=== PATIENT | female | born 1955 | race Caucasian/White ===

== ENCOUNTER → 2017-08-15 14:58 | Outpatient (CLI) | payer MEDICARE, MEDICAID ==
[~2017-08-15 14:58] MED LIST: CARAFATE1 G PO; CATAPRES0.1 MG PO; FLUTICASONE PRO16 GM NASAL; METOLAZONE2.5 MG PO; OXYCODONE HCL10 MG PO; PEPCID AC20 MG PO; ROCALTROL0.25 MCG PO; TENORMIN50 MG PO; ULTRAM50 MG PO
[2017-10-17 08:12] VITALS: BMI 27.2
== END | disposition home or self-care (01) ==
LOC: D.CT 07-30 14:30
DX: M51.26 Other intervertebral disc displacement, lumbar region (principal)

== ENCOUNTER 2017-10-17 06:42 | Day surgery (SDC) | payer MEDICARE, MEDICAID ==
[~2017-10-17] VITALS: Ht 154.9 cm; Wt 65.3 kg
[2017-10-17 07:23] LABS: BASOPHILS 0.6 % (0-2); EOSINOPHILS 1.9 % (0-7); HEMATOCRIT 32.7 % (36.0-48.0); HEMOGLOBIN 10.7 g/dL (12-16); IMMATURE GRANULOCYTES 0.2 % (0-5); LYMPHOCYTES 21.3 % (15-50); MCH 28.2 pg (26.0-34.0); MCHC 32.7 g/dL (31.0-37.0); MCV 86.1 fL (80.0-100.0); MEAN PLATELET VOLUME 9.1 fL (7.4-10.4); PLATELET COUNT 316 10x3/uL (130-400); RDW 16.3 % (11.5-14.5); WBC 10.2 10x3/uL (4.8-10.8)
[2017-10-17 07:27] LABS: ANION GAP 18.3 mmol/L (8-16); CALCIUM 7.2 mg/dL (8.5-10.1); CARBON DIOXIDE 21.5 mmol/L (21.0-32.0); CREATININE - SERUM 5.2 mg/dL (0.6-1.3); POTASSIUM - SERUM 3.8 mmol/L (3.5-5.1)
[2017-10-17 07:30] LABS: APTT 28.1 SECONDS (22.8-39.4); INR 1.03 (0.85-1.17); PROTIME 13.1 SECONDS (11.6-15.0)
[2017-10-17] MEDS ORDERED: OXYCODONE HCL10 MG PO (07:52)
[2017-10-17] MEDS ORDERED: ROCALTROL0.25 MCG PO (07:53)
[2017-10-17] MEDS ORDERED: CARAFATE1 G PO (07:53)
[2017-10-17] MEDS ORDERED: CATAPRES0.1 MG PO (07:54)
[2017-10-17] MEDS ORDERED: FLUTICASONE PRO16 GM NASAL (07:55)
[2017-10-17] MEDS ORDERED: TENORMIN50 MG PO (07:55)
[2017-10-17] MEDS ORDERED: METOLAZONE2.5 MG PO (07:56)
[2017-10-17] MEDS ORDERED: PEPCID AC20 MG PO (07:57)
[2017-10-17 08:12] VITALS: Ht 154.9 cm; Wt 65.3 kg
[2017-10-17] MEDS ORDERED: ULTRAM50 MG PO (12:41)
--- NOTE | 2017-10-17 14:22 | NUR ---
1400--IV DC'D, PT UP TO DRESS AT THIS TIME. DARIA KELLY 1415--DISCHARGE INSTRUCTIONS GIVEN, PT VERBALIZES UNDERSTANDING. PT OFF UNIT VIA WC. DARIA KELLY
--- NOTE | 2017-10-18 15:06 | OP ---
PATIENT NAME: STELLA HATHAWAY MEDICAL RECORD: [id number] :51 LOCATION:D.OPS ADMISSION DATE: SURGEON: KELIN SUN MD DATE OF OPERATION: 10/17/2017 REFERRING PHYSICIAN: Albaro Contreras MD PRIMARY CARE PHYSICIAN: Nirali Leonardo MD PREOPERATIVE DIAGNOSIS: Chronic kidney disease IV. POSTOPERATIVE DIAGNOSIS: Chronic kidney disease IV. OPERATION PERFORMED: Creation of a left wrist Reji-type radiocephalic AV fistula. SURGEON: Kelin Sun MD ANESTHESIA: Nerve block and MAC per Dr. Jones and PARTS ROOM ASSOCIATE. PREOPERATIVE NOTE: Ms. Hathaway is a very nice 61-year-old white female patient from [place]. She has chronic kidney disease. It is anticipated that she will require dialysis. She was referred to me for provision of dialysis access. I believe she has veins adequate for creation of a primary fistula in the left arm. Under nerve block anesthesia, which provided excellent vasodilatation and MAC per PARTS ROOM ASSOCIATE, the patient was placed in supine position on the operating table and the left arm prepped and draped in a sterile manner. The Sedan drain was used as a proximal venous tourniquet and nitroglycerin was applied topically to the arm and forearm. The patient's veins stood out nicely. I did examine her ultrasound and confirmed that the cephalic vein from the wrist to the deltopectoral groove was satisfactory. The radial artery of adequate diameter, 2.55 mm in diameter or more and I elected to go ahead with the radiocephalic fistula. A longitudinal incision was made in the cephalic vein, mobilized, treated with topical papaverine, it was quite redundant and her tissue turgor very lax and poor and rather friable, but I was able to mobilize what appeared to be a very adequate vein. The radial artery was then exposed and both vessels were controlled and occluded and approximated [id number] as needed with doubly looped Silastic tapes. I opened the vein for approximately 7 mm and flushed proximally and distally with heparinized saline and then I made a corresponding arteriotomy and flushed the radial artery with heparinized saline and performed a [id number] anastomosis with running 7-0 Prolene. When completed and the occluding loops and clamps were released, the suture line was hemostatic and I closed the cephalic vein distal to the anastomosis with 2 small Hemoclips to leave an effect in an end-to-side fistula. Hemostasis was obtained very carefully with electrocautery and I did also use some Fibrillar hemostatic material. The wound was closed with interrupted inverted 3-0 Vicryl and then running intracuticular 4-0 Monocryl and Dermabond glue. It was dressed with Maxorb Ag, Tegaderm and Cavilon skin prep and the patient awakened and taken to the recovery room in stable condition. Blood loss during the operation was trivial and unreplaced. All sponges, OPERATIVE REPORT [id number] STELLA HATHAWAY instruments and needles were accounted for. No drain was used and no surgical specimen was submitted for histopathology. I will plan for her to go home from the outpatient department today with a prescription for 50 mg tramadol tablet, she can take 1 every 4 hours p.r.n. for pain. She is given 20, no refills. I will be seeing her back in my office next week and I will plan to remove her dressing at that time. She is to continue her usual home diet and medications and resume activities as tolerated. TRANSINT:[id number] Voice Confirmation ID: [id number] DOCUMENT ID: [id number] KELIN SUN MD at 1506 CC: NIRALI LEONARDO MD and ALBARO CONTRERAS MD [id number] DICTATION DATE: 10/17/17 1248 LINING REPAIRER: 10/17/17 1417 [facility] 10/17/[id number] [place] [address]
== END 2017-10-17 14:15 | disposition home or self-care (01) ==
LOC: D.OPS 06:42
PROVIDERS: Surgery
DX: I12.9 Hypertensive chronic kidney disease with stage 1 through stage 4 chronic kidney disease, or unspecified chronic kidney disease (principal); N18.4 Chronic kidney disease, stage 4 (severe); E03.9 Hypothyroidism, unspecified; K21.9 Gastro-esophageal reflux disease without esophagitis; F17.200 Nicotine dependence, unspecified, uncomplicated; Z01.812 Encounter for preprocedural laboratory examination

== ENCOUNTER 2018-01-08 13:15 | Outpatient (CLI) | payer MEDICARE ==
[2018-01-08 14:34] VITALS: BMI 25.5
== END 2018-01-08 17:32 | disposition home or self-care (01) ==
LOC: D.OPS 13:15
DX: I65.29 Occlusion and stenosis of unspecified carotid artery (principal); R42 Dizziness and giddiness

== ENCOUNTER 2018-03-04 16:59 | Inpatient (IN) | payer MEDICARE ==
[~2018-03-04] VITALS: Ht 154.9 cm; Wt 61.0 kg
--- NOTE | ~2018-03-04 | OP ---
PATIENT NAME: STELLA TOPETE MEDICAL RECORD: [id number] :53 LOCATION:D.ICU D.2301 ADMISSION DATE:03/04/18 SURGEON: FRANKLYN COLIN MD DATE OF OPERATION: 04/06/2018 SURGEON: Franklyn Colin MD NUMERICAL CONTROL TOOL PROGRAMMER: TOMI Carmona PROCEDURE PERFORMED: Insertion of cuffed dialysis access catheter via left subclavian vein. PREOPERATIVE DIAGNOSIS: Chronic renal failure. ANESTHESIA: General endotracheal anesthesia. ESTIMATED BLOOD LOSS: Minimal. SPECIMENS: None. CONDITION: Stable. DISPOSITION: ICU. OPERATIVE FINDINGS: 1. Good catheter position and insertion by fluoroscopy with good blood return; 2 cc of 100 units per cc heparin solution were instilled into the catheter. 2. Right groin drain removed. 3. Chest tube was removed. 4. Left femoral access catheter removed, no apparent complications. PROCEDURE NOTE IN DETAIL: The patient was brought to the operating suite. General anesthesia was obtained and anesthesia placed a right subclavian double lumen catheter to the 15 cm maeve. Left chest was sterilely prepped and draped. Subclavian vein was cannulated with a single stick. Guidewire was placed. Skin incision was enlarged. Sequential dilators were placed. A split catheter was placed with the tip just at the atrium. Good blood return was noted. The catheter was sutured in place. The cuff was just below the skin level. There were no apparent complications. TRANSINT:[id number] Voice Confirmation ID: [id number] DOCUMENT ID: [id number] FRANKLYN COLIN MD at 1142 CC: [id number] DICTATION DATE: 04/06/18 1055 SALES COMMISSIONS ANALYST: 04/06/18 1303 ADM IN [facility] [address] [id number]
--- NOTE | ~2018-03-04 | TEE ---
PATIENT:STELLA TOPETE MEDICAL RECORD: [id number] LOCATION:[facility] D230 AGE OF PATIENT: 62 ADMISSION DATE: 03/04/18 SEX: F REFERRING PHYSICIAN: INTERPRETING PHYSICIAN: ELIANA BHAT MD TRANSESOPHAGEAL ECHOCARDIOGRAM Date: 04/03/18 DONAVAN CHARGE Y INDICATIONS: TRICUSPID VEG REMOVAL,AND VALVE REPAIR PREMEDICATIONS: PATIENT'S RESPONSE PROCEDURE DOPPLER MEASUREMENTS: LVIT 0 LA 0 PA 0 RA 0 LVOT 0 RVOT 0 Asc. 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 FINDINGS: 1. Left ventricular chamber size is within normal limits. Left ventricular systolic function is normal. Overall ejection fraction estimated at 60%. 2. Left atrium, right atrium, and right ventricle chamber size is within normal TRANSESOPHAGEAL ECHOCARDIOGRAM REPORT [id number] STELLA TOPETE. 3. Valvular structures: The tricuspid valve demonstrates endocarditis. The remaining valvular structures have normal structure and motion. 4. Doppler interrogation only reveals mild to moderate tricuspid regurgitation, no other valvular insufficiency or stenosis. 5. No evidence of pericardial effusion or left ventricular thrombus. TRANSINT:[id number] Voice Confirmation ID: [id number] DOCUMENT ID: [id number] at 1711 CC: [id number] DICTATION DATE: 04/07/18 1110 CLIENT TECHNICAL SUPPORT ASSOCIATE: 04/07/18 1413 ADM IN [facility] [address] [place] [address]
--- NOTE | ~2018-03-04 | HEMODYNAMI ---
PATIENT:STELLA TOPETE MEDICAL RECORD: [id number] : 51 LOCATION:D. D.2101 ADMISSION DATE: 03/04/18 Generatedon:04/02/20188:31 Patient name: STELLA TOPETE Patient #: [id number] SSN: : 1955 Date of study: 04/02/2018 Page: Of Hemodynamic Procedure Report Patient Data Patient Demographics Procedure consent was obtained First Name: STELLA Gender: Female Last Name: EFREM : 1955 [facility] Initial: NINO ESCOBEDO Age: 62 year(s) Patient #: [id number] Race: Unknown Additional ID: [id number] Contact details Address: [address] [address] State: [place] City: [place] Zip code: [address] Past Medical History Allergies Allergen Reaction Date Comments Reported Codeine 04/02/2018 Penicillins 04/02/2018 Other allergy 04/02/2018 oseltamivir, prochlor perazine Admission Admission Data Admission Date: 03/04/2018 Admission Time: 20:14 Room #: D.2101 Procedure Procedure Types Cath Procedure Diagnostic Procedure [facility] w/Coronaries Aortic Root Angiography Procedure Description Procedure Date Procedure Date: 04/02/2018 Procedure Start Time: 8:14 Procedure End Time: 8:31 Procedure Staff Name Function Cruz Zaman MD Performing Physician Kathryn Angel RT Monitor Favian Greene RN Nurse Jenny Hays RT Scrub Procedure Data Cath Procedure Fluoroscopy Diagnostic fluoroscopy Total fluoroscopy Time: 2.3 time: 2.3 min min Diagnostic fluoroscopy Total fluoroscopy dose: 201 dose: 201 mGy mGy Contrast Material Contrast Material Type Amount (ml) Isovue 370 86 Entry Location Entry Primary Successful Side Size Upsize Upsize Entry Closure Succes sful Closure Location (Fr) 1 (Fr) 2 (Fr) Remarks Device Remarks Femoral Right 5 Fr Exoseal artery Estimated blood loss: 5 ml Diagnostic catheters Device Type Used For End Catheter Placement MULTIPACK JL 4.0 5Fr Left Coronary catheter Angiography MULTIPACK 3DRC 5Fr Right Coronary catheter Angiography MULTIPACK Pigtail 5 Fr LV Angiography catheter MULTIPACK Pigtail 5 Fr Aortic Root catheter Angiography Procedure Complications No complications Procedure Medications Medication Administration Route Dosage 0.9% NaCl I.V. 30 ml/hr Oxygen NC 4 l/min Heparin Flush Bag added to field 2 bags (1000units/500ml NS) Lidocaine 2% added to field 20 Fentanyl I.V. 25 mcg Hemodynamics Rest Heart Rate: 83 (bpm) Pressure Samples Time Site Value (mmHg) Purpose Heart Use Rate(bpm) 8:23 LV 122/-2,9 EDP 83 8:23 AO 124/61(87) Pullback 82 8:23 LV 113/1,10 Pullback 82 Gradients Valve Time Site 1 Site 2 Mean SEP/DFP Peak To Heart Use (mmHg) (sec/min) Peak Rate (mmHg) (bpm) Aortic 8:23 LV AO 0 9 0 82 113/1,10 124/61(87) Calculations Valve P-P Mean Valve Index Valve Source Name Gradient Area Flow (cm2) Aortic 0 0 0 0 Snapshots Pre Cath Intra NCS Post Cath Vital Signs Time Heart Resp SPO2 etCO2 NIBP (mmHg) Rhythm Pain Sedation Rate (ipm) (%) (mmHg) Status Level (bpm) 8:05:14 86 17 88 0 154/95(126) NSR 0 (11) 10(A) , No pain 8:09:08 84 14 93 0 151/94(126) NSR 0 (11) 10(A) , No pain 8:13:01 84 15 92 0 158/92(130) NSR 0 (11) 10(A) , No pain 8:16:53 84 16 93 0 142/86(117) NSR 0 (11) 10(A) , No pain 8:20:44 85 25 90 0 143/90(118) NSR 0 (11) 10(A) , No pain 8:24:38 83 16 90 0 150/87(123) NSR 0 (11) 10(A) , No pain 8:28:34 84 23 91 0 140/82(118) NSR 0 (11) 10(A) , No pain Medications Time Medication Route Dose Verified Delivered Reason Notes Effec tiveness by by 8:07:54 0.9% NaCl I.V. 30 Favian Favian Per ml/hr Ramona Greene physician RN RN 8:08:08 Oxygen NC 4 Favian Favian Per l/min Ramona Greene physician RN RN 8:08:19 Heparin Flush added 2 Favian Favian used for Bag to bags Ramona Greene procedure (1000units/500ml field RN RN NS) 8:08:32 Lidocaine 2% added 20ml Favian Favian for local to vial Ramona Greene anesthetic field RN RN 8:13:11 Fentanyl I.V. 25 Favian Favian for mcg Ramona Greene sedation RN salesforce developer Log Time Note 6:56:57 Time tracking: Regular hours (M-F 7:00 - 5:00) 6:57:01 Plan of Care:Hemodynamics will remain stable., Cardiac rhythm will remain stable., Comfort level will be maintained., Respiratory function will remain adequate., Patient/ family verbilizes understanding of procedure., Procedure tolerated without complication., Recovers from procedure without complications.. 7:33:28 Favian Greene RN sent for patient. Start room use. 7:43:00 Patient received from PCU to CCL 3 Alert and oriented. Tansferred to table in Supine position. 7:43:01 Warm blankets applied, and musa hugger turned on for patient comfort. 7:43:01 Correct patient and procedure confirmed by team. 7:43:03 Signed procedure consent form obtained from patient. 7:43:05 ECG and BP/O2 sat monitors applied to patient. 7:43:06 Full Disclosure recording started 7:51:25 Rhythm: sinus rhythm 8:04:33 Vital chart was started 8:04:43 IV right antecubital D/C'd due to infiltration. 8:04:54 IV started by Favian Greene RN inright wrist with a 22 gauge IV catheter with 0.9% NaCl at KVO. 8:05:17 H&P Date Dictated: 03/24/2018 Within 30 days and on chart.. 8:05:18 Pre-procedure instructions explained to patient. 8:05:19 Pre-op teaching completed and patient verbalized understanding. 8:05:21 Family in patients room. 8:05:24 Patient NPO since Midnight. 8:05:36 Patient allergic to Codeine 8:05:43 Patient allergic to Penicillins 8:06:36 Patient allergic to Other allergyoseltamivir, prochlor perazine 8:06:40 Is the patient allergic to Iodine/contrast media? No. 8:06:42 Is patient on blood thinner?No 8:06:43 Patient diabetic? No. 8:07:21 Previous problem with sedation/anesthesia? No ? 8:07:22 Snore? Yes 8:07:23 Sleep apnea? No 8:07:23 Deviated septum? No 8:07:24 Opens mouth fully? Yes 8:07:25 Sticks out tongue? Yes 8:07:27 Airway obstruction? No ? 8:07:28 Dentures? No ? 8:07:31 Pre procedure: right dorsailis pedis pulse 1+ Palpable, but thready & weak; easily obliterated 8:07:33 Patient pain scale 0/10 ?. 8:07:38 Lab results completed and on chart. 8:07:40 Right groin area was prepped with chlora-prep and draped in sterile fashion 8:07:41 Alarms reviewed by R. N. 8:07:41 Sharps counted by scrub and verified by R.N. 8:07:44 Use device set Femoral Dx 8:07:44 ACIST Syringe (90205) opened to sterile field. 8:07:45 Bag Decanter (2002S) opened to sterile field. 8:07:45 Medline Cath Pack ([id number]) opened to sterile field. 8:07:46 DIAGNOSTIC WIRE .035 260cm J wire (175020) opened to sterile field. 8:07:47 ACIST Hand Control (92008) opened to sterile field. 8:07:47 ACIST Manifold (44718) opened to sterile field. 8:07:48 DIAGNOSTIC Multipack 5Fr catheter set ([id number]) opened to sterile field. 8:07:49 Tegaderm 4 x 4 (1626W) opened to sterile field. 8:07:49 PERCUTANEOUS ENTRY 19GA needle opened to sterile field. 8:07:50 SHEATH Prelude 5Fr 0.035 (BUP-9G-66-035) opened to sterile field. 8:07:54 0.9% NaCl 30 ml/hr I.V. was administered by Favian Greene RN; Per physician; 8:08:08 Oxygen 4 l/min NC was administered by Favian Greene RN; Per physician; 8:08:19 Heparin Flush Bag (1000units/500ml NS) 2 bags added to field was administered by Favian Greene RN; used for procedure; 8:08:32 Lidocaine 2% 20ml vial added to field was administered by Favian Greene RN; for local anesthetic; 8:12:18 Final Timeout: patient, procedure, and site verified with staff and physician. All members of the team are in agreement. 8:12:20 Right groin site verified by team. 8:12:23 Physical assessment completed. ASA score P 2 - A patient with mild systemic disease as per Cruz Zaman MD. 8:12:26 Sedation plan: IV Moderate Sedation Medication:Versed, Fentanyl 8:13:11 Fentanyl 25 mcg I.V. was administered by Favian Greene RN; for sedation; 8:14:44 Procedure started. 8:14:47 Local anesthetic to right femoral artery with Lidocaine 2% by Cruz Zaman MD.INITIAL ACCESS ONLY 8:15:28 A 5 Fr sheath was inserted into the Right Femoral artery 8:15:30 Baseline sample Acquired. 8:16:49 A MULTIPACK JL 4.0 5Fr catheter was advanced over the wire and used for Left Coronary Angiography. 8:19:58 Catheter removed. 8:20:06 A MULTIPACK 3DRC 5Fr catheter was advanced over the wire and used for Right Coronary Angiography. 8:21:09 Catheter removed. 8:22:14 A MULTIPACK Pigtail 5 Fr catheter was advanced over the wire and used for LV Angiography. 8:22:52 Zero performed for pressure channel P1 8:22:55 Zero performed for pressure channel P1 8:23:26 LV gram done using RAMÍREZ 8:23:30 EF : 60 % 8:23:46 Injector settings: Ml/sec: 10, Volume: 20, 8:23:47 LV hemodynamics recorded. 8:24:01 A MULTIPACK Pigtail 5 Fr catheter was advanced over the wire and used for Aortic Root Angiography. 8:24:31 Catheter removed. 8:24:44 Sheath removed intact; hemostasis achieved with Exoseal to the Right Femoral artery. 8:24:47 EXOSEAL 5Fr (EX500) opened to sterile field. 8:24:52 Procedure ended.(Physican Out) 8:25:10 Fluoroscopy time 02.30 minutes. 8:25:15 Fluoroscopy dose: 201 mGy 8:25:15 Flurop Dose total: 201 8:25:51 Contrast amount:Isovue 370 86ml. 8:25:52 Sharps counted by scrub and verified by R.N. 8:25:53 Insertion/operative site no bleeding no hematoma. 8:25:56 Post-op/insertion site Right Femoral artery dressed using a 4 x 4 and Tegaderm. 8:25:59 Post right femoral artery:stable, clean and dry 8:26:04 Post-procedure physical assessment completed. ASA score P 2 - A patient with mild systemic disease as per Cruz Zaman MD. 8:26:06 Post procedure rhythm: unchanged. 8:26:09 Estimated blood loss: 5 ml 8:26:10 Post procedure instruction explained to patient.Patient verbalizes understanding. 8:26:10 Patient needs reinforcement of post procedure teaching. 8:26:19 Procedure type changed to Cath procedure, Diagnostic procedure, LHC, LHC w/Coronaries, Aortic Root Angiography 8:26:31 Procedure Complication : No complications 8:26:33 See physician's report for complete and final results. 8:27:27 Procedure and supply charges have been captured, reviewed, submitted and are correct. 8:30:41 Vital chart was stopped 8:30:43 Report given to PCU. 8:30:47 Patient transfered to PCU with Bed. 8:31:00 Procedure ended. 8:31:00 Full Disclosure recording stopped 8:31:05 End room use (Document Last) Device Usage Item Name Manufacture Quantity Catalog Number Hospital Part Current M inimal Lot# / Charge Number Stock Stock Serial# Code ACIST Syringe Acist 1 75661 898704 869911 [id number] 2 0 (84525) [employer] Bag Decanter Microtek 1 746672 00837 861894 5 () Medical Inc. Medline Cath Cardinal 1 [id number] 525617 64201 614409 5 [facility] ([id number]) DIAGNOSTIC WIRE St Antione 1 174704 326646 235472 673467 3 0 .035 260cm J wire (312450) ACIST Hand Acist 1 33154 295518 014849 521480 5 Control (98521) [employer] Inc ACIST Manifold Acist 1 06626 847860 526382 236355 5 (56617) [employer] Inc DIAGNOSTIC Cardinal 1 [id number] 142355 24893 331556 3 0 Multipack 5Fr Health catheter set ([id number]) Tegaderm 4 x 4 3M 1 1626W 584975 788199 042172 5 (1626W) PERCUTANEOUS Cook Medical 1 S50704 584160 794603 5 ENTRY 19GA needle SHEATH Prelude Merit 1 WAA-5M-27-035 108613 778425 263778 5 5Fr 0.035 Medical ([id number]-[id number]) MULTIPACK JL Cardinal 1 954151 5 4.0 5Fr Health catheter MULTIPACK 3DRC Cardinal 1 576995 5 5Fr catheter Health MULTIPACK Cardinal 1 684221 5 Pigtail 5 Fr Health catheter EXOSEAL 5Fr Cardinal 1 EX500 541905 587696 244647 1 0 (EX500) Health Signature Audit [place] Stage Time Signature Unsigned Intra-Procedure 04/02/2018 Kathryn 8:31:19 AM Counts RT(R) Signatures Monitor : Kathryn Signature : Counts RT Date : Time : [address] [facility] [place] [address]
--- NOTE | ~2018-03-04 | OP ---
PATIENT NAME: STELLA TOPETE MEDICAL RECORD: [id number] :51 LOCATION:D.M2 D.2101 ADMISSION DATE:03/04/18 SURGEON: ALBARO DALLAS MD DATE OF OPERATION: 03/26/2018 PREOPERATIVE DIAGNOSIS: End-stage renal disease without chronic access for hemodialysis. POSTOPERATIVE DIAGNOSES: End-stage renal disease without chronic access for hemodialysis. PROCEDURES: 1. Placement of right internal jugular 19-cm HemoSplit catheter (tunneled cuffed dual-lumen hemodialysis catheter) under fluoroscopic guidance. 2. Immediate surgeon interpretation of fluoroscopic images. SURGEON: Albaro Dallas MD SHELL SIEVE OPERATOR: None. BLOOD LOSS: Minimal. ANESTHESIA: Local with IV sedation. COMPLICATIONS: None. The risks, possible complications and alternatives to procedure were explained to the patient. She elects to proceed. No family members were present after the procedure. No radiologist was present for the procedure. Static fluoroscopic images were obtained. These are interpreted by the surgeon. The surgeon interpretation is listed below. The images are kept in the PACS system. OPERATIVE COURSE: The patient was conveyed the operating room electively on 03/26/2018. IV sedation was induced by the anesthesia staff. The right neck and right upper chest were sterilely prepped and draped. A local anesthetic was used to infiltrate the skin and subcutaneous tissues inferior to the right clavicle as well as at the base of the right neck. A skin incision was accomplished around the indwelling Trialysis catheter at the right IJ site. Another skin incision was accomplished in the right superior anterior infraclavicular chest. I tunneled a 19-cm HemoSplit catheter from the chest incision to the neck incision. I then advanced a 0.035 Glidewire down through the longest lumen of the Trialysis catheter. The Trialysis catheter was removed over the wire. Vascular dilators were then advanced over the wire. I witnessed this under fluoroscopy. A dilator sheath was then advanced over the Glidewire. The wire and dilator were removed. Through the sheath, the tips of the HemoSplit catheter were advanced. The Peel-Away sheath was then removed. I then tugged on the hub of the HemoSplit catheter in order to seat the cuff in subcutaneous tissues. An image was obtained over the right chest and mediastinum and this revealed that the longest HemoSplit catheter tip appeared to be within the superior vena cava. There was no radiographic evidence of complication. No evidence of kinking or twisting of the HemoSplit catheter. OPERATIVE REPORT [id number] STELLA TOPETE Both lumens flushed easily and aspirated dark, nonpulsatile blood. The neck incision was closed with a single horizontal mattress 3-0 Vicryl suture. The hubs of HemoSplit catheter were sutured to the underlying skin with 2-0 nylons. Both lumens were flushed with heparinized saline and then concentrated heparin. Sterile dressings were applied. The patient was then conveyed to the recovery room. TRANSINT:[id number] Voice Confirmation ID: [id number] DOCUMENT ID: [id number] ALBARO DALLAS MD at 1507 CC: NIRALI LEONARDO MD and ROBERT HAND MD [id number] DICTATION DATE: 03/26/18 1004 INSPECTOR ALIGNING: 03/26/18 1431 ADM IN [facility] [address] [place] [address]
--- NOTE | ~2018-03-04 | OP ---
PATIENT NAME: STELLA TOPETE MEDICAL RECORD: [id number] :51 LOCATION:D.MS Aguilar2231 ADMISSION DATE:03/04/18 SURGEON: SINDHU AU MD DATE OF OPERATION: 03/12/2018 PREOPERATIVE DIAGNOSIS: End-stage renal disease. POSTOPERATIVE DIAGNOSIS: End-stage renal disease. PROCEDURE: Left IJ 12.5 cm Trialysis catheter placement. SURGEON: Sindhu Au MD REPORT OF PROCEDURE: The patient's left neck was prepped and draped in sterile fashion. A total of 5 cc of 1% lidocaine was infused into the subcutaneous tissues. Using ultrasound guidance, a needle was used to cannulate the left internal jugular vein and a guidewire was advanced with ease. Over this wire, a dilator was placed followed by the Trialysis catheter. The catheter aspirated nonpulsatile dark blood and flushed easily in all 3 ports. This was sutured into place with 3-0 silk ties and dressed appropriately. COMPLICATIONS: None. CONDITION: Stable. ANESTHESIA: Local. BLOOD LOSS: Minimal. Procedure done at the bedside. TRANSINT:[id number] Voice Confirmation ID: [id number] DOCUMENT ID: [id number] SINDHU AU MD at 1052 CC: [id number] DICTATION DATE: 03/12/18926 SHEET ROLLER OPERATOR: 03/12/18 1048 ADM IN [id number] [place] [address]
--- NOTE | ~2018-03-04 | EC ---
PATIENT:STELLA TOPETE DATE OF SERVICE: 03/04/18 SEX: F MEDICAL RECORD: [id number] DATE OF : 51 LOCATION:D.M2 D.210 AGE OF PATIENT: 62 ADMISSION DATE: 03/04/18 REFERRING PHYSICIAN: INTERPRETING PHYSICIAN: JESSICA GAMBLE MD ECHOCARDIOGRAM REPORT ECHO CHARGES 5 ECHO LIMITED Date: 03/27 CLINICAL DIAGNOSIS: MRSA ECHOCARDIOGRAPHIC MEASUREMENTS (adult normal given) AC root (d.<3.7cm) 0 cm LV Septum d (<1.2 cm> 0 cm Valve Excursion 0 cm LV Septum (systole) 0 cm Left Atria (s.<4.0cm> 0 cm LVPW d(<1.2cm) 0 cm RV (d.<2.3cm) 0 cm LVPW (sytole) 0 cm LV diastole(<5.6CM) 0 cm MV E-F(>70mm/sec) 0 cm LV systole 0 cm LVOT Diameter 0 cm MV exc.(>10mm) 0 cm Est.ejection fraction (50-75%) % DOPPLER: LVIT 0 cm/sec A 0 cm/sec E 0 cm/sec LA 0 cm/sec RVSP 0 mmHg LVOT 0 cm/sec AOP1/2T 0 m/s Asc. Ao 0 cm/sec RVOT 0 cm/sec RA 0 cm/sec PA 0 cm/sec AV Gradient Peak 0 mmHg AV Mean 0 mmHg AV Area 0 cm MV Gradient Peak 0 mmHg MV Mean 0 mmHg MV Area 0 cm COMMENTS: LIMITED STUDY (2-D ONLY) Steamer Blocker: Roscoe DE LA ROSA Lute Packer Or Applier: 3 Dr. Yanez TAPE# PACS Pericardial Effusion N DATE OF SERVICE: Limited study echo to assess vegetation, tricuspid valve vegetation is noted on tricuspid valve measuring approximately 0.7 cm by approximately 2 cm. TRANSINT:[id number] Voice Confirmation ID: [id number] DOCUMENT ID: [id number] ECHOCARDIOGRAM REPORT [id number] STELLA TOPETE GREGORY A MD at 0847 CC: [id number] DICTATION DATE: 03/28/18927 IT SUPPORT TECHNICIAN: 03/28/18 1419 ADM IN [place] [id number] [place] [address]
--- NOTE | ~2018-03-04 | CN ---
PATIENT NAME:STELLA HATHAWAY MEDICAL RECORD: [id number] : 51 LOCATION:D. D.2132 ADMIT DATE: 03/04/18 ACCOUNT: [id number] CONSULTING PHYSICIAN: MARIA C SOUTH MD REFERRING PHYSICIAN: NIRALI LEONARDO MD DATE OF CONSULTATION: 04/04/2018 CONSULT REQUESTING PHYSICIAN: Franklyn Villa MD REASON FOR CONSULTATION: Vent management, pneumonia. HISTORY OF PRESENT ILLNESS: Ms. Hathaway is a 62-year-old female, she underwent for tricuspid valve replacement after acute bacterial endocarditis. She was seen by Dr. Guzman and she was on antibiotic. Postprocedure, the patient did fairly and the patient was extubated last night. Now, she is on room air, awake and alert, not in acute distress. The patient is lethargic. The history is taken mainly by reviewing the patient's note as well as talking to the nursing staff. REVIEW OF SYSTEMS: Mainly in the history of present illness. PAST MEDICAL HISTORY: 1. History of pneumonia. 2. History of colorectal cancer. 3. Cataract surgery. 4. History of vertigo. 5. Gastroesophageal reflux disease. 6. Chronic kidney disease and end-stage renal disease. PAST SURGICAL HISTORY: 1. Hysterectomy. Now, she is status post tricuspid valve replacement. 2. Cholecystectomy. 3. . 4. Appendectomy. ALLERGIES: SHE IS ALLERGIC TO PENICILLIN, CODEINE, PROCHLORPERAZINE, AND NALOXONE. MEDICATIONS: MoboFreetech is reviewed. PERSONAL AND SOCIAL HISTORY: The patient is a nonsmoker, nondrinker. FAMILY HISTORY: Noncontributory. PHYSICAL EXAMINATION: GENERAL: Now, the patient is lying comfortably in bed. She is not in acute distress. VITAL SIGNS: The blood pressure is 105/49, pulse is 69, respiration 20, temperature 98.6, and SpO2 of 94% on 4.5 liters nasal cannula. HEENT: Conjunctivae are pale. Sclerae are not icteric. NECK: Supple, no JVD. CHEST: The chest excursion is minimal on both sides, they are bibasilar crackles. No wheezing. HEART: Rate and rhythm regular, grade 2/6 systolic murmur. ABDOMEN: Soft, bowel sounds present. No hepatosplenomegaly. CONSULT REPORT [id number] STELLA HATHAWAY RECTAL: Deferred. EXTREMITIES: No cyanosis, no clubbing, 1+ pedal edema. SKIN: Warm, normal turgor. CENTRAL NERVOUS SYSTEM: The patient is awake and alert. There are no obvious cranial nerve abnormality. The gait was not tested. LABORATORY DATA: CBC: The WBC is 24.1, hemoglobin 8.9, hematocrit 27.1, the platelet count is 155. Chemistry: Sodium 147, potassium 4.5, BUN is 28, creatinine 3.3, bicarbonate is 25. IMAGING: Chest radiograph: There is infiltrate in the left lower lobe with consolidation. There is small left pleural effusion. IMPRESSION: 1. Acute hypoxic respiratory failure post-procedure, improved. 2. Pulmonary edema. 3. Pneumonia, left lower lobe, most likely hospital-acquired pneumonia and acute bacterial endocarditis. 4. Status post tricuspid valve replacement by Dr. Villa. 5. Leukocytosis. 6. Bacteremia. 7. End-stage renal disease, on hemodialysis. 8. Pulmonary hypertension secondary to tricuspid regurgitation. RECOMMENDATION: 1. Continue vancomycin and Cubicin antibiotic per Dr. Guzman. 2. Supplemental oxygen. 3. Follow up labs and chest radiograph. 4. DVT prophylaxis. 5. Albuterol and ipratropium nebulizer as required. 6. Incentive spirometry and flutter valve q.2. hourly when awake. Dr. Villa, thank you for involving me in the care of Ms. Hathaway. The critical care time is 45 minutes. TRANSINT:[id number] Voice Confirmation ID: [id number] DOCUMENT ID: [id number] MARIA C SOUTH MD at 1806 CC: [id number] DICTATION DATE: 04/04/181709 RING CUTTER LATHE OPERATOR: 04/04/181941 ADM IN [facility] [address] [place] [address]
--- NOTE | ~2018-03-04 | OP ---
PATIENT NAME: STELLA TOPETE MEDICAL RECORD: [id number] :51 LOCATION:D.CVI D.CV01 ADMISSION DATE:03/04/18 SURGEON: FRANKLYN COLIN MD DATE OF OPERATION: 04/03/2018 SURGEON: Franklyn Colin MD LEAD SYSTEMS ARCHITECT: Chacho Kidd MD and TOIM Carmona OPERATION PERFORMED: 1. Excision of tricuspid valve endocarditis and infected atrial and ventricular pacemaker leads. 2. Removal of permanent pacemaker. 3. Tricuspid valve annuloplasty. 4. Drainage of right femoral hematoma. 5. Insertion of left femoral dialysis catheter. PREOPERATIVE DIAGNOSIS: Tricuspid valve endocarditis and femoral hematoma status post cardiac catheterization. POSTOPERATIVE DIAGNOSIS: Tricuspid valve endocarditis and femoral hematoma status post cardiac catheterization. ANESTHESIA: General endotracheal anesthesia. ESTIMATED BLOOD LOSS: Total cardiopulmonary bypass with Cell Saver retransfusion, 2 packed red blood cells, 2 FFP, 1 platelets. SPECIMENS: 1. Complex including amputated leads and endocarditis fused to part of the valve and separately part of the septal leaflet of the tricuspid valve with vegetation. 2. Culture of femoral hematoma. COMPLICATIONS: None. CONDITION: Critical. DISPOSITION: CV ICU. OPERATIVE FINDINGS: 1. Transesophageal echocardiography confirmed the preoperative findings of tricuspid valve vegetation, likely involving the leads. No mitral valve involvement. Aortic valve also clear, good contractility. 2. Pacemaker generator freed and removed from the leads. The leads were freed back above the suture sleeve and well below the clavicle almost down to the subclavian. 3. Using separate instruments, the chest was opened and after cannulation, cardiopulmonary bypass, cross clamp and total bypass with caval tapes, the atrium was opened revealing that the leads were involved in the vegetation. The leads were therefore were then amputated along with the vegetation, which was removed in 2 sections. 4. The anterior and part of the posterior leaflet of the tricuspid valve were preserved and free of vegetation and after a 26-mm annuloplasty ring, there was good coaptation. OPERATIVE REPORT [id number] STELLA TOPETE 5. Separation of cardiopulmonary bypass with transesophageal echocardiography revealing essentially no tricuspid regurgitation, but no evidence of stenosis. 6. Drainage of about 100 cc of clotted hematoma from below the right groin. INDICATION: Tricuspid valve endocarditis with MRSA. OPERATIVE PROCEDURE IN DETAIL: The patient was brought to the operative suite. General anesthesia was obtained. The patient was prepped and draped. The left groin was free of hematoma and a Trialysis catheter was placed, although the wire would not pass more than about 30 cm. The catheter had good blood return. It was sutured in place and used for access. The right groin had a hematoma and the right IJ split cath was removed as it would be in the way of the atrium. The pacemaker pocket was entered. The pacemaker generator was removed from the leads. The leads were uncoiled. Suture sleeves debrided back and this was taken to back about the level just above the subclavian vein. Using separate instruments in a separate field, the median sternotomy incision was made. Subcutaneous tissue was divided with electrocautery. The sternum was divided with a saw. The hemostasis was ensured. Pericardium was opened. Heparin was given. The aorta was cannulated. Bicaval cannulation was performed. The patient was placed on cardiopulmonary bypass. Caval tapes were placed. Crossclamp was placed and a 14-gauge angiocatheter was used for the antegrade cardioplegia, which was repeated at 15-minute intervals with a crossclamp time with good cardioplegic arrest. Caval tapes were used for total bypass and isolation of the right atrium oblique right atriotomy was performed. The leads were visualized and the atrial and ventricular wire leads were then cut from the trabeculae of the heart. The leads were amputated and the vegetation including the lead was removed as well as a separate portion of the leaflet that had vegetation. The remainder of the leads were then removed at the pacemaker pocket level with no apparent bleeding complication. Thorough irrigation was undertaken and all bits of vegetation were removed. The valve was sized and an annuloplasty ring was sutured along the tricuspid valve annulus. The patient was rewarmed. Atriotomy was closed. The crossclamp was removed. The patient resumed a spontaneous rhythm. Atrial and ventricular pacing wires were placed and the patient was paced. The patient fully rewarmed and weaned from cardiopulmonary bypass and was stable. The patient was decannulated. Protamine was given. All cannula sites were oversewn. Thorough irrigation was undertaken with vancomycin irrigation. Drains were placed in mediastinum and then one in the right pleural cavity. There was no blood or fluid in the right pleural cavity. With the patient stable, the sternal wires were placed and a Robicsek weave was used on either side. The patient was stable. The chest was closed. Fascia was closed. Subcutaneous tissue was closed. Grazyna were used. At the pacemaker site, thorough vancomycin irrigation was performed. The pectoral muscle was reapproximated subcutaneous and skin clips were placed. Then at the groin, a stab wound incision about 2 cm long was made entering the subcutaneous area until the hematoma which had been earlier located by ultrasound was entered and bluntly debrided and removed. Thorough vancomycin irrigation was performed. Cultures were taken. A drain was placed through a OPERATIVE REPORT [id number] STELLA TOPETE separate stab wound and the groin area was closed with subcutaneous and grazyna. The patient is stable to CV ICU. TRANSINT:[id number] Voice Confirmation ID: [id number] DOCUMENT ID: [id number] FRANKLYN COLIN MD at 0835 CC: NIRALI LEONARDO MD, Terra PEARSON and ELVIN [id number] DICTATION DATE: 04/03/18 184 CERAMIC RESEARCH ENGINEER: 04/03/18 2305 ADM IN [facility] [address] [place] [address]
--- NOTE | ~2018-03-04 | OP ---
PATIENT NAME: STELLA HATHAWAY MEDICAL RECORD: [id number] :51 LOCATION:D.M2 D.2101 ADMISSION DATE:03/04/18 SURGEON: KELIN SUN MD DATE OF OPERATION: 03/17/2018 PREOPERATIVE DIAGNOSES: 1. End-stage renal disease and dependence on hemodialysis. 2. Acute onset of sepsis and bacteremia associated with a dialysis catheter. PREOPERATIVE DIAGNOSES: 1. End-stage renal disease and dependence on hemodialysis. 2. Acute onset of sepsis and bacteremia associated with a dialysis catheter. OPERATION PERFORMED: Insertion of a new right internal jugular Trialysis catheter 19-cm long done under local with monitoring only per anesthesia and of course ultrasound guidance. SURGEON: Kelin Sun MD REFERRING PHYSICIAN: Albaro Contreras MD PREOPERATIVE NOTE: Ms. Hathaway is a 62-year-old white female with longstanding history of chronic kidney disease and some problems with noncompliance and generally with denial of seriousness of her illness. She presented this time with an episode of syncope, was found at home and brought to the hospital last week. She was found to be uremic and had to start dialysis last week. Dr. Leal placed a temporary left internal jugular Trialysis catheter at Dr. Contreras's request. Ms. Hathaway is an old patient of mine. I created a left radiocephalic AV fistula about 6 months ago, which has not matured satisfactorily and is not usable at this point and will need further evaluation, but the patient today having had blood cultures positive for negative organisms from the left internal jugular catheter is brought to the operating room with plans to remove that catheter and place a new one elsewhere. Under the watchful eye of MARINE WATER TENDER, the patient was brought to the operating room, placed on the table, prepped and draped in a sterile manner. She was kept in a slight reverse Trendelenburg position. I located the right internal jugular vein and noted it to be fairly plump, but otherwise was completely normal and there were no wires or pacemaker leads there. No evidence of thrombosis, etc. Local anesthesia was infiltrated into the skin and subcutaneous tissues. A small incision was made at the base of the neck there over the vein and with continuous ultrasound monitoring, a needle and guidewire were introduced and the guidewire advanced from the right internal jugular vein into the right atrium. Under fluoroscopy, dilators were passed over the wire and lastly a 19-cm Trialysis catheter was inserted. All 3 lumens were accessed and aspirated, free return of blood from each was confirmed. They were then flushed with saline and heparin locked, clamped and capped. A 2-0 Prolene suture was used to fix the catheter to the skin near the exit site and a sterile CVL dressing including a chlorhexidine patch was applied. I then removed the sutures and removed the left internal jugular Trialysis catheter and hemostasis was obtained there with a period of direct pressure and after that a sterile dry gauze dressing was applied. The old catheter was discarded. The patient was then returned to her bed in the ICU. OPERATIVE REPORT [id number] STELLA HATHAWAY Blood loss during the procedure was nil. All sponges, instruments, and needles were accounted for. No drain was used and no surgical specimen submitted. PLAN: The patient will need to have a tunneled dialysis catheter inserted once her sepsis and bacteremia have resolved. She will need to subsequently have a fistulogram done at [facility] and indicated procedures, possibly open surgical revision or creation of a new access. TRANSINT:[id number] Voice Confirmation ID: [id number] DOCUMENT ID: [id number] KELIN SUN MD at 1241 CC: ALBARO CONTRERAS MD [id number] DICTATION DATE: 03/17/18 1551 RAILROAD ACCOUNTANT: 03/17/18 1612 ADM IN [place] [id number] [place] [address]
[2018-03-04 17:50] LABS: BASOPHILS 0.1 % (0-2); EOSINOPHILS 0 % (0-7); HEMATOCRIT 27.5 % (36.0-48.0); HEMOGLOBIN 9.1 g/dL (12-16); IMMATURE GRANULOCYTES 0.6 % (0-5); MCH 27.7 pg (26.0-34.0); MCHC 33.1 g/dL (31.0-37.0); MCV 83.6 fL (80.0-100.0); MONOCYTES 9.2 % (2-11); NEUTROPHILS 83.1 % (40-80); PLATELET COUNT 263 10x3/uL (130-400); RBC 3.29 10x6/uL (4.00-5.40); RDW 16.2 % (11.5-14.5); WBC 12.7 10x3/uL (4.8-10.8)
[2018-03-04 18:02] LABS: INR 1.24 (0.85-1.17); PROTIME 15.1 SECONDS (11.6-15.0)
[2018-03-04 18:03] LABS: APTT 29.3 SECONDS (22.8-39.4)
[2018-03-04 18:20] LABS: ALKALINE PHOSPHATASE 67 U/L (46-116); ALT (SGPT) 16 U/L (10-68); CALC OSMOLALITY 306 mosm/kg (275-300); CHLORIDE - SERUM 99 mmol/L (98-107); CKMB 12.9 U/L (0.0-3.6); CREATINE KINASE 706 UL (21-215); CREATININE - SERUM 10.5 mg/dL (0.6-1.3); GLUCOSE 76 mg/dL (74-106); POTASSIUM - SERUM 4.9 mmol/L (3.5-5.1); PROTEIN - SERUM 7.2 g/dL (6.4-8.2); SODIUM 138 mmol/L (136-145); TROPONIN-I 0.026 ng/mL (0.000-0.060); UREA NITROGEN 101 mg/dL (7-18); eGFR NON AFRICAN AMERICAN 4 mL/min (90-120)
[2018-03-04 18:34] LABS: CALCIUM 5.6 mg/dL (8.5-10.1); CARBON DIOXIDE 9.4 mmol/L (21.0-32.0)
[2018-03-04 20:01] LABS: APPEARANCE CLEAR (CLEAR); BILIRUBIN NEGATIVE (NEGATIVE); COLOR YELLOW (YELLOW); GLUCOSE NEGATIVE (NEGATIVE); KETONE NEGATIVE (NEGATIVE); NITRITE NEGATIVE (NEGATIVE); PROTEIN 1+ mg/dL (NEGATIVE); SPECIFIC GRAVITY 1.015 (1.005-1.020); UROBILINOGEN NORMAL (NORMAL)
[2018-03-04 20:03] LABS: BACTERIA MODERATE /hpf (NONE SEEN); EPITHELIAL CELLS 0-5 /hpf (0-5); RED CELLS - URINE OCC /hpf (0-5); WHITE CELLS - URINE 25-50 /hpf (0-5)
[2018-03-04 21:37] VITALS: BP 129/80; BMI 25.5
[2018-03-05 04:00] VITALS: BP 140/90
[2018-03-05 08:55] VITALS: BP 148/63
[2018-03-05 10:22] LABS: ANION GAP 28.5 mmol/L (8-16); CARBON DIOXIDE 18.3 mmol/L (21.0-32.0); CREATININE - SERUM 10.3 mg/dL (0.6-1.3); POTASSIUM - SERUM 3.8 mmol/L (3.5-5.1)
[2018-03-05 10:23] LABS: CALCIUM 5.1 mg/dL (8.5-10.1)
[2018-03-05 11:09] VITALS: BMI 25.5
[2018-03-05 11:14] LABS: ERYTHROCYTE SEDIMENTATION RATE 50 mm/hr (0-30)
[2018-03-05 12:23] VITALS: BP 139/84
[2018-03-05 21:00] VITALS: BP 125/71
[2018-03-06 09:52] VITALS: BP 169/67
[2018-03-06 10:42] LABS: CREATININE - SERUM 9.6 mg/dL (0.6-1.3)
[2018-03-06 10:47] LABS: ANION GAP 18.4 mmol/L (8-16); CARBON DIOXIDE 28.8 mmol/L (21.0-32.0); POTASSIUM - SERUM 3.2 mmol/L (3.5-5.1)
[2018-03-06 10:48] LABS: CALCIUM 4.6 mg/dL (8.5-10.1)
[2018-03-06 11:27] LABS: PRO/CRE RATIO URINE 4.4 mg/g; PROTEIN - URINE 216.6 mg/dL (0.0-11.9)
[2018-03-06 13:10] VITALS: BP 152/84
[2018-03-06 14:21] LABS: SPE - ALBUMIN 2.8 g/dL (2.9-4.4); SPE - ALPHA-1 GLOBULIN 0.3 g/dL (0.0-0.4); SPE - ALPHA-2 GLOBULIN 0.9 g/dL (0.4-1.0); SPE - BETA GLOBULIN 0.7 g/dL (0.7-1.3); SPE - GAMMA GLOBULIN 0.9 g/dL (0.4-1.8); SPE - M-SPIKE Not Observed g/dL (Not Observed); SPE - TOTAL PROTEIN 5.6 g/dL (6.0-8.5)
[2018-03-06 17:11] VITALS: BP 138/78
[2018-03-06 22:50] VITALS: BP 136/76
[2018-03-06 23:00] LABS: APPEARANCE CLOUDY (CLEAR); BACTERIA FEW /hpf (NONE SEEN); BILIRUBIN NEGATIVE (NEGATIVE); COLOR YELLOW (YELLOW); EPITHELIAL CELLS 0-5 /hpf (0-5); GLUCOSE 50 mg/dL (NEGATIVE); KETONE NEGATIVE (NEGATIVE); NITRITE NEGATIVE (NEGATIVE); PROTEIN 1+ mg/dL (NEGATIVE); RED CELLS - URINE 0-5 /hpf (0-5); UROBILINOGEN NORMAL (NORMAL)
[2018-03-07 01:20] VITALS: BP 124/73
[2018-03-07 05:24] VITALS: BP 100/75
[2018-03-07 05:54] LABS: BASOPHILS 0.2 % (0-2); EOSINOPHILS 1.5 % (0-7); HEMATOCRIT 23.3 % (36.0-48.0); HEMOGLOBIN 7.7 g/dL (12-16); IMMATURE GRANULOCYTES 0.3 % (0-5); LYMPHOCYTES 19.1 % (15-50); MCH 27.4 pg (26.0-34.0); MCV 82.9 fL (80.0-100.0); MEAN PLATELET VOLUME 8.9 fL (7.4-10.4); MONOCYTES 12.1 % (2-11); NEUTROPHILS 66.8 % (40-80); RBC 2.81 10x6/uL (4.00-5.40); RDW 16.3 % (11.5-14.5); WBC 8.9 10x3/uL (4.8-10.8)
[2018-03-07 05:56] LABS: PLATELET COUNT 188 10x3/uL (130-400)
[2018-03-07 06:55] LABS: CARBON DIOXIDE 22.4 mmol/L (21.0-32.0); CREATININE - SERUM 9.3 mg/dL (0.6-1.3)
[2018-03-07 06:57] LABS: ANION GAP 24.4 mmol/L (8-16); POTASSIUM - SERUM 3.8 mmol/L (3.5-5.1)
[2018-03-07 07:05] LABS: CALCIUM 8.2 mg/dL (8.5-10.1)
[2018-03-07 08:23] VITALS: BP 138/79
[2018-03-07 12:33] VITALS: BP 126/69
[2018-03-07 22:58] VITALS: BP 157/90
[2018-03-08 05:32] VITALS: BP 153/81
[2018-03-08 06:43] LABS: BASOPHILS 0.3 % (0-2); EOSINOPHILS 1.2 % (0-7); HEMATOCRIT 27.6 % (36.0-48.0); HEMOGLOBIN 9.1 g/dL (12-16); IMMATURE GRANULOCYTES 0.7 % (0-5); LYMPHOCYTES 16.1 % (15-50); MCH 27.5 pg (26.0-34.0); MCV 83.4 fL (80.0-100.0); MEAN PLATELET VOLUME 9.6 fL (7.4-10.4); MONOCYTES 12.5 % (2-11); NEUTROPHILS 69.2 % (40-80); PLATELET COUNT 190 10x3/uL (130-400); RBC 3.31 10x6/uL (4.00-5.40); RDW 15.6 % (11.5-14.5); WBC 10.4 10x3/uL (4.8-10.8)
[2018-03-08 07:05] LABS: % SATURATION 23 % (15-55); IRON 35 ug/dl (35-150); TOTAL IRON BIND CAPACITY 150 ug/dl (260-445); UNSAT IRON BIND CAPACITY 115 ug/dl (150-375)
[2018-03-08 07:18] LABS: ANION GAP 23.2 mmol/L (8-16); CARBON DIOXIDE 21.8 mmol/L (21.0-32.0); CREATININE - SERUM 8.7 mg/dL (0.6-1.3)
[2018-03-08 07:54] LABS: ALBUMIN 2.3 g/dL (3.4-5.0); CALCIUM 5.3 mg/dL (8.5-10.1)
[2018-03-08 08:16] VITALS: BP 156/86
[2018-03-08 12:25] VITALS: BP 135/72
[2018-03-08 15:55] VITALS: BP 138/78
[2018-03-08 21:56] VITALS: BP 159/83
[2018-03-09 02:07] VITALS: BP 161/84
[2018-03-09 05:13] LABS: BASOPHILS 0.2 % (0-2); HEMATOCRIT 29.3 % (36.0-48.0); HEMOGLOBIN 9.9 g/dL (12-16); IMMATURE GRANULOCYTES 0.8 % (0-5); LYMPHOCYTES 13.2 % (15-50); MCH 28.2 pg (26.0-34.0); MCHC 33.8 g/dL (31.0-37.0); MCV 83.5 fL (80.0-100.0); MEAN PLATELET VOLUME 8.9 fL (7.4-10.4); MONOCYTES 11.7 % (2-11); NEUTROPHILS 73.1 % (40-80); PLATELET COUNT 180 10x3/uL (130-400); RBC 3.51 10x6/uL (4.00-5.40); RDW 15.8 % (11.5-14.5); WBC 10.3 10x3/uL (4.8-10.8)
[2018-03-09 05:31] LABS: ANION GAP 21.7 mmol/L (8-16); CARBON DIOXIDE 22.4 mmol/L (21.0-32.0); CREATININE - SERUM 8.8 mg/dL (0.6-1.3); POTASSIUM - SERUM 4.1 mmol/L (3.5-5.1)
[2018-03-09 05:33] LABS: CALCIUM 4.8 mg/dL (8.5-10.1)
[2018-03-09 08:25] LABS: URIC ACID 7.7 mg/dL (2.6-7.2)
[2018-03-09 08:27] LABS: CKMB 2.2 U/L (0.0-3.6); CREATINE KINASE 948 UL (21-215)
[2018-03-09 09:41] VITALS: BP 165/87
[2018-03-09 13:12] VITALS: BP 158/87
[2018-03-09 17:17] VITALS: BP 165/87
[2018-03-10 06:25] VITALS: BP 174/83
[2018-03-10 07:49] LABS: BASOPHILS 0.2 % (0-2); EOSINOPHILS 1.9 % (0-7); HEMATOCRIT 30.9 % (36.0-48.0); HEMOGLOBIN 10.3 g/dL (12-16); IMMATURE GRANULOCYTES 0.5 % (0-5); LYMPHOCYTES 17.3 % (15-50); MCHC 33.3 g/dL (31.0-37.0); MEAN PLATELET VOLUME 9.4 fL (7.4-10.4); MONOCYTES 11.5 % (2-11); NEUTROPHILS 68.6 % (40-80); PLATELET COUNT 205 10x3/uL (130-400); RBC 3.68 10x6/uL (4.00-5.40); RDW 15.2 % (11.5-14.5); WBC 9.5 10x3/uL (4.8-10.8)
[2018-03-10 08:10] VITALS: BP 182/87
[2018-03-10 08:11] LABS: ANION GAP 23.8 mmol/L (8-16); BILIRUBIN - TOTAL 0.41 mg/dL (0.2-1.3); CARBON DIOXIDE 21.2 mmol/L (21.0-32.0); CREATININE - SERUM 8.9 mg/dL (0.6-1.3); PROTEIN - SERUM 6.2 g/dL (6.4-8.2)
[2018-03-10 08:13] LABS: PHOSPHOROUS 9.3 mg/dL (2.5-4.9)
[2018-03-10 08:17] LABS: CALCIUM 5.9 mg/dL (8.5-10.1)
[2018-03-10 08:47] LABS: CREATININE - URINE 16.8 mg/dL (30-125)
[2018-03-10 09:09] LABS: CKMB 1.6 U/L (0.0-3.6); CREATINE KINASE 654 UL (21-215); URIC ACID 7.9 mg/dL (2.6-7.2)
[2018-03-10 11:20] LABS: HEPATITIS C ANTIBODY <0.1 (0.0-0.9)
[2018-03-10 11:41] VITALS: BP 160/85
[2018-03-10 16:08] VITALS: BP 131/77
[2018-03-10 20:00] VITALS: BP 127/64
[2018-03-11] VITALS: BP 111/63
[2018-03-11 01:32] LABS: PROTEIN - URINE 128.6 mg/dL (0.0-11.9)
[2018-03-11 04:00] VITALS: BP 120/68
[2018-03-11 06:50] LABS: BASOPHILS 0.2 % (0-2); EOSINOPHILS 2.2 % (0-7); HEMATOCRIT 28.2 % (36.0-48.0); HEMOGLOBIN 9.2 g/dL (12-16); IMMATURE GRANULOCYTES 0.5 % (0-5); LYMPHOCYTES 17.2 % (15-50); MCH 27.7 pg (26.0-34.0); MCHC 32.6 g/dL (31.0-37.0); MCV 84.9 fL (80.0-100.0); MEAN PLATELET VOLUME 9.4 fL (7.4-10.4); MONOCYTES 11.3 % (2-11); NEUTROPHILS 68.6 % (40-80); PLATELET COUNT 212 10x3/uL (130-400); RBC 3.32 10x6/uL (4.00-5.40); RDW 15.3 % (11.5-14.5); WBC 8.8 10x3/uL (4.8-10.8)
[2018-03-11 07:21] LABS: ANION GAP 19.3 mmol/L (8-16); CREATININE - SERUM 9.2 mg/dL (0.6-1.3); POTASSIUM - SERUM 4.3 mmol/L (3.5-5.1)
[2018-03-11 08:46] LABS: CALCIUM 6.1 mg/dL (8.5-10.1); PHOSPHOROUS 9.2 mg/dL (2.5-4.9)
[2018-03-11 09:21] VITALS: BP 138/78
[2018-03-11 12:31] VITALS: BP 101/54
[2018-03-11 16:53] VITALS: BP 104/52
[2018-03-11 20:00] VITALS: BP 129/67
[2018-03-12] VITALS: BP 103/50
[2018-03-12 04:00] VITALS: BP 119/67
[2018-03-12 05:08] LABS: BASOPHILS 0.2 % (0-2); EOSINOPHILS 3.3 % (0-7); HEMATOCRIT 28.4 % (36.0-48.0); HEMOGLOBIN 9.2 g/dL (12-16); IMMATURE GRANULOCYTES 0.5 % (0-5); MCH 27.8 pg (26.0-34.0); MCHC 32.4 g/dL (31.0-37.0); MCV 85.8 fL (80.0-100.0); MEAN PLATELET VOLUME 9.4 fL (7.4-10.4); MONOCYTES 12.9 % (2-11); NEUTROPHILS 70.1 % (40-80); PLATELET COUNT 218 10x3/uL (130-400); RBC 3.31 10x6/uL (4.00-5.40); RDW 15.6 % (11.5-14.5)
[2018-03-12 05:46] LABS: CALC OSMOLALITY 303 mosm/kg (275-300); CARBON DIOXIDE 24.7 mmol/L (21.0-32.0); CHLORIDE - SERUM 98 mmol/L (98-107); CREATININE - SERUM 9.1 mg/dL (0.6-1.3); GLUCOSE 99 mg/dL (74-106); POTASSIUM - SERUM 4.3 mmol/L (3.5-5.1); SODIUM 135 mmol/L (136-145); UREA NITROGEN 108 mg/dL (7-18); eGFR NON AFRICAN AMERICAN 5 mL/min (90-120)
[2018-03-12 05:48] LABS: PHOSPHOROUS 9.5 mg/dL (2.5-4.9)
[2018-03-12 05:49] LABS: CALCIUM 6.6 mg/dL (8.5-10.1); CKMB 1.5 U/L (0.0-3.6); CREATINE KINASE 248 UL (21-215)
[2018-03-12 09:19] VITALS: BP 124/69
[2018-03-12 13:03] VITALS: BP 118/66
[2018-03-12 17:18] VITALS: BP 123/68
[2018-03-12 20:02] VITALS: BP 126/66
[2018-03-13 00:17] VITALS: BP 138/79
[2018-03-13 04:59] VITALS: BP 133/81
[2018-03-13 06:37] LABS: BASOPHILS 0.2 % (0-2); EOSINOPHILS 1.8 % (0-7); HEMATOCRIT 30.4 % (36.0-48.0); HEMOGLOBIN 9.7 g/dL (12-16); IMMATURE GRANULOCYTES 0.3 % (0-5); LYMPHOCYTES 9.4 % (15-50); MCHC 31.9 g/dL (31.0-37.0); MCV 87.6 fL (80.0-100.0); MEAN PLATELET VOLUME 9.1 fL (7.4-10.4); MONOCYTES 13.8 % (2-11); NEUTROPHILS 74.5 % (40-80); PLATELET COUNT 221 10x3/uL (130-400); RBC 3.47 10x6/uL (4.00-5.40); RDW 16.1 % (11.5-14.5); WBC 11.2 10x3/uL (4.8-10.8)
[2018-03-13 06:51] LABS: ANION GAP 20.8 mmol/L (8-16); CARBON DIOXIDE 24.1 mmol/L (21.0-32.0); CREATININE - SERUM 9.2 mg/dL (0.6-1.3); POTASSIUM - SERUM 4.9 mmol/L (3.5-5.1)
[2018-03-13 07:15] LABS: CALCIUM 6.7 mg/dL (8.5-10.1); PHOSPHOROUS 9.7 mg/dL (2.5-4.9)
[2018-03-13 08:18] VITALS: BP 190/89
[2018-03-13 16:04] VITALS: BP 131/81
[2018-03-13 19:28] VITALS: BP 148/72
[2018-03-13 23:29] VITALS: BP 131/67
[2018-03-14 04:22] VITALS: BP 166/73
[2018-03-14 06:06] LABS: BASOPHILS 0.2 % (0-2); EOSINOPHILS 3.1 % (0-7); HEMATOCRIT 29.3 % (36.0-48.0); HEMOGLOBIN 9.2 g/dL (12-16); IMMATURE GRANULOCYTES 0.2 % (0-5); LYMPHOCYTES 17.7 % (15-50); MCH 27.5 pg (26.0-34.0); MCHC 31.4 g/dL (31.0-37.0); MCV 87.7 fL (80.0-100.0); MONOCYTES 18.3 % (2-11); NEUTROPHILS 60.5 % (40-80); PLATELET COUNT 193 10x3/uL (130-400); RBC 3.34 10x6/uL (4.00-5.40); RDW 16.2 % (11.5-14.5); WBC 8.4 10x3/uL (4.8-10.8)
[2018-03-14 06:34] LABS: ANION GAP 15.1 mmol/L (8-16); CALCIUM 7.5 mg/dL (8.5-10.1); CARBON DIOXIDE 27.8 mmol/L (21.0-32.0)
[2018-03-14 06:36] LABS: PHOSPHOROUS 5.7 mg/dL (2.5-4.9); POTASSIUM - SERUM 3.9 mmol/L (3.5-5.1)
[2018-03-14 09:30] VITALS: BP 133/85
[2018-03-14 13:05] LABS: APPEARANCE HAZY (CLEAR); BILIRUBIN NEGATIVE (NEGATIVE); COLOR YELLOW (YELLOW); GLUCOSE 100 mg/dL (NEGATIVE); KETONE NEGATIVE (NEGATIVE); NITRITE NEGATIVE (NEGATIVE); PROTEIN 3+ mg/dL (NEGATIVE); SPECIFIC GRAVITY 1.005 (1.005-1.020); UROBILINOGEN NORMAL (NORMAL)
[2018-03-14 13:06] LABS: BACTERIA FEW /hpf (NONE SEEN); EPITHELIAL CELLS 0-5 /hpf (0-5); RED CELLS - URINE 0-5 /hpf (0-5)
[2018-03-14 13:40] VITALS: BP 150/80
[2018-03-14 20:00] VITALS: BP 151/79
[2018-03-15 04:00] VITALS: BP 162/81
[2018-03-15 05:26] LABS: BASOPHILS 0.2 % (0-2); IMMATURE GRANULOCYTES 0.4 % (0-5); LYMPHOCYTES 18.5 % (15-50); MCHC 30.8 g/dL (31.0-37.0); MCV 87.7 fL (80.0-100.0); MEAN PLATELET VOLUME 9.6 fL (7.4-10.4); MONOCYTES 9.9 % (2-11); RBC 2.85 10x6/uL (4.00-5.40); RDW 16.3 % (11.5-14.5); WBC 8.3 10x3/uL (4.8-10.8)
[2018-03-15 05:27] LABS: HEMATOCRIT 28.6 % (36.0-48.0); HEMOGLOBIN 8.9 g/dL (12-16); PLATELET COUNT 182 10x3/uL (130-400)
[2018-03-15 05:37] LABS: ANION GAP 16.6 mmol/L (8-16); CALCIUM 8.1 mg/dL (8.5-10.1); CREATININE - SERUM 6.6 mg/dL (0.6-1.3); PHOSPHOROUS 5.4 mg/dL (2.5-4.9); POTASSIUM - SERUM 3.6 mmol/L (3.5-5.1)
[2018-03-15 09:27] VITALS: BP 161/91
[2018-03-15 09:58] LABS: BASOPHILS 0.3 % (0-2); EOSINOPHILS 3.6 % (0-7); HEMATOCRIT 31.1 % (36.0-48.0); HEMOGLOBIN 9.8 g/dL (12-16); IMMATURE GRANULOCYTES 0.4 % (0-5); LYMPHOCYTES 13.3 % (15-50); MCH 27.8 pg (26.0-34.0); MCHC 31.5 g/dL (31.0-37.0); MCV 88.4 fL (80.0-100.0); MONOCYTES 14.3 % (2-11); NEUTROPHILS 68.1 % (40-80); RDW 16.7 % (11.5-14.5); WBC 10.2 10x3/uL (4.8-10.8)
[2018-03-15 10:02] LABS: PLATELET COUNT 220 10x3/uL (130-400); RBC 3.52 10x6/uL (4.00-5.40)
[2018-03-15 10:05] LABS: ANION GAP 12.9 mmol/L (8-16); CALCIUM 8.9 mg/dL (8.5-10.1); CARBON DIOXIDE 26.8 mmol/L (21.0-32.0); CREATININE - SERUM 6.6 mg/dL (0.6-1.3); POTASSIUM - SERUM 3.7 mmol/L (3.5-5.1)
[2018-03-15 10:12] LABS: INR 0.99 (0.85-1.17); PROTIME 12.7 SECONDS (11.6-15.0)
[2018-03-15 13:40] VITALS: BP 154/87
[2018-03-15 20:00] VITALS: BP 204/107
[2018-03-16] VITALS (14 sets, daily range): BP systolic 127–155; BP diastolic 65–89
[2018-03-16 05:43] LABS: HEMATOCRIT 30.2 % (36.0-48.0); HEMOGLOBIN 9.6 g/dL (12-16); MCH 28.1 pg (26.0-34.0); MCHC 31.8 g/dL (31.0-37.0); MCV 88.3 fL (80.0-100.0); MEAN PLATELET VOLUME 9.3 fL (7.4-10.4); PLATELET COUNT 213 10x3/uL (130-400); RBC 3.42 10x6/uL (4.00-5.40); RDW 16.8 % (11.5-14.5); WBC 30.5 10x3/uL (4.8-10.8)
[2018-03-16 06:18] LABS: ANION GAP 20.1 mmol/L (8-16); CALCIUM 8.5 mg/dL (8.5-10.1); CARBON DIOXIDE 21.4 mmol/L (21.0-32.0); CREATININE - SERUM 6.8 mg/dL (0.6-1.3); PHOSPHOROUS 4.1 mg/dL (2.5-4.9); POTASSIUM - SERUM 3.5 mmol/L (3.5-5.1)
[2018-03-16 06:19] LABS: LYMPHOCYTES 3 % (15-50); MONOCYTES 5 % (2-11); NEUTROPHILS 79 % (40-80); PLATELET ESTIMATE NORMAL
[2018-03-16 12:28] LABS: HEMATOCRIT 33.7 % (36.0-48.0); HEMOGLOBIN 10.9 g/dL (12-16); MCH 28.8 pg (26.0-34.0); MCHC 32.3 g/dL (31.0-37.0); MCV 88.9 fL (80.0-100.0); MEAN PLATELET VOLUME 9.2 fL (7.4-10.4); PLATELET COUNT 188 10x3/uL (130-400); RBC 3.79 10x6/uL (4.00-5.40); WBC 43.2 10x3/uL (4.8-10.8)
[2018-03-16 12:53] LABS: BASOPHILS 1 % (0-2); EOSINOPHILS 1 % (0-7); LYMPHOCYTES 7 % (15-50); MONOCYTES 7 % (2-11); NEUTROPHILS 73 % (40-80); PLATELET ESTIMATE NORMAL
[2018-03-16 16:04] LABS: APPEARANCE CLEAR (CLEAR); COLOR YELLOW (YELLOW); GLUCOSE 50 mg/dL (NEGATIVE); NITRITE NEGATIVE (NEGATIVE); PROTEIN 2+ mg/dL (NEGATIVE); SPECIFIC GRAVITY 1.005 (1.005-1.020)
[2018-03-16 16:05] LABS: BILIRUBIN NEGATIVE (NEGATIVE); EPITHELIAL CELLS 0-5 /hpf (0-5); KETONE SMALL mg/dL (NEGATIVE); RED CELLS - URINE 0-5 /hpf (0-5); UROBILINOGEN NORMAL (NORMAL); WHITE CELLS - URINE 25-50 /hpf (0-5)
[2018-03-16 16:06] LABS: BACTERIA FEW /hpf (NONE SEEN)
[2018-03-17] VITALS (21 sets, daily range): BP systolic 103–147; BP diastolic 61–105
[2018-03-17 05:00] LABS: BASOPHILS 0.1 % (0-2); EOSINOPHILS 0 % (0-7); HEMATOCRIT 29.1 % (36.0-48.0); HEMOGLOBIN 9.3 g/dL (12-16); IMMATURE GRANULOCYTES 0.6 % (0-5); LYMPHOCYTES 2.2 % (15-50); MCH 28.4 pg (26.0-34.0); MCV 88.7 fL (80.0-100.0); MEAN PLATELET VOLUME 9.3 fL (7.4-10.4); MONOCYTES 3.2 % (2-11); NEUTROPHILS 93.9 % (40-80); PLATELET COUNT 164 10x3/uL (130-400); RBC 3.28 10x6/uL (4.00-5.40); RDW 16.9 % (11.5-14.5); WBC 31.9 10x3/uL (4.8-10.8)
[2018-03-17 05:57] LABS: ANION GAP 15.7 mmol/L (8-16); CALCIUM 7.7 mg/dL (8.5-10.1); CARBON DIOXIDE 25.9 mmol/L (21.0-32.0); CREATININE - SERUM 5.5 mg/dL (0.6-1.3); POTASSIUM - SERUM 3.6 mmol/L (3.5-5.1)
[2018-03-17 05:58] LABS: PHOSPHOROUS 5.7 mg/dL (2.5-4.9); TROPONIN-I 1.461 ng/mL (0.000-0.060)
[2018-03-18] VITALS (11 sets, daily range): BP systolic 90–127; BP diastolic 54–78
[2018-03-18 04:46] LABS: BASOPHILS 0 % (0-2); EOSINOPHILS 0.3 % (0-7); HEMOGLOBIN 8.6 g/dL (12-16); IMMATURE GRANULOCYTES 0.4 % (0-5); LYMPHOCYTES 4.7 % (15-50); MCH 27.8 pg (26.0-34.0); MCHC 31.9 g/dL (31.0-37.0); MCV 87.4 fL (80.0-100.0); MEAN PLATELET VOLUME 9.6 fL (7.4-10.4); MONOCYTES 4.7 % (2-11); NEUTROPHILS 89.9 % (40-80); PLATELET COUNT 159 10x3/uL (130-400); RBC 3.09 10x6/uL (4.00-5.40); WBC 24.8 10x3/uL (4.8-10.8)
[2018-03-18 04:55] LABS: ANION GAP 16.5 mmol/L (8-16); CALCIUM 7.3 mg/dL (8.5-10.1); CARBON DIOXIDE 25.1 mmol/L (21.0-32.0); CREATININE - SERUM 5.9 mg/dL (0.6-1.3); PHOSPHOROUS 5.9 mg/dL (2.5-4.9); POTASSIUM - SERUM 3.6 mmol/L (3.5-5.1); VANCOMYCIN - RANDOM 9.5 ug/mL (10.0-20.0)
[2018-03-19 01:03] VITALS: BP 118/73
[2018-03-19 05:39] LABS: BASOPHILS 0 % (0-2); EOSINOPHILS 0.9 % (0-7); HEMATOCRIT 26.3 % (36.0-48.0); HEMOGLOBIN 8.3 g/dL (12-16); IMMATURE GRANULOCYTES 0.3 % (0-5); LYMPHOCYTES 2.9 % (15-50); MCH 27.6 pg (26.0-34.0); MCHC 31.6 g/dL (31.0-37.0); MCV 87.4 fL (80.0-100.0); MEAN PLATELET VOLUME 10.7 fL (7.4-10.4); MONOCYTES 6.4 % (2-11); NEUTROPHILS 89.5 % (40-80); PLATELET COUNT 156 10x3/uL (130-400); RBC 3.01 10x6/uL (4.00-5.40); RDW 16.8 % (11.5-14.5); WBC 20.3 10x3/uL (4.8-10.8)
[2018-03-19 06:02] LABS: ANION GAP 13.2 mmol/L (8-16); CALCIUM 7.3 mg/dL (8.5-10.1); CARBON DIOXIDE 25.8 mmol/L (21.0-32.0); VANCOMYCIN - RANDOM 20.5 ug/mL (10.0-20.0)
[2018-03-19 06:07] LABS: PHOSPHOROUS 3.5 mg/dL (2.5-4.9)
[2018-03-19 08:13] VITALS: BP 140/75
[2018-03-19 12:51] VITALS: BP 139/82
[2018-03-19 17:07] VITALS: BP 133/70
[2018-03-19 21:23] VITALS: BP 156/86
[2018-03-20 01:38] VITALS: BP 145/69
[2018-03-20 04:53] VITALS: BP 150/87
[2018-03-20 05:42] LABS: BASOPHILS 0.2 % (0-2); EOSINOPHILS 1.7 % (0-7); HEMATOCRIT 28.5 % (36.0-48.0); IMMATURE GRANULOCYTES 0.4 % (0-5); LYMPHOCYTES 6.1 % (15-50); MCH 27.6 pg (26.0-34.0); MCHC 31.6 g/dL (31.0-37.0); MCV 87.4 fL (80.0-100.0); MEAN PLATELET VOLUME 10.2 fL (7.4-10.4); NEUTROPHILS 82.6 % (40-80); PLATELET COUNT 135 10x3/uL (130-400); RBC 3.26 10x6/uL (4.00-5.40); RDW 16.6 % (11.5-14.5); WBC 17.6 10x3/uL (4.8-10.8)
[2018-03-20 06:03] LABS: CALCIUM 7.7 mg/dL (8.5-10.1); CARBON DIOXIDE 25.2 mmol/L (21.0-32.0); CREATININE - SERUM 4.5 mg/dL (0.6-1.3); PHOSPHOROUS 2.8 mg/dL (2.5-4.9); POTASSIUM - SERUM 3.2 mmol/L (3.5-5.1); VANCOMYCIN - RANDOM 17.6 ug/mL (10.0-20.0)
[2018-03-20 09:09] VITALS: BP 138/78
[2018-03-20 11:53] VITALS: BP 125/76
[2018-03-20 16:50] VITALS: BP 164/84
[2018-03-20 22:57] VITALS: BP 150/82
[2018-03-21 05:58] VITALS: BP 153/89
[2018-03-21 06:42] LABS: BASOPHILS 0.2 % (0-2); EOSINOPHILS 1.2 % (0-7); HEMATOCRIT 25.5 % (36.0-48.0); HEMOGLOBIN 8.1 g/dL (12-16); IMMATURE GRANULOCYTES 0.6 % (0-5); LYMPHOCYTES 8.2 % (15-50); MCH 27.4 pg (26.0-34.0); MCHC 31.8 g/dL (31.0-37.0); MCV 86.1 fL (80.0-100.0); MEAN PLATELET VOLUME 11.3 fL (7.4-10.4); MONOCYTES 15.2 % (2-11); NEUTROPHILS 74.6 % (40-80); PLATELET COUNT 143 10x3/uL (130-400); RBC 2.96 10x6/uL (4.00-5.40); RDW 17.1 % (11.5-14.5); WBC 18.8 10x3/uL (4.8-10.8)
[2018-03-21 07:01] LABS: ANION GAP 11.6 mmol/L (8-16); CALCIUM 7.9 mg/dL (8.5-10.1); CARBON DIOXIDE 27.8 mmol/L (21.0-32.0); CREATININE - SERUM 3.5 mg/dL (0.6-1.3); POTASSIUM - SERUM 3.4 mmol/L (3.5-5.1); VANCOMYCIN - RANDOM 12.6 ug/mL (10.0-20.0)
[2018-03-21 07:03] LABS: PHOSPHOROUS 1.5 mg/dL (2.5-4.9)
[2018-03-21 08:33] VITALS: BP 134/77
[2018-03-21 11:58] VITALS: BP 160/85
[2018-03-21 16:44] VITALS: BP 143/84
[2018-03-21 21:57] VITALS: BP 143/79
[2018-03-22 01:43] VITALS: BP 137/71
[2018-03-22 06:17] VITALS: BP 139/82
[2018-03-22 08:18] VITALS: BP 136/73
[2018-03-22 12:28] VITALS: BP 167/97
[2018-03-22 16:30] VITALS: BP 128/79
[2018-03-22 21:01] VITALS: BP 125/74
[2018-03-23] VITALS (8 sets, daily range): BP systolic 105–152; BP diastolic 67–92
[2018-03-23 04:56] LABS: BASOPHILS 0.2 % (0-2); HEMATOCRIT 25.3 % (36.0-48.0); IMMATURE GRANULOCYTES 1.9 % (0-5); LYMPHOCYTES 8.5 % (15-50); MCH 27.3 pg (26.0-34.0); MCHC 31.6 g/dL (31.0-37.0); MCV 86.3 fL (80.0-100.0); MONOCYTES 8.8 % (2-11); NEUTROPHILS 78.6 % (40-80); PLATELET COUNT 167 10x3/uL (130-400); RBC 2.93 10x6/uL (4.00-5.40); RDW 17.3 % (11.5-14.5)
[2018-03-23 05:01] LABS: WBC 11.7 10x3/uL (4.8-10.8)
[2018-03-23 05:21] LABS: ANION GAP 14.8 mmol/L (8-16); CALCIUM 7.8 mg/dL (8.5-10.1); CARBON DIOXIDE 24.8 mmol/L (21.0-32.0); POTASSIUM - SERUM 3.6 mmol/L (3.5-5.1)
[2018-03-23 17:11] LABS: AEROBE ID Final report (())
[2018-03-24] VITALS: BP 104/57
[2018-03-24 04:00] VITALS: BP 96/55
[2018-03-24 06:21] LABS: BASOPHILS 0.4 % (0-2); EOSINOPHILS 1.1 % (0-7); HEMATOCRIT 26.8 % (36.0-48.0); HEMOGLOBIN 8.7 g/dL (12-16); IMMATURE GRANULOCYTES 1.7 % (0-5); LYMPHOCYTES 11.8 % (15-50); MCH 27.9 pg (26.0-34.0); MCHC 32.5 g/dL (31.0-37.0); MCV 85.9 fL (80.0-100.0); MEAN PLATELET VOLUME 11.4 fL (7.4-10.4); MONOCYTES 12.7 % (2-11); NEUTROPHILS 72.3 % (40-80); PLATELET COUNT 140 10x3/uL (130-400); RBC 3.12 10x6/uL (4.00-5.40); WBC 16.7 10x3/uL (4.8-10.8)
[2018-03-24 06:52] LABS: ANION GAP 13.1 mmol/L (8-16); CALCIUM 7.9 mg/dL (8.5-10.1); CARBON DIOXIDE 26.5 mmol/L (21.0-32.0); CREATININE - SERUM 4.5 mg/dL (0.6-1.3); PHOSPHOROUS 2.5 mg/dL (2.5-4.9); POTASSIUM - SERUM 3.6 mmol/L (3.5-5.1); VANCOMYCIN - RANDOM 19.3 ug/mL (10.0-20.0)
[2018-03-24 08:16] VITALS: Ht 154.9 cm; Wt 61.0 kg
[2018-03-24 08:33] VITALS: BP 103/61
[2018-03-24 11:35] VITALS: BP 103/64
[2018-03-24 15:38] VITALS: BP 96/50
[2018-03-24 20:00] VITALS: BP 100/57
[2018-03-25 01:00] VITALS: BP 98/59
[2018-03-25 04:00] VITALS: BP 120/68
[2018-03-25 07:31] LABS: ANION GAP 13.5 mmol/L (8-16); CALCIUM 7.7 mg/dL (8.5-10.1); CARBON DIOXIDE 28.7 mmol/L (21.0-32.0); POTASSIUM - SERUM 3.2 mmol/L (3.5-5.1); VANCOMYCIN - RANDOM 16.6 ug/mL (10.0-20.0)
[2018-03-25 08:05] LABS: BASOPHILS 0.2 % (0-2); EOSINOPHILS 1.1 % (0-7); HEMATOCRIT 26.9 % (36.0-48.0); HEMOGLOBIN 8.8 g/dL (12-16); IMMATURE GRANULOCYTES 1.5 % (0-5); LYMPHOCYTES 6.2 % (15-50); MCH 27.9 pg (26.0-34.0); MCHC 32.7 g/dL (31.0-37.0); MCV 85.4 fL (80.0-100.0); MEAN PLATELET VOLUME 11.3 fL (7.4-10.4); MONOCYTES 9.4 % (2-11); NEUTROPHILS 81.6 % (40-80); PLATELET COUNT 134 10x3/uL (130-400); RBC 3.15 10x6/uL (4.00-5.40); RDW 17.5 % (11.5-14.5)
[2018-03-25 10:03] VITALS: BP 117/67
[2018-03-25 18:11] VITALS: BP 114/61
[2018-03-25 20:41] VITALS: BP 151/85
[2018-03-26 01:00] VITALS: BP 99/57
[2018-03-26 04:00] VITALS: BP 138/76
[2018-03-26 06:20] LABS: BASOPHILS 0.4 % (0-2); EOSINOPHILS 1.1 % (0-7); HEMATOCRIT 27.4 % (36.0-48.0); HEMOGLOBIN 8.8 g/dL (12-16); IMMATURE GRANULOCYTES 2.2 % (0-5); LYMPHOCYTES 10.4 % (15-50); MCH 27.4 pg (26.0-34.0); MCHC 32.1 g/dL (31.0-37.0); MCV 85.4 fL (80.0-100.0); MEAN PLATELET VOLUME 11.4 fL (7.4-10.4); MONOCYTES 12.2 % (2-11); NEUTROPHILS 73.7 % (40-80); PLATELET COUNT 136 10x3/uL (130-400); RBC 3.21 10x6/uL (4.00-5.40); RDW 17.7 % (11.5-14.5); WBC 18.5 10x3/uL (4.8-10.8)
[2018-03-26 06:43] LABS: ANION GAP 11.5 mmol/L (8-16); CALCIUM 7.4 mg/dL (8.5-10.1); PHOSPHOROUS 2.4 mg/dL (2.5-4.9); POTASSIUM - SERUM 3.5 mmol/L (3.5-5.1); VANCOMYCIN - RANDOM 13.4 ug/mL (10.0-20.0)
[2018-03-26 06:45] LABS: CREATININE - SERUM 3.7 mg/dL (0.6-1.3)
[2018-03-26 06:55] LABS: APPEARANCE CLEAR (CLEAR); BILIRUBIN NEGATIVE (NEGATIVE); COLOR YELLOW (YELLOW); GLUCOSE 100 mg/dL (NEGATIVE); KETONE NEGATIVE (NEGATIVE); NITRITE NEGATIVE (NEGATIVE); PROTEIN 3+ mg/dL (NEGATIVE); SPECIFIC GRAVITY 1.005 (1.005-1.020); UROBILINOGEN NORMAL (NORMAL)
[2018-03-26 06:58] LABS: AMORPHOUS SEDIMENT <1+ /lpf (NONE SEEN); BACTERIA MODERATE /hpf (NONE SEEN); RED CELLS - URINE 0-5 /hpf (0-5)
[2018-03-26 07:24] VITALS: BP 133/71
[2018-03-26 10:28] VITALS: BP 109/68
[2018-03-26 16:39] VITALS: BP 166/70
[2018-03-26 21:48] VITALS: BP 116/79
[2018-03-27 01:00] VITALS: BP 133/83
[2018-03-27 04:00] VITALS: BP 105/64
[2018-03-27 04:55] LABS: BASOPHILS 0.3 % (0-2); EOSINOPHILS 0.9 % (0-7); HEMATOCRIT 28.9 % (36.0-48.0); IMMATURE GRANULOCYTES 2.4 % (0-5); LYMPHOCYTES 8.9 % (15-50); MCHC 31.1 g/dL (31.0-37.0); MCV 86.8 fL (80.0-100.0); MEAN PLATELET VOLUME 11.1 fL (7.4-10.4); MONOCYTES 8.4 % (2-11); NEUTROPHILS 79.1 % (40-80); PLATELET COUNT 155 10x3/uL (130-400); RBC 3.33 10x6/uL (4.00-5.40); RDW 17.7 % (11.5-14.5); WBC 20.2 10x3/uL (4.8-10.8)
[2018-03-27 04:59] LABS: ANION GAP 11.4 mmol/L (8-16); CALCIUM 7.5 mg/dL (8.5-10.1); CARBON DIOXIDE 26.3 mmol/L (21.0-32.0); CREATININE - SERUM 4.5 mg/dL (0.6-1.3); POTASSIUM - SERUM 3.7 mmol/L (3.5-5.1); VANCOMYCIN - RANDOM 22.8 ug/mL (10.0-20.0)
[2018-03-27 08:36] VITALS: BP 95/57
[2018-03-27 11:32] VITALS: BP 89/52
[2018-03-27 20:05] VITALS: BP 140/81
[2018-03-28 00:38] VITALS: BP 142/78
[2018-03-28 04:00] VITALS: BP 146/81
[2018-03-28 08:04] VITALS: BP 109/63
[2018-03-28 11:22] VITALS: BP 138/80
[2018-03-28 15:55] VITALS: BP 184/91
[2018-03-28 20:53] VITALS: BP 156/92
[2018-03-29 00:58] VITALS: BP 191/108
[2018-03-29 04:54] VITALS: BP 171/93
[2018-03-29 04:55] LABS: BASOPHILS 0.6 % (0-2); EOSINOPHILS 0.6 % (0-7); HEMATOCRIT 28.6 % (36.0-48.0); IMMATURE GRANULOCYTES 1.4 % (0-5); LYMPHOCYTES 8.4 % (15-50); MCH 27.7 pg (26.0-34.0); MCHC 31.5 g/dL (31.0-37.0); MEAN PLATELET VOLUME 12.2 fL (7.4-10.4); PLATELET COUNT 118 10x3/uL (130-400); RBC 3.25 10x6/uL (4.00-5.40); RDW 18.5 % (11.5-14.5); WBC 23.3 10x3/uL (4.8-10.8)
[2018-03-29 05:44] LABS: ALBUMIN 1.7 g/dL (3.4-5.0); ANION GAP 16.6 mmol/L (8-16); BILIRUBIN - TOTAL 0.49 mg/dL (0.2-1.3); CALCIUM 8.1 mg/dL (8.5-10.1); CARBON DIOXIDE 23.5 mmol/L (21.0-32.0); CREATININE - SERUM 4.2 mg/dL (0.6-1.3); PHOSPHOROUS 3.9 mg/dL (2.5-4.9); POTASSIUM - SERUM 4.1 mmol/L (3.5-5.1); PROTEIN - SERUM 6.5 g/dL (6.4-8.2)
[2018-03-29 08:03] VITALS: BP 133/79
[2018-03-29 12:21] VITALS: BP 130/82
[2018-03-29 15:29] VITALS: BP 130/73
[2018-03-29 21:34] VITALS: BP 153/82
[2018-03-30 01:32] VITALS: BP 145/81
[2018-03-30 05:24] LABS: BASOPHILS 0.3 % (0-2); EOSINOPHILS 0.7 % (0-7); HEMATOCRIT 27.7 % (36.0-48.0); HEMOGLOBIN 8.8 g/dL (12-16); IMMATURE GRANULOCYTES 1.5 % (0-5); LYMPHOCYTES 10.9 % (15-50); MCH 27.5 pg (26.0-34.0); MCHC 31.8 g/dL (31.0-37.0); MCV 86.6 fL (80.0-100.0); MEAN PLATELET VOLUME 10.3 fL (7.4-10.4); MONOCYTES 8.7 % (2-11); NEUTROPHILS 77.9 % (40-80); PLATELET COUNT 127 10x3/uL (130-400); RDW 18.5 % (11.5-14.5); WBC 21.6 10x3/uL (4.8-10.8)
[2018-03-30 05:32] LABS: ALBUMIN 1.7 g/dL (3.4-5.0); ANION GAP 16.8 mmol/L (8-16); BILIRUBIN - TOTAL 0.39 mg/dL (0.2-1.3); CALCIUM 7.9 mg/dL (8.5-10.1); CREATININE - SERUM 4.9 mg/dL (0.6-1.3); POTASSIUM - SERUM 3.8 mmol/L (3.5-5.1); PROTEIN - SERUM 6.4 g/dL (6.4-8.2)
[2018-03-30 07:09] VITALS: BP 143/89
[2018-03-30 08:26] VITALS: BP 125/78
[2018-03-30 12:34] VITALS: BP 136/60
[2018-03-30 21:09] VITALS: BP 122/57
[2018-03-31 00:49] VITALS: BP 129/74
[2018-03-31 05:12] VITALS: BP 119/71
[2018-03-31 06:36] LABS: BASOPHILS 0.5 % (0-2); EOSINOPHILS 0.6 % (0-7); HEMATOCRIT 27.4 % (36.0-48.0); HEMOGLOBIN 8.6 g/dL (12-16); IMMATURE GRANULOCYTES 1.4 % (0-5); LYMPHOCYTES 12.9 % (15-50); MCH 27.5 pg (26.0-34.0); MCHC 31.4 g/dL (31.0-37.0); MCV 87.5 fL (80.0-100.0); MEAN PLATELET VOLUME 10.7 fL (7.4-10.4); NEUTROPHILS 72.6 % (40-80); PLATELET COUNT 134 10x3/uL (130-400); RBC 3.13 10x6/uL (4.00-5.40); RDW 18.9 % (11.5-14.5); WBC 18.5 10x3/uL (4.8-10.8)
[2018-03-31 07:02] LABS: ALBUMIN 1.7 g/dL (3.4-5.0); ANION GAP 12.3 mmol/L (8-16); BILIRUBIN - TOTAL 0.4 mg/dL (0.2-1.3); CALCIUM 7.9 mg/dL (8.5-10.1); CARBON DIOXIDE 28.2 mmol/L (21.0-32.0); CREATININE - SERUM 4.2 mg/dL (0.6-1.3); PHOSPHOROUS 4.3 mg/dL (2.5-4.9); POTASSIUM - SERUM 3.5 mmol/L (3.5-5.1); PROTEIN - SERUM 6.5 g/dL (6.4-8.2)
[2018-03-31 08:14] VITALS: BP 124/64
[2018-03-31 11:53] VITALS: BP 134/72
[2018-03-31 17:06] VITALS: BP 126/66
[2018-03-31 21:09] VITALS: BP 128/80
[2018-04-01 05:46] LABS: BASOPHILS 0.4 % (0-2); EOSINOPHILS 0.7 % (0-7); HEMATOCRIT 26.2 % (36.0-48.0); HEMOGLOBIN 8.4 g/dL (12-16); IMMATURE GRANULOCYTES 1.2 % (0-5); LYMPHOCYTES 14.7 % (15-50); MCH 28.3 pg (26.0-34.0); MCHC 32.1 g/dL (31.0-37.0); MCV 88.2 fL (80.0-100.0); MEAN PLATELET VOLUME 10.4 fL (7.4-10.4); MONOCYTES 11.5 % (2-11); NEUTROPHILS 71.5 % (40-80); PLATELET COUNT 133 10x3/uL (130-400); RBC 2.97 10x6/uL (4.00-5.40); RDW 19.3 % (11.5-14.5); WBC 17.8 10x3/uL (4.8-10.8)
[2018-04-01 05:54] VITALS: BP 104/63
[2018-04-01 06:10] LABS: ALBUMIN 1.6 g/dL (3.4-5.0); ANION GAP 15.4 mmol/L (8-16); BILIRUBIN - TOTAL 0.4 mg/dL (0.2-1.3); CALCIUM 7.5 mg/dL (8.5-10.1); CREATININE - SERUM 4.2 mg/dL (0.6-1.3); PHOSPHOROUS 5.3 mg/dL (2.5-4.9); POTASSIUM - SERUM 3.4 mmol/L (3.5-5.1); PROTEIN - SERUM 6.4 g/dL (6.4-8.2)
[2018-04-01 12:47] VITALS: BP 155/83
[2018-04-01 20:00] VITALS: BP 107/72
[2018-04-02] VITALS: BP 110/74
[2018-04-02 04:00] VITALS: BP 146/80
[2018-04-02 04:30] LABS: BASOPHILS 0.5 % (0-2); EOSINOPHILS 0.6 % (0-7); HEMATOCRIT 27.3 % (36.0-48.0); HEMOGLOBIN 8.5 g/dL (12-16); IMMATURE GRANULOCYTES 1.2 % (0-5); LYMPHOCYTES 15.1 % (15-50); MCH 27.4 pg (26.0-34.0); MCHC 31.1 g/dL (31.0-37.0); MCV 88.1 fL (80.0-100.0); MEAN PLATELET VOLUME 9.9 fL (7.4-10.4); NEUTROPHILS 72.6 % (40-80); PLATELET COUNT 149 10x3/uL (130-400); RDW 19.3 % (11.5-14.5); WBC 17.2 10x3/uL (4.8-10.8)
[2018-04-02 04:53] LABS: ALBUMIN 1.6 g/dL (3.4-5.0); ANION GAP 13.1 mmol/L (8-16); BILIRUBIN - TOTAL 0.35 mg/dL (0.2-1.3); CALCIUM 7.8 mg/dL (8.5-10.1); CARBON DIOXIDE 27.9 mmol/L (21.0-32.0); CREATININE - SERUM 3.6 mg/dL (0.6-1.3); PROTEIN - SERUM 6.5 g/dL (6.4-8.2)
[2018-04-02 12:17] LABS: BASOPHILS 0.6 % (0-2); EOSINOPHILS 0.5 % (0-7); HEMATOCRIT 24.7 % (36.0-48.0); HEMOGLOBIN 7.7 g/dL (12-16); IMMATURE GRANULOCYTES 0.9 % (0-5); LYMPHOCYTES 16.3 % (15-50); MCH 27.5 pg (26.0-34.0); MCHC 31.2 g/dL (31.0-37.0); MCV 88.2 fL (80.0-100.0); MEAN PLATELET VOLUME 9.3 fL (7.4-10.4); MONOCYTES 8.7 % (2-11); PLATELET COUNT 143 10x3/uL (130-400); RDW 19.1 % (11.5-14.5)
[2018-04-02 12:20] LABS: INR 1.24 (0.85-1.17); PROTIME 15.1 SECONDS (11.6-15.0)
[2018-04-02 12:21] LABS: APTT 60.5 SECONDS (22.8-39.4)
[2018-04-02 12:33] LABS: ALBUMIN 1.6 g/dL (3.4-5.0); ANION GAP 12.4 mmol/L (8-16); BILIRUBIN - TOTAL 0.37 mg/dL (0.2-1.3); CALCIUM 7.4 mg/dL (8.5-10.1); CARBON DIOXIDE 27.9 mmol/L (21.0-32.0); CREATININE - SERUM 3.8 mg/dL (0.6-1.3); PHOSPHOROUS 4.7 mg/dL (2.5-4.9); POTASSIUM - SERUM 3.3 mmol/L (3.5-5.1); PROTEIN - SERUM 5.8 g/dL (6.4-8.2); T4 THYROXIN - FREE 0.63 ng/dL (0.76-1.46); THYROID STIMULATING HORMONE 1.76 uIU/mL (0.36-3.74); URIC ACID 5.5 mg/dL (2.6-7.2)
[2018-04-02 15:38] LABS: ANION GAP 13.6 mmol/L (8-16); CALCIUM 8.2 mg/dL (8.5-10.1); POTASSIUM - SERUM 3.6 mmol/L (3.5-5.1)
[2018-04-02 15:54] VITALS: BP 139/89
[2018-04-02 20:00] VITALS: BP 156/82
[2018-04-02 23:42] LABS: APPEARANCE TURBID (CLEAR); BACTERIA MODERATE /hpf (NONE SEEN); BILIRUBIN NEGATIVE (NEGATIVE); COLOR YELLOW (YELLOW); EPITHELIAL CELLS RARE /hpf (0-5); GLUCOSE 250 mg/dL (NEGATIVE); KETONE MODERATE mg/dL (NEGATIVE); NITRITE NEGATIVE (NEGATIVE); PROTEIN 2+ mg/dL (NEGATIVE); UROBILINOGEN NORMAL (NORMAL); WHITE CELLS - URINE >50 /hpf (0-5); YEAST >1+ WITH HYPHAE /hpf (NONE SEEN)
[2018-04-03] VITALS (25 sets, daily range): BP systolic 91–138; BP diastolic 37–86
[2018-04-03 05:11] LABS: BASOPHILS 0.6 % (0-2); EOSINOPHILS 0.4 % (0-7); HEMATOCRIT 31.2 % (36.0-48.0); IMMATURE GRANULOCYTES 1.4 % (0-5); LYMPHOCYTES 12.9 % (15-50); MCH 28.1 pg (26.0-34.0); MCHC 32.1 g/dL (31.0-37.0); MCV 87.6 fL (80.0-100.0); MEAN PLATELET VOLUME 9.8 fL (7.4-10.4); MONOCYTES 8.3 % (2-11); NEUTROPHILS 76.4 % (40-80); PLATELET COUNT 162 10x3/uL (130-400); RBC 3.56 10x6/uL (4.00-5.40); RDW 18.5 % (11.5-14.5); WBC 19.7 10x3/uL (4.8-10.8)
[2018-04-03 05:22] LABS: ALBUMIN 1.9 g/dL (3.4-5.0); ANION GAP 15.8 mmol/L (8-16); BILIRUBIN - TOTAL 0.37 mg/dL (0.2-1.3); CALCIUM 7.9 mg/dL (8.5-10.1); PHOSPHOROUS 4.9 mg/dL (2.5-4.9); POTASSIUM - SERUM 3.8 mmol/L (3.5-5.1); PROTEIN - SERUM 6.6 g/dL (6.4-8.2); VANCOMYCIN - RANDOM 22.8 ug/mL (10.0-20.0)
[2018-04-03 05:23] LABS: CREATININE - SERUM 3.2 mg/dL (0.6-1.3)
[2018-04-03 17:46] LABS: WBC 23.1 10x3/uL (4.8-10.8)
[2018-04-03 17:47] LABS: HEMATOCRIT 24.4 % (36.0-48.0); HEMOGLOBIN 7.9 g/dL (12-16); MCH 28.7 pg (26.0-34.0); MCHC 32.4 g/dL (31.0-37.0); MCV 88.7 fL (80.0-100.0); MEAN PLATELET VOLUME 9.9 fL (7.4-10.4); RBC 2.75 10x6/uL (4.00-5.40); RDW 16.7 % (11.5-14.5)
[2018-04-03 17:57] LABS: CALCIUM 9.5 mg/dL (8.5-10.1); CARBON DIOXIDE 23.3 mmol/L (21.0-32.0); CREATININE - SERUM 2.7 mg/dL (0.6-1.3); POTASSIUM - SERUM 4.3 mmol/L (3.5-5.1)
[2018-04-03 22:14] LABS: INR 1.32 (0.85-1.17); PROTIME 15.9 SECONDS (11.6-15.0)
[2018-04-03 22:19] LABS: HEMATOCRIT 29.3 % (36.0-48.0)
[2018-04-04] VITALS (91 sets, daily range): BP systolic 93–119; BP diastolic 36–63
[2018-04-04 06:53] LABS: ANION GAP 19.5 mmol/L (8-16); BILIRUBIN - TOTAL 0.4 mg/dL (0.2-1.3); CREATININE - SERUM 3.3 mg/dL (0.6-1.3); HEMATOCRIT 27.1 % (36.0-48.0); HEMOGLOBIN 8.9 g/dL (12-16); MCH 29.1 pg (26.0-34.0); MCHC 32.8 g/dL (31.0-37.0); MCV 88.6 fL (80.0-100.0); MEAN PLATELET VOLUME 10.4 fL (7.4-10.4); PLATELET COUNT 155 10x3/uL (130-400); POTASSIUM - SERUM 4.5 mmol/L (3.5-5.1); PROTEIN - SERUM 5.2 g/dL (6.4-8.2); RBC 3.06 10x6/uL (4.00-5.40); RDW 16.8 % (11.5-14.5); WBC 24.1 10x3/uL (4.8-10.8)
[2018-04-04 06:56] LABS: PHOSPHOROUS 6.6 mg/dL (2.5-4.9)
[2018-04-04 08:23] LABS: LYMPHOCYTES 18 % (15-50); NEUTROPHILS 82 % (40-80); PLATELET ESTIMATE NORMAL
[2018-04-05] VITALS (93 sets, daily range): BP systolic 88–120; BP diastolic 36–56
[2018-04-05 04:46] LABS: BASOPHILS 0.2 % (0-2); EOSINOPHILS 0.1 % (0-7); HEMATOCRIT 27.5 % (36.0-48.0); IMMATURE GRANULOCYTES 1.2 % (0-5); LYMPHOCYTES 9.6 % (15-50); MCH 29.9 pg (26.0-34.0); MCHC 32.7 g/dL (31.0-37.0); MCV 91.4 fL (80.0-100.0); MEAN PLATELET VOLUME 10.2 fL (7.4-10.4); NEUTROPHILS 77.9 % (40-80); PLATELET COUNT 246 10x3/uL (130-400); RBC 3.01 10x6/uL (4.00-5.40); WBC 28.3 10x3/uL (4.8-10.8)
[2018-04-05 04:57] LABS: ALBUMIN 2.1 g/dL (3.4-5.0); ANION GAP 18.2 mmol/L (8-16); BILIRUBIN - TOTAL 0.32 mg/dL (0.2-1.3); CALCIUM 7.8 mg/dL (8.5-10.1); CARBON DIOXIDE 24.9 mmol/L (21.0-32.0); POTASSIUM - SERUM 5.1 mmol/L (3.5-5.1); PROTEIN - SERUM 5.9 g/dL (6.4-8.2); VANCOMYCIN - RANDOM 17.5 ug/mL (10.0-20.0)
[2018-04-05 05:33] LABS: CREATININE - SERUM 4.4 mg/dL (0.6-1.3)
[2018-04-06] VITALS (85 sets, daily range): BP systolic 86–145; BP diastolic 38–63
[2018-04-06 06:11] LABS: BASOPHILS 0.2 % (0-2); EOSINOPHILS 0 % (0-7); HEMATOCRIT 29.7 % (36.0-48.0); HEMOGLOBIN 9.2 g/dL (12-16); IMMATURE GRANULOCYTES 1.7 % (0-5); LYMPHOCYTES 8.7 % (15-50); MCH 29.1 pg (26.0-34.0); MEAN PLATELET VOLUME 10.3 fL (7.4-10.4); MONOCYTES 10.5 % (2-11); NEUTROPHILS 78.9 % (40-80); PLATELET COUNT 362 10x3/uL (130-400); RBC 3.16 10x6/uL (4.00-5.40); RDW 18.6 % (11.5-14.5); WBC 30.2 10x3/uL (4.8-10.8)
[2018-04-06 06:29] LABS: BILIRUBIN - TOTAL 0.4 mg/dL (0.2-1.3); CALCIUM 7.6 mg/dL (8.5-10.1); CARBON DIOXIDE 21.7 mmol/L (21.0-32.0); CREATININE - SERUM 5.2 mg/dL (0.6-1.3); PROTEIN - SERUM 6.4 g/dL (6.4-8.2); VANCOMYCIN - RANDOM 22.9 ug/mL (10.0-20.0)
[2018-04-06 06:37] LABS: ANION GAP 22.4 mmol/L (8-16)
[2018-04-06 06:38] LABS: PHOSPHOROUS 10.8 mg/dL (2.5-4.9); POTASSIUM - SERUM 6.1 mmol/L (3.5-5.1)
[2018-04-07] VITALS (42 sets, daily range): BP systolic 96–142; BP diastolic 47–80
[2018-04-07 05:03] LABS: BASOPHILS 0.1 % (0-2); EOSINOPHILS 0.1 % (0-7); HEMATOCRIT 27.1 % (36.0-48.0); HEMOGLOBIN 8.4 g/dL (12-16); IMMATURE GRANULOCYTES 1.8 % (0-5); LYMPHOCYTES 10.5 % (15-50); MCH 29.3 pg (26.0-34.0); MCV 94.4 fL (80.0-100.0); MEAN PLATELET VOLUME 10.4 fL (7.4-10.4); MONOCYTES 8.8 % (2-11); NEUTROPHILS 78.7 % (40-80); PLATELET COUNT 370 10x3/uL (130-400); RBC 2.87 10x6/uL (4.00-5.40); RDW 19.1 % (11.5-14.5); WBC 26.7 10x3/uL (4.8-10.8)
[2018-04-07 05:19] LABS: BILIRUBIN - TOTAL 0.5 mg/dL (0.2-1.3); CALCIUM 7.6 mg/dL (8.5-10.1); CARBON DIOXIDE 20.9 mmol/L (21.0-32.0); PROTEIN - SERUM 5.6 g/dL (6.4-8.2); VANCOMYCIN - RANDOM 17.1 ug/mL (10.0-20.0)
[2018-04-07 05:23] LABS: ANION GAP 22.5 mmol/L (8-16); CREATININE - SERUM 3.5 mg/dL (0.6-1.3); POTASSIUM - SERUM 4.4 mmol/L (3.5-5.1)
[2018-04-08] VITALS (24 sets, daily range): BP systolic 92–120; BP diastolic 55–87
[2018-04-08 04:53] LABS: BASOPHILS 0.1 % (0-2); EOSINOPHILS 0.6 % (0-7); HEMATOCRIT 25.1 % (36.0-48.0); HEMOGLOBIN 8.1 g/dL (12-16); IMMATURE GRANULOCYTES 1.2 % (0-5); LYMPHOCYTES 11.9 % (15-50); MCHC 32.3 g/dL (31.0-37.0); MEAN PLATELET VOLUME 10.3 fL (7.4-10.4); MONOCYTES 8.9 % (2-11); NEUTROPHILS 77.3 % (40-80); PLATELET COUNT 346 10x3/uL (130-400); RDW 19.2 % (11.5-14.5)
[2018-04-08 04:59] LABS: ANION GAP 9.6 mmol/L (8-16); CALCIUM 7.7 mg/dL (8.5-10.1); POTASSIUM - SERUM 3.9 mmol/L (3.5-5.1)
[2018-04-08 05:00] LABS: CARBON DIOXIDE 26.3 mmol/L (21.0-32.0); CREATININE - SERUM 4.5 mg/dL (0.6-1.3)
[2018-04-09] VITALS (24 sets, daily range): BP systolic 81–118; BP diastolic 48–80
[2018-04-09 04:02] LABS: BASOPHILS 0.1 % (0-2); HEMATOCRIT 25.2 % (36.0-48.0); HEMOGLOBIN 7.8 g/dL (12-16); LYMPHOCYTES 11.7 % (15-50); MCH 28.8 pg (26.0-34.0); NEUTROPHILS 76.2 % (40-80); PLATELET COUNT 341 10x3/uL (130-400); RBC 2.71 10x6/uL (4.00-5.40); RDW 19.4 % (11.5-14.5); WBC 17.6 10x3/uL (4.8-10.8)
[2018-04-09 04:19] LABS: ANION GAP 13.2 mmol/L (8-16); CALCIUM 7.4 mg/dL (8.5-10.1); CARBON DIOXIDE 27.4 mmol/L (21.0-32.0); POTASSIUM - SERUM 3.6 mmol/L (3.5-5.1)
[2018-04-09 04:20] LABS: CREATININE - SERUM 3.1 mg/dL (0.6-1.3)
[2018-04-10] VITALS (27 sets, daily range): BP systolic 77–130; BP diastolic 50–98
[2018-04-10 06:01] LABS: BASOPHILS 0.1 % (0-2); EOSINOPHILS 1.2 % (0-7); HEMATOCRIT 28.9 % (36.0-48.0); HEMOGLOBIN 9.2 g/dL (12-16); IMMATURE GRANULOCYTES 0.8 % (0-5); LYMPHOCYTES 9.6 % (15-50); MCHC 31.8 g/dL (31.0-37.0); MCV 94.1 fL (80.0-100.0); MEAN PLATELET VOLUME 9.6 fL (7.4-10.4); MONOCYTES 11.3 % (2-11); PLATELET COUNT 314 10x3/uL (130-400); RBC 3.07 10x6/uL (4.00-5.40); RDW 19.8 % (11.5-14.5); WBC 16.7 10x3/uL (4.8-10.8)
[2018-04-10 06:32] LABS: ANION GAP 14.1 mmol/L (8-16); CALCIUM 7.1 mg/dL (8.5-10.1); CARBON DIOXIDE 24.7 mmol/L (21.0-32.0); POTASSIUM - SERUM 3.8 mmol/L (3.5-5.1)
[2018-04-10 06:33] LABS: CREATININE - SERUM 4.2 mg/dL (0.6-1.3)
[2018-04-11] VITALS (23 sets, daily range): BP systolic 92–118; BP diastolic 58–74
[2018-04-11 04:56] LABS: BASOPHILS 0.2 % (0-2); EOSINOPHILS 1.6 % (0-7); HEMATOCRIT 25.7 % (36.0-48.0); HEMOGLOBIN 8.1 g/dL (12-16); IMMATURE GRANULOCYTES 1.4 % (0-5); LYMPHOCYTES 10.6 % (15-50); MCH 29.3 pg (26.0-34.0); MCHC 31.5 g/dL (31.0-37.0); MCV 93.1 fL (80.0-100.0); MEAN PLATELET VOLUME 9.6 fL (7.4-10.4); MONOCYTES 12.4 % (2-11); NEUTROPHILS 73.8 % (40-80); PLATELET COUNT 349 10x3/uL (130-400); RBC 2.76 10x6/uL (4.00-5.40); RDW 19.5 % (11.5-14.5); WBC 17.7 10x3/uL (4.8-10.8)
[2018-04-11 06:20] LABS: ALBUMIN 1.5 g/dL (3.4-5.0); BILIRUBIN - TOTAL 0.31 mg/dL (0.2-1.3); CARBON DIOXIDE 20.2 mmol/L (21.0-32.0); CREATININE - SERUM 4.9 mg/dL (0.6-1.3); PHOSPHOROUS 5.4 mg/dL (2.5-4.9); PROTEIN - SERUM 5.8 g/dL (6.4-8.2); VANCOMYCIN - RANDOM 27.8 ug/mL (10.0-20.0)
[2018-04-11 06:21] LABS: ANION GAP 19.4 mmol/L (8-16); POTASSIUM - SERUM 4.6 mmol/L (3.5-5.1)
[2018-04-11 06:22] LABS: CALCIUM 6.6 mg/dL (8.5-10.1)
[2018-04-12 04:56] LABS: BASOPHILS 0.2 % (0-2); EOSINOPHILS 1.4 % (0-7); HEMATOCRIT 24.8 % (36.0-48.0); HEMOGLOBIN 7.8 g/dL (12-16); IMMATURE GRANULOCYTES 0.8 % (0-5); MCH 29.8 pg (26.0-34.0); MCHC 31.5 g/dL (31.0-37.0); MCV 94.7 fL (80.0-100.0); MEAN PLATELET VOLUME 9.7 fL (7.4-10.4); MONOCYTES 12.3 % (2-11); NEUTROPHILS 73.3 % (40-80); PLATELET COUNT 392 10x3/uL (130-400); RBC 2.62 10x6/uL (4.00-5.40); RDW 19.6 % (11.5-14.5)
[2018-04-12 05:19] LABS: ALBUMIN 1.5 g/dL (3.4-5.0); BILIRUBIN - TOTAL 0.35 mg/dL (0.2-1.3); CALCIUM 7.2 mg/dL (8.5-10.1); POTASSIUM - SERUM 4.2 mmol/L (3.5-5.1); PROTEIN - SERUM 5.8 g/dL (6.4-8.2); VANCOMYCIN - RANDOM 22.6 ug/mL (10.0-20.0)
[2018-04-12 05:20] LABS: ANION GAP 13.8 mmol/L (8-16); CARBON DIOXIDE 27.4 mmol/L (21.0-32.0); CREATININE - SERUM 3.6 mg/dL (0.6-1.3)
[2018-04-12 08:13] VITALS: BP 94/60
[2018-04-12 12:04] VITALS: BP 97/55
[2018-04-12 15:46] VITALS: BP 108/60
[2018-04-12 22:00] VITALS: BP 108/86
[2018-04-13] VITALS (7 sets, daily range): BP systolic 99–114; BP diastolic 59–71
[2018-04-13 05:33] LABS: ALBUMIN 1.6 g/dL (3.4-5.0); ANION GAP 15.9 mmol/L (8-16); BILIRUBIN - TOTAL 0.4 mg/dL (0.2-1.3); CALCIUM 7.5 mg/dL (8.5-10.1); CARBON DIOXIDE 24.8 mmol/L (21.0-32.0); CREATININE - SERUM 4.3 mg/dL (0.6-1.3); POTASSIUM - SERUM 4.7 mmol/L (3.5-5.1); VANCOMYCIN - RANDOM 20.9 ug/mL (10.0-20.0)
[2018-04-14] VITALS: BP 113/59
[2018-04-14 04:00] VITALS: BP 113/63
[2018-04-14 06:30] LABS: ALBUMIN 1.7 g/dL (3.4-5.0); BILIRUBIN - TOTAL 0.4 mg/dL (0.2-1.3); CALCIUM 7.5 mg/dL (8.5-10.1); CREATININE - SERUM 4.6 mg/dL (0.6-1.3); PROTEIN - SERUM 5.5 g/dL (6.4-8.2)
[2018-04-14 09:15] VITALS: BP 120/70
[2018-04-14 16:14] VITALS: BP 122/60
[2018-04-14 20:20] VITALS: BP 131/66
[2018-04-14 23:48] VITALS: BP 112/69
[2018-04-15 04:19] VITALS: BP 130/80
[2018-04-15 04:52] LABS: BASOPHILS 0.3 % (0-2); HEMATOCRIT 26.7 % (36.0-48.0); HEMOGLOBIN 8.3 g/dL (12-16); IMMATURE GRANULOCYTES 0.8 % (0-5); LYMPHOCYTES 11.3 % (15-50); MCH 29.4 pg (26.0-34.0); MCHC 31.1 g/dL (31.0-37.0); MCV 94.7 fL (80.0-100.0); MEAN PLATELET VOLUME 9.4 fL (7.4-10.4); MONOCYTES 10.5 % (2-11); NEUTROPHILS 75.1 % (40-80); PLATELET COUNT 334 10x3/uL (130-400); RBC 2.82 10x6/uL (4.00-5.40); RDW 20.3 % (11.5-14.5); WBC 17.3 10x3/uL (4.8-10.8)
[2018-04-15 05:22] LABS: ALBUMIN 1.6 g/dL (3.4-5.0); ANION GAP 16.6 mmol/L (8-16); BILIRUBIN - TOTAL 0.4 mg/dL (0.2-1.3); CARBON DIOXIDE 24.1 mmol/L (21.0-32.0); CREATININE - SERUM 5.1 mg/dL (0.6-1.3); POTASSIUM - SERUM 4.7 mmol/L (3.5-5.1); VANCOMYCIN - RANDOM 22.9 ug/mL (10.0-20.0)
[2018-04-15 08:04] VITALS: BP 148/87
[2018-04-15 16:32] VITALS: BP 114/65
[2018-04-15 20:00] VITALS: BP 132/74
[2018-04-16] VITALS: BP 127/74
[2018-04-16 03:59] LABS: BASOPHILS 0.4 % (0-2); EOSINOPHILS 2.3 % (0-7); HEMOGLOBIN 8.3 g/dL (12-16); IMMATURE GRANULOCYTES 0.6 % (0-5); LYMPHOCYTES 14.3 % (15-50); MCH 29.6 pg (26.0-34.0); MCHC 30.7 g/dL (31.0-37.0); MCV 96.4 fL (80.0-100.0); MEAN PLATELET VOLUME 9.7 fL (7.4-10.4); MONOCYTES 10.3 % (2-11); NEUTROPHILS 72.1 % (40-80); PLATELET COUNT 366 10x3/uL (130-400); RDW 20.6 % (11.5-14.5); WBC 13.5 10x3/uL (4.8-10.8)
[2018-04-16 04:00] VITALS: BP 136/73
[2018-04-16 04:13] LABS: ALBUMIN 1.6 g/dL (3.4-5.0); ANION GAP 10.6 mmol/L (8-16); BILIRUBIN - TOTAL 0.3 mg/dL (0.2-1.3); CARBON DIOXIDE 29.3 mmol/L (21.0-32.0); PHOSPHOROUS 3.8 mg/dL (2.5-4.9); POTASSIUM - SERUM 4.9 mmol/L (3.5-5.1); PROTEIN - SERUM 6.1 g/dL (6.4-8.2)
[2018-04-16 04:19] LABS: CREATININE - SERUM 3.6 mg/dL (0.6-1.3)
[2018-04-16 08:25] VITALS: BP 136/75
[2018-04-16 11:26] VITALS: BP 146/88
[2018-04-16 16:00] VITALS: BP 146/88
[2018-04-16 20:00] VITALS: BP 168/81
[2018-04-17] VITALS: BP 137/77
[2018-04-17 04:00] VITALS: BP 140/84
[2018-04-17 06:32] LABS: BASOPHILS 0.2 % (0-2); EOSINOPHILS 1.9 % (0-7); HEMATOCRIT 27.9 % (36.0-48.0); HEMOGLOBIN 8.5 g/dL (12-16); IMMATURE GRANULOCYTES 0.4 % (0-5); LYMPHOCYTES 13.1 % (15-50); MCH 29.5 pg (26.0-34.0); MCHC 30.5 g/dL (31.0-37.0); MCV 96.9 fL (80.0-100.0); MEAN PLATELET VOLUME 9.3 fL (7.4-10.4); MONOCYTES 9.3 % (2-11); NEUTROPHILS 75.1 % (40-80); PLATELET COUNT 381 10x3/uL (130-400); RBC 2.88 10x6/uL (4.00-5.40); RDW 20.7 % (11.5-14.5); WBC 13.9 10x3/uL (4.8-10.8)
[2018-04-17 06:55] LABS: ALBUMIN 1.7 g/dL (3.4-5.0); ANION GAP 13.6 mmol/L (8-16); BILIRUBIN - TOTAL 0.34 mg/dL (0.2-1.3); CALCIUM 8.5 mg/dL (8.5-10.1); CARBON DIOXIDE 26.1 mmol/L (21.0-32.0); PHOSPHOROUS 4.7 mg/dL (2.5-4.9); POTASSIUM - SERUM 4.7 mmol/L (3.5-5.1); PROTEIN - SERUM 6.3 g/dL (6.4-8.2)
[2018-04-17 07:04] LABS: CREATININE - SERUM 4.7 mg/dL (0.6-1.3)
[2018-04-17 08:38] VITALS: BP 130/78; BP 133/64
[2018-04-17 12:30] VITALS: BP 117/68
[2018-04-17 16:43] VITALS: BP 137/72
[2018-04-17 20:00] VITALS: BP 146/74
[2018-04-18] VITALS: BP 141/77
[2018-04-18 04:00] VITALS: BP 140/75
[2018-04-18 07:30] LABS: BASOPHILS 0.2 % (0-2); EOSINOPHILS 1.9 % (0-7); HEMATOCRIT 28.1 % (36.0-48.0); HEMOGLOBIN 8.5 g/dL (12-16); IMMATURE GRANULOCYTES 0.4 % (0-5); LYMPHOCYTES 11.9 % (15-50); MCH 29.4 pg (26.0-34.0); MCHC 30.2 g/dL (31.0-37.0); MCV 97.2 fL (80.0-100.0); MEAN PLATELET VOLUME 9.5 fL (7.4-10.4); MONOCYTES 9.3 % (2-11); NEUTROPHILS 76.3 % (40-80); PLATELET COUNT 346 10x3/uL (130-400); RBC 2.89 10x6/uL (4.00-5.40); RDW 21.1 % (11.5-14.5); WBC 12.7 10x3/uL (4.8-10.8)
[2018-04-18 07:51] LABS: ANION GAP 12.2 mmol/L (8-16); CALCIUM 8.4 mg/dL (8.5-10.1); CARBON DIOXIDE 27.5 mmol/L (21.0-32.0); CREATININE - SERUM 3.7 mg/dL (0.6-1.3); MAGNESIUM - SERUM 1.9 mg/dL (1.8-2.4); PHOSPHOROUS 3.9 mg/dL (2.5-4.9); POTASSIUM - SERUM 4.7 mmol/L (3.5-5.1)
[2018-04-18 08:04] VITALS: BP 125/62
[2018-04-18 11:38] VITALS: BP 128/77
[2018-04-18 15:58] VITALS: BP 141/783
[2018-04-18 20:00] VITALS: BP 168/90
[2018-04-19] VITALS: BP 138/74
[2018-04-19 04:00] VITALS: BP 135/78
[2018-04-19 08:42] VITALS: BP 146/93
[2018-04-19 12:15] VITALS: BP 130/80
[2018-04-19 15:41] VITALS: BP 146/86
[2018-04-19 21:40] VITALS: BP 128/74
[2018-04-20 04:00] VITALS: BP 117/76
[2018-04-20 06:49] LABS: BASOPHILS 0.4 % (0-2); EOSINOPHILS 2.3 % (0-7); HEMATOCRIT 27.8 % (36.0-48.0); HEMOGLOBIN 8.5 g/dL (12-16); IMMATURE GRANULOCYTES 0.2 % (0-5); LYMPHOCYTES 11.4 % (15-50); MCH 29.5 pg (26.0-34.0); MCHC 30.6 g/dL (31.0-37.0); MCV 96.5 fL (80.0-100.0); MEAN PLATELET VOLUME 8.8 fL (7.4-10.4); MONOCYTES 5.5 % (2-11); NEUTROPHILS 80.2 % (40-80); PLATELET COUNT 323 10x3/uL (130-400); RBC 2.88 10x6/uL (4.00-5.40); RDW 20.5 % (11.5-14.5); WBC 11.4 10x3/uL (4.8-10.8)
[2018-04-20 07:23] LABS: ANION GAP 16.5 mmol/L (8-16); CALCIUM 8.4 mg/dL (8.5-10.1); CARBON DIOXIDE 26.2 mmol/L (21.0-32.0); POTASSIUM - SERUM 4.7 mmol/L (3.5-5.1)
[2018-04-20 07:27] LABS: CREATININE - SERUM 5.3 mg/dL (0.6-1.3)
[2018-04-20 08:31] VITALS: BP 125/69
[2018-04-20 16:17] VITALS: BP 127/68
[2018-04-20 20:32] VITALS: BP 121/69
[2018-04-21 01:16] VITALS: BP 137/76
[2018-04-21 04:00] VITALS: BP 134/74
[2018-04-21 06:21] LABS: BASOPHILS 0.3 % (0-2); EOSINOPHILS 2.1 % (0-7); HEMATOCRIT 26.5 % (36.0-48.0); HEMOGLOBIN 8.2 g/dL (12-16); IMMATURE GRANULOCYTES 0.1 % (0-5); MCHC 30.9 g/dL (31.0-37.0); MCV 97.1 fL (80.0-100.0); MEAN PLATELET VOLUME 9.2 fL (7.4-10.4); MONOCYTES 6.8 % (2-11); NEUTROPHILS 77.7 % (40-80); PLATELET COUNT 324 10x3/uL (130-400); RBC 2.73 10x6/uL (4.00-5.40); RDW 20.4 % (11.5-14.5); WBC 11.1 10x3/uL (4.8-10.8)
[2018-04-21 06:47] LABS: ANION GAP 14.8 mmol/L (8-16); CALCIUM 8.1 mg/dL (8.5-10.1); CARBON DIOXIDE 27.7 mmol/L (21.0-32.0); CREATININE - SERUM 4.5 mg/dL (0.6-1.3); PHOSPHOROUS 4.2 mg/dL (2.5-4.9); POTASSIUM - SERUM 4.5 mmol/L (3.5-5.1)
[2018-04-21 08:18] VITALS: BP 144/82
[2018-04-21 11:17] VITALS: BP 136/78
[2018-04-21 15:32] VITALS: BP 142/77
[2018-04-21 21:25] VITALS: BP 138/57
[2018-04-22 01:28] VITALS: BP 118/67
[2018-04-22 04:00] VITALS: BP 120/68
[2018-04-22 09:05] VITALS: BP 152/84
[2018-04-22 11:14] VITALS: BP 151/93
[2018-04-22 15:40] VITALS: BP 138/79
[2018-04-22 21:55] VITALS: BP 100/53
[2018-04-23 00:58] VITALS: BP 111/69
[2018-04-23 04:00] VITALS: BP 122/74
[2018-04-23 05:51] LABS: BASOPHILS 0.5 % (0-2); EOSINOPHILS 2.8 % (0-7); HEMATOCRIT 28.3 % (36.0-48.0); HEMOGLOBIN 8.6 g/dL (12-16); IMMATURE GRANULOCYTES 0.2 % (0-5); LYMPHOCYTES 11.9 % (15-50); MCH 29.3 pg (26.0-34.0); MCHC 30.4 g/dL (31.0-37.0); MCV 96.3 fL (80.0-100.0); MEAN PLATELET VOLUME 8.7 fL (7.4-10.4); MONOCYTES 6.9 % (2-11); NEUTROPHILS 77.7 % (40-80); PLATELET COUNT 298 10x3/uL (130-400); RBC 2.94 10x6/uL (4.00-5.40); RDW 19.2 % (11.5-14.5); WBC 9.7 10x3/uL (4.8-10.8)
[2018-04-23 06:23] LABS: ANION GAP 13.3 mmol/L (8-16); CALCIUM 8.2 mg/dL (8.5-10.1); CARBON DIOXIDE 26.8 mmol/L (21.0-32.0); CREATININE - SERUM 3.8 mg/dL (0.6-1.3); PHOSPHOROUS 4.3 mg/dL (2.5-4.9); POTASSIUM - SERUM 4.1 mmol/L (3.5-5.1)
[2018-04-23 08:15] VITALS: BP 141/58
[2018-04-23 12:34] VITALS: BP 130/60
[2018-04-23 17:23] VITALS: BP 138/70
[2018-04-23 20:00] VITALS: BP 151/85
[2018-04-24] VITALS: BP 143/87
[2018-04-24 04:00] VITALS: BP 128/81
[2018-04-24 05:00] LABS: BASOPHILS 0.6 % (0-2); EOSINOPHILS 3.7 % (0-7); HEMATOCRIT 28.8 % (36.0-48.0); HEMOGLOBIN 8.8 g/dL (12-16); IMMATURE GRANULOCYTES 0.1 % (0-5); MCH 29.2 pg (26.0-34.0); MCHC 30.6 g/dL (31.0-37.0); MCV 95.7 fL (80.0-100.0); MEAN PLATELET VOLUME 8.9 fL (7.4-10.4); MONOCYTES 6.8 % (2-11); NEUTROPHILS 72.8 % (40-80); PLATELET COUNT 284 10x3/uL (130-400); RBC 3.01 10x6/uL (4.00-5.40); RDW 18.8 % (11.5-14.5); WBC 9.6 10x3/uL (4.8-10.8)
[2018-04-24 05:29] LABS: CALCIUM 8.5 mg/dL (8.5-10.1); CARBON DIOXIDE 24.8 mmol/L (21.0-32.0); CREATININE - SERUM 4.4 mg/dL (0.6-1.3); VANCOMYCIN - RANDOM 24.1 ug/mL (10.0-20.0)
[2018-04-24 05:30] LABS: POTASSIUM - SERUM 4.8 mmol/L (3.5-5.1)
[2018-04-24 08:02] VITALS: BP 123/77
[2018-04-24 10:58] VITALS: BP 119/64
[2018-04-24 16:51] VITALS: BP 117/68
[2018-04-24 21:04] VITALS: BP 125/73
[2018-04-25 00:34] VITALS: BP 150/85
[2018-04-25 05:37] VITALS: BP 151/68
[2018-04-25 08:06] VITALS: BP 128/62
[2018-04-25 16:45] VITALS: BP 121/64
[2018-04-25 20:00] VITALS: BP 159/90
[2018-04-26] VITALS: BP 168/89
[2018-04-26 08:43] VITALS: BP 157/89
[2018-04-26 11:59] VITALS: BP 157/83
[2018-04-26 16:07] VITALS: BP 162/87
[2018-04-26 20:00] VITALS: BP 186/97
[2018-04-27] VITALS: BP 169/96
[2018-04-27 04:00] VITALS: BP 168/88
[2018-04-27 05:21] LABS: BASOPHILS 0.5 % (0-2); EOSINOPHILS 4.5 % (0-7); HEMATOCRIT 28.1 % (36.0-48.0); HEMOGLOBIN 8.7 g/dL (12-16); IMMATURE GRANULOCYTES 0.1 % (0-5); LYMPHOCYTES 11.2 % (15-50); MCH 29.6 pg (26.0-34.0); MCV 95.6 fL (80.0-100.0); MEAN PLATELET VOLUME 8.9 fL (7.4-10.4); NEUTROPHILS 76.7 % (40-80); PLATELET COUNT 314 10x3/uL (130-400); RBC 2.94 10x6/uL (4.00-5.40); RDW 18.1 % (11.5-14.5); WBC 10.1 10x3/uL (4.8-10.8)
[2018-04-27 05:46] LABS: ALBUMIN 2.2 g/dL (3.4-5.0); ANION GAP 15.4 mmol/L (8-16); BILIRUBIN - TOTAL 0.4 mg/dL (0.2-1.3); CALCIUM 8.6 mg/dL (8.5-10.1); CARBON DIOXIDE 23.8 mmol/L (21.0-32.0); CREATININE - SERUM 4.9 mg/dL (0.6-1.3); POTASSIUM - SERUM 4.2 mmol/L (3.5-5.1); PROTEIN - SERUM 6.9 g/dL (6.4-8.2); VANCOMYCIN - RANDOM 27.5 ug/mL (10.0-20.0)
[2018-04-27 08:32] VITALS: BP 158/60
[2018-04-27 12:03] VITALS: BP 154/88
[2018-04-27 15:40] VITALS: BP 149/76
[2018-04-27 20:00] VITALS: BP 155/92
[2018-04-28 01:43] VITALS: BP 132/77
[2018-04-28 04:49] VITALS: BP 130/78
[2018-04-28 06:00] LABS: BASOPHILS 0.5 % (0-2); EOSINOPHILS 3.2 % (0-7); HEMATOCRIT 29.3 % (36.0-48.0); HEMOGLOBIN 8.9 g/dL (12-16); IMMATURE GRANULOCYTES 0.1 % (0-5); LYMPHOCYTES 13.1 % (15-50); MCH 29.1 pg (26.0-34.0); MCHC 30.4 g/dL (31.0-37.0); MCV 95.8 fL (80.0-100.0); MEAN PLATELET VOLUME 8.8 fL (7.4-10.4); MONOCYTES 9.7 % (2-11); NEUTROPHILS 73.4 % (40-80); PLATELET COUNT 302 10x3/uL (130-400); RBC 3.06 10x6/uL (4.00-5.40); RDW 18.1 % (11.5-14.5); WBC 8.2 10x3/uL (4.8-10.8)
[2018-04-28 06:49] LABS: ALBUMIN 2.2 g/dL (3.4-5.0); ANION GAP 8.7 mmol/L (8-16); BILIRUBIN - TOTAL 0.3 mg/dL (0.2-1.3); CALCIUM 8.5 mg/dL (8.5-10.1); CARBON DIOXIDE 28.4 mmol/L (21.0-32.0); POTASSIUM - SERUM 4.1 mmol/L (3.5-5.1); PROTEIN - SERUM 6.9 g/dL (6.4-8.2); VANCOMYCIN - RANDOM 21.2 ug/mL (10.0-20.0)
[2018-04-28] MEDS ORDERED: IPRAT-ALBUT 0.5-3 ML UPD (07:59)
[2018-04-28] MEDS ORDERED: MIDODRINE HCL2.5 MG PO (07:59)
[2018-04-28] MEDS ORDERED: PROCRIT/EP4000 UNITS SC (08:00)
[2018-04-28] MEDS ORDERED: CORDARONE200 MG PO (08:00)
[2018-04-28] MEDS ORDERED: CHRONULAC30 ML PO (08:01)
[2018-04-28] MEDS ORDERED: PHOSLO667 MG PO (08:01)
[2018-04-28] MEDS ORDERED: IODOSORB40 GM TOPICAL (08:02)
[2018-04-28] MEDS ORDERED: COLACE100 MG PO (08:02)
[2018-04-28] MEDS ORDERED: ANTIVERT12.5 MG PO (08:02)
[2018-04-28] MEDS ORDERED: PROTONIX40 MG PO (08:02)
[2018-04-28] MEDS ORDERED: NEPHRO-VITE RX1 TAB PO (08:03)
[2018-04-28] MEDS ORDERED: ANUSOL-HC 2.5%30 GM TOPICAL (08:03)
[2018-04-28] MEDS ORDERED: CALMOSEPTINE OI71 GM TOPICAL (08:03)
[2018-04-28 08:33] VITALS: BP 147/90
[2018-04-28 11:40] VITALS: BP 158/72
[2018-04-28 16:02] VITALS: BP 139/74
[2018-04-28 20:00] VITALS: BP 162/98
[2018-04-29 04:00] VITALS: BP 138/78
[2018-04-29 06:23] LABS: BASOPHILS 0.6 % (0-2); EOSINOPHILS 6.2 % (0-7); HEMATOCRIT 28.3 % (36.0-48.0); HEMOGLOBIN 8.8 g/dL (12-16); IMMATURE GRANULOCYTES 0.1 % (0-5); LYMPHOCYTES 18.8 % (15-50); MCH 29.5 pg (26.0-34.0); MCHC 31.1 g/dL (31.0-37.0); MONOCYTES 10.4 % (2-11); NEUTROPHILS 63.9 % (40-80); PLATELET COUNT 313 10x3/uL (130-400); RBC 2.98 10x6/uL (4.00-5.40); WBC 6.8 10x3/uL (4.8-10.8)
[2018-04-29 07:00] LABS: ALBUMIN 2.2 g/dL (3.4-5.0); ANION GAP 16.1 mmol/L (8-16); BILIRUBIN - TOTAL 0.3 mg/dL (0.2-1.3); CALCIUM 8.8 mg/dL (8.5-10.1); CARBON DIOXIDE 24.8 mmol/L (21.0-32.0); CREATININE - SERUM 4.5 mg/dL (0.6-1.3); PHOSPHOROUS 4.1 mg/dL (2.5-4.9); PROTEIN - SERUM 6.9 g/dL (6.4-8.2); VANCOMYCIN - RANDOM 19.7 ug/mL (10.0-20.0)
[2018-04-29 07:08] LABS: POTASSIUM - SERUM 4.9 mmol/L (3.5-5.1)
[2018-04-29 08:29] VITALS: BP 162/98
[2018-04-29 11:37] VITALS: BP 150/80
[2018-04-29 20:53] VITALS: BP 145/81
[2018-04-30 01:31] VITALS: BP 115/67
[2018-04-30 04:59] LABS: BASOPHILS 1.2 % (0-2); EOSINOPHILS 5.9 % (0-7); HEMATOCRIT 29.9 % (36.0-48.0); HEMOGLOBIN 9.1 g/dL (12-16); IMMATURE GRANULOCYTES 0.2 % (0-5); LYMPHOCYTES 15.4 % (15-50); MCH 29.2 pg (26.0-34.0); MCHC 30.4 g/dL (31.0-37.0); MCV 95.8 fL (80.0-100.0); MONOCYTES 11.4 % (2-11); NEUTROPHILS 65.9 % (40-80); PLATELET COUNT 309 10x3/uL (130-400); RBC 3.12 10x6/uL (4.00-5.40); RDW 18.1 % (11.5-14.5)
[2018-04-30 05:25] LABS: ALBUMIN 2.3 g/dL (3.4-5.0); ANION GAP 9.6 mmol/L (8-16); BILIRUBIN - TOTAL 0.3 mg/dL (0.2-1.3); CALCIUM 8.8 mg/dL (8.5-10.1); PHOSPHOROUS 3.6 mg/dL (2.5-4.9); POTASSIUM - SERUM 4.2 mmol/L (3.5-5.1); VANCOMYCIN - RANDOM 16.3 ug/mL (10.0-20.0)
[2018-04-30 05:26] LABS: CARBON DIOXIDE 31.6 mmol/L (21.0-32.0); CREATININE - SERUM 3.2 mg/dL (0.6-1.3)
[2018-04-30 05:49] LABS: PROTEIN - SERUM 7.1 g/dL (6.4-8.2)
[2018-04-30 06:06] VITALS: BP 130/82
[2018-04-30 07:54] VITALS: BP 121/68
[2018-04-30 10:57] VITALS: BP 119/74
[2018-04-30 16:38] VITALS: BP 123/62
[2018-04-30 19:00] VITALS: BP 148/92
[2018-05-01 01:39] VITALS: BP 141/87
[2018-05-01 04:00] VITALS: BP 131/74
[2018-05-01 05:24] LABS: BASOPHILS 0.6 % (0-2); EOSINOPHILS 5.3 % (0-7); HEMOGLOBIN 9.1 g/dL (12-16); IMMATURE GRANULOCYTES 0.2 % (0-5); LYMPHOCYTES 22.1 % (15-50); MCH 29.2 pg (26.0-34.0); MCHC 30.3 g/dL (31.0-37.0); MCV 96.2 fL (80.0-100.0); MEAN PLATELET VOLUME 9.1 fL (7.4-10.4); MONOCYTES 11.8 % (2-11); PLATELET COUNT 326 10x3/uL (130-400); RBC 3.12 10x6/uL (4.00-5.40); RDW 17.8 % (11.5-14.5); WBC 6.4 10x3/uL (4.8-10.8)
[2018-05-01 05:40] LABS: ALBUMIN 2.3 g/dL (3.4-5.0); ANION GAP 14.9 mmol/L (8-16); BILIRUBIN - TOTAL 0.25 mg/dL (0.2-1.3); CALCIUM 9.1 mg/dL (8.5-10.1); CARBON DIOXIDE 28.7 mmol/L (21.0-32.0); POTASSIUM - SERUM 4.6 mmol/L (3.5-5.1); PROTEIN - SERUM 7.1 g/dL (6.4-8.2)
[2018-05-01 05:42] LABS: CREATININE - SERUM 4.3 mg/dL (0.6-1.3)
[2018-05-01 07:40] VITALS: BP 131/68
== END 2018-05-01 10:35 | DRG 981 ==
LOC: D.ER 16:59 → D.ICU 20:14 → D.MS 20:14 → D.M2 20:14 → D.CVICU 20:14 → D.ICU 03-16 12:01 → D.M2 03-18 17:32 → D.CVICU 04-03 16:34 → D.ICU 04-06 10:41 → D.M2 04-12 03:20 → D.SDCHOLD 04-14 16:12 → D.M2 05-01 10:35
PROVIDERS: Emergency Medicine; Family Medicine; Internal Medicine; Internal Medicine Cardiovascular Disease; Internal Medicine Nephrology; Internal Medicine Pulmonary Disease; Nurse Practitioner Family; Radiology Diagnostic Radiology; Surgery; Thoracic Surgery (Cardiothoracic Vascular Surgery)
PROC: 5A1D70Z Performance of Urinary Filtration, Intermittent, Less than 6 Hours Per Day (ICD-10-PCS; 2018-03-13)
PROC: 02H633Z Insertion of Infusion Device into Right Atrium, Percutaneous Approach (ICD-10-PCS; 2018-03-17)
PROC: 05PYX3Z Removal of Infusion Device from Upper Vein, External Approach (ICD-10-PCS; 2018-03-17)
PROC: B2111ZZ Fluoroscopy of Multiple Coronary Arteries using Low Osmolar Contrast (ICD-10-PCS; 2018-04-02)
PROC: B2151ZZ Fluoroscopy of Left Heart using Low Osmolar Contrast (ICD-10-PCS; 2018-04-02)
PROC: 4A023N7 Measurement of Cardiac Sampling and Pressure, Left Heart, Percutaneous Approach (ICD-10-PCS; 2018-04-02)
PROC: 02R Heart and Great Vessels, Replacement (ICD-10-PCS; 2018-04-03)
PROC: 5A1221Z Performance of Cardiac Output, Continuous (ICD-10-PCS; 2018-04-03)
PROC: 02PA0MZ Removal of Cardiac Lead from Heart, Open Approach (ICD-10-PCS; principal; 2018-04-03 12:25)
DX: I12.0 Hypertensive chronic kidney disease with stage 5 chronic kidney disease or end stage renal disease (principal); A41.9 Sepsis, unspecified organism; I33.0 Acute and subacute infective endocarditis; N18.6 End stage renal disease; G92 Toxic encephalopathy; J96.01 Acute respiratory failure with hypoxia; J15.212 Pneumonia due to Methicillin resistant Staphylococcus aureus; T82.7XXA Infection and inflammatory reaction due to other cardiac and vascular devices, implants and grafts, initial encounter; T83.511A Infection and inflammatory reaction due to indwelling urethral catheter, initial encounter; T80.211A Bloodstream infection due to central venous catheter, initial encounter; N17.9 Acute kidney failure, unspecified; E87.2 Acidosis; N39.0 Urinary tract infection, site not specified; L03.116 Cellulitis of left lower limb; J98.11 Atelectasis; J90 Pleural effusion, not elsewhere classified; L76.32 Postprocedural hematoma of skin and subcutaneous tissue following other procedure; E11.22 Type 2 diabetes mellitus with diabetic chronic kidney disease; E11.21 Type 2 diabetes mellitus with diabetic nephropathy; R60.9 Edema, unspecified; D63.1 Anemia in chronic kidney disease; K21.9 Gastro-esophageal reflux disease without esophagitis; R55 Syncope and collapse; Z91.19 Patient's noncompliance with other medical treatment and regimen; F41.9 Anxiety disorder, unspecified; R79.89 Other specified abnormal findings of blood chemistry; B95.62 Methicillin resistant Staphylococcus aureus infection as the cause of diseases classified elsewhere; B96.5 Pseudomonas (aeruginosa) (mallei) (pseudomallei) as the cause of diseases classified elsewhere; I07.1 Rheumatic tricuspid insufficiency; I27.20 Pulmonary hypertension, unspecified; I48.91 Unspecified atrial fibrillation; Y84.0 Cardiac catheterization as the cause of abnormal reaction of the patient, or of later complication, without mention of misadventure at the time of the procedure; E83.51 Hypocalcemia

== ENCOUNTER 2018-05-01 05:23 | Inpatient (IN) | payer MEDICARE ==
[~2018-05-01] VITALS: Ht 154.9 cm; Wt 79.7 kg
--- NOTE | ~2018-05-01 | RHP ---
PATIENT: STELLA TOPETE MEDICAL RECORD: [id number] ACCOUNT: [id number] LOCATION:[facility] DRena1111 : [birth year] ADMISSION DATE: 05/01/18 REHABILITATION HISTORY AND PHYSICAL EXAMINATION POST ADMISSION PHYSICIAN EXAMINATION POST-ADMISSION PHYSICAL EXAMINATION AND HISTORY AND PHYSICAL DATE OF ADMISSION: 05/01/2018 ADMITTING DIAGNOSIS: Uremic myopathy. HISTORY OF PRESENT ILLNESS: The patient is a 62-year-old female patient admitted to inpatient rehab with uremic myopathy. She has got a protracted hospital stay. She was admitted on 03/04 with weakness and syncope with known chronic kidney disease. She was found to have MRSA endocarditis, which appeared to be the cause of her symptoms at admission. Consults included nephrology, infectious disease, cardiology, cardiothoracic surgery, case management, physical therapy, wound care. She had pacemaker placement, central lines, HemoSplit fistula dialysis. Her hospital course: She was admitted with weakness and syncope and end-stage renal disease. She was found to have intermittent sepsis, MRSA endocarditis was discovered as the cause. She has been on long-term IV antibiotics. She had her pacemaker placed due to concern that the leads might have been seeding the infection. She has been improving since her procedure. She is slow to increase her physical therapy. She was now ambulating with physical therapy, will discharge to a rehab facility when she is accepted both by the facility and her insurance has performed the reevaluation. The insurance denied her first evaluation for rehab because she was not physically active enough to justify transfer to rehab. She has improved since that time. She completes her IV vancomycin on 05/14. Based on the current recommendations, that may change with subsequent evaluation by infectious disease. Previously she lived alone, was independent with ADLs and mobility. Currently, she has got a prolonged immobility, progressive generalized weakness especially in her lower extremities affecting her exercise tolerance. She is very fatigued with limited flexion and extension of lower extremities. Proximal muscle strength is decreased. She is nsmlsqsk-eo-xha assist for ADLs and pcoswhtc-sq-upt assist for sjd-qj-wsruw and jkr-mr-nxvse. Due to continued medical complications, she is extremely weak and debilitated and will definitely require more rehab at some point. Comorbidities in this patient include chronic kidney disease, syncope and collapse, metabolic acidosis, UTI, anxiety, acute onset sepsis, end-stage renal disease on dialysis, bacteremia, hemodialysis, pulmonary hypertension, atrial fib, pseudomonas, cellulitis of her thigh, acute bacterial endocarditis of her tricuspid valve, and MRSA. PAST MEDICAL HISTORY: Significant for vertigo, cataracts, sick sinus syndrome, pneumonia, rectal cancer, acid reflux, constipation, depression. PAST SURGICAL HISTORY: Includes gallbladder surgery, colon surgery, , appendectomy, bilateral wrist surgery, pacemaker placement. ALLERGIES: PENICILLIN, COMPAZINE, CODEINE. CURRENT MEDICATIONS: Include Protonix 40 mg daily, folic acid daily, Procrit 4000 units subcutaneous daily, cadexomer iodine gel to apply daily, tramadol 50 mg every 6 hours p.r.n. She is on heparin per dialysis protocol. She is on HISTORY AND PHYSICAL [id number] STELLA TOPETE ProAmatine 2.5 mg t.i.d., Calmoseptine as needed, Antivert 12.5 mg b.i.d. p.r.n., lactulose 30 cc b.i.d., DuoNeb updrafts as needed, hydrocortisone cream to apply topically as needed, Colace 100 mg b.i.d., PhosLo 1300 mg t.i.d. with meals, amiodarone 200 mg b.i.d., and polyethylene glycol 17 g in 8 ounces of water daily. HABITS: No current alcohol or tobacco use. FAMILY HISTORY: Noncontributory. SOCIAL HISTORY: The patient hopes to be able to return back home at the end of this stay and get back to her prior level of functioning. REVIEW OF SYSTEMS: GENERAL: Does complain of weakness and fatigue. HEENT: Denies cold, cough, or congestion. CARDIOVASCULAR: Denies chest pain. PHYSICAL EXAMINATION: VITAL SIGNS: Stable, afebrile. GENERAL: A thin female, in no acute distress upon exam. HEENT: Normocephalic and atraumatic. Mucosa moist. NECK: Supple. No lymphadenopathy. LUNGS: Clear at this time. HEART: Regular rhythm. ABDOMEN: Soft. EXTREMITIES: No clubbing, cyanosis or edema. NEUROLOGIC: She is intact mentally. She does have noted proximal muscle weakness. LABORATORY DATA: White count is 6.4, H&H of 9.1 and 30, and platelet count is noted to be 326. Her sodium is 133, potassium 4.6, BUN and creatinine of 34 and 4.3, and blood sugar was 94. Her random vancomycin is 16. Her UA does show moderate ketones. She has got 2+ leukocyte esterase, greater than 50 white blood cells, moderate bacteria, and yeast. ASSESSMENT: This 62-year-old female patient admitted to rehab with a working diagnosis of uremic myopathy. The patient has potential to make improvement. We will institute the following multidisciplinary therapies including, but not limited to physical, occupational, respiratory, speech, nutritional services, prosthetics, and orthotics. Given her complex medical condition and risks for more complications, rehabilitation services cannot be provided at a low level of care such as a shelter facility. PLAN: 1. Admit to [facility] for intensive inpatient therapy to include the following disciplines: A. Physical therapy to improve gait, all transfer skills and bed mobility to a modified independent level. B. Occupational therapy to improve activities of daily living to a modified independent level. C. Case management to assist with discharge planning and placement options. D. Nutrition to assist with nutritional needs. E. Rehabilitation nursing to assist in monitoring the patient's underlying medical conditions and to assist with any type of bowel or bladder management. HISTORY AND PHYSICAL [id number] STELLA TOPETE 2. The patient's current medications and medical care will be continued. 3. The patient will be placed on standard fall precautions. 4. The patient's estimated length of stay is approximately 7-10 days. 5. We will discuss this patient during care team staff meeting this week. TRANSINT:[id number] Voice Confirmation ID: [id number] DOCUMENT ID: [id number] PURA notes whether there has been none or any medical/functional change since admission: - No change since the PAS PURA attests patient continues to be appropriate for IRF: - Remains appropriate for the IRF KRISTY TAO MD at 1710 CC: [id number] DICTATION DATE: 05/01/18 1452 HOME APPLIANCE INSTALLER: 05/01/18 1526 ADM IN [facility] [address] [place] [address]
[~2018-05-01 05:23] MED LIST changes: +ANTIVERT12.5 MG PO; +ANUSOL-HC 2.5%30 GM TOPICAL; +CALMOSEPTINE OI71 GM TOPICAL; +CHRONULAC30 ML PO; +COLACE100 MG PO; +CORDARONE200 MG PO; +IODOSORB40 GM TOPICAL; +IPRAT-ALBUT 0.5-3 ML UPD; +MIDODRINE HCL2.5 MG PO; +NEPHRO-VITE RX1 TAB PO; +PHOSLO667 MG PO; +PROCRIT/EP4000 UNITS SC; +PROTONIX40 MG PO
[2018-05-01 16:35] VITALS: BP 157/89; BMI 31.2
[2018-05-01 18:00] VITALS: BP 138/82
[2018-05-02 00:26] VITALS: BP 140/60
[2018-05-02 05:17] LABS: BASOPHILS 0.5 % (0-2); EOSINOPHILS 5.5 % (0-7); HEMATOCRIT 30.1 % (36.0-48.0); HEMOGLOBIN 9.1 g/dL (12-16); IMMATURE GRANULOCYTES 0.2 % (0-5); LYMPHOCYTES 21.5 % (15-50); MCH 29.4 pg (26.0-34.0); MCHC 30.2 g/dL (31.0-37.0); MCV 97.1 fL (80.0-100.0); MEAN PLATELET VOLUME 9.1 fL (7.4-10.4); MONOCYTES 9.4 % (2-11); NEUTROPHILS 62.9 % (40-80); PLATELET COUNT 309 10x3/uL (130-400); RDW 18.3 % (11.5-14.5); WBC 5.9 10x3/uL (4.8-10.8)
[2018-05-02 05:31] LABS: CALCIUM 8.8 mg/dL (8.5-10.1); CARBON DIOXIDE 28.2 mmol/L (21.0-32.0); CREATININE - SERUM 3.1 mg/dL (0.6-1.3); POTASSIUM - SERUM 4.2 mmol/L (3.5-5.1)
[2018-05-02 06:15] VITALS: BP 110/72
[2018-05-02 11:11] VITALS: Ht 154.9 cm; Wt 79.7 kg
[2018-05-02 12:28] VITALS: BP 140/88
[2018-05-02 18:40] VITALS: BP 149/88
[2018-05-02 23:19] VITALS: BP 149/88
[2018-05-03 01:21] VITALS: BP 129/79
[2018-05-03 06:37] VITALS: BP 134/78
[2018-05-03 07:19] LABS: BASOPHILS 0.6 % (0-2); HEMATOCRIT 29.4 % (36.0-48.0); HEMOGLOBIN 8.9 g/dL (12-16); IMMATURE GRANULOCYTES 0.1 % (0-5); LYMPHOCYTES 17.6 % (15-50); MCH 29.4 pg (26.0-34.0); MCHC 30.3 g/dL (31.0-37.0); MEAN PLATELET VOLUME 9.2 fL (7.4-10.4); MONOCYTES 8.6 % (2-11); NEUTROPHILS 67.1 % (40-80); PLATELET COUNT 319 10x3/uL (130-400); RBC 3.03 10x6/uL (4.00-5.40); RDW 17.8 % (11.5-14.5); WBC 6.9 10x3/uL (4.8-10.8)
[2018-05-03 07:29] LABS: ALBUMIN 2.3 g/dL (3.4-5.0); ANION GAP 13.5 mmol/L (8-16); BILIRUBIN - TOTAL 0.31 mg/dL (0.2-1.3); CALCIUM 8.6 mg/dL (8.5-10.1); CARBON DIOXIDE 26.6 mmol/L (21.0-32.0); POTASSIUM - SERUM 4.1 mmol/L (3.5-5.1)
[2018-05-03 07:41] LABS: CREATININE - SERUM 3.9 mg/dL (0.6-1.3)
[2018-05-03 12:01] VITALS: BP 142/91
[2018-05-03 18:32] VITALS: BP 133/76
[2018-05-04 00:35] VITALS: BP 127/76
[2018-05-04 06:23] VITALS: BP 138/78
[2018-05-04 12:00] VITALS: BP 159/96
[2018-05-04 18:00] VITALS: BP 132/83
[2018-05-05 00:41] VITALS: BP 135/85
[2018-05-05 06:39] VITALS: BP 130/80
[2018-05-05 07:02] LABS: BASOPHILS 0.6 % (0-2); EOSINOPHILS 5.7 % (0-7); HEMOGLOBIN 8.6 g/dL (12-16); IMMATURE GRANULOCYTES 0.3 % (0-5); LYMPHOCYTES 18.8 % (15-50); MCH 28.8 pg (26.0-34.0); MCHC 29.7 g/dL (31.0-37.0); MEAN PLATELET VOLUME 9.3 fL (7.4-10.4); MONOCYTES 8.4 % (2-11); NEUTROPHILS 66.2 % (40-80); PLATELET COUNT 303 10x3/uL (130-400); RBC 2.99 10x6/uL (4.00-5.40); RDW 17.8 % (11.5-14.5); WBC 6.5 10x3/uL (4.8-10.8)
[2018-05-05 07:23] LABS: ALBUMIN 2.3 g/dL (3.4-5.0); ANION GAP 14.3 mmol/L (8-16); BILIRUBIN - TOTAL 0.3 mg/dL (0.2-1.3); CALCIUM 8.5 mg/dL (8.5-10.1); CARBON DIOXIDE 26.8 mmol/L (21.0-32.0); CREATININE - SERUM 4.2 mg/dL (0.6-1.3); PHOSPHOROUS 3.3 mg/dL (2.5-4.9); POTASSIUM - SERUM 4.1 mmol/L (3.5-5.1); PROTEIN - SERUM 6.7 g/dL (6.4-8.2); VANCOMYCIN - RANDOM 25.6 ug/mL (10.0-20.0)
[2018-05-05 11:45] VITALS: BP 165/99
[2018-05-05 18:00] VITALS: BP 137/77
[2018-05-06 07:27] LABS: BASOPHILS 1.2 % (0-2); EOSINOPHILS 4.1 % (0-7); HEMATOCRIT 29.7 % (36.0-48.0); HEMOGLOBIN 8.9 g/dL (12-16); LYMPHOCYTES 20.7 % (15-50); MCH 29.2 pg (26.0-34.0); MCV 97.4 fL (80.0-100.0); MEAN PLATELET VOLUME 9.4 fL (7.4-10.4); MONOCYTES 8.5 % (2-11); NEUTROPHILS 65.5 % (40-80); PLATELET COUNT 308 10x3/uL (130-400); RBC 3.05 10x6/uL (4.00-5.40); WBC 5.9 10x3/uL (4.8-10.8)
[2018-05-06 07:39] LABS: ANION GAP 12.2 mmol/L (8-16); CALCIUM 8.5 mg/dL (8.5-10.1); CARBON DIOXIDE 27.7 mmol/L (21.0-32.0); CREATININE - SERUM 3.3 mg/dL (0.6-1.3); POTASSIUM - SERUM 3.9 mmol/L (3.5-5.1); VANCOMYCIN - RANDOM 20.2 ug/mL (10.0-20.0)
[2018-05-06 12:00] VITALS: BP 148/88
[2018-05-06 21:00] VITALS: BP 172/97
[2018-05-07 06:44] LABS: EOSINOPHILS 2.8 % (0-7); HEMATOCRIT 29.5 % (36.0-48.0); HEMOGLOBIN 8.8 g/dL (12-16); IMMATURE GRANULOCYTES 0.1 % (0-5); LYMPHOCYTES 21.3 % (15-50); MCH 28.7 pg (26.0-34.0); MCHC 29.8 g/dL (31.0-37.0); MCV 96.1 fL (80.0-100.0); MEAN PLATELET VOLUME 9.1 fL (7.4-10.4); MONOCYTES 9.7 % (2-11); NEUTROPHILS 65.1 % (40-80); PLATELET COUNT 309 10x3/uL (130-400); RBC 3.07 10x6/uL (4.00-5.40); RDW 17.7 % (11.5-14.5); WBC 6.7 10x3/uL (4.8-10.8)
[2018-05-07 07:27] LABS: ALBUMIN 2.4 g/dL (3.4-5.0); ANION GAP 16.7 mmol/L (8-16); BILIRUBIN - TOTAL 0.22 mg/dL (0.2-1.3); CALCIUM 8.5 mg/dL (8.5-10.1); CARBON DIOXIDE 25.1 mmol/L (21.0-32.0); PHOSPHOROUS 3.2 mg/dL (2.5-4.9); PROTEIN - SERUM 6.8 g/dL (6.4-8.2); VANCOMYCIN - RANDOM 19.1 ug/mL (10.0-20.0)
[2018-05-07 07:29] LABS: POTASSIUM - SERUM 4.8 mmol/L (3.5-5.1)
[2018-05-07 12:00] VITALS: BP 162/98
[2018-05-07 18:00] VITALS: BP 113/71
[2018-05-08 06:36] VITALS: BP 119/71
[2018-05-08 08:38] LABS: BASOPHILS 0.8 % (0-2); EOSINOPHILS 2.7 % (0-7); HEMATOCRIT 29.4 % (36.0-48.0); HEMOGLOBIN 8.9 g/dL (12-16); LYMPHOCYTES 19.3 % (15-50); MCH 29.2 pg (26.0-34.0); MCHC 30.3 g/dL (31.0-37.0); MCV 96.4 fL (80.0-100.0); MEAN PLATELET VOLUME 9.3 fL (7.4-10.4); MONOCYTES 8.4 % (2-11); NEUTROPHILS 68.8 % (40-80); PLATELET COUNT 298 10x3/uL (130-400); RBC 3.05 10x6/uL (4.00-5.40); RDW 17.7 % (11.5-14.5); WBC 7.7 10x3/uL (4.8-10.8)
[2018-05-08 08:58] LABS: ANION GAP 11.1 mmol/L (8-16); CALCIUM 8.5 mg/dL (8.5-10.1); CARBON DIOXIDE 29.7 mmol/L (21.0-32.0)
[2018-05-08 08:59] LABS: CREATININE - SERUM 2.9 mg/dL (0.6-1.3); POTASSIUM - SERUM 3.8 mmol/L (3.5-5.1)
[2018-05-08 11:57] VITALS: BP 123/82
[2018-05-08 13:16] LABS: HEP B CORE AB TOTAL Negative (Negative); HEPATITIS C ANTIBODY <0.1 (0.0-0.9)
[2018-05-08 18:00] VITALS: BP 141/85
[2018-05-09 05:13] VITALS: BP 121/72
[2018-05-09 06:15] LABS: HEPATITIS BE ANTIGEN Negative (Negative)
[2018-05-09 06:32] LABS: BASOPHILS 0.6 % (0-2); EOSINOPHILS 3.2 % (0-7); HEMATOCRIT 26.9 % (36.0-48.0); HEMOGLOBIN 8.1 g/dL (12-16); IMMATURE GRANULOCYTES 0.1 % (0-5); LYMPHOCYTES 17.6 % (15-50); MCHC 30.1 g/dL (31.0-37.0); MCV 96.4 fL (80.0-100.0); MEAN PLATELET VOLUME 8.9 fL (7.4-10.4); MONOCYTES 12.4 % (2-11); NEUTROPHILS 66.1 % (40-80); PLATELET COUNT 254 10x3/uL (130-400); RBC 2.79 10x6/uL (4.00-5.40); RDW 17.5 % (11.5-14.5); WBC 6.9 10x3/uL (4.8-10.8)
[2018-05-09 06:46] LABS: ALBUMIN 2.3 g/dL (3.4-5.0); ANION GAP 12.6 mmol/L (8-16); BILIRUBIN - TOTAL 0.24 mg/dL (0.2-1.3); CALCIUM 8.3 mg/dL (8.5-10.1); CARBON DIOXIDE 29.6 mmol/L (21.0-32.0); PHOSPHOROUS 3.7 mg/dL (2.5-4.9); POTASSIUM - SERUM 4.2 mmol/L (3.5-5.1); PROTEIN - SERUM 6.4 g/dL (6.4-8.2); VANCOMYCIN - RANDOM 14.7 ug/mL (10.0-20.0)
[2018-05-09 06:53] LABS: CREATININE - SERUM 3.7 mg/dL (0.6-1.3)
[2018-05-09 08:34] VITALS: BP 117/67
[2018-05-09 16:10] VITALS: BP 130/67
[2018-05-09 16:30] VITALS: BP 126/71
[2018-05-09 20:30] VITALS: BP 123/83
[2018-05-10 00:59] VITALS: BP 123/83
[2018-05-10 06:55] VITALS: BP 128/82
[2018-05-10 09:09] VITALS: BP 133/73
[2018-05-10 18:00] VITALS: BP 137/73
[2018-05-10 20:30] VITALS: BP 149/87
[2018-05-11 06:28] LABS: BASOPHILS 1.1 % (0-2); EOSINOPHILS 3.5 % (0-7); HEMATOCRIT 27.9 % (36.0-48.0); HEMOGLOBIN 8.3 g/dL (12-16); IMMATURE GRANULOCYTES 0.2 % (0-5); LYMPHOCYTES 17.6 % (15-50); MCH 28.8 pg (26.0-34.0); MCHC 29.7 g/dL (31.0-37.0); MCV 96.9 fL (80.0-100.0); MEAN PLATELET VOLUME 8.7 fL (7.4-10.4); MONOCYTES 11.3 % (2-11); NEUTROPHILS 66.3 % (40-80); PLATELET COUNT 250 10x3/uL (130-400); RBC 2.88 10x6/uL (4.00-5.40); RDW 17.7 % (11.5-14.5); WBC 6.5 10x3/uL (4.8-10.8)
[2018-05-11 06:34] VITALS: BP 142/81
[2018-05-11 07:05] LABS: ALBUMIN 2.2 g/dL (3.4-5.0); ANION GAP 13.1 mmol/L (8-16); BILIRUBIN - TOTAL 0.24 mg/dL (0.2-1.3); CALCIUM 8.1 mg/dL (8.5-10.1); CREATININE - SERUM 3.7 mg/dL (0.6-1.3); PHOSPHOROUS 3.5 mg/dL (2.5-4.9); POTASSIUM - SERUM 4.1 mmol/L (3.5-5.1); PROTEIN - SERUM 6.3 g/dL (6.4-8.2)
[2018-05-11 13:12] LABS: HEPATITIS BE ANTIBODY Negative (Negative)
[2018-05-11 18:00] VITALS: BP 169/95
[2018-05-12 00:26] VITALS: BP 151/85
[2018-05-12 06:00] VITALS: BP 153/86
[2018-05-12 11:45] VITALS: BP 144/88
[2018-05-12 18:00] VITALS: BP 133/87
[2018-05-13 06:15] VITALS: BP 136/77
[2018-05-13 07:44] LABS: BASOPHILS 0.8 % (0-2); EOSINOPHILS 2.3 % (0-7); HEMATOCRIT 28.9 % (36.0-48.0); HEMOGLOBIN 8.9 g/dL (12-16); IMMATURE GRANULOCYTES 0.1 % (0-5); LYMPHOCYTES 8.9 % (15-50); MCH 29.1 pg (26.0-34.0); MCHC 30.8 g/dL (31.0-37.0); MCV 94.4 fL (80.0-100.0); MEAN PLATELET VOLUME 8.4 fL (7.4-10.4); MONOCYTES 12.3 % (2-11); NEUTROPHILS 75.6 % (40-80); PLATELET COUNT 234 10x3/uL (130-400); RBC 3.06 10x6/uL (4.00-5.40); RDW 17.3 % (11.5-14.5); WBC 7.7 10x3/uL (4.8-10.8)
[2018-05-13 08:05] LABS: ANION GAP 11.9 mmol/L (8-16); CALCIUM 8.4 mg/dL (8.5-10.1); CARBON DIOXIDE 28.7 mmol/L (21.0-32.0); CREATININE - SERUM 3.4 mg/dL (0.6-1.3); POTASSIUM - SERUM 4.6 mmol/L (3.5-5.1)
[2018-05-13 12:28] VITALS: BP 146/88
[2018-05-13 18:13] VITALS: BP 142/86
[2018-05-14 06:00] VITALS: BP 121/75
[2018-05-14] MEDS ORDERED: SYNTHROID50 MCG PO (08:22)
[2018-05-14 12:08] VITALS: BP 133/86
[2018-05-14 18:00] VITALS: BP 147/80
[2018-05-15 00:12] VITALS: BP 123/75
[2018-05-15 06:29] VITALS: BP 104/64
[2018-05-15 07:19] LABS: EOSINOPHILS 4.6 % (0-7); HEMATOCRIT 27.7 % (36.0-48.0); HEMOGLOBIN 8.4 g/dL (12-16); IMMATURE GRANULOCYTES 0.3 % (0-5); LYMPHOCYTES 16.3 % (15-50); MCH 28.5 pg (26.0-34.0); MCHC 30.3 g/dL (31.0-37.0); MCV 93.9 fL (80.0-100.0); MEAN PLATELET VOLUME 8.3 fL (7.4-10.4); MONOCYTES 12.8 % (2-11); PLATELET COUNT 225 10x3/uL (130-400); RBC 2.95 10x6/uL (4.00-5.40); RDW 17.1 % (11.5-14.5); WBC 6.8 10x3/uL (4.8-10.8)
[2018-05-15 07:48] LABS: ANION GAP 12.3 mmol/L (8-16); CALCIUM 8.3 mg/dL (8.5-10.1); CARBON DIOXIDE 27.7 mmol/L (21.0-32.0); CREATININE - SERUM 3.8 mg/dL (0.6-1.3); PHOSPHOROUS 3.2 mg/dL (2.5-4.9)
[2018-05-15 11:46] VITALS: BP 106/66
[2018-05-15 19:54] VITALS: BP 118/75
[2018-05-16 06:09] VITALS: BP 128/68
[2018-05-16 12:13] VITALS: BP 161/88
[2018-05-16 14:10] VITALS: BP 161/88
[2018-05-16 18:10] VITALS: BP 145/87
[2018-05-17 00:14] VITALS: BP 122/87
[2018-05-17 12:28] VITALS: BP 148/68
[2018-05-17 18:37] VITALS: BP 149/81
[2018-05-18 06:00] VITALS: BP 138/81
[2018-05-18 12:24] VITALS: BP 125/71
[2018-05-18 18:00] VITALS: BP 121/71
[2018-05-18 19:50] VITALS: BP 121/71
[2018-05-19 06:00] LABS: BASOPHILS 0.8 % (0-2); EOSINOPHILS 5.1 % (0-7); HEMATOCRIT 28.1 % (36.0-48.0); HEMOGLOBIN 8.4 g/dL (12-16); IMMATURE GRANULOCYTES 0.4 % (0-5); LYMPHOCYTES 17.9 % (15-50); MCH 27.5 pg (26.0-34.0); MCHC 29.9 g/dL (31.0-37.0); MCV 92.1 fL (80.0-100.0); MEAN PLATELET VOLUME 9.3 fL (7.4-10.4); MONOCYTES 11.6 % (2-11); NEUTROPHILS 64.2 % (40-80); PLATELET COUNT 320 10x3/uL (130-400); RBC 3.05 10x6/uL (4.00-5.40); RDW 17.1 % (11.5-14.5); WBC 7.4 10x3/uL (4.8-10.8)
[2018-05-19 06:21] VITALS: BP 102/66
[2018-05-19 06:32] LABS: ANION GAP 14.1 mmol/L (8-16); CALCIUM 8.8 mg/dL (8.5-10.1); CARBON DIOXIDE 25.6 mmol/L (21.0-32.0); CREATININE - SERUM 4.7 mg/dL (0.6-1.3); PHOSPHOROUS 4.6 mg/dL (2.5-4.9); POTASSIUM - SERUM 4.7 mmol/L (3.5-5.1)
[2018-05-19 12:03] VITALS: BP 131/82
[2018-05-19 19:00] VITALS: BP 101/62
[2018-05-20 06:09] VITALS: BP 88/47
[2018-05-20 12:14] VITALS: BP 111/71
[2018-05-20 18:00] VITALS: BP 96/53
[2018-05-21 06:44] VITALS: BP 103/60
[2018-05-21 13:16] VITALS: BP 139/82
[2018-05-21 16:00] VITALS: BP 110/63
[2018-05-22 05:58] VITALS: BP 102/60
[2018-05-22 06:19] LABS: BASOPHILS 0.9 % (0-2); EOSINOPHILS 4.4 % (0-7); HEMATOCRIT 27.2 % (36.0-48.0); HEMOGLOBIN 8.4 g/dL (12-16); IMMATURE GRANULOCYTES 0.1 % (0-5); LYMPHOCYTES 12.3 % (15-50); MCH 28.4 pg (26.0-34.0); MCHC 30.9 g/dL (31.0-37.0); MCV 91.9 fL (80.0-100.0); MEAN PLATELET VOLUME 8.8 fL (7.4-10.4); MONOCYTES 10.3 % (2-11); PLATELET COUNT 333 10x3/uL (130-400); RBC 2.96 10x6/uL (4.00-5.40); WBC 9.1 10x3/uL (4.8-10.8)
[2018-05-22 06:46] LABS: ANION GAP 10.4 mmol/L (8-16); CALCIUM 8.1 mg/dL (8.5-10.1); CARBON DIOXIDE 27.3 mmol/L (21.0-32.0); CREATININE - SERUM 3.8 mg/dL (0.6-1.3); POTASSIUM - SERUM 3.7 mmol/L (3.5-5.1)
[2018-05-22 12:45] VITALS: BP 102/60
[2018-05-22 18:00] VITALS: BP 124/68
[2018-05-22 18:11] VITALS: BP 117/59
[2018-05-23 07:24] VITALS: BP 149/79
[2018-05-23 12:00] VITALS: BP 159/66
[2018-05-23 20:30] VITALS: BP 139/87
[2018-05-24 06:02] VITALS: BP 125/80
[2018-05-24 12:05] VITALS: BP 123/60
[2018-05-24 17:31] VITALS: BP 130/80
[2018-05-24 19:30] VITALS: BP 140/79
[2018-05-25 06:29] VITALS: BP 137/77
[2018-05-25 12:01] VITALS: BP 165/96
[2018-05-25 18:00] VITALS: BP 131/72
[2018-05-26 05:40] VITALS: BP 128/72
[2018-05-26 06:26] LABS: BASOPHILS 0.6 % (0-2); EOSINOPHILS 3.3 % (0-7); HEMATOCRIT 27.5 % (36.0-48.0); HEMOGLOBIN 8.2 g/dL (12-16); IMMATURE GRANULOCYTES 0.4 % (0-5); LYMPHOCYTES 12.8 % (15-50); MCH 26.9 pg (26.0-34.0); MCHC 29.8 g/dL (31.0-37.0); MCV 90.2 fL (80.0-100.0); MEAN PLATELET VOLUME 8.3 fL (7.4-10.4); NEUTROPHILS 72.9 % (40-80); PLATELET COUNT 335 10x3/uL (130-400); RBC 3.05 10x6/uL (4.00-5.40); RDW 17.1 % (11.5-14.5); WBC 10.1 10x3/uL (4.8-10.8)
[2018-05-26 06:29] LABS: ANION GAP 16.7 mmol/L (8-16); CALCIUM 8.6 mg/dL (8.5-10.1); CARBON DIOXIDE 24.4 mmol/L (21.0-32.0); CREATININE - SERUM 4.9 mg/dL (0.6-1.3); PHOSPHOROUS 4.8 mg/dL (2.5-4.9); POTASSIUM - SERUM 5.1 mmol/L (3.5-5.1)
[2018-05-26 06:51] LABS: THYROID STIMULATING HORMONE 2.97 uIU/mL (0.36-3.74)
[2018-05-26 11:56] VITALS: BP 146/91
[2018-05-26 18:32] VITALS: BP 130/81
[2018-05-26 20:00] VITALS: BP 140/84
[2018-05-27 06:33] VITALS: BP 128/82
[2018-05-27 12:06] VITALS: BP 149/87
[2018-05-27 14:21] LABS: BASOPHILS 0.6 % (0-2); EOSINOPHILS 1.8 % (0-7); HEMATOCRIT 27.7 % (36.0-48.0); HEMOGLOBIN 8.6 g/dL (12-16); IMMATURE GRANULOCYTES 0.4 % (0-5); LYMPHOCYTES 7.3 % (15-50); MCH 27.7 pg (26.0-34.0); MCV 89.1 fL (80.0-100.0); MEAN PLATELET VOLUME 8.9 fL (7.4-10.4); MONOCYTES 11.2 % (2-11); NEUTROPHILS 78.7 % (40-80); PLATELET COUNT 349 10x3/uL (130-400); RBC 3.11 10x6/uL (4.00-5.40); RDW 17.1 % (11.5-14.5); WBC 11.3 10x3/uL (4.8-10.8)
[2018-05-27 14:40] LABS: ANION GAP 19.2 mmol/L (8-16); CALCIUM 8.3 mg/dL (8.5-10.1); CARBON DIOXIDE 22.9 mmol/L (21.0-32.0); CREATININE - SERUM 5.3 mg/dL (0.6-1.3); POTASSIUM - SERUM 5.1 mmol/L (3.5-5.1)
[2018-05-27 18:00] VITALS: BP 91/55
[2018-05-28 06:00] VITALS: BP 99/56
[2018-05-28 11:42] VITALS: BP 98/58
[2018-05-28 18:00] VITALS: BP 114/67
[2018-05-29 06:08] VITALS: BP 107/65
[2018-05-29 11:49] VITALS: BP 140/81
[2018-05-29 20:16] VITALS: BP 136/78
[2018-05-29 20:48] VITALS: BP 136/78
[2018-05-30 06:04] LABS: BASOPHILS 0.6 % (0-2); EOSINOPHILS 2.1 % (0-7); HEMATOCRIT 26.9 % (36.0-48.0); HEMOGLOBIN 8.2 g/dL (12-16); IMMATURE GRANULOCYTES 0.3 % (0-5); MCH 27.2 pg (26.0-34.0); MCHC 30.5 g/dL (31.0-37.0); MCV 89.4 fL (80.0-100.0); MEAN PLATELET VOLUME 8.8 fL (7.4-10.4); MONOCYTES 8.5 % (2-11); NEUTROPHILS 77.5 % (40-80); PLATELET COUNT 272 10x3/uL (130-400); RBC 3.01 10x6/uL (4.00-5.40); RDW 17.3 % (11.5-14.5); WBC 12.7 10x3/uL (4.8-10.8)
[2018-05-30 06:25] VITALS: BP 93/56
[2018-05-30 06:31] LABS: ANION GAP 12.4 mmol/L (8-16); CALCIUM 8.1 mg/dL (8.5-10.1); CARBON DIOXIDE 26.4 mmol/L (21.0-32.0); CREATININE - SERUM 3.4 mg/dL (0.6-1.3); POTASSIUM - SERUM 3.8 mmol/L (3.5-5.1)
[2018-05-30 08:02] VITALS: BP 100/60
[2018-05-30 11:52] VITALS: BP 82/49
[2018-05-30 15:57] LABS: APPEARANCE TURBID (CLEAR); BILIRUBIN NEGATIVE (NEGATIVE); COLOR YELLOW (YELLOW); GLUCOSE 50 mg/dL (NEGATIVE); KETONE NEGATIVE (NEGATIVE); NITRITE NEGATIVE (NEGATIVE); PROTEIN 3+ mg/dL (NEGATIVE); SPECIFIC GRAVITY 1.015 (1.005-1.020); UROBILINOGEN NORMAL (NORMAL)
[2018-05-30 16:08] LABS: AMORPHOUS SEDIMENT >1+ /lpf (NONE SEEN); BACTERIA MANY /hpf (NONE SEEN); HYALINE CAST OCC /lpf (NONE SEEN); RED CELLS - URINE 0-5 /hpf (0-5); WHITE CELLS - URINE 25-50 /hpf (0-5); YEAST >1+ /hpf (NONE SEEN)
[2018-05-30 16:56] VITALS: BP 117/60
[2018-05-31 04:50] VITALS: BP 131/66
[2018-05-31 12:01] VITALS: BP 120/71
[2018-05-31 18:16] VITALS: BP 124/74
[2018-06-01 06:00] VITALS: BP 111/64
[2018-06-01 06:05] VITALS: BP 139/72
[2018-06-01 12:39] VITALS: BP 133/78
[2018-06-01 18:07] VITALS: BP 131/72
[2018-06-02 05:46] VITALS: BP 95/59
[2018-06-02 14:30] VITALS: BP 138/77
== END 2018-06-02 16:48 | disposition short-term general hospital (02) | DRG 91 ==
LOC: D.REHAB 05:23
PROVIDERS: Emergency Medicine; Internal Medicine; Internal Medicine Nephrology
PROC: 5A1D70Z Performance of Urinary Filtration, Intermittent, Less than 6 Hours Per Day (ICD-10-PCS; principal; 2018-05-02)
DX: G72.89 Other specified myopathies (principal); N18.6 End stage renal disease; A41.9 Sepsis, unspecified organism; I33.0 Acute and subacute infective endocarditis; E87.2 Acidosis; N39.0 Urinary tract infection, site not specified; L03.119 Cellulitis of unspecified part of limb; Z99.2 Dependence on renal dialysis; R55 Syncope and collapse; F41.9 Anxiety disorder, unspecified; I27.20 Pulmonary hypertension, unspecified; I48.91 Unspecified atrial fibrillation; I95.9 Hypotension, unspecified; D63.1 Anemia in chronic kidney disease; K59.00 Constipation, unspecified; B96.5 Pseudomonas (aeruginosa) (mallei) (pseudomallei) as the cause of diseases classified elsewhere

== ENCOUNTER 2018-06-02 16:45 | Observation (INO) | payer MEDICARE ==
[~2018-06-02] VITALS: Ht 154.9 cm; Wt 77.1 kg
[~2018-06-02 16:45] MED LIST changes: +SYNTHROID50 MCG PO
[2018-06-02 18:49] VITALS: BP 150/84; BMI 32.2
[2018-06-02 20:00] VITALS: BP 146/79
[2018-06-03 04:00] VITALS: BP 133/80
[2018-06-03 08:11] LABS: BASOPHILS 0.4 % (0-2); EOSINOPHILS 2.5 % (0-7); HEMATOCRIT 27.7 % (36.0-48.0); HEMOGLOBIN 8.4 g/dL (12-16); IMMATURE GRANULOCYTES 0.6 % (0-5); LYMPHOCYTES 7.8 % (15-50); MCH 27.2 pg (26.0-34.0); MCHC 30.3 g/dL (31.0-37.0); MCV 89.6 fL (80.0-100.0); MEAN PLATELET VOLUME 8.6 fL (7.4-10.4); MONOCYTES 10.1 % (2-11); NEUTROPHILS 78.6 % (40-80); PLATELET COUNT 222 10x3/uL (130-400); RBC 3.09 10x6/uL (4.00-5.40); RDW 18.3 % (11.5-14.5)
[2018-06-03 08:36] VITALS: BP 132/72
[2018-06-03 08:39] LABS: ANION GAP 12.2 mmol/L (8-16); CALCIUM 8.1 mg/dL (8.5-10.1); CREATININE - SERUM 4.1 mg/dL (0.6-1.3); POTASSIUM - SERUM 4.2 mmol/L (3.5-5.1)
[2018-06-03 12:21] LABS: APPEARANCE SLT CLOUDY (CLEAR); COLOR YELLOW (YELLOW)
[2018-06-03 12:22] LABS: BILIRUBIN NEGATIVE (NEGATIVE); GLUCOSE 50 mg/dL (NEGATIVE); KETONE NEGATIVE (NEGATIVE); NITRITE NEGATIVE (NEGATIVE); PROTEIN 3+ mg/dL (NEGATIVE); UROBILINOGEN NORMAL (NORMAL)
[2018-06-03 12:23] LABS: BACTERIA FEW /hpf (NONE SEEN); EPITHELIAL CELLS 0-5 /hpf (0-5); MUCUS <1+ /lpf (NONE SEEN); RED CELLS - URINE 0-5 /hpf (0-5)
[2018-06-03 12:43] VITALS: BMI 32.1
[2018-06-03 16:39] VITALS: BP 148/78
[2018-06-03 20:00] VITALS: BP 107/61
[2018-06-04 04:00] VITALS: BP 121/67
[2018-06-04 06:07] LABS: BASOPHILS 0.6 % (0-2); EOSINOPHILS 3.4 % (0-7); HEMATOCRIT 27.3 % (36.0-48.0); HEMOGLOBIN 8.3 g/dL (12-16); IMMATURE GRANULOCYTES 0.5 % (0-5); LYMPHOCYTES 12.1 % (15-50); MCH 27.6 pg (26.0-34.0); MCHC 30.4 g/dL (31.0-37.0); MCV 90.7 fL (80.0-100.0); MEAN PLATELET VOLUME 8.8 fL (7.4-10.4); MONOCYTES 12.3 % (2-11); NEUTROPHILS 71.1 % (40-80); PLATELET COUNT 225 10x3/uL (130-400); RBC 3.01 10x6/uL (4.00-5.40); RDW 18.4 % (11.5-14.5)
[2018-06-04 06:14] LABS: WBC 8.8 10x3/uL (4.8-10.8)
[2018-06-04 06:32] LABS: ALBUMIN 2.1 g/dL (3.4-5.0); BILIRUBIN - TOTAL 0.21 mg/dL (0.2-1.3); CALCIUM 7.8 mg/dL (8.5-10.1); CARBON DIOXIDE 30.8 mmol/L (21.0-32.0); PHOSPHOROUS 4.1 mg/dL (2.5-4.9); POTASSIUM - SERUM 3.8 mmol/L (3.5-5.1); PROTEIN - SERUM 6.6 g/dL (6.4-8.2)
[2018-06-04 06:39] LABS: CREATININE - SERUM 2.7 mg/dL (0.6-1.3)
[2018-06-04 08:17] VITALS: BP 119/70
[2018-06-04 11:56] VITALS: BP 129/77
[2018-06-04 15:33] VITALS: BP 138/77
[2018-06-09 12:15] VITALS: Ht 154.9 cm; Wt 77.1 kg
[2018-06-18 19:13] LABS: AEROBE ID Final report (())
== END 2018-06-04 16:55 | disposition home or self-care (01) ==
LOC: OBSVTIME → D.M2 16:45 → UNDOADMIN 17:35 → OBSVTIME 06-04 10:18 → D.M2 06-04 10:18 → UNDOADMOB 06-04 10:18 → D.M2 06-04 16:55
PROVIDERS: Family Medicine; Internal Medicine Nephrology
DX: J81.0 Acute pulmonary edema (principal); N18.6 End stage renal disease; I12.0 Hypertensive chronic kidney disease with stage 5 chronic kidney disease or end stage renal disease; Z99.2 Dependence on renal dialysis; F41.9 Anxiety disorder, unspecified; L98.491 Non-pressure chronic ulcer of skin of other sites limited to breakdown of skin; T81.30XD Disruption of wound, unspecified, subsequent encounter; I48.91 Unspecified atrial fibrillation

== ENCOUNTER 2018-06-09 09:36 | Inpatient (IN) | payer MEDICARE ==
[~2018-06-09] VITALS: Ht 154.9 cm; Wt 90.6 kg
--- NOTE | ~2018-06-09 | EC ---
PATIENT:STELLA TOPETE DATE OF SERVICE: 06/10/18 SEX: F MEDICAL RECORD: [id number] DATE OF : 51 LOCATION:D.M2 D.214 AGE OF PATIENT: 62 ADMISSION DATE: 06/10/18 REFERRING PHYSICIAN: INTERPRETING PHYSICIAN: ELIANA DICKSON MD ECHOCARDIOGRAM REPORT ECHO CHARGES 4 ECHO COMPLETE Date: 06/11 CLINICAL DIAGNOSIS: POST OP AVR ECHOCARDIOGRAPHIC MEASUREMENTS (adult normal given) AC root (d.<3.7cm) 3.4 cm LV Septum d (<1.2 cm> 1.6 cm Valve Excursion 1.9 cm LV Septum (systole) 1.9 cm Left Atria (s.<4.0cm> 3.6 cm LVPW d(<1.2cm) 1.6 cm RV (d.<2.3cm) cm LVPW (sytole) 1.9 cm LV diastole(<5.6CM) 4.2 cm MV E-F(>70mm/sec) cm LV systole 1.7 cm LVOT Diameter 1.4 cm MV exc.(>10mm) 1.5 cm Est.ejection fraction (50-75%) % DOPPLER: LVIT cm/sec A cm/sec E cm/sec LA cm/sec RVSP 42 mmHg LVOT 93 cm/sec AOP1/2T m/s Asc. Ao 241 cm/sec RVOT 143 cm/sec RA cm/sec PA 182 cm/sec AV Gradient Peak 23.31mmHg AV Mean 15.95mmHg AV Area 2.0 cm MV Gradient Peak mmHg MV Mean mmHg MV Area cm COMMENTS: ARMAAN TRACED Foam Charger: Adriane COOK Retail Sales Advisor: Roscoe Dickson TAPE# PACS Pericardial Effusion N DATE OF SERVICE: 06/11/2018 FINDINGS: 1. Left ventricular chamber size is within normal limits. Left ventricular systolic function is normal. Overall ejection fraction estimated at 55%. 2. Left atrium is within normal limits. Right atrium and right ventricular chamber sizes are mildly dilated. 3. Valvular structures: Aortic valve is replaced with tissue prosthesis that has normal structure and function in this position. The remaining valvular structures have normal structure and motion. ECHOCARDIOGRAM REPORT [id number] STELLA TOPETE 4. Doppler interrogation only reveals bilh-hr-nhymaaps tricuspid regurgitation. No other valvular insufficiency or stenosis. Pulmonary systolic pressure is estimated at 42 mmHg. 5. No evidence of pericardial effusion or left ventricular thrombus. TRANSINT:[id number] Voice Confirmation ID: [id number] DOCUMENT ID: [id number] ELIANA DICKSON MD at 1713 CC: [id number] DICTATION DATE: 06/11/18 1231 ASSISTANT SPA MANAGER: 06/11/18 1240 ADM IN [place] [id number] [place] [address]
--- NOTE | ~2018-06-09 | DS ---
PATIENT:STELLA HATHAWAY :51 MEDICAL RECORD: [id number] DISCHARGE SUMMARY ADMISSION DATE: 06/10/18 DISCHARGE DATE: 07/03/18 HISTORY OF PRESENT ILLNESS: Ms. Hathaway is a 62-year-old white female with status post valvular replacement approximately 3 months ago. Since that time, she has had a wound dehiscence as well as progressive edema and dyspnea on exertion, was brought to the Emergency Room from the [facility] with hypotension and cramping. Her dialysis fistula has not been able to be used. She has had dialysis catheters supporting her during this time. She is admitted with her hypotension. HOSPITAL COURSE: The patient was begun on broad-spectrum antibiotics on an empiric basis. Her initial blood cultures were positive for Enterococcus. Her blood cultures were positive for Enterococcus from her dialysis catheter. Her urine culture was positive for Enterococcus. Subsequently, was seen by Dr. Guzman and with sensitivities and resistant to vancomycin, and with her recent course of daptomycin she was started on Zyvox and received a course of Zyvox, but due to thrombocytopenia this was discontinued and she was put back on daptomycin with the recommendation being 4-6 weeks of therapy. During this time, she developed edema of her fistula arm, was taken to surgery by Dr. Sloan where she had a revision of the fistula without evidence of vena caval syndrome and her fistula was healing nicely. At the time of discharge, we had still not been able to use that. Consequently, she had with positive blood cultures, removal of her tunneled catheter and had a Trialysis catheter in her right IJ for dialysis access at the time of discharge and we will attempt to use the fistula as an outpatient and will remove the Trialysis catheter as an outpatient. During this time, she underwent acute dialysis with intensive UF and it however was still edematous at the time of discharge and we will continue to work on her dry weight. She was out of bed. She was eating a regular renal diet at the time of discharge. Ambulation was her main physical therapy issue and we will continue that at the [facility]. She was discharged on day 7 of her daptomycin and her 1 month date will be 07/24/2018. DISCHARGE DIAGNOSES: 1. Septicemia with urinary tract as a source with positive blood cultures. 2. Hypotension secondary to the above. 3. Urinary tract infection. 4. Catheter related infection. 5. Poor function of dialysis access requiring surgical revision. 6. End-stage renal disease. 7. Chronic edema. 8. End-stage renal disease. 9. Recent valvular replacement. PLAN: The patient will be discharged to [facility]. We will continue her daptomycin t.i.w. after dialysis until 07/24/2018. She will have physical therapy. We will do aggressive ultrafiltration as an outpatient and eventual plan is to use her fistula and get her Trialysis catheter out of her right IJ. She will continue her ambulation is attempted. She will continue out of bed and I will see on rounds in dialysis. DISCHARGE MEDICATIONS: Nephro-Melanie 1 daily, Cubicin 600 IV t.i.w. through July 24, Synthroid 88 mcg daily, tramadol p.r.n., erythropoietin, we will continue as an outpatient in dialysis. She will continue to have p.r.n. DISCHARGE SUMMARY REPORT [id number] STELLA HATHAWAY [facility]. She will continue on her lactobacillus p.o., EMLA cream to her fistula p.r.n., PhosLo 2 t.i.d., Cordarone 200 b.i.d., Reglan 10 before meals and at bedtime, melatonin 6 mg at bedtime. I have reviewed this recently with her son. TRANSINT:[id number] Voice Confirmation ID: [id number] DOCUMENT ID: [id number] ALBARO HENSON MD at 0730 CC: [id number] DICTATION DATE: 07/03/18 0653 SEWER CONNECTOR: 07/03/18 1216 DIS IN 07/03/18 [id number] [place] [address]
--- NOTE | ~2018-06-09 | OP ---
PATIENT NAME: STELLA HATHAWAY MEDICAL RECORD: [id number] :51 LOCATION:D.M2 D.2140 ADMISSION DATE:06/10/18 SURGEON: KELIN SUN MD DATE OF OPERATION: 06/25/2018 REFERRING PHYSICIAN: Albaro Contreras MD PREOPERATIVE DIAGNOSES: End-stage renal disease and nonmaturing left radiocephalic arteriovenous fistula POSTOPERATIVE DIAGNOSES: End-stage renal disease and nonmaturing left radiocephalic arteriovenous fistula. OPERATION PERFORMED: Left arm fistulogram including selective left radial artery arteriogram and balloon angioplasty of arterial anastomosis and juxta-anastomotic segment of cephalic vein. PREOPERATIVE NOTE: Ms. Hathaway is a critically ill, obese patient, who along with having renal insufficiency, has suffered complications associated with cardiac surgery and has had to begin dialysis with a catheter. She has a left wrist radiocephalic Reji fistula, which was created some time ago, but it has failed to mature. She is brought to the operating room now for fistulogram and intervention. In supine position, the was prepped and draped in a sterile manner and local anesthetic was infiltrated into the skin and subcutaneous tissues as needed and the patient was monitored and sedated by SAFETY PROFESSIONAL. The fistula was accessed with ultrasound guidance in a retrograde direction and contrast injection demonstrated good runoff without obstruction, but when a retrograde injection was done, there was severe stenosis of the arterial anastomosis and JA segment. I was unable to cross the areas of stenosis with a guidewire from that vena puncture. I then was able to insert a needle and guidewire under ultrasound directly into the distal radio artery and inserted a 6-Tajik introducer. I passed a Glidewire then proximally in the radial artery and performed a selective radial arteriogram to rule out stenosis or other lesions inhibiting maturation of the fistula and found that there were none. Attention was redirected to the anastomotic stenosis. I was able to pass a Glidewire from the artery into the vein and then over that I passed a 6-mm angioplasty balloon and dilated the JA and AA stenosis. Completion angiography demonstrated no complications or extravasation and a very nice result with increased luminal diameter in these areas. At this time, I would be very hopeful that this patient's fistula can mature. Her big problem at this moment is extremely fragile edematous tissue and I certainly would wait until her edema resolves somewhat before attempting to use her fistula for dialysis access. Blood loss during the operation was estimated at 5 cc. No surgical specimen was submitted. A sterile dressing was applied to the patient's puncture site and hemostasis obtained with direct pressure and [id number]-[id number] sutures of Prolene. The patient was then taken to the recovery room in stable condition. PLAN: When the patient's edema has diminished significantly, we may try a single small needle access of the fistula. TRANSINT:[id number] Voice Confirmation ID: [id number] DOCUMENT ID: [id number] OPERATIVE REPORT [id number] STELLA HATHAWAY JAMES MD at 1054 CC: ALBARO CONTRERAS MD [id number] DICTATION DATE: 07/09/18 1035 BUSINESS OFFICE ASSISTANT: 07/09/18 1048 DIS IN 07/03/[address] [address]
--- NOTE | ~2018-06-09 | OP ---
PATIENT NAME: STELLA TOPETE MEDICAL RECORD: [id number] :51 LOCATION:D.M2 D.2140 ADMISSION DATE:06/10/18 SURGEON: KELIN SUN MD DATE OF OPERATION: 06/19/2018 PREOPERATIVE DIAGNOSIS: Urinary tract infection with vancomycin-resistant enterococcus; end-stage renal disease, on dialysis; bacteremia with gram-positive bacteria and hemodialysis catheter infection; also Pseudomonas urinary tract infection; endocarditis of tricuspid valve; methicillin-resistant Staphylococcus aureus infection of the wound; congestive heart failure; mechanical complication of surgically created arteriovenous fistula; general noncompliance with dialysis; displacement of vascular dialysis catheter, initial encounter. POSTOPERATIVE DIAGNOSES: Urinary tract infection with vancomycin-resistant enterococcus; end-stage renal disease, on dialysis; bacteremia with gram-positive bacteria and hemodialysis catheter infection; also Pseudomonas urinary tract infection; endocarditis of tricuspid valve; methicillin-resistant Staphylococcus aureus infection of the wound; congestive heart failure; mechanical complication of surgically created arteriovenous fistula; general noncompliance with dialysis; displacement of vascular dialysis catheter, initial encounter. OPERATION PERFORMED: 1. Ultrasound and fluoroscopic-guided insertion of a right internal jugular 12 cm Trialysis acute hemodialysis catheter under local anesthesia with MAC per VINYL CUTTER. 2. Removal of a displaced infected left subclavian HemoSplit dialysis catheter, believed to be infected. SURGEON: Kelin Sun MD ANESTHESIA: Local with MAC per VINYL CUTTER. REFERRING PHYSICIAN: Albaro Contreras MD PREOPERATIVE NOTE: This unfortunate and desperately-ill 62-year-old white female patient has apparently sepsis with VRE, MRSA and pseudomonas with urinary tract and wound infections. She has anasarca. She has end-stage renal disease, although her creatinine has improved somewhat. She has been on dialysis apparently for a few months and her creatinine has dropped a bit, which Dr. Contreras found hopeful. She apparently has not been compliant with her dialysis schedule and she presented to the hospital with gross fluid overload and even anasarca. She has had a fistula in the left arm, which has not functioned properly and investigation of that needs yet to be done. She has a left-sided dialysis catheter, a HemoSplit catheter, which was definitely placed of the subclavian approach, which is unusual these days in my experience, and it is only a 19-cm long catheter, and it is protruding about 5 to 6 cm with the cuff above the skin and likely is infected. She is brought to the operating room to remove that catheter and to insert a Trialysis acute dialysis catheter. 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 There is a scar at the base of the neck on the right, which would indicate to me probably she has had a prior catheter for OPERATIVE REPORT [id number] STELLA TOPETE [facility] dialysis there, and she has especially large collateral veins on the left side of her neck, though I cannot tell that she has had a regular dialysis catheter in the left internal jugular or not. Preoperative ultrasound demonstrated a large patent right internal jugular vein at the level of the clavicular head and I am going to see if we can insert her dialysis catheter using that vessel. DESCRIPTION OF PROCEDURE: The patient was prepped and draped in sterile manner, sedated and monitored by VINYL CUTTER. As needed, local anesthetic 1% lidocaine without epinephrine was injected into the skin and subcutaneous tissues. I used ultrasound guidance and micropuncture technique to place a needle and the guidewire into the right internal jugular vein, and under fluoroscopy the wire was advanced into the superior vena cava. I then advanced a micro-sheath and then a larger guidewire and then serial dilators. I made a small stab incision and then inserted the 12 cm long triple lumen acute dialysis catheter, its tip reaching about the cavoatrial junction. This was done under fluoroscopy without difficulty and there were no apparent complications. All 3 lumens were flushed with saline and heparin-locked. A PRN cap was applied to the central lumen for nursing use. The catheter was sutured to the skin at the entrance site with 2-0 Prolene and a standard CVL dressing applied. The protruding tunneled catheter was removed by traction and hemostasis obtained by direct pressure over the very short subcutaneous tract. The operating room bed was not functioning properly and it proved impossible to place her in significant reverse Trendelenburg position, but bleeding from this site was quite brisk and so I placed two sutures en-mass to close the tract, the first of these was a 3-0 Vicryl on a SH needle and the last and most effective was a 2-0 Prolene on a Vivek needle. Sterile dressings were applied and the patient was then taken to the recovery room. It is very important that the en-mass sutures on the right chest be removed tomorrow before they cause any significant tissue necrosis. As I said, we will plan possibly next week to return to the operating room for fistulogram if Dr. Contreras thinks that is still necessary, or possibly convert her from a Trialysis catheter to a right internal jugular HemoSplit. Of course, that could be done at [facility]. Blood loss during the operation was difficult to quantitate, probably 100 cc. None was replaced. All sponges, instruments and needles were accounted for. No drain was used and no surgical specimen was submitted for histopathology, although the catheter tip was sent for culture. TRANSINT:[id number] Voice Confirmation ID: [id number] DOCUMENT ID: [id number] KELIN SUN MD at 1244 CC: ALBARO CONTRERAS MD [id number] DICTATION DATE: 06/19/18 1619 CEREAL CHEMIST: 06/19/18 1654 ADM IN [facility] [address] [place] [address]
[2018-06-09 10:12] LABS: BASOPHILS 0.4 % (0-2); EOSINOPHILS 2.2 % (0-7); HEMATOCRIT 28.8 % (36.0-48.0); HEMOGLOBIN 8.8 g/dL (12-16); IMMATURE GRANULOCYTES 0.5 % (0-5); LYMPHOCYTES 10.9 % (15-50); MCH 27.5 pg (26.0-34.0); MCHC 30.6 g/dL (31.0-37.0); MEAN PLATELET VOLUME 7.7 fL (7.4-10.4); MONOCYTES 12.1 % (2-11); NEUTROPHILS 73.9 % (40-80); PLATELET COUNT 203 10x3/uL (130-400); RDW 18.1 % (11.5-14.5); WBC 9.3 10x3/uL (4.8-10.8)
[2018-06-09 10:40] LABS: APTT 34.4 SECONDS (22.8-39.4); INR 1.1 (0.85-1.17); PROTIME 13.8 SECONDS (11.6-15.0)
[2018-06-09 10:48] LABS: D-DIMER-QUANTITATIVE 4.84 ug/mLFEU (0.20-0.54)
[2018-06-09 10:52] LABS: ALBUMIN 2.4 g/dL (3.4-5.0); ALKALINE PHOSPHATASE 208 U/L (46-116); ALT (SGPT) 45 U/L (10-68); BILIRUBIN - TOTAL 0.24 mg/dL (0.2-1.3); CALC OSMOLALITY 262 mosm/kg (275-300); CALCIUM 7.7 mg/dL (8.5-10.1); CARBON DIOXIDE 29.3 mmol/L (21.0-32.0); CHLORIDE - SERUM 93 mmol/L (98-107); GLUCOSE 112 mg/dL (74-106); POTASSIUM - SERUM 3.6 mmol/L (3.5-5.1); PROTEIN - SERUM 6.7 g/dL (6.4-8.2); SODIUM 128 mmol/L (136-145); UREA NITROGEN 26 mg/dL (7-18); eGFR NON AFRICAN AMERICAN 17 mL/min (90-120)
[2018-06-09 11:03] LABS: CKMB 2.1 U/L (0.0-3.6); CREATINE KINASE 24 UL (21-215); PRO BNP 12893 pg/mL (0-125)
[2018-06-09 11:04] LABS: TROPONIN-I < 0.017 ng/mL (0.000-0.060)
[2018-06-09] MEDS ORDERED: HYDROCODON-ACE1 EAC7 PO (15:35)
[2018-06-09 16:00] VITALS: BP 129/85; BMI 37.5
[2018-06-09 20:00] VITALS: BP 124/73
[2018-06-10] VITALS: BP 147/94
[2018-06-10 04:00] VITALS: BP 118/64
[2018-06-10 06:03] LABS: BASOPHILS 0.4 % (0-2); HEMATOCRIT 27.7 % (36.0-48.0); HEMOGLOBIN 8.3 g/dL (12-16); IMMATURE GRANULOCYTES 0.6 % (0-5); LYMPHOCYTES 10.5 % (15-50); MCH 26.9 pg (26.0-34.0); MCV 89.6 fL (80.0-100.0); MEAN PLATELET VOLUME 8.2 fL (7.4-10.4); MONOCYTES 12.1 % (2-11); NEUTROPHILS 73.4 % (40-80); PLATELET COUNT 231 10x3/uL (130-400); RBC 3.09 10x6/uL (4.00-5.40); RDW 18.3 % (11.5-14.5); WBC 8.9 10x3/uL (4.8-10.8)
[2018-06-10 06:25] LABS: ALBUMIN 2.3 g/dL (3.4-5.0); ANION GAP 8.7 mmol/L (8-16); BILIRUBIN - TOTAL 0.26 mg/dL (0.2-1.3); CALCIUM 7.3 mg/dL (8.5-10.1); CARBON DIOXIDE 30.2 mmol/L (21.0-32.0); CREATININE - SERUM 2.5 mg/dL (0.6-1.3); POTASSIUM - SERUM 3.9 mmol/L (3.5-5.1); PROTEIN - SERUM 6.6 g/dL (6.4-8.2)
[2018-06-10 08:20] VITALS: BP 116/72
[2018-06-10 10:57] LABS: APPEARANCE SL CLDY (CLEAR); COLOR YELLOW (YELLOW); GLUCOSE 50 mg/dL (NEGATIVE); NITRITE NEGATIVE (NEGATIVE); PROTEIN 3+ mg/dL (NEGATIVE); SPECIFIC GRAVITY 1.015 (1.005-1.020)
[2018-06-10 10:58] LABS: BACTERIA MANY /hpf (NONE SEEN); BILIRUBIN NEGATIVE (NEGATIVE); EPITHELIAL CELLS 25-50 /hpf (0-5); KETONE NEGATIVE (NEGATIVE); MUCUS <1+ /lpf (NONE SEEN); RED CELLS - URINE 0-5 /hpf (0-5); UROBILINOGEN NORMAL (NORMAL)
[2018-06-10 14:09] VITALS: BMI 37.4
[2018-06-10 14:50] VITALS: BP 125/83
[2018-06-10 19:54] VITALS: BP 128/75
[2018-06-10 23:22] VITALS: BP 128/70
[2018-06-11 05:49] VITALS: BP 141/77
[2018-06-11 06:18] LABS: BASOPHILS 0.3 % (0-2); EOSINOPHILS 1.3 % (0-7); HEMATOCRIT 28.2 % (36.0-48.0); HEMOGLOBIN 8.4 g/dL (12-16); IMMATURE GRANULOCYTES 0.4 % (0-5); LYMPHOCYTES 8.3 % (15-50); MCH 26.8 pg (26.0-34.0); MCHC 29.8 g/dL (31.0-37.0); MCV 89.8 fL (80.0-100.0); MEAN PLATELET VOLUME 8.7 fL (7.4-10.4); MONOCYTES 14.9 % (2-11); NEUTROPHILS 74.8 % (40-80); PLATELET COUNT 268 10x3/uL (130-400); RBC 3.14 10x6/uL (4.00-5.40)
[2018-06-11 07:04] LABS: CALCIUM 7.6 mg/dL (8.5-10.1); CARBON DIOXIDE 27.5 mmol/L (21.0-32.0); CREATININE - SERUM 3.1 mg/dL (0.6-1.3); VANCOMYCIN - RANDOM 0.4 ug/mL (10.0-20.0)
[2018-06-11 07:13] LABS: POTASSIUM - SERUM 4.5 mmol/L (3.5-5.1)
[2018-06-11 09:51] VITALS: BP 127/71
[2018-06-11 15:47] LABS: CREATININE - URINE 33.8 mg/dL (30-125)
[2018-06-11 20:33] VITALS: BP 132/68
[2018-06-12] VITALS: BP 121/68
[2018-06-12 05:36] VITALS: BP 123/64
[2018-06-12 05:57] LABS: BASOPHILS 0.7 % (0-2); HEMATOCRIT 28.1 % (36.0-48.0); HEMOGLOBIN 8.5 g/dL (12-16); IMMATURE GRANULOCYTES 0.4 % (0-5); LYMPHOCYTES 8.6 % (15-50); MCH 26.9 pg (26.0-34.0); MCHC 30.2 g/dL (31.0-37.0); MCV 88.9 fL (80.0-100.0); MEAN PLATELET VOLUME 8.1 fL (7.4-10.4); MONOCYTES 12.5 % (2-11); NEUTROPHILS 75.8 % (40-80); PLATELET COUNT 264 10x3/uL (130-400); RBC 3.16 10x6/uL (4.00-5.40); RDW 17.9 % (11.5-14.5); WBC 9.1 10x3/uL (4.8-10.8)
[2018-06-12 06:26] LABS: ALBUMIN 2.5 g/dL (3.4-5.0); BILIRUBIN - TOTAL 0.19 mg/dL (0.2-1.3); CALCIUM 7.8 mg/dL (8.5-10.1); CARBON DIOXIDE 27.4 mmol/L (21.0-32.0); PHOSPHOROUS 5.1 mg/dL (2.5-4.9); POTASSIUM - SERUM 4.4 mmol/L (3.5-5.1); PROTEIN - SERUM 6.8 g/dL (6.4-8.2)
[2018-06-12 08:19] VITALS: BP 141/71
[2018-06-12 11:23] VITALS: BP 177/88
[2018-06-12 12:19] LABS: HEPATITIS C ANTIBODY 0.2 (0.0-0.9)
[2018-06-12 16:16] VITALS: BP 149/73
[2018-06-12 20:02] VITALS: BP 135/77
[2018-06-13 06:13] VITALS: BP 111/72
[2018-06-13 06:25] LABS: BASOPHILS 0.6 % (0-2); EOSINOPHILS 1.4 % (0-7); HEMATOCRIT 27.9 % (36.0-48.0); HEMOGLOBIN 8.4 g/dL (12-16); IMMATURE GRANULOCYTES 0.3 % (0-5); LYMPHOCYTES 7.9 % (15-50); MCH 26.6 pg (26.0-34.0); MCHC 30.1 g/dL (31.0-37.0); MCV 88.3 fL (80.0-100.0); MEAN PLATELET VOLUME 8.3 fL (7.4-10.4); MONOCYTES 9.5 % (2-11); NEUTROPHILS 80.3 % (40-80); RBC 3.16 10x6/uL (4.00-5.40); RDW 17.6 % (11.5-14.5); WBC 8.6 10x3/uL (4.8-10.8)
[2018-06-13 06:32] LABS: PLATELET COUNT 192 10x3/uL (130-400)
[2018-06-13 06:38] LABS: ANION GAP 10.1 mmol/L (8-16); CALCIUM 7.9 mg/dL (8.5-10.1); CARBON DIOXIDE 29.7 mmol/L (21.0-32.0); CREATININE - SERUM 2.6 mg/dL (0.6-1.3); PHOSPHOROUS 4.7 mg/dL (2.5-4.9); POTASSIUM - SERUM 3.8 mmol/L (3.5-5.1)
[2018-06-13 08:09] VITALS: BP 157/80
[2018-06-13 12:05] VITALS: BP 181/94
[2018-06-13 15:01] VITALS: BP 160/80
[2018-06-13 20:30] VITALS: BP 151/79
[2018-06-14 04:30] VITALS: BP 151/79
[2018-06-14 08:55] VITALS: BP 139/81
[2018-06-14 13:25] VITALS: BP 126/75
[2018-06-14 16:11] VITALS: BP 132/71
[2018-06-14 21:54] VITALS: BP 147/76
[2018-06-15 02:13] VITALS: BP 125/82
[2018-06-15 05:26] VITALS: BP 137/80
[2018-06-15 06:21] LABS: BASOPHILS 0.8 % (0-2); EOSINOPHILS 1.2 % (0-7); HEMATOCRIT 26.9 % (36.0-48.0); HEMOGLOBIN 8.2 g/dL (12-16); IMMATURE GRANULOCYTES 0.3 % (0-5); LYMPHOCYTES 8.1 % (15-50); MCH 26.5 pg (26.0-34.0); MCHC 30.5 g/dL (31.0-37.0); MCV 86.8 fL (80.0-100.0); MEAN PLATELET VOLUME 8.6 fL (7.4-10.4); MONOCYTES 12.3 % (2-11); NEUTROPHILS 77.3 % (40-80); RDW 17.5 % (11.5-14.5)
[2018-06-15 06:32] LABS: PLATELET COUNT 284 10x3/uL (130-400)
[2018-06-15 06:44] LABS: CALCIUM 8.1 mg/dL (8.5-10.1); CARBON DIOXIDE 27.7 mmol/L (21.0-32.0); CREATININE - SERUM 2.4 mg/dL (0.6-1.3); POTASSIUM - SERUM 3.7 mmol/L (3.5-5.1)
[2018-06-15 10:10] VITALS: BP 145/71
[2018-06-15 20:05] VITALS: BP 131/83
[2018-06-16 05:17] VITALS: BP 166/87
[2018-06-16 06:06] LABS: BASOPHILS 0.4 % (0-2); HEMATOCRIT 27.4 % (36.0-48.0); HEMOGLOBIN 8.4 g/dL (12-16); IMMATURE GRANULOCYTES 0.3 % (0-5); LYMPHOCYTES 11.2 % (15-50); MCH 26.4 pg (26.0-34.0); MCHC 30.7 g/dL (31.0-37.0); MCV 86.2 fL (80.0-100.0); MEAN PLATELET VOLUME 8.5 fL (7.4-10.4); MONOCYTES 4.4 % (2-11); NEUTROPHILS 81.7 % (40-80); PLATELET COUNT 252 10x3/uL (130-400); RBC 3.18 10x6/uL (4.00-5.40); RDW 17.4 % (11.5-14.5); WBC 10.4 10x3/uL (4.8-10.8)
[2018-06-16 06:19] LABS: ALBUMIN 2.6 g/dL (3.4-5.0); ANION GAP 9.4 mmol/L (8-16); BILIRUBIN - TOTAL 0.29 mg/dL (0.2-1.3); CALCIUM 8.2 mg/dL (8.5-10.1); CARBON DIOXIDE 28.5 mmol/L (21.0-32.0); PHOSPHOROUS 4.6 mg/dL (2.5-4.9); POTASSIUM - SERUM 3.9 mmol/L (3.5-5.1); PROTEIN - SERUM 6.8 g/dL (6.4-8.2)
[2018-06-16 06:20] LABS: CREATININE - SERUM 3.1 mg/dL (0.6-1.3)
[2018-06-16 08:17] VITALS: BP 181/86
[2018-06-16 12:05] VITALS: BP 147/77
[2018-06-16 16:45] VITALS: BP 150/80
[2018-06-16 20:00] VITALS: BP 148/80
[2018-06-16 22:00] VITALS: BP 118/64
[2018-06-16 23:08] LABS: HEMATOCRIT 27.8 % (36.0-48.0); HEMOGLOBIN 8.7 g/dL (12-16); MCH 26.9 pg (26.0-34.0); MCHC 31.3 g/dL (31.0-37.0); MCV 86.1 fL (80.0-100.0); PLATELET COUNT 215 10x3/uL (130-400); RBC 3.23 10x6/uL (4.00-5.40); RDW 17.3 % (11.5-14.5); WBC 27.4 10x3/uL (4.8-10.8)
[2018-06-16 23:24] LABS: ALBUMIN 2.6 g/dL (3.4-5.0); BILIRUBIN - TOTAL 0.32 mg/dL (0.2-1.3); CALCIUM 8.3 mg/dL (8.5-10.1); CARBON DIOXIDE 29.3 mmol/L (21.0-32.0); CREATININE - SERUM 2.6 mg/dL (0.6-1.3); PROTEIN - SERUM 6.8 g/dL (6.4-8.2)
[2018-06-16 23:33] LABS: POTASSIUM - SERUM 3.3 mmol/L (3.5-5.1)
[2018-06-16 23:57] LABS: MONOCYTES 2 % (2-11); NEUTROPHILS 92 % (40-80); PLATELET ESTIMATE DECREASED
[2018-06-17] VITALS: BP 139/97
[2018-06-17 04:00] VITALS: BP 165/80
[2018-06-17 05:57] LABS: BASOPHILS 0 % (0-2); EOSINOPHILS 0 % (0-7); HEMATOCRIT 26.9 % (36.0-48.0); HEMOGLOBIN 8.3 g/dL (12-16); IMMATURE GRANULOCYTES 0.6 % (0-5); LYMPHOCYTES 2.2 % (15-50); MCH 26.7 pg (26.0-34.0); MCHC 30.9 g/dL (31.0-37.0); MCV 86.5 fL (80.0-100.0); MEAN PLATELET VOLUME 8.3 fL (7.4-10.4); MONOCYTES 3.2 % (2-11); PLATELET COUNT 226 10x3/uL (130-400); RBC 3.11 10x6/uL (4.00-5.40); RDW 17.5 % (11.5-14.5); WBC 42.6 10x3/uL (4.8-10.8)
[2018-06-17 06:35] LABS: ANION GAP 13.9 mmol/L (8-16); CALCIUM 8.3 mg/dL (8.5-10.1); CARBON DIOXIDE 25.7 mmol/L (21.0-32.0); CREATININE - SERUM 2.8 mg/dL (0.6-1.3); PHOSPHOROUS 3.8 mg/dL (2.5-4.9); POTASSIUM - SERUM 3.6 mmol/L (3.5-5.1)
[2018-06-17 09:16] VITALS: BP 136/84
[2018-06-17 12:22] VITALS: BP 130/83
[2018-06-17 16:30] VITALS: BP 133/77
[2018-06-17 20:00] VITALS: BP 117/64
[2018-06-18 06:11] VITALS: BP 134/70
[2018-06-18 06:19] LABS: BASOPHILS 0.1 % (0-2); EOSINOPHILS 0.9 % (0-7); HEMATOCRIT 27.5 % (36.0-48.0); HEMOGLOBIN 8.4 g/dL (12-16); IMMATURE GRANULOCYTES 0.3 % (0-5); LYMPHOCYTES 4.4 % (15-50); MCH 26.5 pg (26.0-34.0); MCHC 30.5 g/dL (31.0-37.0); MCV 86.8 fL (80.0-100.0); MEAN PLATELET VOLUME 8.5 fL (7.4-10.4); MONOCYTES 7.4 % (2-11); NEUTROPHILS 86.9 % (40-80); PLATELET COUNT 249 10x3/uL (130-400); RBC 3.17 10x6/uL (4.00-5.40); RDW 17.7 % (11.5-14.5); WBC 21.4 10x3/uL (4.8-10.8)
[2018-06-18 06:47] LABS: ALBUMIN 2.7 g/dL (3.4-5.0); ANION GAP 11.2 mmol/L (8-16); BILIRUBIN - TOTAL 0.3 mg/dL (0.2-1.3); CALCIUM 8.2 mg/dL (8.5-10.1); CARBON DIOXIDE 27.4 mmol/L (21.0-32.0); CREATININE - SERUM 3.3 mg/dL (0.6-1.3); PHOSPHOROUS 4.5 mg/dL (2.5-4.9); POTASSIUM - SERUM 3.6 mmol/L (3.5-5.1); PROTEIN - SERUM 6.9 g/dL (6.4-8.2)
[2018-06-18 08:52] VITALS: BP 136/78
[2018-06-18 21:27] VITALS: BP 122/56
[2018-06-19 02:11] VITALS: BP 134/79
[2018-06-19 04:00] VITALS: BP 119/71
[2018-06-19 06:19] LABS: BASOPHILS 0.2 % (0-2); EOSINOPHILS 1.7 % (0-7); HEMATOCRIT 27.5 % (36.0-48.0); HEMOGLOBIN 8.2 g/dL (12-16); IMMATURE GRANULOCYTES 0.3 % (0-5); LYMPHOCYTES 4.9 % (15-50); MCHC 29.8 g/dL (31.0-37.0); MCV 87.3 fL (80.0-100.0); MEAN PLATELET VOLUME 9.2 fL (7.4-10.4); MONOCYTES 11.4 % (2-11); NEUTROPHILS 81.5 % (40-80); PLATELET COUNT 233 10x3/uL (130-400); RBC 3.15 10x6/uL (4.00-5.40); RDW 17.9 % (11.5-14.5)
[2018-06-19 06:27] LABS: ANION GAP 10.1 mmol/L (8-16); CALCIUM 8.1 mg/dL (8.5-10.1); CARBON DIOXIDE 28.3 mmol/L (21.0-32.0); CREATININE - SERUM 2.8 mg/dL (0.6-1.3); PHOSPHOROUS 3.7 mg/dL (2.5-4.9); POTASSIUM - SERUM 3.4 mmol/L (3.5-5.1)
[2018-06-19 08:39] VITALS: BP 141/78
[2018-06-19 11:45] VITALS: BP 143/88
[2018-06-19 21:20] VITALS: BP 157/90
[2018-06-20 02:35] VITALS: BP 164/86
[2018-06-20 06:03] LABS: BASOPHILS 0.3 % (0-2); EOSINOPHILS 1.5 % (0-7); HEMATOCRIT 27.8 % (36.0-48.0); HEMOGLOBIN 8.3 g/dL (12-16); IMMATURE GRANULOCYTES 0.3 % (0-5); LYMPHOCYTES 9.3 % (15-50); MCH 25.8 pg (26.0-34.0); MCHC 29.9 g/dL (31.0-37.0); MCV 86.3 fL (80.0-100.0); MEAN PLATELET VOLUME 8.6 fL (7.4-10.4); MONOCYTES 9.8 % (2-11); NEUTROPHILS 78.8 % (40-80); PLATELET COUNT 229 10x3/uL (130-400); RBC 3.22 10x6/uL (4.00-5.40); RDW 17.8 % (11.5-14.5); WBC 10.6 10x3/uL (4.8-10.8)
[2018-06-20 06:37] VITALS: BP 140/53
[2018-06-20 06:57] LABS: ALBUMIN 2.7 g/dL (3.4-5.0); ANION GAP 12.1 mmol/L (8-16); BILIRUBIN - TOTAL 0.36 mg/dL (0.2-1.3); CARBON DIOXIDE 26.4 mmol/L (21.0-32.0); CREATININE - SERUM 3.1 mg/dL (0.6-1.3); PHOSPHOROUS 4.5 mg/dL (2.5-4.9); POTASSIUM - SERUM 3.5 mmol/L (3.5-5.1); PROTEIN - SERUM 6.6 g/dL (6.4-8.2)
[2018-06-20 08:14] VITALS: BP 152/81
[2018-06-20 12:24] VITALS: BP 167/92
[2018-06-20 16:04] VITALS: BP 156/85
[2018-06-20 20:07] LABS: AEROBE ID Final report (())
[2018-06-20 22:50] VITALS: BP 155/74
[2018-06-21 05:36] LABS: BASOPHILS 0.3 % (0-2); EOSINOPHILS 1.4 % (0-7); HEMATOCRIT 27.8 % (36.0-48.0); HEMOGLOBIN 8.4 g/dL (12-16); IMMATURE GRANULOCYTES 0.3 % (0-5); LYMPHOCYTES 9.8 % (15-50); MCH 26.3 pg (26.0-34.0); MCHC 30.2 g/dL (31.0-37.0); MCV 86.9 fL (80.0-100.0); MONOCYTES 13.8 % (2-11); NEUTROPHILS 74.4 % (40-80); PLATELET COUNT 195 10x3/uL (130-400); RDW 17.5 % (11.5-14.5); WBC 10.5 10x3/uL (4.8-10.8)
[2018-06-21 06:23] LABS: CALCIUM 7.9 mg/dL (8.5-10.1); CARBON DIOXIDE 29.5 mmol/L (21.0-32.0); CREATININE - SERUM 2.4 mg/dL (0.6-1.3); POTASSIUM - SERUM 3.5 mmol/L (3.5-5.1)
[2018-06-21 08:00] VITALS: BP 143/75
[2018-06-21 08:06] VITALS: BP 158/80
[2018-06-21 11:58] VITALS: BP 160/80
[2018-06-21 17:03] VITALS: BP 150/70
[2018-06-22 00:11] VITALS: BP 162/82
[2018-06-22 04:00] VITALS: BP 174/88
[2018-06-22 05:04] LABS: BASOPHILS 0.3 % (0-2); EOSINOPHILS 2.7 % (0-7); HEMATOCRIT 28.3 % (36.0-48.0); HEMOGLOBIN 8.5 g/dL (12-16); IMMATURE GRANULOCYTES 0.3 % (0-5); LYMPHOCYTES 10.8 % (15-50); MCV 86.5 fL (80.0-100.0); MEAN PLATELET VOLUME 8.5 fL (7.4-10.4); MONOCYTES 13.2 % (2-11); NEUTROPHILS 72.7 % (40-80); PLATELET COUNT 194 10x3/uL (130-400); RBC 3.27 10x6/uL (4.00-5.40); RDW 17.8 % (11.5-14.5); WBC 10.5 10x3/uL (4.8-10.8)
[2018-06-22 05:38] LABS: ANION GAP 9.6 mmol/L (8-16); CARBON DIOXIDE 27.2 mmol/L (21.0-32.0); CREATININE - SERUM 2.7 mg/dL (0.6-1.3); POTASSIUM - SERUM 3.8 mmol/L (3.5-5.1)
[2018-06-22 17:00] VITALS: BP 118/74
[2018-06-22 22:33] VITALS: Ht 154.9 cm; Wt 90.6 kg
[2018-06-22 23:37] VITALS: BP 135/74
[2018-06-23 05:00] VITALS: BP 145/74
[2018-06-23 06:28] LABS: ALBUMIN 2.6 g/dL (3.4-5.0); ANION GAP 10.4 mmol/L (8-16); BILIRUBIN - TOTAL 0.35 mg/dL (0.2-1.3); CALCIUM 7.7 mg/dL (8.5-10.1); CHOL - HDL RATIO 2.1 ratio (2.3-4.1); CREATININE - SERUM 2.6 mg/dL (0.6-1.3); PHOSPHOROUS 3.3 mg/dL (2.5-4.9); POTASSIUM - SERUM 3.4 mmol/L (3.5-5.1); PROTEIN - SERUM 6.2 g/dL (6.4-8.2)
[2018-06-23 06:51] LABS: BASOPHILS 0.2 % (0-2); EOSINOPHILS 2.6 % (0-7); HEMATOCRIT 27.8 % (36.0-48.0); HEMOGLOBIN 8.4 g/dL (12-16); IMMATURE GRANULOCYTES 0.3 % (0-5); LYMPHOCYTES 6.4 % (15-50); MCH 26.3 pg (26.0-34.0); MCHC 30.2 g/dL (31.0-37.0); MCV 86.9 fL (80.0-100.0); MEAN PLATELET VOLUME 8.4 fL (7.4-10.4); MONOCYTES 12.9 % (2-11); NEUTROPHILS 77.6 % (40-80); PLATELET COUNT 167 10x3/uL (130-400); RDW 18.1 % (11.5-14.5); WBC 9.6 10x3/uL (4.8-10.8)
[2018-06-23 08:02] VITALS: BP 142/73
[2018-06-23 11:38] VITALS: BP 148/83
[2018-06-23 15:40] VITALS: BP 150/74
[2018-06-23 22:16] VITALS: BP 129/70
[2018-06-24 06:11] LABS: ANION GAP 9.6 mmol/L (8-16); CALCIUM 7.4 mg/dL (8.5-10.1); CARBON DIOXIDE 29.2 mmol/L (21.0-32.0); CREATININE - SERUM 2.4 mg/dL (0.6-1.3); POTASSIUM - SERUM 3.8 mmol/L (3.5-5.1)
[2018-06-24 06:50] VITALS: BP 151/80
[2018-06-24 07:04] LABS: BASOPHILS 0.1 % (0-2); EOSINOPHILS 2.8 % (0-7); HEMATOCRIT 30.6 % (36.0-48.0); HEMOGLOBIN 9.5 g/dL (12-16); IMMATURE GRANULOCYTES 0.3 % (0-5); LYMPHOCYTES 8.2 % (15-50); MCH 26.9 pg (26.0-34.0); MCV 86.7 fL (80.0-100.0); MEAN PLATELET VOLUME 8.7 fL (7.4-10.4); MONOCYTES 13.2 % (2-11); NEUTROPHILS 75.4 % (40-80); PLATELET COUNT 142 10x3/uL (130-400); RBC 3.53 10x6/uL (4.00-5.40); RDW 18.5 % (11.5-14.5)
[2018-06-24 13:57] VITALS: BP 140/75
[2018-06-24 20:51] VITALS: BP 132/63
[2018-06-25 01:24] VITALS: BP 114/46
[2018-06-25 05:34] LABS: BASOPHILS 0.2 % (0-2); EOSINOPHILS 2.4 % (0-7); HEMATOCRIT 31.3 % (36.0-48.0); HEMOGLOBIN 9.5 g/dL (12-16); IMMATURE GRANULOCYTES 0.2 % (0-5); LYMPHOCYTES 8.9 % (15-50); MCH 26.8 pg (26.0-34.0); MCHC 30.4 g/dL (31.0-37.0); MCV 88.2 fL (80.0-100.0); MEAN PLATELET VOLUME 8.9 fL (7.4-10.4); MONOCYTES 12.5 % (2-11); NEUTROPHILS 75.8 % (40-80); PLATELET COUNT 121 10x3/uL (130-400); RBC 3.55 10x6/uL (4.00-5.40); RDW 18.7 % (11.5-14.5); WBC 8.3 10x3/uL (4.8-10.8)
[2018-06-25 05:55] VITALS: BP 111/69
[2018-06-25 06:12] LABS: ANION GAP 11.8 mmol/L (8-16); CALCIUM 7.6 mg/dL (8.5-10.1); CREATININE - SERUM 2.4 mg/dL (0.6-1.3); PHOSPHOROUS 3.5 mg/dL (2.5-4.9); POTASSIUM - SERUM 3.8 mmol/L (3.5-5.1)
[2018-06-25 14:24] VITALS: BP 143/76
[2018-06-25 17:21] VITALS: BP 129/73
[2018-06-25 20:35] VITALS: BP 157/81
[2018-06-26 05:34] VITALS: BP 142/78
[2018-06-26 05:45] LABS: BASOPHILS 0.5 % (0-2); EOSINOPHILS 2.1 % (0-7); HEMATOCRIT 30.8 % (36.0-48.0); HEMOGLOBIN 9.4 g/dL (12-16); IMMATURE GRANULOCYTES 0.2 % (0-5); MCH 26.4 pg (26.0-34.0); MCHC 30.5 g/dL (31.0-37.0); MCV 86.5 fL (80.0-100.0); MEAN PLATELET VOLUME 8.6 fL (7.4-10.4); NEUTROPHILS 78.2 % (40-80); PLATELET COUNT 106 10x3/uL (130-400); RBC 3.56 10x6/uL (4.00-5.40); RDW 18.3 % (11.5-14.5); WBC 8.5 10x3/uL (4.8-10.8)
[2018-06-26 05:49] LABS: ANION GAP 5.3 mmol/L (8-16); CALCIUM 7.7 mg/dL (8.5-10.1); POTASSIUM - SERUM 4.3 mmol/L (3.5-5.1)
[2018-06-26 05:51] LABS: CREATININE - SERUM 3.1 mg/dL (0.6-1.3)
[2018-06-26 08:26] VITALS: BP 148/79
[2018-06-26 11:35] VITALS: BP 149/77
[2018-06-26 16:00] VITALS: BP 152/65
[2018-06-26 20:00] VITALS: BP 130/76
[2018-06-27] VITALS: BP 136/47
[2018-06-27 04:00] VITALS: BP 140/70
[2018-06-27 05:21] LABS: BASOPHILS 0.5 % (0-2); EOSINOPHILS 2.3 % (0-7); HEMATOCRIT 31.6 % (36.0-48.0); HEMOGLOBIN 9.7 g/dL (12-16); IMMATURE GRANULOCYTES 0.1 % (0-5); LYMPHOCYTES 6.5 % (15-50); MCH 26.7 pg (26.0-34.0); MCHC 30.7 g/dL (31.0-37.0); MCV 87.1 fL (80.0-100.0); MONOCYTES 9.4 % (2-11); NEUTROPHILS 81.2 % (40-80); PLATELET COUNT 99 10x3/uL (130-400); RBC 3.63 10x6/uL (4.00-5.40); RDW 18.9 % (11.5-14.5); WBC 8.7 10x3/uL (4.8-10.8)
[2018-06-27 05:40] LABS: ALBUMIN 2.5 g/dL (3.4-5.0); ANION GAP 6.7 mmol/L (8-16); BILIRUBIN - TOTAL 0.41 mg/dL (0.2-1.3); CARBON DIOXIDE 30.8 mmol/L (21.0-32.0); CREATININE - SERUM 2.9 mg/dL (0.6-1.3); PHOSPHOROUS 3.8 mg/dL (2.5-4.9); POTASSIUM - SERUM 4.5 mmol/L (3.5-5.1); PROTEIN - SERUM 6.3 g/dL (6.4-8.2)
[2018-06-27 08:40] VITALS: BP 153/78
[2018-06-27 11:52] VITALS: BP 138/78
[2018-06-27 20:00] VITALS: BP 134/51
[2018-06-28] VITALS: BP 139/73
[2018-06-28 04:00] VITALS: BP 136/68
[2018-06-28 06:40] LABS: BASOPHILS 0.5 % (0-2); EOSINOPHILS 2.3 % (0-7); HEMATOCRIT 31.2 % (36.0-48.0); HEMOGLOBIN 9.7 g/dL (12-16); IMMATURE GRANULOCYTES 0.2 % (0-5); LYMPHOCYTES 7.8 % (15-50); MCH 27.4 pg (26.0-34.0); MCHC 31.1 g/dL (31.0-37.0); MCV 88.1 fL (80.0-100.0); MEAN PLATELET VOLUME 8.7 fL (7.4-10.4); MONOCYTES 7.9 % (2-11); NEUTROPHILS 81.3 % (40-80); PLATELET COUNT 88 10x3/uL (130-400); RBC 3.54 10x6/uL (4.00-5.40); RDW 19.2 % (11.5-14.5); WBC 8.9 10x3/uL (4.8-10.8)
[2018-06-28 08:55] VITALS: BP 136/68
[2018-06-28 13:20] VITALS: BP 142/75
[2018-06-28 16:50] VITALS: BP 131/65
[2018-06-28 21:17] VITALS: BP 141/75
[2018-06-29 00:28] VITALS: BP 160/81
[2018-06-29 04:07] VITALS: BP 146/63
[2018-06-29 05:22] LABS: BASOPHILS 0.4 % (0-2); EOSINOPHILS 2.1 % (0-7); HEMATOCRIT 30.5 % (36.0-48.0); HEMOGLOBIN 9.3 g/dL (12-16); IMMATURE GRANULOCYTES 0.1 % (0-5); LYMPHOCYTES 8.8 % (15-50); MCH 26.7 pg (26.0-34.0); MCHC 30.5 g/dL (31.0-37.0); MCV 87.6 fL (80.0-100.0); MEAN PLATELET VOLUME 9.2 fL (7.4-10.4); MONOCYTES 8.5 % (2-11); NEUTROPHILS 80.1 % (40-80); PLATELET COUNT 83 10x3/uL (130-400); RBC 3.48 10x6/uL (4.00-5.40); RDW 19.1 % (11.5-14.5); WBC 9.7 10x3/uL (4.8-10.8)
[2018-06-29 06:01] LABS: ALBUMIN 2.3 g/dL (3.4-5.0); ANION GAP 13.1 mmol/L (8-16); BILIRUBIN - TOTAL 0.33 mg/dL (0.2-1.3); CALCIUM 7.9 mg/dL (8.5-10.1); CARBON DIOXIDE 26.7 mmol/L (21.0-32.0); CREATININE - SERUM 3.4 mg/dL (0.6-1.3); MAGNESIUM - SERUM 1.7 mg/dL (1.8-2.4); PHOSPHOROUS 3.6 mg/dL (2.5-4.9); POTASSIUM - SERUM 4.8 mmol/L (3.5-5.1); PROTEIN - SERUM 6.2 g/dL (6.4-8.2)
[2018-06-29 07:00] VITALS: BP 145/88
[2018-06-29 21:56] VITALS: BP 125/61
[2018-06-30 05:42] VITALS: BP 141/74
[2018-06-30 05:44] LABS: BASOPHILS 0.3 % (0-2); EOSINOPHILS 2.3 % (0-7); HEMATOCRIT 30.7 % (36.0-48.0); HEMOGLOBIN 9.4 g/dL (12-16); IMMATURE GRANULOCYTES 0.2 % (0-5); LYMPHOCYTES 6.6 % (15-50); MCH 27.5 pg (26.0-34.0); MCHC 30.6 g/dL (31.0-37.0); MEAN PLATELET VOLUME 9.5 fL (7.4-10.4); MONOCYTES 7.3 % (2-11); NEUTROPHILS 83.3 % (40-80); PLATELET COUNT 78 10x3/uL (130-400); RBC 3.42 10x6/uL (4.00-5.40); RDW 19.2 % (11.5-14.5); WBC 10.6 10x3/uL (4.8-10.8)
[2018-06-30 06:12] LABS: ALBUMIN 2.3 g/dL (3.4-5.0); BILIRUBIN - TOTAL 0.31 mg/dL (0.2-1.3); CALCIUM 7.8 mg/dL (8.5-10.1); CARBON DIOXIDE 27.3 mmol/L (21.0-32.0); CREATININE - SERUM 3.1 mg/dL (0.6-1.3); PHOSPHOROUS 3.3 mg/dL (2.5-4.9); POTASSIUM - SERUM 4.3 mmol/L (3.5-5.1); PROTEIN - SERUM 6.2 g/dL (6.4-8.2)
[2018-06-30 06:19] LABS: MCV 89.8 fL (80.0-100.0)
[2018-06-30 08:47] VITALS: BP 134/75
[2018-06-30 11:26] VITALS: BP 134/76
[2018-06-30 15:10] VITALS: BP 150/82
[2018-06-30 20:00] VITALS: BP 124/68
[2018-07-01] VITALS: BP 147/81
[2018-07-01 04:00] VITALS: BP 156/81
[2018-07-01 04:20] LABS: BASOPHILS 0.3 % (0-2); EOSINOPHILS 1.8 % (0-7); HEMATOCRIT 31.5 % (36.0-48.0); HEMOGLOBIN 9.5 g/dL (12-16); IMMATURE GRANULOCYTES 0.3 % (0-5); MCHC 30.2 g/dL (31.0-37.0); MCV 89.5 fL (80.0-100.0); MEAN PLATELET VOLUME 9.5 fL (7.4-10.4); MONOCYTES 8.5 % (2-11); NEUTROPHILS 82.1 % (40-80); PLATELET COUNT 86 10x3/uL (130-400); RBC 3.52 10x6/uL (4.00-5.40); RDW 19.2 % (11.5-14.5); WBC 12.5 10x3/uL (4.8-10.8)
[2018-07-01 04:52] LABS: ALBUMIN 2.4 g/dL (3.4-5.0); ANION GAP 9.5 mmol/L (8-16); BILIRUBIN - TOTAL 0.36 mg/dL (0.2-1.3); CALCIUM 7.9 mg/dL (8.5-10.1); CARBON DIOXIDE 29.7 mmol/L (21.0-32.0); CREATININE - SERUM 3.8 mg/dL (0.6-1.3); PHOSPHOROUS 3.3 mg/dL (2.5-4.9); POTASSIUM - SERUM 4.2 mmol/L (3.5-5.1); PROTEIN - SERUM 6.4 g/dL (6.4-8.2)
[2018-07-01 09:34] VITALS: BP 148/70
[2018-07-01 12:55] VITALS: BP 152/87
[2018-07-01 17:51] VITALS: BP 134/74
[2018-07-01 20:37] VITALS: BP 121/69
[2018-07-02 00:16] VITALS: BP 104/71
[2018-07-02 05:37] VITALS: BP 100/62
[2018-07-02 06:22] LABS: BASOPHILS 0.5 % (0-2); EOSINOPHILS 2.2 % (0-7); HEMATOCRIT 28.9 % (36.0-48.0); HEMOGLOBIN 8.6 g/dL (12-16); IMMATURE GRANULOCYTES 0.3 % (0-5); LYMPHOCYTES 7.7 % (15-50); MCH 26.6 pg (26.0-34.0); MCHC 29.8 g/dL (31.0-37.0); MCV 89.5 fL (80.0-100.0); MEAN PLATELET VOLUME 9.1 fL (7.4-10.4); MONOCYTES 14.9 % (2-11); NEUTROPHILS 74.4 % (40-80); PLATELET COUNT 83 10x3/uL (130-400); RBC 3.23 10x6/uL (4.00-5.40); RDW 19.5 % (11.5-14.5); WBC 10.3 10x3/uL (4.8-10.8)
[2018-07-02 06:47] LABS: ALBUMIN 2.3 g/dL (3.4-5.0); ANION GAP 9.4 mmol/L (8-16); BILIRUBIN - TOTAL 0.3 mg/dL (0.2-1.3); CALCIUM 7.8 mg/dL (8.5-10.1); CARBON DIOXIDE 28.7 mmol/L (21.0-32.0); CREATININE - SERUM 3.5 mg/dL (0.6-1.3); PHOSPHOROUS 2.5 mg/dL (2.5-4.9); POTASSIUM - SERUM 4.1 mmol/L (3.5-5.1)
[2018-07-02 16:48] VITALS: BP 136/63
[2018-07-02 20:42] VITALS: BP 133/72
[2018-07-03 00:02] VITALS: BP 129/73
[2018-07-03 05:37] VITALS: BP 139/65
[2018-07-03 06:14] LABS: ALBUMIN 2.3 g/dL (3.4-5.0); ANION GAP 7.3 mmol/L (8-16); BILIRUBIN - TOTAL 0.34 mg/dL (0.2-1.3); CALCIUM 7.7 mg/dL (8.5-10.1); CARBON DIOXIDE 28.8 mmol/L (21.0-32.0); PHOSPHOROUS 2.5 mg/dL (2.5-4.9); POTASSIUM - SERUM 4.1 mmol/L (3.5-5.1); PROTEIN - SERUM 6.2 g/dL (6.4-8.2)
[2018-07-03 06:15] LABS: CREATININE - SERUM 4.4 mg/dL (0.6-1.3)
[2018-07-03 07:22] LABS: BASOPHILS 0.5 % (0-2); EOSINOPHILS 2.6 % (0-7); HEMATOCRIT 28.7 % (36.0-48.0); HEMOGLOBIN 8.5 g/dL (12-16); IMMATURE GRANULOCYTES 0.2 % (0-5); LYMPHOCYTES 9.3 % (15-50); MCH 26.3 pg (26.0-34.0); MCHC 29.6 g/dL (31.0-37.0); MCV 88.9 fL (80.0-100.0); MONOCYTES 17.6 % (2-11); NEUTROPHILS 69.8 % (40-80); RBC 3.23 10x6/uL (4.00-5.40); RDW 19.6 % (11.5-14.5); WBC 10.1 10x3/uL (4.8-10.8)
[2018-07-03 07:28] LABS: PLATELET COUNT 110 10x3/uL (130-400)
[2018-07-03 08:29] VITALS: BP 127/68
[2018-07-03] MEDS ORDERED: CUBICIN500 MG IV (08:38)
[2018-07-03 12:24] VITALS: BP 150/82
== END 2018-07-03 14:05 | DRG 189 ==
LOC: D.ER 09:36 → OBSVTIME 12:35 → D.M2 12:35 → D.EDHOLD 12:35 → D.M2 15:03
PROVIDERS: Family Medicine; Internal Medicine Nephrology; Student in an Organized Health Care Education/Training Program; Surgery
PROC: 0JPTXXZ Removal of Tunneled Vascular Access Device from Trunk Subcutaneous Tissue and Fascia, External Approach (ICD-10-PCS; 2018-06-19)
PROC: 0JPT0XZ Removal of Tunneled Vascular Access Device from Trunk Subcutaneous Tissue and Fascia, Open Approach (ICD-10-PCS; principal; 2018-06-19 14:00)
PROC: 05HM33Z Insertion of Infusion Device into Right Internal Jugular Vein, Percutaneous Approach (ICD-10-PCS; 2018-06-19 14:00)
DX: J81.0 Acute pulmonary edema (principal); N18.6 End stage renal disease; A41.9 Sepsis, unspecified organism; R78.81 Bacteremia; I12.0 Hypertensive chronic kidney disease with stage 5 chronic kidney disease or end stage renal disease; N39.0 Urinary tract infection, site not specified; T82.7XXA Infection and inflammatory reaction due to other cardiac and vascular devices, implants and grafts, initial encounter; I27.20 Pulmonary hypertension, unspecified; B96.5 Pseudomonas (aeruginosa) (mallei) (pseudomallei) as the cause of diseases classified elsewhere; K21.9 Gastro-esophageal reflux disease without esophagitis; R62.7 Adult failure to thrive; Z16.21 Resistance to vancomycin

== ENCOUNTER → 2018-07-09 10:22 | Outpatient (CLI) | payer MEDICARE ==
[2018-06-22 22:33] VITALS: BMI 37.4
[~2018-07-09 10:22] MED LIST changes: +CUBICIN500 MG IV; +FLORAJEN3 CAPS460 MG PO; +HYDROCODON-ACE1 EAC7 PO; +RENAGEL800 MG PO
== END | disposition home or self-care (01) ==
LOC: D.US 10:22 → EDSTATUS 11:00 → D.US 11:00 → D.OPS 15:00
DX: R60.0 Localized edema (principal)

== ENCOUNTER 2018-07-12 04:50 | Inpatient (IN) | payer MEDICARE ==
[~2018-07-12] VITALS: Ht 154.9 cm; Wt 77.5 kg
[2018-07-12] VITALS (20 sets, daily range): BP systolic 107–153; BP diastolic 61–90; BMI 43.5
--- NOTE | ~2018-07-12 | DS ---
PATIENT:STELLA HATHAWAY :51 MEDICAL RECORD: [id number] DISCHARGE SUMMARY ADMISSION DATE: 07/12/18 DISCHARGE DATE: 07/22/18 HISTORY OF PRESENT ILLNESS: Ms. Hathaway is a 62-year-old white female with multiple chronic issues including renal failure, on chronic dialysis; recent tricuspid valvular replacement due to endocarditis along with severe debilitation and history of opioid use. [facility] from her multiple recent episodes of septicemia and was found to be lethargic and brought to the Emergency Room and was admitted for the above. HOSPITAL COURSE: The etiology of her lethargy included a possible urosepsis as well as possible pneumonia and possible reaction to hydrocodone. With institution of antibiotic therapy and Narcan, she recovered mentally and was stable throughout the remainder of her hospitalization. She has been on daptomycin for bacteremia by MRSA and her last daptomycin will be this Friday on 07/24/2018, which will be 30 days of therapy for that. She did have a urinary tract infection with Klebsiella and her sternal wound did have some pus emanating from it. After evaluation with Dr. Kidd, she was placed on Fortaz for that, and at the time of discharge her last urine culture was negative. Her UA had no yeast and her wounds were healing. She did have continued hyponatremia, placed on fluid restriction, but she continued to have hyponatremia probably on the basis of her ice ingestion despite numerous discussions with that. We were intermittently able to use her dialysis fistula and we will continue to use this as an outpatient. She was intermittently out of bed, but most of the time declined to get out of bed. At the time of discharge, she was basically back to baseline. We will continue to use her AV fistula and leave her right IJ dialysis catheter in place for the time being. DISCHARGE DIAGNOSES: 1. Possible urosepsis, status post treatment, last urine culture now negative. 2. Drug reaction to hydrocodone and this will be listed as a drug allergy on her chart. 3. History of Staphylococcus bacteremia, finishing daptomycin course. 4. Renal failure, chronic dialysis. 5. Erythropoietin-dependent anemia. 6. Chronic hyponatremia with fluid restriction. 7. Erythropoietin-dependent anemia. 8. Hypothyroidism, on replacement therapy. PLAN: The patient will undergo intermittent Nolasco catheterization today due to her intermittent urinary retention. Following that, she will have dialysis and then will be [facility]. I will see her next week in dialysis. She will resume her thrice weekly dialysis in [facility]. She will continue her fluid restriction, ice included. She will continue to attempt to get out of bed. Her renal diet will continue. Her Cubicin last dosing is this Friday the . Her discharge meds will be Renagel 800 t.i.d., Colace 1 b.i.d., Emla cream to fistula, Ultram 50 every 6 hours p.r.n., Soma 350 at bedtime along with melatonin 6 mg at bedtime. She will have PhosLo 1 t.i.d., Nephro-Melanie 1 daily, Epogen in dialysis, Protonix 40 mg daily. TRANSINT:[id number] Voice Confirmation ID: [id number] DOCUMENT ID: [id number] CC: [facility] DISCHARGE SUMMARY REPORT [id number] STELLA HATHAWAY, ALBARO SMITH at 0652 CC: [id number] DICTATION DATE: 07/22/18 0733 MANAGER EMS: 07/22/18 1054 DIS IN 07/22/18 [facility] [address] [place] [address]
[~2018-07-12 04:50] MED LIST changes: -FLORAJEN3 CAPS460 MG PO; -RENAGEL800 MG PO
[2018-07-12 05:14] LABS: BASOPHILS 0.8 % (0-2); EOSINOPHILS 1.9 % (0-7); HEMATOCRIT 27.9 % (36.0-48.0); HEMOGLOBIN 8.3 g/dL (12-16); IMMATURE GRANULOCYTES 0.3 % (0-5); LYMPHOCYTES 12.8 % (15-50); MCHC 29.7 g/dL (31.0-37.0); MCV 87.5 fL (80.0-100.0); MEAN PLATELET VOLUME 8.9 fL (7.4-10.4); MONOCYTES 14.6 % (2-11); NEUTROPHILS 69.6 % (40-80); PLATELET COUNT 360 10x3/uL (130-400); RBC 3.19 10x6/uL (4.00-5.40); RDW 20.6 % (11.5-14.5); WBC 9.2 10x3/uL (4.8-10.8)
[2018-07-12 05:30] LABS: ALBUMIN 2.4 g/dL (3.4-5.0); ANION GAP 9.4 mmol/L (8-16); BILIRUBIN - TOTAL 0.3 mg/dL (0.2-1.3); CALCIUM 7.9 mg/dL (8.5-10.1); CARBON DIOXIDE 28.2 mmol/L (21.0-32.0); CREATININE - SERUM 4.6 mg/dL (0.6-1.3); POTASSIUM - SERUM 4.6 mmol/L (3.5-5.1); PROTEIN - SERUM 6.7 g/dL (6.4-8.2)
[2018-07-12 05:39] LABS: TROPONIN-I 0.023 ng/mL (0.000-0.060)
[2018-07-12 08:34] LABS: APPEARANCE HAZY (CLEAR); BILIRUBIN NEGATIVE (NEGATIVE); COLOR YELLOW (YELLOW); GLUCOSE NEGATIVE (NEGATIVE); KETONE NEGATIVE (NEGATIVE); NITRITE NEGATIVE (NEGATIVE); PROTEIN 3+ mg/dL (NEGATIVE); SPECIFIC GRAVITY 1.005 (1.005-1.020); UROBILINOGEN NORMAL (NORMAL)
[2018-07-12 08:35] LABS: BACTERIA MODERATE /hpf (NONE SEEN); EPITHELIAL CELLS 0-5 /hpf (0-5); RED CELLS - URINE 0-5 /hpf (0-5)
[2018-07-13] VITALS (25 sets, daily range): BP systolic 109–172; BP diastolic 65–98; Ht 154.9 cm; Wt 77.5 kg
[2018-07-13 04:43] LABS: BASOPHILS 1.1 % (0-2); HEMATOCRIT 27.1 % (36.0-48.0); HEMOGLOBIN 8.3 g/dL (12-16); IMMATURE GRANULOCYTES 0.2 % (0-5); LYMPHOCYTES 12.1 % (15-50); MCH 26.4 pg (26.0-34.0); MCHC 30.6 g/dL (31.0-37.0); MCV 86.3 fL (80.0-100.0); MEAN PLATELET VOLUME 8.4 fL (7.4-10.4); MONOCYTES 12.3 % (2-11); NEUTROPHILS 72.3 % (40-80); PLATELET COUNT 303 10x3/uL (130-400); RBC 3.14 10x6/uL (4.00-5.40); RDW 20.6 % (11.5-14.5); WBC 6.1 10x3/uL (4.8-10.8)
[2018-07-13 05:02] LABS: ALBUMIN 2.7 g/dL (3.4-5.0); ANION GAP 11.8 mmol/L (8-16); BILIRUBIN - TOTAL 0.37 mg/dL (0.2-1.3); CALCIUM 8.2 mg/dL (8.5-10.1); CARBON DIOXIDE 29.3 mmol/L (21.0-32.0); CREATININE - SERUM 3.3 mg/dL (0.6-1.3); MAGNESIUM - SERUM 1.9 mg/dL (1.8-2.4); PHOSPHOROUS 3.3 mg/dL (2.5-4.9); POTASSIUM - SERUM 4.1 mmol/L (3.5-5.1); PROTEIN - SERUM 6.6 g/dL (6.4-8.2)
[2018-07-14] VITALS (24 sets, daily range): BP systolic 113–172; BP diastolic 8–98
[2018-07-14 05:39] LABS: BASOPHILS 0.6 % (0-2); HEMATOCRIT 26.2 % (36.0-48.0); HEMOGLOBIN 8.1 g/dL (12-16); IMMATURE GRANULOCYTES 0.1 % (0-5); LYMPHOCYTES 14.1 % (15-50); MCH 26.4 pg (26.0-34.0); MCHC 30.9 g/dL (31.0-37.0); MCV 85.3 fL (80.0-100.0); MEAN PLATELET VOLUME 8.6 fL (7.4-10.4); MONOCYTES 12.9 % (2-11); NEUTROPHILS 70.3 % (40-80); PLATELET COUNT 354 10x3/uL (130-400); RBC 3.07 10x6/uL (4.00-5.40); RDW 20.6 % (11.5-14.5); WBC 8.3 10x3/uL (4.8-10.8)
[2018-07-14 05:48] LABS: ALBUMIN 2.7 g/dL (3.4-5.0); ANION GAP 10.2 mmol/L (8-16); BILIRUBIN - TOTAL 0.43 mg/dL (0.2-1.3); CALCIUM 7.9 mg/dL (8.5-10.1); CARBON DIOXIDE 29.4 mmol/L (21.0-32.0); CREATININE - SERUM 2.8 mg/dL (0.6-1.3); POTASSIUM - SERUM 3.6 mmol/L (3.5-5.1); PROTEIN - SERUM 6.7 g/dL (6.4-8.2)
[2018-07-15] VITALS (17 sets, daily range): BP systolic 105–180; BP diastolic 71–95
[2018-07-15 05:51] LABS: BASOPHILS 0.5 % (0-2); EOSINOPHILS 3.9 % (0-7); HEMATOCRIT 25.7 % (36.0-48.0); IMMATURE GRANULOCYTES 0.2 % (0-5); MCH 26.1 pg (26.0-34.0); MCHC 31.1 g/dL (31.0-37.0); MCV 83.7 fL (80.0-100.0); MEAN PLATELET VOLUME 8.3 fL (7.4-10.4); MONOCYTES 14.6 % (2-11); NEUTROPHILS 64.8 % (40-80); PLATELET COUNT 327 10x3/uL (130-400); RBC 3.07 10x6/uL (4.00-5.40); RDW 19.9 % (11.5-14.5); WBC 6.4 10x3/uL (4.8-10.8)
[2018-07-15 06:10] LABS: ALBUMIN 2.5 g/dL (3.4-5.0); ANION GAP 9.6 mmol/L (8-16); BILIRUBIN - TOTAL 0.35 mg/dL (0.2-1.3); CALCIUM 7.5 mg/dL (8.5-10.1); CARBON DIOXIDE 28.9 mmol/L (21.0-32.0); CREATININE - SERUM 3.4 mg/dL (0.6-1.3); PHOSPHOROUS 3.7 mg/dL (2.5-4.9); POTASSIUM - SERUM 3.5 mmol/L (3.5-5.1); PROTEIN - SERUM 6.2 g/dL (6.4-8.2)
[2018-07-15 07:37] LABS: HEPATITIS C ANTIBODY 0.1 (0.0-0.9)
[2018-07-16 03:00] VITALS: BP 90/58
[2018-07-16 03:57] LABS: BASOPHILS 0.9 % (0-2); EOSINOPHILS 4.5 % (0-7); HEMATOCRIT 25.8 % (36.0-48.0); HEMOGLOBIN 7.9 g/dL (12-16); MCHC 30.6 g/dL (31.0-37.0); MCV 84.9 fL (80.0-100.0); MEAN PLATELET VOLUME 8.5 fL (7.4-10.4); MONOCYTES 12.2 % (2-11); NEUTROPHILS 61.4 % (40-80); PLATELET COUNT 272 10x3/uL (130-400); RBC 3.04 10x6/uL (4.00-5.40); WBC 5.6 10x3/uL (4.8-10.8)
[2018-07-16 04:18] LABS: ALBUMIN 2.4 g/dL (3.4-5.0); ANION GAP 12.2 mmol/L (8-16); BILIRUBIN - TOTAL 0.3 mg/dL (0.2-1.3); CALCIUM 7.5 mg/dL (8.5-10.1); CARBON DIOXIDE 29.4 mmol/L (21.0-32.0); POTASSIUM - SERUM 3.6 mmol/L (3.5-5.1); PROTEIN - SERUM 6.3 g/dL (6.4-8.2)
[2018-07-16 08:00] VITALS: BP 110/63
[2018-07-16 12:00] VITALS: BP 118/60
[2018-07-16 14:00] VITALS: BP 118/75
[2018-07-16 18:00] VITALS: BP 129/79
[2018-07-16 20:00] VITALS: BP 122/72
[2018-07-17] VITALS: BP 120/71
[2018-07-17 04:00] VITALS: BP 134/85
[2018-07-17 04:47] LABS: HEMATOCRIT 24.9 % (36.0-48.0); LYMPHOCYTES 20.3 % (15-50); MCHC 32.1 g/dL (31.0-37.0); MCV 84.1 fL (80.0-100.0); MEAN PLATELET VOLUME 8.3 fL (7.4-10.4); RBC 2.96 10x6/uL (4.00-5.40); RDW 21.1 % (11.5-14.5); WBC 5.8 10x3/uL (4.8-10.8)
[2018-07-17 04:48] LABS: PLATELET COUNT 333 10x3/uL (130-400)
[2018-07-17 05:03] LABS: ALBUMIN 2.4 g/dL (3.4-5.0); ANION GAP 11.7 mmol/L (8-16); BILIRUBIN - TOTAL 0.29 mg/dL (0.2-1.3); CALCIUM 7.6 mg/dL (8.5-10.1); CARBON DIOXIDE 28.4 mmol/L (21.0-32.0); CREATININE - SERUM 3.7 mg/dL (0.6-1.3); PHOSPHOROUS 4.7 mg/dL (2.5-4.9); POTASSIUM - SERUM 4.1 mmol/L (3.5-5.1); PROTEIN - SERUM 6.2 g/dL (6.4-8.2)
[2018-07-17 13:19] LABS: FUNGUS STAIN Final report (())
[2018-07-17 13:26] VITALS: BP 132/83
[2018-07-17 18:00] VITALS: BP 135/78
[2018-07-17 20:00] VITALS: BP 114/72
[2018-07-18 04:00] VITALS: BP 134/77
[2018-07-18 05:18] LABS: BASOPHILS 0.5 % (0-2); EOSINOPHILS 3.3 % (0-7); HEMATOCRIT 25.9 % (36.0-48.0); HEMOGLOBIN 8.1 g/dL (12-16); IMMATURE GRANULOCYTES 0.2 % (0-5); LYMPHOCYTES 14.6 % (15-50); MCH 25.9 pg (26.0-34.0); MCHC 31.3 g/dL (31.0-37.0); MCV 82.7 fL (80.0-100.0); MEAN PLATELET VOLUME 8.5 fL (7.4-10.4); MONOCYTES 15.3 % (2-11); NEUTROPHILS 66.1 % (40-80); PLATELET COUNT 292 10x3/uL (130-400); RBC 3.13 10x6/uL (4.00-5.40); RDW 19.6 % (11.5-14.5); WBC 6.1 10x3/uL (4.8-10.8)
[2018-07-18 05:41] LABS: ALBUMIN 2.4 g/dL (3.4-5.0); ANION GAP 12.1 mmol/L (8-16); BILIRUBIN - TOTAL 0.29 mg/dL (0.2-1.3); CALCIUM 7.5 mg/dL (8.5-10.1); CARBON DIOXIDE 26.8 mmol/L (21.0-32.0); CREATININE - SERUM 3.4 mg/dL (0.6-1.3); PHOSPHOROUS 4.4 mg/dL (2.5-4.9); POTASSIUM - SERUM 3.9 mmol/L (3.5-5.1); PROTEIN - SERUM 6.3 g/dL (6.4-8.2)
[2018-07-18 08:20] VITALS: BP 143/84
[2018-07-18 15:56] VITALS: BP 103/64
[2018-07-18 20:26] VITALS: BP 110/63
[2018-07-19 00:58] VITALS: BP 107/62
[2018-07-19 05:15] LABS: BASOPHILS 0.6 % (0-2); EOSINOPHILS 2.9 % (0-7); HEMATOCRIT 27.8 % (36.0-48.0); HEMOGLOBIN 8.9 g/dL (12-16); IMMATURE GRANULOCYTES 0.2 % (0-5); LYMPHOCYTES 17.3 % (15-50); MCH 26.5 pg (26.0-34.0); MCV 82.7 fL (80.0-100.0); MEAN PLATELET VOLUME 8.7 fL (7.4-10.4); MONOCYTES 14.9 % (2-11); NEUTROPHILS 64.1 % (40-80); PLATELET COUNT 262 10x3/uL (130-400); RBC 3.36 10x6/uL (4.00-5.40); RDW 18.8 % (11.5-14.5); WBC 6.3 10x3/uL (4.8-10.8)
[2018-07-19 05:35] LABS: ALBUMIN 2.3 g/dL (3.4-5.0); ANION GAP 11.1 mmol/L (8-16); BILIRUBIN - TOTAL 0.31 mg/dL (0.2-1.3); CALCIUM 7.5 mg/dL (8.5-10.1); CARBON DIOXIDE 27.6 mmol/L (21.0-32.0); POTASSIUM - SERUM 3.7 mmol/L (3.5-5.1); PROTEIN - SERUM 6.2 g/dL (6.4-8.2)
[2018-07-19 06:00] VITALS: BP 137/698
[2018-07-19 06:51] VITALS: BP 105/53
[2018-07-19 21:59] VITALS: BP 145/83
[2018-07-20 05:57] LABS: BASOPHILS 0.5 % (0-2); EOSINOPHILS 3.3 % (0-7); HEMATOCRIT 28.4 % (36.0-48.0); IMMATURE GRANULOCYTES 0.3 % (0-5); LYMPHOCYTES 13.4 % (15-50); MCH 26.2 pg (26.0-34.0); MCHC 31.7 g/dL (31.0-37.0); MCV 82.8 fL (80.0-100.0); MEAN PLATELET VOLUME 8.7 fL (7.4-10.4); MONOCYTES 12.9 % (2-11); NEUTROPHILS 69.6 % (40-80); PLATELET COUNT 301 10x3/uL (130-400); RBC 3.43 10x6/uL (4.00-5.40); RDW 18.7 % (11.5-14.5); WBC 6.6 10x3/uL (4.8-10.8)
[2018-07-20 06:35] LABS: ALBUMIN 2.3 g/dL (3.4-5.0); ANION GAP 12.9 mmol/L (8-16); BILIRUBIN - TOTAL 0.36 mg/dL (0.2-1.3); CALCIUM 7.8 mg/dL (8.5-10.1); CARBON DIOXIDE 27.3 mmol/L (21.0-32.0); CREATININE - SERUM 3.5 mg/dL (0.6-1.3); POTASSIUM - SERUM 4.2 mmol/L (3.5-5.1); PROTEIN - SERUM 6.4 g/dL (6.4-8.2)
[2018-07-20 07:16] VITALS: BP 125/75
[2018-07-20 08:37] VITALS: BP 149/81
[2018-07-20 11:41] VITALS: BP 153/86
[2018-07-20 16:10] VITALS: BP 98/66
[2018-07-20 20:00] VITALS: BP 90/59
[2018-07-21 04:00] VITALS: BP 107/55
[2018-07-21 06:23] LABS: BASOPHILS 0.6 % (0-2); EOSINOPHILS 2.8 % (0-7); HEMATOCRIT 27.6 % (36.0-48.0); HEMOGLOBIN 8.7 g/dL (12-16); IMMATURE GRANULOCYTES 0.2 % (0-5); LYMPHOCYTES 13.5 % (15-50); MCH 26.2 pg (26.0-34.0); MCHC 31.5 g/dL (31.0-37.0); MCV 83.1 fL (80.0-100.0); MEAN PLATELET VOLUME 8.8 fL (7.4-10.4); MONOCYTES 15.6 % (2-11); NEUTROPHILS 67.3 % (40-80); PLATELET COUNT 293 10x3/uL (130-400); RBC 3.32 10x6/uL (4.00-5.40); RDW 18.9 % (11.5-14.5); WBC 6.5 10x3/uL (4.8-10.8)
[2018-07-21 06:53] LABS: ALBUMIN 2.3 g/dL (3.4-5.0); ANION GAP 10.5 mmol/L (8-16); BILIRUBIN - TOTAL 0.28 mg/dL (0.2-1.3); CALCIUM 7.7 mg/dL (8.5-10.1); CARBON DIOXIDE 27.3 mmol/L (21.0-32.0); CREATININE - SERUM 3.4 mg/dL (0.6-1.3); PHOSPHOROUS 4.8 mg/dL (2.5-4.9); POTASSIUM - SERUM 3.8 mmol/L (3.5-5.1); PROTEIN - SERUM 6.3 g/dL (6.4-8.2)
[2018-07-21 07:41] VITALS: BP 125/68
[2018-07-21 15:52] VITALS: BP 158/65
[2018-07-21 20:00] VITALS: BP 98/58
[2018-07-22 04:00] VITALS: BP 113/66
[2018-07-22 06:41] LABS: BASOPHILS 0.7 % (0-2); EOSINOPHILS 3.9 % (0-7); HEMATOCRIT 28.1 % (36.0-48.0); HEMOGLOBIN 8.8 g/dL (12-16); IMMATURE GRANULOCYTES 0.2 % (0-5); LYMPHOCYTES 16.1 % (15-50); MCH 26.2 pg (26.0-34.0); MCHC 31.3 g/dL (31.0-37.0); MCV 83.6 fL (80.0-100.0); MEAN PLATELET VOLUME 8.4 fL (7.4-10.4); MONOCYTES 17.8 % (2-11); NEUTROPHILS 61.3 % (40-80); PLATELET COUNT 294 10x3/uL (130-400); RBC 3.36 10x6/uL (4.00-5.40); RDW 18.8 % (11.5-14.5); WBC 5.7 10x3/uL (4.8-10.8)
[2018-07-22 06:44] LABS: ALBUMIN 2.3 g/dL (3.4-5.0); ANION GAP 8.8 mmol/L (8-16); BILIRUBIN - TOTAL 0.27 mg/dL (0.2-1.3); CALCIUM 7.6 mg/dL (8.5-10.1); CARBON DIOXIDE 28.7 mmol/L (21.0-32.0); CREATININE - SERUM 2.9 mg/dL (0.6-1.3); PHOSPHOROUS 4.3 mg/dL (2.5-4.9); POTASSIUM - SERUM 3.5 mmol/L (3.5-5.1); PROTEIN - SERUM 6.4 g/dL (6.4-8.2)
[2018-07-22 07:55] VITALS: BP 124/75
[2018-07-22 09:37] LABS: APPEARANCE SL CLDY (CLEAR); BACTERIA MODERATE /hpf (NONE SEEN); BILIRUBIN NEGATIVE (NEGATIVE); COLOR YELLOW (YELLOW); EPITHELIAL CELLS 0-5 /hpf (0-5); GLUCOSE NEGATIVE (NEGATIVE); KETONE NEGATIVE (NEGATIVE); MUCUS <1+ /lpf (NONE SEEN); NITRITE NEGATIVE (NEGATIVE); PROTEIN 2+ mg/dL (NEGATIVE); SPECIFIC GRAVITY 1.015 (1.005-1.020); UROBILINOGEN NORMAL (NORMAL); WHITE CELLS - URINE 25-50 /hpf (0-5)
[2018-07-22 11:28] VITALS: BP 135/70
[2018-07-22] MEDS ORDERED: PHOSLO667 MG PO (14:11)
[2018-07-22] MEDS ORDERED: FLORAJEN3 CAPS460 MG PO (14:12)
[2018-07-22] MEDS ORDERED: RENAGEL800 MG PO (14:12)
[2018-07-22 14:24] LABS: FUNGUS CULTURE RESULT 1 Candida glabrata (()); FUNGUS MYCOLOGY CULTURE Preliminary report (())
== END 2018-07-22 18:29 | DRG 291 ==
LOC: D.ER 04:50 → D.M2 08:25 → D.ICU 08:25 → D.EDHOLD 08:25 → D.ICU 08:28 → D.M2 07-17 11:16 → D.SDCHOLD 07-20 16:10 → D.M2 07-22 18:29
PROVIDERS: Emergency Medicine; Family Medicine; Internal Medicine Nephrology
PROC: 5A09357 Assistance with Respiratory Ventilation, Less than 24 Consecutive Hours, Continuous Positive Airway Pressure (ICD-10-PCS; principal; 2018-07-12)
DX: I50.33 Acute on chronic diastolic (congestive) heart failure (principal); N18.6 End stage renal disease; J18.9 Pneumonia, unspecified organism; J96.21 Acute and chronic respiratory failure with hypoxia; J96.22 Acute and chronic respiratory failure with hypercapnia; J81.1 Chronic pulmonary edema; I13.2 Hypertensive heart and chronic kidney disease with heart failure and with stage 5 chronic kidney disease, or end stage renal disease; J90 Pleural effusion, not elsewhere classified; J44.1 Chronic obstructive pulmonary disease with (acute) exacerbation; J98.11 Atelectasis; N39.0 Urinary tract infection, site not specified; E87.1 Hypo-osmolality and hyponatremia; R78.81 Bacteremia; Z99.2 Dependence on renal dialysis; Y95 Nosocomial condition; I27.20 Pulmonary hypertension, unspecified; E03.9 Hypothyroidism, unspecified; K21.9 Gastro-esophageal reflux disease without esophagitis; I95.9 Hypotension, unspecified; D63.1 Anemia in chronic kidney disease; R41.82 Altered mental status, unspecified; Z85.038 Personal history of other malignant neoplasm of large intestine; B96.1 Klebsiella pneumoniae [K. pneumoniae] as the cause of diseases classified elsewhere; G47.33 Obstructive sleep apnea (adult) (pediatric); Z91.19 Patient's noncompliance with other medical treatment and regimen; I51.7 Cardiomegaly; I07.1 Rheumatic tricuspid insufficiency; R55 Syncope and collapse

== ENCOUNTER 2018-07-29 03:48 | Inpatient (IN) | payer MEDICARE ==
[~2018-07-29] VITALS: Ht 154.9 cm; Wt 95.2 kg
[2018-07-29] VITALS (7 sets, daily range): BP systolic 83–148; BP diastolic 50–88; Ht 154.9 cm; Wt 95.2 kg
--- NOTE | ~2018-07-29 | CN ---
PATIENT NAME:STELLA HATHAWAY MEDICAL RECORD: [id number] : 51 LOCATION:D.M2 D.2130 ADMIT DATE: 07/29/18 ACCOUNT: [id number] CONSULTING PHYSICIAN: MARIA C SOUTH MD REFERRING PHYSICIAN: ALBARO HENSON MD DATE OF CONSULTATION: 07/29/2018 CONSULT REQUESTING PHYSICIAN: Jarad Duran MD REASON FOR CONSULTATION: Shortness of breath, pneumonia. HISTORY OF PRESENT ILLNESS: Ms. Hathaway is a 62-year-old female, who has a history of COPD, infective endocarditis, status post valve replacement, CHF, end-stage renal disease. She was recently hospitalized with acute hypoxic hypercapnic respiratory failure. After stabilization, the [facility] was [facility]. This a.m., the patient was brought back to the hospital with shortness of breath. Her pulse ox was on 2 liters 90% to 91%. She was coughing. She has orthopnea. She has a PND. She has CTA of the chest, which shows bilateral pleural effusions. There is no fever and chill, no night sweats. She has a cough without much sputum production. There is no chest pain. REVIEW OF SYSTEMS: Mainly in the history of present illness. PAST MEDICAL HISTORY: 1. History of MRSA bacterial endocarditis. 2. History of urinary tract infection. 3. Chronic obstructive pulmonary disease. 4. Congestive heart failure with chronic diastolic dysfunction. There is mild to moderate pulmonary hypertension. PAST SURGICAL HISTORY: 1. Cholecystectomy. 2. . 3. Appendectomy. 4. Bilateral wrist surgery. ALLERGIES: SHE IS ALLERGIC TO PENICILLIN, CODEINE, TAMIFLU, COMPAZINE, NARCAN. MEDICATIONS: On TASS is reviewed. PERSONAL AND SOCIAL HISTORY: The patient is an ex-smoker. She is a nondrinker. FAMILY HISTORY: Noncontributory. PHYSICAL EXAMINATION: GENERAL: The patient is now lying comfortably in bed. She is not in acute distress. VITAL SIGNS: The blood pressure is 133/84, pulse is 90, respiration 21, temperature 97.3, SpO2 is 93% on 3 liters nasal cannula. HEENT: Conjunctivae are pink. Sclerae are not icteric. NECK: The neck is supple, no JVD. CHEST: The chest excursion is minimal on both sides. There is dullness on percussion at the bases. There are crackles. No wheezing. HEART: Rhythm regular, normal sound, no murmur. CONSULT REPORT [id number] EFREMSTELLA NINO ESCOBEDO ABDOMEN: The abdomen is soft, bowel sounds present. No hepatosplenomegaly. RECTAL: Deferred. EXTREMITIES: No cyanosis, no clubbing. There is 1+ pedal edema. LABORATORY DATA: CBC: The WBC is 7.1, hemoglobin 9.5, hematocrit 30.2, and the platelet count 265. Chemistry: Sodium 130, potassium 4.1, BUN is 40, creatinine 4.2. ABG: The pH was 7.36, pCO2 of 45.6, the pO2 was 67. This was done on 4 liters nasal cannula, CTA of the chest: There is no pulmonary embolism. There is a loculated pleural effusion almost 3.2 cm on the left side. There was no PE. There is dependent airspace disease. Possible pneumonia, possible atelectasis. Stable pericardial effusion. IMPRESSION: 1. Aetxl-hl-vzkjtqn hypoxic respiratory failure, pneumonia, bilateral, possible hospital-acquired pneumonia. 2. Acute exacerbation of chronic obstructive pulmonary disease. 3. Pleural effusion, most likely parapneumonic, which is loculated. 4. End-stage renal disease. 5. Mild to moderate pulmonary hypertension, PA pressure of 42. 6. Congestive heart failure, most likely secondary to chronic diastolic dysfunction. RECOMMENDATION: 1. Albuterol, ipratropium nebulizer. 2. Brovana, budesonide nebulizer. 3. Start vancomycin. Continue cefepime and Levaquin. 4. Thoracentesis. 5. Supplemental oxygen. 6. Hemodialysis per nephrology. Follow up labs and chest radiograph. Dr. Duran, thank you for involving me in the care of Ms. Hathaway. TRANSINT:[id number] Voice Confirmation ID: [id number] DOCUMENT ID: [id number] MARIA C SOUTH MD at 1301 CC: [id number] DICTATION DATE: 07/29/181725 MACHINE TRIMMER: 07/29/18 181 DIS IN 08/12/18 [address] [place] [address]
--- NOTE | ~2018-07-29 | OP ---
PATIENT NAME: CAROL HATHAWAY MEDICAL RECORD: [id number] :51 LOCATION:D.M2 D.2130 ADMISSION DATE:07/29/18 SURGEON: KELIN SUN MD DATE OF OPERATION: 08/04/2018 REFERRING PHYSICIAN: Dr. Contreras PREOPERATIVE DIAGNOSES: End-stage renal disease with dependence on renal dialysis. Mechanical complication of left radiocephalic AV fistula and sepsis and endocarditis. POSTOPERATIVE DIAGNOSES: End-stage renal disease with dependence on renal dialysis. Mechanical complication of left radiocephalic AV fistula and sepsis and endocarditis. OPERATION PERFORMED: Exchange of central venous Trialysis dialysis catheter in the right internal jugular vein position done under fluoroscopy and local anesthesia and fistulogram with balloon dilatation and placement of stent, and open ligation of collateral vein at the left wrist. PREOPERATIVE NOTE: Carol Hathaway is a desperately ill patient with end-stage renal disease and morbid obesity and the accompanying comorbidities. She is status post valve replacement for acute endocarditis, which I believe was a result of an infected hemodialysis catheter. At any rate, she is being managed now with non-tunneled dialysis catheters and the one in the right internal jugular vein we think should be changed. Her left radiocephalic fistula is not maturing and she has not been able to be dialyzed with it, which has led to her catheter dependence. We will do a fistulogram today and hopefully improve that. SURGEON: Kelin Sun MD ANESTHESIA: Local MAC per MEDICAL RECORDS ASSISTANT. DESCRIPTION OF PROCEDURE: With the patient under sedation in supine position, she was prepped and draped in a sterile manner. The Trialysis catheter in the right internal jugular vein position was exchanged over a guidewire under fluoroscopy. Lumens were aspirated and then flushed with saline and heparin locked. The catheter was sutured in place with 2-0 Prolene and a sterile dressing applied. The arm was then approached. The arm was examined first with ultrasound and I identified several collateral draining veins, which appeared to divert a significant amount of flow and also there was I thought a stenosis in the JA segment. The vein was accessed with ultrasound guidance and micropuncture technique in a retrograde direction from the mid forearm. Contrast injections confirmed the significant flow diversion. I did make an incision and exposed and ligated a large diverting collateral vein. Subsequently, there was dramatic fall off and flow in the fistula and repeat contrast injection demonstrated a worsened stenosis. At the origin of that vein, it was ligated. I subsequently dilated that stenosis without good result and then ended up inserting an 8 mm x 40 mm Fluency PTFE covered endovascular stent. The fistula was dramatically improved after that. The incision was closed with interrupted subcuticular sutures and glue. The introducer site in the mid forearm was closed with a jnvtro-cy-tltva 4-0 Prolene suture and hemostasis obtained with a period of direct pressure. Sterile dressings were applied. The patient then in stable OPERATIVE REPORT [id number] CAROL HATHAWAY condition was awakened and taken back to the recovery room. Blood loss I estimated at 25 cc and was unreplaced. No drain was used. All sponges, instruments, and needles were accounted for. TRANSINT:[id number] Voice Confirmation ID: [id number] DOCUMENT ID: [id number] KELIN SUN MD at 1606 CC: ALBARO CONTRERAS MD [id number] DICTATION DATE: 08/07/18905 BLENDER LABORER: 08/07/18 0931 ADM IN [facility] [address] [place] [address]
--- NOTE | ~2018-07-29 | CN ---
PATIENT NAME:STELLA TOPETE MEDICAL RECORD: [id number] : 51 LOCATION:D.M2 D.2130 ADMIT DATE: 07/29/18 ACCOUNT: [id number] CONSULTING PHYSICIAN: MO WANG MD REFERRING PHYSICIAN: ALBARO HENSON MD DATE OF CONSULTATION: 07/30/2018 IDENTIFYING DATA: The patient is 62 years old and she is admitted to the hospital on a voluntary basis. CHIEF COMPLAINT: Shortness of breath. HISTORY OF PRESENT ILLNESS: The patient has a very complicated and long medical history. She has hypertension; coronary artery disease; sick sinus syndrome; vertigo; cataracts; acid reflux; and history of multiple surgeries including her gallbladder, colon, appendectomy, and . She also has hypothyroidism. She has a history of infective endocarditis and has had tricuspid valve replacement. She has end-stage renal disease and is chronically hypoxic. She currently is acutely medically ill. I have reviewed the patient's medical record. There is a mention of a history of depression, but there is no mention of any acute psychiatric needs. There is no mention or thoughts of suicide, homicide, psychotic symptoms, or disruptive or aggressive behavior in either the physician or nursing notes. Consultation is at the request of her son, who wants to be present and he wants her evaluated for competency. There is no acute psychiatric need regarding safety or a concern associated with this acute hospitalization. It is not possible to have her evaluated for competency when she is acutely medically ill. I would refer the patient and her son for an outpatient appointment once she is medically stabilized. If her condition changes and there are behavioral symptoms that require my attention, I would be happy to see her, but I cannot make a determination about general competency at the request of the son when the patient is acutely ill. The findings would not be accurate. TRANSINT:[id number] Voice Confirmation ID: [id number] DOCUMENT ID: [id number] MO WANG MD at 1324 CC: [id number] DICTATION DATE: 07/30/18 1351 COLLECTION AGENT: 07/30/18 1403 ADM IN [place] [id number] [place] [address]
[~2018-07-29 03:48] MED LIST changes: +FLORAJEN3 CAPS460 MG PO; +RENAGEL800 MG PO
[2018-07-29 04:42] LABS: BASOPHILS 0.6 % (0-2); EOSINOPHILS 3.2 % (0-7); HEMATOCRIT 30.2 % (36.0-48.0); HEMOGLOBIN 9.5 g/dL (12-16); LYMPHOCYTES 14.2 % (15-50); MCH 26.3 pg (26.0-34.0); MCHC 31.5 g/dL (31.0-37.0); MCV 83.7 fL (80.0-100.0); MEAN PLATELET VOLUME 8.4 fL (7.4-10.4); MONOCYTES 9.2 % (2-11); NEUTROPHILS 72.8 % (40-80); PLATELET COUNT 265 10x3/uL (130-400); RBC 3.61 10x6/uL (4.00-5.40); RDW 18.8 % (11.5-14.5); WBC 7.1 10x3/uL (4.8-10.8)
[2018-07-29 04:52] LABS: APTT 28.4 SECONDS (22.8-39.4); INR 1.06 (0.85-1.17); PROTIME 13.4 SECONDS (11.6-15.0)
[2018-07-29 04:53] LABS: D-DIMER-QUANTITATIVE 2.91 ug/mLFEU (0.20-0.54)
[2018-07-29 04:56] LABS: ALBUMIN 2.4 g/dL (3.4-5.0); ALKALINE PHOSPHATASE 120 U/L (46-116); ALT (SGPT) 41 U/L (10-68); BILIRUBIN - TOTAL 0.27 mg/dL (0.2-1.3); CALC OSMOLALITY 272 mosm/kg (275-300); CALCIUM 8.5 mg/dL (8.5-10.1); CARBON DIOXIDE 26.8 mmol/L (21.0-32.0); CHLORIDE - SERUM 95 mmol/L (98-107); CREATININE - SERUM 4.2 mg/dL (0.6-1.3); POTASSIUM - SERUM 4.1 mmol/L (3.5-5.1); PROTEIN - SERUM 6.9 g/dL (6.4-8.2); SODIUM 130 mmol/L (136-145); UREA NITROGEN 40 mg/dL (7-18); eGFR NON AFRICAN AMERICAN 11 mL/min (90-120)
[2018-07-29 05:04] LABS: GLUCOSE 129 mg/dL (74-106)
[2018-07-29 05:09] LABS: CREATINE KINASE 27 UL (21-215); PRO BNP 7309 pg/mL (0-125)
[2018-07-29 05:12] LABS: TROPONIN-I < 0.017 ng/mL (0.000-0.060)
[2018-07-29 10:47] LABS: APPEARANCE CLOUDY (CLEAR); BILIRUBIN NEGATIVE (NEGATIVE); COLOR YELLOW (YELLOW); GLUCOSE 100 mg/dL (NEGATIVE); KETONE NEGATIVE (NEGATIVE); NITRITE NEGATIVE (NEGATIVE); PH 6.5 (5.0-6.0); PROTEIN 3+ mg/dL (NEGATIVE); UROBILINOGEN NORMAL (NORMAL); WHITE CELLS - URINE >50 /hpf (0-5)
[2018-07-29 10:48] LABS: BACTERIA MANY /hpf (NONE SEEN); EPITHELIAL CELLS 25-50 /hpf (0-5); MUCUS >1+ /lpf (NONE SEEN); YEAST NONE SEEN /hpf (NONE SEEN)
[2018-07-30] VITALS (7 sets, daily range): BP systolic 74–134; BP diastolic 43–73
[2018-07-30 05:00] LABS: BASOPHILS 0.4 % (0-2); EOSINOPHILS 4.7 % (0-7); HEMOGLOBIN 8.7 g/dL (12-16); LYMPHOCYTES 20.3 % (15-50); MCH 26.6 pg (26.0-34.0); MCHC 31.1 g/dL (31.0-37.0); MCV 85.6 fL (80.0-100.0); MEAN PLATELET VOLUME 8.2 fL (7.4-10.4); MONOCYTES 12.6 % (2-11); PLATELET COUNT 243 10x3/uL (130-400); RBC 3.27 10x6/uL (4.00-5.40); RDW 19.2 % (11.5-14.5)
[2018-07-30 05:05] LABS: WBC 4.9 10x3/uL (4.8-10.8)
[2018-07-30 05:31] LABS: ANION GAP 10.9 mmol/L (8-16); CALCIUM 8.1 mg/dL (8.5-10.1); CARBON DIOXIDE 28.1 mmol/L (21.0-32.0); VANCOMYCIN - RANDOM 13.7 ug/mL (10.0-20.0)
[2018-07-30 07:54] LABS: % SATURATION 10 % (15-55); IRON 22 ug/dl (35-150); TOTAL IRON BIND CAPACITY 218 ug/dl (260-445); UNSAT IRON BIND CAPACITY 196 ug/dl (150-375)
[2018-07-31] VITALS: BP 87/45
[2018-07-31 04:00] VITALS: BP 87/48
[2018-07-31 05:40] LABS: BASOPHILS 0.8 % (0-2); EOSINOPHILS 3.1 % (0-7); HEMOGLOBIN 8.4 g/dL (12-16); IMMATURE GRANULOCYTES 0.2 % (0-5); MCH 25.8 pg (26.0-34.0); MCV 86.2 fL (80.0-100.0); MEAN PLATELET VOLUME 8.3 fL (7.4-10.4); MONOCYTES 13.2 % (2-11); NEUTROPHILS 70.7 % (40-80); PLATELET COUNT 241 10x3/uL (130-400); RBC 3.25 10x6/uL (4.00-5.40); RDW 19.4 % (11.5-14.5); WBC 6.5 10x3/uL (4.8-10.8)
[2018-07-31 06:24] LABS: ALBUMIN 2.3 g/dL (3.4-5.0); ANION GAP 13.8 mmol/L (8-16); BILIRUBIN - TOTAL 0.28 mg/dL (0.2-1.3); CALCIUM 8.3 mg/dL (8.5-10.1); CARBON DIOXIDE 27.6 mmol/L (21.0-32.0); POTASSIUM - SERUM 4.4 mmol/L (3.5-5.1); PROTEIN - SERUM 6.6 g/dL (6.4-8.2); VANCOMYCIN - RANDOM 11.4 ug/mL (10.0-20.0)
[2018-07-31 07:59] VITALS: BP 100/58
[2018-07-31 11:25] VITALS: BP 99/55
[2018-07-31 21:01] VITALS: BP 101/60
[2018-08-01 01:32] VITALS: BP 105/65
[2018-08-01 04:48] LABS: BASOPHILS 0.5 % (0-2); HEMATOCRIT 27.5 % (36.0-48.0); HEMOGLOBIN 8.3 g/dL (12-16); LYMPHOCYTES 11.8 % (15-50); MCH 25.9 pg (26.0-34.0); MCHC 30.2 g/dL (31.0-37.0); MCV 85.7 fL (80.0-100.0); MEAN PLATELET VOLUME 8.3 fL (7.4-10.4); MONOCYTES 14.2 % (2-11); NEUTROPHILS 70.5 % (40-80); PLATELET COUNT 208 10x3/uL (130-400); RBC 3.21 10x6/uL (4.00-5.40); WBC 5.9 10x3/uL (4.8-10.8)
[2018-08-01 05:37] LABS: ALBUMIN 2.6 g/dL (3.4-5.0); ANION GAP 13.5 mmol/L (8-16); BILIRUBIN - TOTAL 0.33 mg/dL (0.2-1.3); CALCIUM 8.3 mg/dL (8.5-10.1); CARBON DIOXIDE 28.4 mmol/L (21.0-32.0); CREATININE - SERUM 3.1 mg/dL (0.6-1.3); PHOSPHOROUS 4.8 mg/dL (2.5-4.9); POTASSIUM - SERUM 3.9 mmol/L (3.5-5.1); PROTEIN - SERUM 6.8 g/dL (6.4-8.2)
[2018-08-01 05:48] VITALS: BP 104/64
[2018-08-01 21:20] VITALS: BP 152/80
[2018-08-02 04:26] LABS: BASOPHILS 0.6 % (0-2); HEMATOCRIT 29.6 % (36.0-48.0); HEMOGLOBIN 9.1 g/dL (12-16); IMMATURE GRANULOCYTES 0.2 % (0-5); LYMPHOCYTES 12.8 % (15-50); MCHC 30.7 g/dL (31.0-37.0); MCV 84.6 fL (80.0-100.0); MEAN PLATELET VOLUME 8.2 fL (7.4-10.4); MONOCYTES 13.6 % (2-11); NEUTROPHILS 70.8 % (40-80); PLATELET COUNT 228 10x3/uL (130-400); RDW 19.1 % (11.5-14.5); WBC 6.4 10x3/uL (4.8-10.8)
[2018-08-02 04:35] LABS: INR 1.09 (0.85-1.17); PROTIME 13.7 SECONDS (11.6-15.0)
[2018-08-02 04:42] LABS: ANION GAP 12.4 mmol/L (8-16); CALCIUM 8.7 mg/dL (8.5-10.1); CARBON DIOXIDE 27.6 mmol/L (21.0-32.0); CREATININE - SERUM 3.7 mg/dL (0.6-1.3); VANCOMYCIN - RANDOM 16.7 ug/mL (10.0-20.0)
[2018-08-02 05:59] VITALS: BP 145/79
[2018-08-02 21:04] VITALS: BP 161/83
[2018-08-03 05:08] LABS: BASOPHILS 0.4 % (0-2); EOSINOPHILS 1.1 % (0-7); HEMATOCRIT 30.6 % (36.0-48.0); HEMOGLOBIN 9.6 g/dL (12-16); IMMATURE GRANULOCYTES 0.3 % (0-5); LYMPHOCYTES 9.6 % (15-50); MCH 26.5 pg (26.0-34.0); MCHC 31.4 g/dL (31.0-37.0); MCV 84.5 fL (80.0-100.0); MEAN PLATELET VOLUME 8.6 fL (7.4-10.4); MONOCYTES 14.8 % (2-11); NEUTROPHILS 73.8 % (40-80); PLATELET COUNT 244 10x3/uL (130-400); RBC 3.62 10x6/uL (4.00-5.40); RDW 19.2 % (11.5-14.5); WBC 7.3 10x3/uL (4.8-10.8)
[2018-08-03 05:24] LABS: ANION GAP 14.3 mmol/L (8-16); CREATININE - SERUM 4.1 mg/dL (0.6-1.3); POTASSIUM - SERUM 4.3 mmol/L (3.5-5.1); VANCOMYCIN - RANDOM 20.9 ug/mL (10.0-20.0)
[2018-08-03 06:12] VITALS: BP 141/84
[2018-08-03 07:55] VITALS: BP 132/66
[2018-08-03 11:55] VITALS: BP 168/90
[2018-08-03 16:29] VITALS: BP 138/78
[2018-08-03 20:00] VITALS: BP 111/78
[2018-08-04 04:00] VITALS: BP 133/81
[2018-08-04 04:20] LABS: BASOPHILS 0.5 % (0-2); EOSINOPHILS 2.4 % (0-7); HEMATOCRIT 28.9 % (36.0-48.0); HEMOGLOBIN 8.9 g/dL (12-16); IMMATURE GRANULOCYTES 0.3 % (0-5); LYMPHOCYTES 10.1 % (15-50); MCHC 30.8 g/dL (31.0-37.0); MCV 84.5 fL (80.0-100.0); MEAN PLATELET VOLUME 8.4 fL (7.4-10.4); MONOCYTES 16.7 % (2-11); PLATELET COUNT 217 10x3/uL (130-400); RBC 3.42 10x6/uL (4.00-5.40); RDW 19.5 % (11.5-14.5); WBC 7.8 10x3/uL (4.8-10.8)
[2018-08-04 04:42] LABS: ANION GAP 15.1 mmol/L (8-16); CALCIUM 8.6 mg/dL (8.5-10.1); CARBON DIOXIDE 27.5 mmol/L (21.0-32.0); CREATININE - SERUM 3.1 mg/dL (0.6-1.3); VANCOMYCIN - RANDOM 16.9 ug/mL (10.0-20.0)
[2018-08-04 04:49] LABS: POTASSIUM - SERUM 3.6 mmol/L (3.5-5.1)
[2018-08-04 08:03] VITALS: BP 145/76
[2018-08-04 23:42] VITALS: BP 133/75
[2018-08-05 05:17] LABS: BASOPHILS 0.4 % (0-2); EOSINOPHILS 2.3 % (0-7); HEMATOCRIT 29.4 % (36.0-48.0); HEMOGLOBIN 8.9 g/dL (12-16); IMMATURE GRANULOCYTES 0.7 % (0-5); LYMPHOCYTES 14.5 % (15-50); MCHC 30.3 g/dL (31.0-37.0); MONOCYTES 13.3 % (2-11); NEUTROPHILS 68.8 % (40-80); PLATELET COUNT 232 10x3/uL (130-400); RBC 3.42 10x6/uL (4.00-5.40); RDW 20.1 % (11.5-14.5); WBC 7.4 10x3/uL (4.8-10.8)
[2018-08-05 05:26] LABS: ANION GAP 15.9 mmol/L (8-16); CALCIUM 8.8 mg/dL (8.5-10.1); CARBON DIOXIDE 26.2 mmol/L (21.0-32.0); CREATININE - SERUM 3.7 mg/dL (0.6-1.3); POTASSIUM - SERUM 4.1 mmol/L (3.5-5.1)
[2018-08-05 06:34] VITALS: BP 126/70
[2018-08-05 07:48] VITALS: BP 141/67
[2018-08-05 11:39] VITALS: BP 125/75
[2018-08-05 15:51] VITALS: BP 136/76
[2018-08-05 21:13] VITALS: BP 125/62
[2018-08-06 01:25] VITALS: BP 118/70
[2018-08-06 04:29] LABS: BASOPHILS 0.4 % (0-2); HEMATOCRIT 29.3 % (36.0-48.0); HEMOGLOBIN 8.9 g/dL (12-16); IMMATURE GRANULOCYTES 0.3 % (0-5); LYMPHOCYTES 18.2 % (15-50); MCH 26.5 pg (26.0-34.0); MCHC 30.4 g/dL (31.0-37.0); MCV 87.2 fL (80.0-100.0); MEAN PLATELET VOLUME 8.3 fL (7.4-10.4); MONOCYTES 14.9 % (2-11); NEUTROPHILS 64.2 % (40-80); PLATELET COUNT 191 10x3/uL (130-400); RBC 3.36 10x6/uL (4.00-5.40); RDW 20.3 % (11.5-14.5); WBC 7.5 10x3/uL (4.8-10.8)
[2018-08-06 04:42] LABS: ANION GAP 8.6 mmol/L (8-16); CALCIUM 8.6 mg/dL (8.5-10.1); CARBON DIOXIDE 30.2 mmol/L (21.0-32.0); CREATININE - SERUM 3.1 mg/dL (0.6-1.3); POTASSIUM - SERUM 3.8 mmol/L (3.5-5.1)
[2018-08-06 06:07] VITALS: BP 137/723
[2018-08-06 17:05] VITALS: BP 128/76
[2018-08-06 20:58] VITALS: BP 147/78
[2018-08-07] VITALS: BP 135/77
[2018-08-07 04:12] LABS: BASOPHILS 0.4 % (0-2); EOSINOPHILS 2.8 % (0-7); HEMATOCRIT 30.6 % (36.0-48.0); HEMOGLOBIN 9.3 g/dL (12-16); IMMATURE GRANULOCYTES 0.5 % (0-5); LYMPHOCYTES 16.4 % (15-50); MCH 26.6 pg (26.0-34.0); MCHC 30.4 g/dL (31.0-37.0); MCV 87.7 fL (80.0-100.0); MEAN PLATELET VOLUME 8.9 fL (7.4-10.4); MONOCYTES 14.1 % (2-11); NEUTROPHILS 65.8 % (40-80); PLATELET COUNT 203 10x3/uL (130-400); RBC 3.49 10x6/uL (4.00-5.40); RDW 21.3 % (11.5-14.5); WBC 7.8 10x3/uL (4.8-10.8)
[2018-08-07 04:48] LABS: ANION GAP 12.2 mmol/L (8-16); CALCIUM 8.9 mg/dL (8.5-10.1); CARBON DIOXIDE 28.1 mmol/L (21.0-32.0); POTASSIUM - SERUM 4.3 mmol/L (3.5-5.1)
[2018-08-07 05:22] VITALS: BP 139/75
[2018-08-07 08:30] VITALS: BP 117/84
[2018-08-07 16:06] VITALS: BP 122/80
[2018-08-07 20:00] VITALS: BP 158/78
[2018-08-08 04:59] VITALS: BP 119/67
[2018-08-08 07:07] LABS: BASOPHILS 0.3 % (0-2); EOSINOPHILS 3.2 % (0-7); HEMATOCRIT 30.4 % (36.0-48.0); HEMOGLOBIN 9.3 g/dL (12-16); IMMATURE GRANULOCYTES 0.3 % (0-5); LYMPHOCYTES 14.9 % (15-50); MCH 26.9 pg (26.0-34.0); MCHC 30.6 g/dL (31.0-37.0); MCV 87.9 fL (80.0-100.0); MEAN PLATELET VOLUME 8.8 fL (7.4-10.4); MONOCYTES 16.1 % (2-11); NEUTROPHILS 65.2 % (40-80); PLATELET COUNT 199 10x3/uL (130-400); RBC 3.46 10x6/uL (4.00-5.40); RDW 22.2 % (11.5-14.5); WBC 7.2 10x3/uL (4.8-10.8)
[2018-08-08 07:18] LABS: ANION GAP 9.7 mmol/L (8-16); CALCIUM 8.7 mg/dL (8.5-10.1); CARBON DIOXIDE 29.9 mmol/L (21.0-32.0); CREATININE - SERUM 3.4 mg/dL (0.6-1.3)
[2018-08-08 07:28] LABS: POTASSIUM - SERUM 3.6 mmol/L (3.5-5.1)
[2018-08-08 10:01] VITALS: BP 144/72
[2018-08-08 11:36] VITALS: BP 146/77
[2018-08-08 16:00] VITALS: BP 167/92
[2018-08-08 21:10] VITALS: BP 144/78
[2018-08-09 05:13] VITALS: BP 120/71
[2018-08-09 07:38] LABS: BASOPHILS 0.1 % (0-2); EOSINOPHILS 3.6 % (0-7); HEMATOCRIT 29.8 % (36.0-48.0); HEMOGLOBIN 9.1 g/dL (12-16); IMMATURE GRANULOCYTES 0.1 % (0-5); LYMPHOCYTES 12.3 % (15-50); MCH 26.7 pg (26.0-34.0); MCHC 30.5 g/dL (31.0-37.0); MCV 87.4 fL (80.0-100.0); MEAN PLATELET VOLUME 8.9 fL (7.4-10.4); MONOCYTES 16.1 % (2-11); NEUTROPHILS 67.8 % (40-80); PLATELET COUNT 188 10x3/uL (130-400); RBC 3.41 10x6/uL (4.00-5.40); RDW 22.2 % (11.5-14.5)
[2018-08-09 07:57] LABS: ALBUMIN 2.7 g/dL (3.4-5.0); ANION GAP 10.8 mmol/L (8-16); BILIRUBIN - TOTAL 0.5 mg/dL (0.2-1.3); CALCIUM 8.9 mg/dL (8.5-10.1); CARBON DIOXIDE 29.9 mmol/L (21.0-32.0); CREATININE - SERUM 4.1 mg/dL (0.6-1.3); PHOSPHOROUS 3.5 mg/dL (2.5-4.9); POTASSIUM - SERUM 3.7 mmol/L (3.5-5.1); PROTEIN - SERUM 6.7 g/dL (6.4-8.2)
[2018-08-09 20:00] VITALS: BP 144/79
[2018-08-10] VITALS: BP 151/64
[2018-08-10 04:00] VITALS: BP 119/72
[2018-08-10 08:38] VITALS: BP 142/76
[2018-08-10 10:53] LABS: % SATURATION 30 % (15-55); IRON 60 ug/dl (35-150); TOTAL IRON BIND CAPACITY 194 ug/dl (260-445); UNSAT IRON BIND CAPACITY 134 ug/dl (150-375)
[2018-08-10 15:59] VITALS: BP 138/74
[2018-08-10 21:24] VITALS: BP 171/83
[2018-08-11] VITALS: BP 128/75
[2018-08-11 04:44] VITALS: BP 127/69
[2018-08-11 05:54] LABS: BASOPHILS 0.3 % (0-2); HEMOGLOBIN 8.8 g/dL (12-16); IMMATURE GRANULOCYTES 0.2 % (0-5); LYMPHOCYTES 13.7 % (15-50); MCH 26.3 pg (26.0-34.0); MCHC 30.3 g/dL (31.0-37.0); MCV 86.8 fL (80.0-100.0); MEAN PLATELET VOLUME 9.1 fL (7.4-10.4); MONOCYTES 18.9 % (2-11); NEUTROPHILS 63.9 % (40-80); PLATELET COUNT 191 10x3/uL (130-400); RBC 3.34 10x6/uL (4.00-5.40); RDW 22.1 % (11.5-14.5)
[2018-08-11 06:20] LABS: ALBUMIN 2.6 g/dL (3.4-5.0); ANION GAP 10.9 mmol/L (8-16); BILIRUBIN - TOTAL 0.59 mg/dL (0.2-1.3); CALCIUM 8.4 mg/dL (8.5-10.1); CREATININE - SERUM 3.5 mg/dL (0.6-1.3); POTASSIUM - SERUM 3.9 mmol/L (3.5-5.1); PROTEIN - SERUM 6.5 g/dL (6.4-8.2)
[2018-08-11 06:21] LABS: PHOSPHOROUS 2.2 mg/dL (2.5-4.9)
[2018-08-11 07:30] VITALS: BP 145/79
[2018-08-11 08:18] LABS: FOLATE (FOLIC ACID) - SERUM 19.5 ng/mL (>3.0)
[2018-08-11 10:17] LABS: APPEARANCE CLEAR (CLEAR); BILIRUBIN NEGATIVE (NEGATIVE); COLOR YELLOW (YELLOW); GLUCOSE NEGATIVE (NEGATIVE); KETONE NEGATIVE (NEGATIVE); NITRITE NEGATIVE (NEGATIVE); PROTEIN NEGATIVE (NEGATIVE); UROBILINOGEN NORMAL (NORMAL)
[2018-08-11 11:00] VITALS: BP 140/75
[2018-08-11 15:00] VITALS: BP 145/78
[2018-08-11 20:00] VITALS: BP 133/79
[2018-08-12] VITALS: BP 134/76
[2018-08-12 05:32] LABS: ANION GAP 10.4 mmol/L (8-16); CALCIUM 8.3 mg/dL (8.5-10.1); CARBON DIOXIDE 29.4 mmol/L (21.0-32.0); CREATININE - SERUM 3.8 mg/dL (0.6-1.3); PHOSPHOROUS 2.6 mg/dL (2.5-4.9); POTASSIUM - SERUM 3.8 mmol/L (3.5-5.1)
[2018-08-12 06:37] VITALS: BP 138/78
[2018-08-12 09:00] VITALS: BP 139/78
[2018-08-12 11:02] VITALS: BP 144/80
[2018-08-12 12:21] LABS: HEPATITIS C ANTIBODY <0.1 (0.0-0.9)
[2018-08-12] MEDS ORDERED: IPRAT-ALBUT 0.5-3 ML UPD (13:20)
[2018-08-12] MEDS ORDERED: SOMA350 MG PO (13:21)
[2018-08-12] MEDS ORDERED: MIDODRINE HCL10 MG PO (13:22)
[2018-08-12] MEDS ORDERED: APAP325 MG PO (13:23)
[2018-08-12] MEDS ORDERED: ULTRAM50 MG PO (13:24)
[2018-08-12] MEDS ORDERED: LASIX80 MG PO (13:25)
[2018-08-12] MEDS ORDERED: MIRALAX17 GM PO (13:27)
[2018-08-12] MEDS ORDERED: DULCOLAX5 MG PO (13:28)
[2018-08-12] MEDS ORDERED: SYNTHROID75 MCG PO (13:29)
[2018-08-12] MEDS ORDERED: MELATONIN 3 MG1 TAB PO (13:30)
[2018-08-12 15:39] VITALS: BP 135/77
[2018-08-13 03:11] LABS: HEPATITIS BE ANTIGEN Negative (Negative)
[2018-08-17 14:18] LABS: HEPATITIS BE ANTIBODY Negative (Negative)
[2018-08-19 10:22] LABS: AEROBE ID Final report (())
== END 2018-08-12 17:40 | DRG 166 ==
LOC: D.ER 03:48 → D.M2 09:01 → D.EDHOLD 09:01 → D.M2 11:44 → D.EDHOLD 11:44 → D.M2 12:28
PROVIDERS: Family Medicine; Internal Medicine; Internal Medicine Nephrology; Surgery
PROC: 5A1D70Z Performance of Urinary Filtration, Intermittent, Less than 6 Hours Per Day (ICD-10-PCS; principal; 2018-07-29)
PROC: 05LF0ZZ Occlusion of Left Cephalic Vein, Open Approach (ICD-10-PCS; 2018-08-04)
PROC: 057F3DZ Dilation of Left Cephalic Vein with Intraluminal Device, Percutaneous Approach (ICD-10-PCS; 2018-08-04)
PROC: B51W1ZZ Fluoroscopy of Dialysis Shunt/Fistula using Low Osmolar Contrast (ICD-10-PCS; 2018-08-04)
PROC: 057F3ZZ Dilation of Left Cephalic Vein, Percutaneous Approach (ICD-10-PCS; 2018-08-04 12:00)
DX: J18.9 Pneumonia, unspecified organism (principal); J96.21 Acute and chronic respiratory failure with hypoxia; N18.6 End stage renal disease; J44.0 Chronic obstructive pulmonary disease with (acute) lower respiratory infection; J44.1 Chronic obstructive pulmonary disease with (acute) exacerbation; I13.2 Hypertensive heart and chronic kidney disease with heart failure and with stage 5 chronic kidney disease, or end stage renal disease; I50.32 Chronic diastolic (congestive) heart failure; E87.1 Hypo-osmolality and hyponatremia; T82.858A Stenosis of other vascular prosthetic devices, implants and grafts, initial encounter; E03.9 Hypothyroidism, unspecified; Z99.2 Dependence on renal dialysis; Z91.19 Patient's noncompliance with other medical treatment and regimen; D63.8 Anemia in other chronic diseases classified elsewhere; I95.9 Hypotension, unspecified; I25.10 Atherosclerotic heart disease of native coronary artery without angina pectoris; I48.91 Unspecified atrial fibrillation; I27.20 Pulmonary hypertension, unspecified; Y83.8 Other surgical procedures as the cause of abnormal reaction of the patient, or of later complication, without mention of misadventure at the time of the procedure

== ENCOUNTER 2018-11-13 21:00 | Inpatient (IN) | payer MEDICARE, BC ==
[~2018-11-13] VITALS: Ht 154.9 cm; Wt 65.9 kg
[~2018-11-13 21:00] MED LIST changes: +APAP325 MG PO; +DULCOLAX5 MG PO; +LASIX80 MG PO; +MELATONIN 3 MG1 TAB PO; +MIDODRINE HCL10 MG PO; +MIRALAX17 GM PO; +SOMA350 MG PO; +SYNTHROID75 MCG PO
--- NOTE | 2018-11-14 12:15 | NUR ---
The patient is admitted to [facility] from [facility], she is brought here via their van in a wheel chair, she is on oxygen 2L/M per NC. She is alert and oriented x3, she is able to stand and transfer. Her son is with her and he says she can walk she just will not. She has recently been in the hospital at [facility] due to her pulling out her port. So the facility removed it and reinserted it in her right chest. She has a left fistula where she receives dialysis Mon, Fri, Fri. She answers most questions appropriately, she denies any behavior issues at the longterm, but the [facility] states she is yelling, and wants someone to sit with her and even if someone is sitting with her she screams and she is not able to tell staff what is wrong or what she needs. The staff say she has now become aggressive with them hitting and throwing things. At this time she says she is scared. Her son is with her and he is the POA and has given verbal consent. She wears upper dentures and has her own bottom teeth.
[2018-11-14 13:21] VITALS: BP 136/79; BMI 27.4
--- NOTE | 2018-11-14 13:36 | NUR ---
MADE A CALL TO DR. GORDON'S ANSWERING SERVICE TO LET HIM KNOW HE HAS A CONSULT.
[2018-11-14] MEDS ORDERED: LIPITOR40 MG PO (13:52)
[2018-11-14] MEDS ORDERED: CATAPRES0.2 MG PO (13:53)
[2018-11-14] MEDS ORDERED: EPOGEN3000 U/ML SC (13:57)
[2018-11-14] MEDS ORDERED: GABAPENTIN100 MG PO (14:00)
[2018-11-14] MEDS ORDERED: SYNTHROID88 MCG PO (14:05)
[2018-11-14] MEDS ORDERED: PROZAC10 MG PO (14:06)
[2018-11-14] MEDS ORDERED: RESTORIL15 MG PO (14:07)
[2018-11-14] MEDS ORDERED: XANAX0.5 MG PO (14:10)
[2018-11-14] MEDS ORDERED: ZOFRAN4 MG PO (14:11)
--- NOTE | 2018-11-14 16:04 | NUR ---
ALERT, COOPERATIVE, AND QUITE DEMANDING AT TIMES. FOLLOWS INSTRUCTIONS. O2 AT 2 LPM VIA N/C. DENIES NEEDS AT THIS TIME.
[2018-11-14 17:15] LABS: BASOPHILS 0.7 % (0-2); EOSINOPHILS 1.3 % (0-7); HEMOGLOBIN 10.1 g/dL (12-16); IMMATURE GRANULOCYTES 0.1 % (0-5); LYMPHOCYTES 18.2 % (15-50); MCH 28.2 pg (26.0-34.0); MCHC 30.6 g/dL (31.0-37.0); MCV 92.2 fL (80.0-100.0); MEAN PLATELET VOLUME 8.6 fL (7.4-10.4); MONOCYTES 10.2 % (2-11); NEUTROPHILS 69.5 % (40-80); RBC 3.58 10x6/uL (4.00-5.40); RDW 20.2 % (11.5-14.5); WBC 8.3 10x3/uL (4.8-10.8)
[2018-11-14 17:17] LABS: PLATELET COUNT 308 10x3/uL (130-400)
[2018-11-14 17:42] LABS: ALBUMIN 2.7 g/dL (3.4-5.0); ANION GAP 15.6 mmol/L (8-16); BILIRUBIN - TOTAL 0.36 mg/dL (0.2-1.3); CALCIUM 8.7 mg/dL (8.5-10.1); CARBON DIOXIDE 25.2 mmol/L (21.0-32.0); CHOL - HDL RATIO 1.5 ratio (2.3-4.1); CREATININE - SERUM 3.5 mg/dL (0.6-1.3); LDL-HDL RATIO 0.4 ratio (1.5-3.5); POTASSIUM - SERUM 3.8 mmol/L (3.5-5.1); PROTEIN - SERUM 7.2 g/dL (6.4-8.2); THYROID STIMULATING HORMONE 1.84 uIU/mL (0.36-3.74)
[2018-11-14 21:10] VITALS: BP 129/78
--- NOTE | 2018-11-14 23:15 | NUR ---
PATIENT IS VERY DEMANDING AND NEEDY, HOLLERS OUT "NURSE" BECAUSE HER SOCK IS FALLING OFF. PATIENT IS ALERT AND OREINTED TO SELF, PLACE BUT NOT SITUATION. WILL CONTINUE TO FOLLOW POC.
[2018-11-15 07:00] VITALS: BP 176/93
--- NOTE | 2018-11-15 17:21 | NUR ---
ORIENTED TO SELF ONLY.COMPLIANT WITH STAFF AND MEDS.DEMANDING,FREQUENTLY YELLS NURSE,NURSE.HAS 02 AT 2L/MIN PER NC.WILL CONTINUE WITH PLAN OF CARE,MONITOR FOR CHANGES AND SAFETY.
--- NOTE | 2018-11-15 18:13 | NUR ---
SON HERE TO VISIT PATIENT. SON STATED THAT PATIENT WAS PERFECTLY ABLE TO WALK, BUT WOULD PRETEND TO NOT BE ABLE TO WALK. ALSO STATED THAT AT THE [facility], PATIENT WOULD WALK TO BATHROOM AND TOILET SELF WITHOUT ASSISTANCE. SON STATES THAT PATIENT IS ATTENTION-SEEKING.
--- NOTE | 2018-11-15 21:14 | NUR ---
RECEIVED IN HALLWAY. SITTING IN A RECLINING CHAIR. DEMANDING AT TIMES. COOPERATIVE WITH CARE AND ASSESSMENT. NO SIGNS OF PARANOIA. REDIRECT AND REORIENT NEEDED. RESTING IN BED WITH EYES CLOSED AT THIS TIME. CONTINUE PLAN OF CARE
[2018-11-15 22:33] VITALS: BP 162/90
--- NOTE | 2018-11-16 07:15 | NUR ---
REC'D PT IN BED AWAKE. ALERT AND ORIENTED TO SELF. DEMANDING AT TIMES. NO S/SX OF PARANOIA NOTED. REDIRECT AND REORIENT NEEDED. CALM AND COOPERATIVE WITH ASSESSMENT. FALL PRECAUTIONS IN PLACE. PRESCRIBED MEDS PROVIDED. MED COMPLIANT. WILL CONTINUE TO MONITOR Q 15 MINUTES FOR SAFETY. WILL CPOC.
[2018-11-16 08:10] VITALS: BP 173/95
[2018-11-16 10:25] VITALS: BMI 27.4
--- NOTE | 2018-11-16 13:56 | PSY ---
PATIENT NAME:STELLA TOPETE MEDICAL RECORD: [id number] : 51 LOCATION:ZAYNAB [facility]1 ADMISSION DATE: 11/14/18 ACCOUNT: [id number] PSYCHIATRIC EVALUATION DATE OF EVALUATION: 11/15/18 IDENTIFYING DATA: The patient is 63 years old and she was admitted to the hospital on a voluntary basis. CHIEF COMPLAINT: Depression. HISTORY OF PRESENT ILLNESS: The patient lives in the [facility]. She is severely impaired, despite her relative youth. She has COPD and wears oxygen continuously. She is on renal dialysis. She has had a great deal of changes to her life in the past 6 months. Primarily, this involves going from living at home and independent to being in the long-term oxygen dependent and on dialysis. Apparently, she has been very agitated at the long-term. She has deliberately pulled her port out, but when asked about it, denies it. She endorses numerous neurovegetative depressive symptoms. Apparently at the long-term, she has been yelling and screaming and insisting that someone sit with her constantly and not able to tell people what is wrong. She apparently has been throwing things at the staff and hitting the staff that is what they report. She denies it. She says that she really does not care if she lives or dies, but denies that she would actively seek to harm herself. PAST MEDICAL HISTORY: Significant for COPD, hypertension, renal failure. PAST PSYCHIATRIC HISTORY: Negative by her report, but she does take medications for depression and insomnia. FAMILY HISTORY: Noncontributory by her report. ALLERGIES: PENICILLIN, CODEINE, AND COMPAZINE. CURRENT MEDICATIONS: Include MiraLax, Protonix, Prozac, Procrit, Synthroid, Colace, Restoril, Neurontin, Xanax, Catapres, Lipitor. SOCIAL HISTORY: The patient is . She does have 2 adult children and grandchildren. She generally functioned well socially and occupationally. She has no history of drug or alcohol abuse. She is a former cigarette smoker. MENTAL STATUS EXAMINATION: The patient is awake, alert and oriented to person, place, time and situation. Her mood is depressed. Her affect is constricted. Thought processes are circumstantial. Memory, concentration, and abstraction abilities are at least moderately impaired and she denies any intent to harm herself or others as well as overt psychotic symptoms. ASSETS: Supportive family members. LIABILITIES: Limited insight. DIAGNOSTIC IMPRESSION: AXIS I: Major depression, severe, single episode without psychotic features. AXIS II: None. AXIS III: Hypothyroidism, hypertension, COPD, renal failure. AXIS IV: Severe stressors. AXIS V: Global assessment of functioning is 35. PLAN: At this time, the patient is admitted to the hospital secondary to aggressive, combative symptoms associated with a depressive illness. She will be treated with both mood stabilizing and antidepressant medications as deemed appropriate. Her long-term prognosis is guarded. TRANSINT:[id number] Voice Confirmation ID: [id number] DOCUMENT ID: [id number] MO WANG MD at 1356 CC: [id number] DICTATION DATE: 11/15/18 1008 BATTERY STARTER: 11/15/18 1040 ADM IN [place] [id number] [place] [id number]
[2018-11-16 15:10] VITALS: Ht 154.9 cm; Wt 65.9 kg
--- NOTE | 2018-11-16 17:14 | NUR ---
ATTEMPTED TO CALL DIALYSIS X 3 NO ANSWER. WILL CONTINUE TO MONITOR Q 15 MINUTES FOR SAFETY.
--- NOTE | 2018-11-16 17:31 | NUR ---
SPOKE WITH YARIEL WITH DIALYSIS.Josefina STATED" IT WILL BE LATER TONIGHT, BUT WE WILL GET TO IT."
[2018-11-16 23:16] VITALS: BP 124/60
[2018-11-17 07:26] LABS: RAPID PLASMA REAGIN Non Reactive (Non Reactive)
[2018-11-17 07:50] LABS: BASOPHILS 0.5 % (0-2); EOSINOPHILS 1.9 % (0-7); HEMATOCRIT 29.8 % (36.0-48.0); HEMOGLOBIN 9.4 g/dL (12-16); IMMATURE GRANULOCYTES 0.3 % (0-5); LYMPHOCYTES 12.1 % (15-50); MCH 27.6 pg (26.0-34.0); MCHC 31.5 g/dL (31.0-37.0); MCV 87.6 fL (80.0-100.0); MEAN PLATELET VOLUME 8.4 fL (7.4-10.4); MONOCYTES 12.1 % (2-11); NEUTROPHILS 73.1 % (40-80); PLATELET COUNT 255 10x3/uL (130-400); RDW 19.3 % (11.5-14.5); WBC 7.7 10x3/uL (4.8-10.8)
--- NOTE | 2018-11-17 08:00 | NUR ---
RECEIVED IN HALLWAY WITH PEERS IN A RECLINER. AWAKE AND ALERT TO SELF. CALM AND COOPERATIVE WITH ASSESSMENT. PROVIDE SCHEDULED MEDICATIONS. COMPLIANT WITH TAKING MEDICATINS. REDIRECT NEEDED. FALL PRECAUTONS MAINTAINED. MONITOR FOR SAFETY. CONTINUE PLAN OF CARE.
[2018-11-17 08:15] LABS: ANION GAP 19.3 mmol/L (8-16); CALCIUM 8.7 mg/dL (8.5-10.1); CARBON DIOXIDE 21.4 mmol/L (21.0-32.0); CREATININE - SERUM 5.4 mg/dL (0.6-1.3); PHOSPHOROUS 6.5 mg/dL (2.5-4.9); POTASSIUM - SERUM 3.7 mmol/L (3.5-5.1)
[2018-11-17 09:04] VITALS: BP 139/87
[2018-11-17 09:17] LABS: FOLATE (FOLIC ACID) - SERUM 16.9 ng/mL (>3.0); VITAMIN D 25 HYDROXY 19.1 ng/mL (30.0-100.0)
--- NOTE | 2018-11-17 10:00 | NUR ---
TO ROOM 1121 FOR HEMODUALYSIS IN ROOM. SHE SLEPT THRU THE PROCEDURE.
--- NOTE | 2018-11-17 15:13 | PN ---
PATIENT:STELLA TOPETE MEDICAL RECORD: [id number] LOCATION:ZAYNAB [address]ilar112 ADMISSION DATE: 11/14/18 PROGRESS NOTE DATE OF SERVICE: 11/16/2018 SUBJECTIVE: The patient's case was discussed with staff. She has no new complaint. OBJECTIVE: The patient is eating reasonably well and has slept reasonably well. She denies being seriously depressed, but then goes on to endorse lots of vegetative depressive symptoms. She has had her first dose of Cymbalta and tolerated it well. I will probably increase that dose in the coming days. In addition to this, I am going to give her some trazodone to assist with sleep consolidation. ASSESSMENT: No change in diagnoses. PLAN: Current medicines have been reviewed and will be maintained. Her long-term prognosis is guarded. TRANSINT:[id number] Voice Confirmation ID: [id number] DOCUMENT ID: [id number] MO WANG MD at 1513 CC: [id number] DICTATION DATE: 11/16/18 1543 FREEZING MACHINE OPERATOR: 11/16/18 1738 ADM IN [facility] [address] [place] [address]
--- NOTE | 2018-11-17 19:35 | NUR ---
RECEIVED IN BEDROOM. RESTING IN BED WITH EYES CLOSED. RESPONDS TO VOICE. CALM AND COOPERATIVE WITH CARE AND ASSESSMENT. DEMANDING AT TIMES. REDIRECT AND REORIENT NEEDED. RESTING IN BED WITH EYES CLOSED. CONTINUE PLAN OF CARE
[2018-11-17 23:57] VITALS: BP 122/64
--- NOTE | 2018-11-18 07:45 | NUR ---
REC'D PT IN HALLWAY WITH PEERS. AWAKE AND ALERT. PT CALM AND COOPERATIVE WITH ASSSESSMENT. PT IS DEMANDING AT TIMES. REDIRECT AND REORIENT NEEDED. PRESCRIBED MEDS PROVIDED. MED COMPLIANT. FALL PRECAUTIONS IN PLACE. WILL CONTINUE TO MONITOR Q 15 MINUTES FOR SAFETY. WILL CPOC.
[2018-11-18 08:00] VITALS: BP 129/77
[2018-11-18 08:23] LABS: EOSINOPHILS 3.8 % (0-7); HEMATOCRIT 27.9 % (36.0-48.0); HEMOGLOBIN 8.8 g/dL (12-16); IMMATURE GRANULOCYTES 0.3 % (0-5); LYMPHOCYTES 16.2 % (15-50); MCH 28.1 pg (26.0-34.0); MCHC 31.5 g/dL (31.0-37.0); MCV 89.1 fL (80.0-100.0); MEAN PLATELET VOLUME 8.4 fL (7.4-10.4); NEUTROPHILS 64.7 % (40-80); PLATELET COUNT 241 10x3/uL (130-400); RBC 3.13 10x6/uL (4.00-5.40); RDW 19.4 % (11.5-14.5)
[2018-11-18 08:27] LABS: ANION GAP 13.7 mmol/L (8-16); CARBON DIOXIDE 25.6 mmol/L (21.0-32.0); CREATININE - SERUM 3.7 mg/dL (0.6-1.3); PHOSPHOROUS 4.7 mg/dL (2.5-4.9); POTASSIUM - SERUM 3.3 mmol/L (3.5-5.1)
--- NOTE | 2018-11-18 10:54 | NUR ---
Nutrition Follow Up: Chart reviewed. Diet: Renal with 1000 ml Fluid Restriction PO Intake: 57% meal avg - pt is not meeting est nutritional needs BM: 11/16/18 Meds and labs reviewed Rec continue current diet, fluid restriction per renal. Rec consider an appetite stimulant. Will continue to honor food preferences within diet restrictions. RD following.
--- NOTE | 2018-11-18 14:59 | PN ---
PATIENT:STELLA TOPETE MEDICAL RECORD: [id number] LOCATION:ZAYNAB [address]112 ADMISSION DATE: 11/14/18 PROGRESS NOTE DATE OF SERVICE: 11/17/2018 SUBJECTIVE: The patient's case was discussed with staff. She has no new complaint. OBJECTIVE: The patient is in good behavioral control with limited insight about her condition. She generally tolerates her medicines well. She has poor insight about her situation. ASSESSMENT: No change in diagnoses. PLAN: Current medicines have been reviewed and will be maintained. Long-term prognosis is guarded. The patient is not having any thoughts of harming herself. She does have some difficulty sleeping. I am going to increase the dose of her trazodone. TRANSINT:[id number] Voice Confirmation ID: [id number] DOCUMENT ID: [id number] MO WANG MD at 1459 CC: [id number] DICTATION DATE: 11/17/18 1602 PHOTOGRAPHER MOTION PICTURE: 11/17/18 1712 ADM IN [place] [id number] [place] [address]
[2018-11-18 23:37] VITALS: BP 130/72
--- NOTE | 2018-11-19 02:40 | NUR ---
COPIED NOTE: WAS FILED IN WRONG AREA- NURSES NOTES INSTEAD OF BEHAVIOR HEALTH B) LESS NEEDY AND DEMANDING WITH HER REQUESTS PER PATIENT INSPECTOR CONVEYOR LINE. EXCEEDED HER 1000 ML FLUID RESTRICTION LIMIT FOR THE DAY. INTAKE = 1320 MLS. HAD 1080 MLS WITH MEALS AND AN EXTRA 240 MLS ENSURE. QUIET, DID NOT ENGAGE IN ANY LENGTHY CONVERSATION AND DID NOT WANT TO TALK ABOUT HER SITUATION, TIRED. TO BED EARLY. ON OXYGEN @2L/MIN. I) MEDICATE ORDERED, RE-EDUACATE ON NEED TO COMPLY WITH FLUID RESTRICTION, MONITOR FOR SAFE USE OF OXYGEN, ENCOURAGE TO EXPRESS FEELINGS, WATCH FOR ANY PARANOIA, REDIRECT NEEDED. R) NO AGGRESSION EXHIBITED, COMPLIANT WITH MEDICATIONS, HAS BEEN SLEEPING WELL. P) CONTINUE TO MONITOR PER PLAN OF CARE.
--- NOTE | 2018-11-19 02:40 | NUR ---
B) LESS NEEDY AND DEMANDING WITH HER REQUESTS PER PATIENT SENIOR TAX SPECIALIST. EXCEEDED HER 1000ML FLUID RESTRICTION FOR THE DAY, INTAKE = 1320MLS. HAD 1080 DURING THE DAY WITH MEALS AND THEN DRANK AN ENSURE. QUIET, DID NOT ENGAGE IN ANY LENGTHY CONVERSATION AND DID NOT WANT TO TALK ABOUT HER SITUATION, TIRED. TO BED EARLY. OXYGEN ON @2L/MIN. I) MEDICATE ORDERED, RE-EDUCATE ON NEED TO COMPLY WITH FLUID RESTRICTION, MONITOR FOR SAFE USE OF OXYGEN, ENCOURAGE TO EXPRESS FEELINGS, WATCH FOR ANY PARANOIA, REDIRECT NEEDED. R) NO AGGRESSION EXHIBITED, COMPLIANT WITH MEDICATIONS, HAS BEEN SLEEPING WELL. P) CONTINUE TO MONITOR PER PLAN OF CARE.
[2018-11-19 07:00] VITALS: BP 126/70
[2018-11-19 07:01] LABS: ANION GAP 13.8 mmol/L (8-16); CALCIUM 8.5 mg/dL (8.5-10.1); CARBON DIOXIDE 26.9 mmol/L (21.0-32.0); CREATININE - SERUM 4.7 mg/dL (0.6-1.3); PHOSPHOROUS 6.5 mg/dL (2.5-4.9); POTASSIUM - SERUM 3.7 mmol/L (3.5-5.1)
[2018-11-19 07:20] LABS: HEMATOCRIT 30.3 % (36.0-48.0); HEMOGLOBIN 9.5 g/dL (12-16); LYMPHOCYTES 15.3 % (15-50); MCH 28.7 pg (26.0-34.0); MCHC 31.4 g/dL (31.0-37.0); MEAN PLATELET VOLUME 8.5 fL (7.4-10.4); NEUTROPHILS 70.7 % (40-80); PLATELET COUNT 286 10x3/uL (130-400); RBC 3.31 10x6/uL (4.00-5.40); RDW 20.9 % (11.5-14.5); WBC 7.3 10x3/uL (4.8-10.8)
[2018-11-19 07:22] LABS: MCV 91.5 fL (80.0-100.0)
--- NOTE | 2018-11-19 15:55 | PN ---
PATIENT:STELLA TOPETE MEDICAL RECORD: [id number] LOCATION:ZAYNAB [address]ilar112 ADMISSION DATE: 11/14/18 PROGRESS NOTE DATE OF SERVICE: 11/18/2018 SUBJECTIVE: The patient's case was discussed with staff. She has no new complaint. OBJECTIVE: The patient is in good behavioral control. She has limited insight about her condition. She does tolerate her medicines well. ASSESSMENT: No change in diagnoses. PLAN: The patient will be maintained on current medications. Her dose of Cymbalta will be increased to 40 mg daily. Her long-term prognosis is guarded. TRANSINT:[id number] Voice Confirmation ID: [id number] DOCUMENT ID: [id number] MO WANG MD at 1555 CC: [id number] DICTATION DATE: 11/18/18 1502 CAR HOPPER: 11/18/18 1717 ADM IN [place] [id number] [place] [id number]
[2018-11-19 18:57] VITALS: BP 131/79
--- NOTE | 2018-11-19 19:30 | NUR ---
B) RECEIVED PATIENT AT CHANGE OF SHIFT IN DAY ROOM, NO VOICED COMPLAINTS. STATES HAD DIALYSIS TODAY, 1 L WAS REMOVED. DIALYSIS NURSE STATED WILL MOST LIKELY DO DIALYSIS TOMORROW INSTEAD OF FRIDAY, TO GET PATIENT BACK ON HER FRI - - FRI SCHEDULE. NO PARANOID STATEMENTS MADE AT THIS TIME. STILL ATTEMPTING TO OBTAIN URINE SPECIMEN BUT PATIENT HAS NOT VOIDED. STATES VOIDS VERY LITTLE DUE TO DIALYSIS. I) GIVE MEDICATIONS ORDERED, PROVIDE TIME FOR 1:1 WITH PATIENT, ASSESS FOR ANY SIGNS OF FEARFULNESS OR PARANOIA, REORIENT AND REDIRECT NEEDED. R) ORIENTED X 4, VERY LITTLE CONVERSATION, COMPLIANT WITH MEDICATIONS, QUIET AND GUARDED WITH SELF DISCLOSURES. P) MONITOR PER PLAN OF CARE.
[2018-11-20 06:04] LABS: BASOPHILS 0.4 % (0-2); EOSINOPHILS 3.5 % (0-7); HEMOGLOBIN 9.2 g/dL (12-16); IMMATURE GRANULOCYTES 0.1 % (0-5); MCH 27.7 pg (26.0-34.0); MCHC 30.7 g/dL (31.0-37.0); MCV 90.4 fL (80.0-100.0); MEAN PLATELET VOLUME 8.4 fL (7.4-10.4); MONOCYTES 13.5 % (2-11); NEUTROPHILS 67.5 % (40-80); RBC 3.32 10x6/uL (4.00-5.40); RDW 19.4 % (11.5-14.5); WBC 7.2 10x3/uL (4.8-10.8)
[2018-11-20 06:24] LABS: ANION GAP 12.1 mmol/L (8-16); CALCIUM 8.3 mg/dL (8.5-10.1); CARBON DIOXIDE 28.6 mmol/L (21.0-32.0); CREATININE - SERUM 4.2 mg/dL (0.6-1.3); PHOSPHOROUS 5.7 mg/dL (2.5-4.9); POTASSIUM - SERUM 3.7 mmol/L (3.5-5.1)
[2018-11-20 06:37] LABS: PLATELET COUNT 222 10x3/uL (130-400)
[2018-11-20 08:23] LABS: HEPATITIS C ANTIBODY <0.1 S/CO RAT (0.0-0.9)
[2018-11-20 09:58] VITALS: BP 113/68
--- NOTE | 2018-11-20 10:00 | NUR ---
The patient is awake and alert she is pleasant and she is compliant with meds, she self propels in her w/c, she says she feels tired today. She is calm, she has not had any yelling or screaming today. She does not act like she is in any pain, but she does get a lidocaine patch for chronic back pain. She is oriented x 3. She takes her prescribed meds easily. She is compliant with unit milieu. Continue POC.
--- NOTE | 2018-11-20 16:27 | PN ---
PATIENT:STELLA TOPETE MEDICAL RECORD: [id number] LOCATION:ZAYNAB [facility]112 ADMISSION DATE: 11/14/18 PROGRESS NOTE DATE OF SERVICE: 11/19/2018 SUBJECTIVE: The patient's case was discussed with staff. She has no new complaint. OBJECTIVE: The patient has tolerated her initial dose of Cymbalta well. It is going to be increased as tolerated. She denies that she would seek to harm herself, but still displays a very significantly and seriously depressed mood. ASSESSMENT: No change in diagnoses. PLAN: Current medicines have been reviewed and will be maintained. Her long-term prognosis is guarded. Brief supportive and educational interventions were made. TRANSINT:[id number] Voice Confirmation ID: [id number] DOCUMENT ID: [id number] MO WANG MD at 1627 CC: [id number] DICTATION DATE: 11/19/18 1611 CRUSHER AND BINDER OPERATOR: 11/19/18 2031 ADM IN [place] [id number] [place] [address]
[2018-11-20 20:14] VITALS: BP 112/72
--- NOTE | 2018-11-20 21:30 | NUR ---
PATIENT HAS A FLAT AFFECT. COMPLIANT WITH MEDS. QUIET THIS EVENING IN THE DAYROOM. NOT MANY REQUESTS. IN USE. NO SIDE EFFECTS OF MEDS NOTICED.
[2018-11-21 07:08] LABS: BASOPHILS 0.5 % (0-2); EOSINOPHILS 2.4 % (0-7); HEMATOCRIT 29.2 % (36.0-48.0); HEMOGLOBIN 9.1 g/dL (12-16); IMMATURE GRANULOCYTES 0.1 % (0-5); LYMPHOCYTES 14.1 % (15-50); MCH 28.1 pg (26.0-34.0); MCHC 31.2 g/dL (31.0-37.0); MCV 90.1 fL (80.0-100.0); MEAN PLATELET VOLUME 8.9 fL (7.4-10.4); MONOCYTES 11.4 % (2-11); NEUTROPHILS 71.5 % (40-80); PLATELET COUNT 202 10x3/uL (130-400); RBC 3.24 10x6/uL (4.00-5.40); RDW 19.3 % (11.5-14.5); WBC 7.9 10x3/uL (4.8-10.8)
--- NOTE | 2018-11-21 07:12 | NUR ---
The [facility] is getting the patient ready to get up and she noticed more edematous legs. Did assess her and her legs are 2+, she dialyzed yesterday with 3 liters off, she also has an edematous orbit to her right eye. Her abdomen is hard, she says she has not had a BM since 11/16/18. She is on colace and miralax. Did make a call to Dr. Cheema's office.
[2018-11-21 07:31] LABS: ANION GAP 14.9 mmol/L (8-16); CALCIUM 8.1 mg/dL (8.5-10.1); CARBON DIOXIDE 27.3 mmol/L (21.0-32.0); CREATININE - SERUM 3.5 mg/dL (0.6-1.3); PHOSPHOROUS 4.7 mg/dL (2.5-4.9); POTASSIUM - SERUM 3.2 mmol/L (3.5-5.1)
[2018-11-21 08:00] VITALS: BP 114/64
--- NOTE | 2018-11-21 11:47 | PN ---
PATIENT:STELLA TOPETE MEDICAL RECORD: [id number] LOCATION:ZAYNAB [facility]112 ADMISSION DATE: 11/14/18 PROGRESS NOTE DATE OF SERVICE: 11/20/2018 SUBJECTIVE: The patient's case was discussed with staff. She has no new complaint. OBJECTIVE: The patient denies intent to harm herself or others. She does tolerate her medicines well. Eye contact is fair. ASSESSMENT: No change in diagnoses. PLAN: The patient is no longer having thoughts of harming herself. She is tolerating her current medications well. I am going to decrease the dose of her trazodone secondary to more than adequate amounts of sleep. TRANSINT:[id number] Voice Confirmation ID: [id number] DOCUMENT ID: [id number] MO WANG MD at 1147 CC: [id number] DICTATION DATE: 11/20/18 1637 DEBRIDGING MACHINE OPERATOR: 11/20/18 2228 ADM IN [facility] [address] [place] [address]
--- NOTE | 2018-11-21 13:57 | NUR ---
Sonia Hastings APN ordered a fleets enema and she would like an in and out cath. Did obtain urine about 50 ml cloudy yellow urine sent to lab, fleets enema provided. Patient is lying in the bed.
--- NOTE | 2018-11-21 14:15 | NUR ---
The patient did have a large soft bowel movement and she says she feels better now.
[2018-11-21 14:21] LABS: APPEARANCE CLOUDY (CLEAR); COLOR YELLOW (YELLOW); GLUCOSE NEGATIVE (NEGATIVE); KETONE SMALL mg/dL (NEGATIVE); NITRITE NEGATIVE (NEGATIVE); PROTEIN 2+ mg/dL (NEGATIVE); SPECIFIC GRAVITY 1.015 (1.005-1.020)
[2018-11-21 14:22] LABS: BILIRUBIN NEGATIVE (NEGATIVE); UROBILINOGEN NORMAL (NORMAL)
[2018-11-21 14:23] LABS: AMORPHOUS SEDIMENT <1+ /lpf (NONE SEEN); BACTERIA MANY /hpf (NONE SEEN); EPITHELIAL CELLS 0-5 /hpf (0-5); HYALINE CAST OCC /lpf (NONE SEEN); MUCUS >1+ /lpf (NONE SEEN); RED CELLS - URINE 25-50 /hpf (0-5); WHITE CELLS - URINE 25-50 /hpf (0-5)
[2018-11-21 21:54] VITALS: BP 132/77
--- NOTE | 2018-11-21 23:37 | NUR ---
RECEIVED IN DAYROOM. SITTING IN WHEELCHAIR WHILE WATCHING TV WITH PEERS. CALM AND COOPERATIVE WITH CARE AND ASSESSMENT. NO MANIPULATIVE BEHAVIOR THIS EVENING. REDIRECT AND REORIENT NEEDED. RESTING IN BED WITH EYES CLOSED AT THIS TIME. CONTINUE PLAN OF CARE.
--- NOTE | 2018-11-22 08:00 | NUR ---
PT IS AWAKE AND ALERT. CALM AND COOPERATIVE WITH ASSESSMNET. PT IS PLEASANT. SELF PROPELS IN HER W/C. DENIES ANY PAIN AT THIS TIME. PRESCRIBED MEDS PROVIDED. MED COMPLIANT. FALL PRECAUTIONS IN PLACE. NO ATTENTION SEEKING BEHAVIORS NOTED AT THIS TIME. WILL CONTINUE TO MONITOR Q 15 MINUTES FOR SAFETY. WILL CPOC.
[2018-11-22 09:00] VITALS: BP 136/78
--- NOTE | 2018-11-22 12:04 | PN ---
PATIENT:STELLA TOPETE MEDICAL RECORD: [id number] LOCATION:ZAYNAB [address]112 ADMISSION DATE: 11/14/18 PROGRESS NOTE DATE OF SERVICE: 11/21/2018 SUBJECTIVE: The patient's case was discussed with staff. She has no new complaint. OBJECTIVE: The patient is in good behavioral control with limited insight about her condition. She tolerates her medicines well. Eye contact is poor. ASSESSMENT: No change in diagnoses. PLAN: Current medicines have been reviewed and will be maintained. The patient is sleeping adequately. I do plan to increase the dose of her Cymbalta slightly prior to her being discharged. TRANSINT:[id number] Voice Confirmation ID: [id number] DOCUMENT ID: [id number] MO WANG MD at 1204 CC: [id number] DICTATION DATE: 11/21/18 1155 PUPPET MASTER: 11/21/18 1334 ADM IN [place] [address] [place] [address]
--- NOTE | 2018-11-22 20:45 | NUR ---
RECEIVED IN DAYROOM. SITTING IN A CHAIR WITH PEERS AT HER SIDE. CALM AND COOPERATIVE WITH CARE AND ASSESSMENT. NO SIGNS OF AGGRESSION. CONTINUES TO SIT QUIETLY IN CHAIR. CONTINUE PLAN OF CARE
[2018-11-22 22:15] VITALS: BP 153/92
[2018-11-23 08:00] VITALS: BP 113/80
--- NOTE | 2018-11-23 08:15 | NUR ---
RECEIVED IN HALLWAY, SITTING IN WHEELCHAIR WITH PEERS. CALM AND COOPERATIVE WITH CARE AND ASSESSMENT. NO AGGRSSION NOTED. REDIRECT AND REORIENT NEEDED. WILL MONITOR FOR BEHAVIOR CHANGES. CONTINUE PLAN OF CARE.
--- NOTE | 2018-11-23 12:45 | NUR ---
TO ROOM FOR DIALYSIS. LYING IN BED.
--- NOTE | 2018-11-23 17:39 | PN ---
PATIENT:STELLA TOPETE MEDICAL RECORD: [id number] LOCATION:[facility] [address] ADMISSION DATE: 11/14/18 PROGRESS NOTE DATE OF SERVICE: 11/22/2018 SUBJECTIVE: The patient's case was discussed with staff. She has no new complaint. OBJECTIVE: The patient is in good behavioral control with limited insight about her condition. She tolerates her medicines well. ASSESSMENT: No change in diagnoses. PLAN: Current medicines have been reviewed and will be maintained. I am going to increase the dose of her Cymbalta slightly. TRANSINT:[id number] Voice Confirmation ID: [id number] DOCUMENT ID: [id number] MO WANG MD at 1739 CC: [id number] DICTATION DATE: 11/22/18 1208 TIPPLE BOSS: 11/22/18 1424 ADM IN [place] [id number] [place] [address]
--- NOTE | 2018-11-24 01:07 | NUR ---
RECEIVED IN PATIENT ROOM. RESTING IN BED WITH EYES CLOSED. RESPONDS TO VOICE. CALM AND COOPEATIVE WITH CARE AND ASSESSMENT. NO SIGNS OF AGITATION OR AGGRESSION. REDIRECT AND REORIENT NEEDED. RESTING IN BED WITH EYES CLOSED AT THIS TIME. CONTINUE PLAN OF CARE.
[2018-11-24 08:00] VITALS: BP 157/98
--- NOTE | 2018-11-24 10:00 | NUR ---
ASSESSMENT COMPLETED PER FLOW SHEET. MEICATION COMPLIANT. CALM AND COOPERATIVE WITH CARE. WILL CONTINUE POC.
--- NOTE | 2018-11-24 12:30 | NUR ---
ADMITTED TO [facility] FROM [facility] VIA WHEELCHAIR. DX: ALTERED MENTAL STATUS. SHE IS CONFUSED AND ORIENTED TO PERSON ONLY. SHE IS ABLE TO AMBU- LATE WITH ASSISTANCE. SHE IS WITHDRAWN AND STAYS TO HERSELF. PATIENT IS A DNR STATUS PER SON. PASSCODE WORD= [id number] WILL CONTINUE TO MONITOR.
--- NOTE | 2018-11-24 15:11 | PN ---
PATIENT:STELLA TOPETE MEDICAL RECORD: [id number] LOCATION:[facility] [address] ADMISSION DATE: 11/14/18 PROGRESS NOTE DATE OF SERVICE: 11/23/2018 SUBJECTIVE: The patient's case was discussed with staff. She has no new complaint. OBJECTIVE: The patient is in good behavioral control with limited insight about her condition. She generally tolerates her medicines well. ASSESSMENT: No change in diagnoses. PLAN: The patient is drinking an excessive amount of fluid, even though she insists she has only limited herself to one 240 mL drink 3 times a day. This is absolutely incorrect, more than 3 liters of excess fluid was withdrawn from her today. She is clearly not following recommendations regarding this. She is showing a euthymic mood and is not suicidal. I think it is appropriate to transition her back to the prison as soon as approval is obtained from the office of long-term care. TRANSINT:[id number] Voice Confirmation ID: [id number] DOCUMENT ID: [id number] MO WANG MD at 1511 CC: [id number] DICTATION DATE: 11/23/18 1755 BONDING EQUIPMENT OPERATOR: 11/23/18 8589 ADM IN [facility] [address] [place] [id number]
[2018-11-24 19:31] VITALS: BP 125/75
--- NOTE | 2018-11-24 22:44 | NUR ---
RECEIVED IN PATIENT ROOM. RESTING IN BED WITH EYES OPEN. CALM AND COOPERATIVE WITH CARE AND ASSESSMENT. NO SIGNS OF PARANOIA. NO DELUSIONAL STATEMENTS MADE. REDIRECT AND REORIENT NEEDED. RESTING IN BED WITH EYES CLOSED AT THIS TIME. CONTINUE PLAN OF CARE.
[2018-11-25 07:13] LABS: ANION GAP 15.6 mmol/L (8-16); CALCIUM 8.7 mg/dL (8.5-10.1); CARBON DIOXIDE 25.3 mmol/L (21.0-32.0); PHOSPHOROUS 6.8 mg/dL (2.5-4.9); POTASSIUM - SERUM 3.9 mmol/L (3.5-5.1)
--- NOTE | 2018-11-25 08:00 | NUR ---
LAB CALEED WITH RESLTS OF URINE CULTURE. PATIENT NEEDS TO BE PLACED ON CONTACT ISOLATION FOR ESBL AND KLEBSEILLA IN URINE.
[2018-11-25 09:28] VITALS: BP 108/61
--- NOTE | 2018-11-25 10:00 | NUR ---
RECEIVED IN HALLWAY AT NURSES DESK. AWAKE AND ALERT TO PERSON ONLY. CALM AND COOPERATIVE WITH CARE AND ASSESSMENT. PROVIDE PRESCRIBED MEDICATIONS. COMPLIANT WITH MEICATIONS AND UNIT MILIEU. WEARS OXYGEN AT 2L/NC CONTINUOUSLY. REDIRECT AND REORIENT NEEDED. PATIENT PLACED ON CONTACT ISOLATION. WILL CONTINUE WITH POC.
--- NOTE | 2018-11-25 10:45 | NUR ---
Nutrition Follow Up: Chart reviewed Diet: Regular, Low Phos PO Intake: 70% meal avg - po intake improving BM: 11/24/18 Meds and labs reviewed Rec continue current diet. RD following.
--- NOTE | 2018-11-25 16:07 | PN ---
PATIENT:STELLA TOPETE MEDICAL RECORD: [id number] LOCATION:[facility] ADMISSION DATE: 11/14/18 PROGRESS NOTE DATE OF SERVICE: 11/24/2018 SUBJECTIVE: The patient's case was discussed with staff. She has no new complaint. OBJECTIVE: The patient is in good behavioral control with limited insight about her condition. She generally tolerates her medicines well. ASSESSMENT: No change in diagnoses. PLAN: The patient will be maintained on current medicines, which I have reviewed. Unfortunately, we do not have the approval from the office of long-term care to transfer her back to the longterm yet; but once that arrives, immediate arrangements will be made for her return. I have spoken with her again about the fluid restriction and will not speak to her about it anymore. She is not following it and she is not demented and is just simply misrepresenting herself deliberately on the amount she is drinking. TRANSINT:[id number] Voice Confirmation ID: [id number] DOCUMENT ID: [id number] MO WANG MD at 1607 CC: [id number] DICTATION DATE: 11/24/18 1525 SOLE SEAMER: 11/24/18 1614 ADM IN [place] [id number] [place] [address]
--- NOTE | 2018-11-25 23:28 | NUR ---
RECEIVED IN PATIENT ROOM. RESTING IN BED WITH EYES OPEN. CALM AND COOPEATIVE WITH CARE ND ASSESSMENT. NO PARANOIA. REDIRECT AND REORIENT NEEDED. RESTING IN BED WITH EYES CLOSED AT THIS TIME. CONTINUE PLAN OF CARE.
[2018-11-26 10:01] VITALS: BP 120/82
--- NOTE | 2018-11-26 11:07 | NUR ---
B) The patient is sleepy this am, she is in contact isolation due to klebsiella and esbl. She is wearing her gown and gloves, but she does not like it. She can self propel at times, she can stand with assist at times. I) Provide prescribed meds. Encourage ambulation. R) The patient is compliant with medications and unit milieu. Physical therapy came to walk her, but she did not want to walk without shoes, staff tried to find shoes, but she did not come with shoes. She does try to manipulate staff and get her way, but she has not screamed and yelled out, she keeps saying "The said I can leave today." Explained to her that we are waiting on LANCE. She says "Well, the said" and she keeps saying it to everyone that comes in contact with her. P) Continue POC.
--- NOTE | 2018-11-26 14:42 | PN ---
PATIENT:STELLA TOPETE MEDICAL RECORD: [id number] LOCATION:[facility] ADMISSION DATE: 11/14/18 PROGRESS NOTE DATE OF SERVICE: 11/25/2018 SUBJECTIVE: The patient's case was discussed with staff. She has no new complaint. OBJECTIVE: The patient denies intent to harm herself or others. She generally tolerates her medicines well. ASSESSMENT: No change in diagnoses. PLAN: The patient will be transitioned out of the hospital as soon as the approval from the office of long-term care arrives. She unfortunately has developed a urinary tract infection, but that is not going to be an impediment to her transfer or discharge. TRANSINT:[id number] Voice Confirmation ID: [id number] DOCUMENT ID: [id number] MO WANG MD at 1442 CC: [id number] DICTATION DATE: 11/25/18 1622 PRE FABRICATOR: 11/25/18 2222 ADM IN [place] [id number] [place] [address]
[2018-11-26] MEDS ORDERED: LEVAQUIN250 MG PO (15:04)
[2018-11-26] MEDS ORDERED: TRAZODONE HCL100 MG PO (15:06)
[2018-11-26] MEDS ORDERED: CYMBALTA30 MG PO (15:06)
[2018-11-26] MEDS ORDERED: CHRONULAC30 ML PO (15:07)
[2018-11-26] MEDS ORDERED: LIDODERM 5 %1 PATCH TRANSDERM (15:08)
[2018-11-26] MEDS ORDERED: FLORANEX / LACT1 TAB PO (15:08)
--- NOTE | 2018-11-26 19:25 | NUR ---
Spoke with Rosey, Dialysis Nurse. Patient had 1.5 L removed during dialysis. Made aware that patient needs early dialysis tomorrow morning to get back on her Pbl-Rpoc-Rke regimen for the senior living. Rosey is not on duty tomorrow but she left a note for the dialysis nurse who comes in @0800 am. Day nurse on [facility] can call Dialysis @ Ext.[phone] in the morning, to verfiy that arrangements have been made.
--- NOTE | 2018-11-26 20:35 | NUR ---
B) States she needs to be more mobile and walk more. Looking forward to returning to [facility] Feeling tired post dialysis, no paranoid statements made, has not been demanding. No voiced concerns. Oxygen on continuosly @2L/min via nasal cannula. I) Administer medications as ordered, provide 1:1 time to express feelings and voice conerns/needs. Monitor for safety, educate on contact isolation precautions, monitor on 1000ml fluid restriction. R) Quiet, guarded, retired to bed early. Compliant with medications and fluid restriction. Contact Isolation maintained. P) Continue to monitor per plan of care.
--- NOTE | 2018-11-27 05:30 | NUR ---
[facility] asking if patient was still an inpatient or would she be keeping her dialysis appointment today. Phone number is [phone]. Informed patient would be having dialysis here at the hospital this morning and be discharged later this afternoon, should resume dialysis at the clinic next Friday.
[2018-11-27 07:20] LABS: BASOPHILS 0.7 % (0-2); EOSINOPHILS 3.2 % (0-7); HEMATOCRIT 29.9 % (36.0-48.0); HEMOGLOBIN 9.3 g/dL (12-16); IMMATURE GRANULOCYTES 0.1 % (0-5); LYMPHOCYTES 14.3 % (15-50); MCH 27.6 pg (26.0-34.0); MCHC 31.1 g/dL (31.0-37.0); MCV 88.7 fL (80.0-100.0); MEAN PLATELET VOLUME 8.7 fL (7.4-10.4); MONOCYTES 9.7 % (2-11); PLATELET COUNT 238 10x3/uL (130-400); RBC 3.37 10x6/uL (4.00-5.40); RDW 18.5 % (11.5-14.5); WBC 6.8 10x3/uL (4.8-10.8)
[2018-11-27 07:31] LABS: ANION GAP 14.7 mmol/L (8-16); CALCIUM 8.4 mg/dL (8.5-10.1); CARBON DIOXIDE 27.2 mmol/L (21.0-32.0); PHOSPHOROUS 5.8 mg/dL (2.5-4.9); POTASSIUM - SERUM 3.9 mmol/L (3.5-5.1)
[2018-11-27 08:00] VITALS: BP 114/72
--- NOTE | 2018-11-27 08:40 | NUR ---
B) The patient is down in her room dialyzing this am, Dr. Contreras did come and see her early. She is not exhibiting any paranoia or any screaming today. She is d/cing today. Faxed d.c order and MAR to [facility]. Patient does not want to help herself do anything, she wants staff to do everything for her. I) Provide prescribed meds. R) The patient is compliant with meds and she continues to wear her gown and gloves while she is in the day room for contact isolation. P) Continue with discharge.
--- NOTE | 2018-11-27 12:45 | NUR ---
Called report to Caron at [facility], made copies to send with the xm1 tank driver. The garbage pick up worker time will be at four p. m. today.
--- NOTE | 2018-11-27 15:20 | PN ---
PATIENT:STELLA TOPETE MEDICAL RECORD: [id number] LOCATION:[facility] ADMISSION DATE: 11/14/18 PROGRESS NOTE DATE OF SERVICE: 11/26/2018 SUBJECTIVE: The patient's case was discussed with staff. She has no new complaint. OBJECTIVE: The patient is in good behavioral control with limited insight about her condition. She generally tolerates her medicines well. ASSESSMENT: No change in diagnoses. PLAN: Current medicines have been reviewed and will be maintained. We have gotten approval from the office of long-term care for her care home placement and we will transition her out of the hospital tomorrow after she has dialysis. TRANSINT:[id number] Voice Confirmation ID: [id number] DOCUMENT ID: [id number] MO WANG MD at 1520 CC: [id number] DICTATION DATE: 11/26/18 1502 PROMOTIONS MANAGER: 11/26/18 1844 ADM IN [facility] [address] [place] [address]
--- NOTE | 2018-11-27 17:30 | NUR ---
The stake driver did come from [facility] and brought her wheel chair and an oxygen tank. She is assisted to her w/c from ours. Let the catering driver know she has done well. Provided the catering driver with her d/c order and MAR and belongings. Patient is assisted to the van by Cyndie Bloom
--- NOTE | 2018-11-28 10:04 | PN ---
PATIENT:STELLA TOPETE MEDICAL RECORD: [id number] LOCATION:[facility] ADMISSION DATE: 11/14/18 PROGRESS NOTE DATE OF SERVICE: 11/27/2018 SUBJECTIVE: The patient's case was discussed with staff. She has no new complaint. OBJECTIVE: The patient is in good behavioral control with limited insight about her condition. She generally tolerates her medicines well. ASSESSMENT: No change in diagnoses. PLAN: Brief supportive and educational interventions were made. Long-term prognosis is guarded. She is going to be discharged to the [facility] today. TRANSINT:[id number] Voice Confirmation ID: [id number] DOCUMENT ID: [id number] MO WANG MD at 1004 CC: [id number] DICTATION DATE: 11/27/18 1524 AUTOMATION AND CONTROLS SUPERVISOR: 11/27/18 1555 DIS IN 11/27/18 [facility] [address] [place] [address]
--- NOTE | 2018-12-01 15:55 | DS ---
PATIENT:STELLA TOPETE :51 MEDICAL RECORD: [id number] DISCHARGE SUMMARY ADMISSION DATE: 11/14/18 DISCHARGE DATE: 11/27/18 IDENTIFYING DATA: The patient is 63 years old and she is admitted to the hospital on a voluntary basis because of depression. The patient lives in the [facility]. She is severely impaired despite her relative youth. She has COPD and wears oxygen continuously. She is on renal dialysis and has had a great number of changes to her life in the past 6 months. This primarily involves her going from living at home and being independent to being in a chcf on oxygen and now on renal dialysis. She has been agitated at the chcf and has deliberately pulled out a port. She denies having done this deliberately. She endorses numerous neurovegetative depressive symptoms. Apparently at the chcf, she has been yelling, screaming and insisting that someone sit with her constantly. She is not able to explain what is wrong to the person who has to respond to her yelling. She has been throwing things at the staff and hitting the staff. She denies this. She says she does not care if she lives or dies, but denies that she would seek to harm herself directly. HOSPITAL COURSE: The patient was admitted to the hospital and fully evaluated from both a medical, psychological, and social standpoint. She was found to have a severe depressive illness with numerous neurovegetative depressive symptoms and passive thoughts of wanting to hurt herself as described above. She did not have psychotic symptoms. She was subsequently treated with antidepressant mood stabilizing medications and over the course of the 12-day hospitalization showed significant improvement in her mood and functioning. She was subsequently transitioned back to the chcf. DISCHARGE DIAGNOSES: AXIS I: Major depression, severe, single episode without psychotic features. AXIS II: None. AXIS III: Hypothyroidism, hypertension, chronic obstructive pulmonary disease, renal failure. AXIS IV: Moderate stressors. AXIS V: Global assessment of functioning 40. PLAN: At the time of discharge, the patient was not acutely or directly dangerous to herself or others. She had no psychotic symptoms and her mood had generally improved significantly. She was more functional and interactive. She is to have followup with her primary care ch[facility] physician. She is to continue wearing the oxygen and is to undergo regular hemodialysis. Her long-term prognosis is guarded. Clearly, she has numerous and very severe medical problems. With regard her psychiatric wellbeing, I think that it is currently excellent and stable given her current circumstances. She does bear significant watching since she is under a great deal of stress and will need to be monitored carefully. TRANSINT:[id number] Voice Confirmation ID: [id number] DOCUMENT ID: [id number] DISCHARGE SUMMARY REPORT [id number] STELLA TOPETE PETER MD at 1555 CC: [id number] DICTATION DATE: 11/30/18 1626 EXCEPTIONAL NEEDS TEACHER: 12/01/18 0055 DIS IN 11/27/18 [facility] [address] [place] [address]
== END 2018-11-27 17:30 | DRG 885 ==
LOC: D.REHAB 21:00 → D.PSYCH 11-14 10:27
PROVIDERS: Internal Medicine Nephrology; ADMIT Psychiatry & Neurology Psychiatry
DX: F32.2 Major depressive disorder, single episode, severe without psychotic features (principal); N18.6 End stage renal disease; I13.2 Hypertensive heart and chronic kidney disease with heart failure and with stage 5 chronic kidney disease, or end stage renal disease; E03.9 Hypothyroidism, unspecified; J44.9 Chronic obstructive pulmonary disease, unspecified; I50.9 Heart failure, unspecified; D63.1 Anemia in chronic kidney disease; I48.2 Chronic atrial fibrillation

== ENCOUNTER → 2019-07-14 12:32 | Outpatient (CLI) | payer MEDICARE ==
[2018-11-16 15:10] VITALS: BMI 27.4
[~2019-07-14 12:32] MED LIST changes: +CATAPRES0.2 MG PO; +CYMBALTA30 MG PO; +EPOGEN3000 U/ML SC; +FLORANEX / LACT1 TAB PO; +GABAPENTIN100 MG PO; +LEVAQUIN250 MG PO; +LIDODERM 5 %1 PATCH TRANSDERM; +LIPITOR40 MG PO; +PROZAC10 MG PO; +RESTORIL15 MG PO; +SYNTHROID88 MCG PO; +TRAZODONE HCL100 MG PO; +XANAX0.5 MG PO; +ZOFRAN4 MG PO
[2019-07-14 12:57] LABS: BASOPHILS 0.3 % (0-2); EOSINOPHILS 1.4 % (0-7); HEMATOCRIT 30.6 % (36.0-48.0); HEMOGLOBIN 9.6 g/dL (12-16); IMMATURE GRANULOCYTES 0.2 % (0-5); LYMPHOCYTES 8.8 % (15-50); MCH 28.5 pg (26.0-34.0); MCHC 31.4 g/dL (31.0-37.0); MCV 90.8 fL (80.0-100.0); MEAN PLATELET VOLUME 8.5 fL (7.4-10.4); NEUTROPHILS 79.3 % (40-80); RBC 3.37 10x6/uL (4.00-5.40); RDW 17.8 % (11.5-14.5)
[2019-07-14 13:03] LABS: PLATELET COUNT 304 10x3/uL (130-400)
== END | disposition home or self-care (01) ==
LOC: D.LABREF 12:32
PROVIDERS: ATTEND Radiology Diagnostic Radiology
DX: R41.0 Disorientation, unspecified (principal)

== ENCOUNTER → 2019-08-16 12:54 | Outpatient (CLI) | payer MEDICARE ==
[2018-11-16 15:10] VITALS: BMI 27.4
[~2019-08-16 12:54] MED LIST changes: +ERYTHROMYCIN OPT1 GM EACH EYE; +GENTAMICIN 0.3 %5 ML EACH EYE; +KEPPRA250 MG PO; +MIDODRINE HCL5 MG PO; +PROTONIX20 MG PO; +ZOLOFT50 MG PO; +ZYRTEC10 MG PO
== END | disposition home or self-care (01) ==
LOC: D.LABREF 12:54
PROVIDERS: ATTEND Internal Medicine Nephrology
DX: R41.0 Disorientation, unspecified (principal); R40.4 Transient alteration of awareness

== ENCOUNTER 2019-08-17 10:35 | Emergency (ER) | payer MEDICARE ==
[~2019-08-17] VITALS: Ht 154.9 cm; Wt 67.7 kg
[~2019-08-17 10:35] MED LIST changes: -ERYTHROMYCIN OPT1 GM EACH EYE; -GENTAMICIN 0.3 %5 ML EACH EYE; -KEPPRA250 MG PO; -MIDODRINE HCL5 MG PO; -PROTONIX20 MG PO; -ZOLOFT50 MG PO; -ZYRTEC10 MG PO
[2019-08-17 10:37] VITALS: Ht 154.9 cm; Wt 67.7 kg
[2019-08-17 11:30] LABS: APTT 33.4 SECONDS (22.8-39.4); INR 1.09 (0.85-1.17); PROTIME 13.6 SECONDS (11.6-15.0)
[2019-08-17 11:34] LABS: ALBUMIN 3.3 g/dL (3.4-5.0); ALKALINE PHOSPHATASE 164 U/L (46-116); ALT (SGPT) 18 U/L (10-68); BILIRUBIN - TOTAL 0.43 mg/dL (0.2-1.3); CALC OSMOLALITY 288 mosm/kg (275-300); CALCIUM 8.8 mg/dL (8.5-10.1); CARBON DIOXIDE 27.3 mmol/L (21.0-32.0); CHLORIDE - SERUM 104 mmol/L (98-107); CREATININE - SERUM 5.8 mg/dL (0.6-1.3); GLUCOSE 113 mg/dL (74-106); POTASSIUM - SERUM 4.2 mmol/L (3.5-5.1); PROTEIN - SERUM 7.8 g/dL (6.4-8.2); SODIUM 141 mmol/L (136-145); UREA NITROGEN 31 mg/dL (7-18); eGFR NON AFRICAN AMERICAN 8 mL/min (90-120)
[2019-08-17 11:37] LABS: BASOPHILS 0.4 % (0-2); EOSINOPHILS 1.8 % (0-7); HEMATOCRIT 38.5 % (36.0-48.0); HEMOGLOBIN 11.3 g/dL (12-16); IMMATURE GRANULOCYTES 0.3 % (0-5); MCH 29.3 pg (26.0-34.0); MCHC 29.4 g/dL (31.0-37.0); MCV 99.7 fL (80.0-100.0); MEAN PLATELET VOLUME 9.1 fL (7.4-10.4); MONOCYTES 10.9 % (2-11); NEUTROPHILS 71.6 % (40-80); RBC 3.86 10x6/uL (4.00-5.40); RDW 17.9 % (11.5-14.5); WBC 7.9 10x3/uL (4.8-10.8)
[2019-08-17 11:38] LABS: CKMB 1.6 U/L (0.0-3.6); CREATINE KINASE 129 UL (21-215); MAGNESIUM - SERUM 1.9 mg/dL (1.8-2.4)
[2019-08-17 11:39] LABS: TROPONIN-I < 0.017 ng/mL (0.000-0.060)
[2019-08-17 11:41] LABS: PLATELET COUNT 215 10x3/uL (130-400)
[2019-08-17] MEDS ORDERED: ERYTHROMYCIN OPT1 GM EACH EYE (12:44)
[2019-08-17 15:42] VITALS: BP 100/67
== END 2019-08-17 15:40 ==
LOC: D.ER 10:35
PROVIDERS: Family Medicine
DX: H01.006 Unspecified blepharitis left eye, unspecified eyelid (principal); H01.003 Unspecified blepharitis right eye, unspecified eyelid; I10 Essential (primary) hypertension; J44.9 Chronic obstructive pulmonary disease, unspecified

== ENCOUNTER 2019-08-21 10:18 | Inpatient (IN) | payer MEDICARE, BC, MEDICAID ==
[2019-08-21] VITALS (18 sets, daily range): BP systolic 76–102; BP diastolic 51–74
[~2019-08-21] VITALS: Ht 154.9 cm; Wt 76.1 kg
[~2019-08-21 10:18] MED LIST changes: +ERYTHROMYCIN OPT1 GM EACH EYE
[2019-08-21 11:19] LABS: HEMATOCRIT 40.1 % (36.0-48.0); HEMOGLOBIN 11.6 g/dL (12-16); MCH 29.5 pg (26.0-34.0); MCHC 28.9 g/dL (31.0-37.0); MEAN PLATELET VOLUME 10.2 fL (7.4-10.4); PLATELET COUNT 241 10x3/uL (130-400); RBC 3.93 10x6/uL (4.00-5.40); RDW 18.3 % (11.5-14.5); WBC 21.7 10x3/uL (4.8-10.8)
[2019-08-21 11:53] LABS: APTT 26.9 SECONDS (22.8-39.4); INR 1.18 (0.85-1.17); PROTIME 14.5 SECONDS (11.6-15.0)
[2019-08-21 12:38] LABS: LYMPHOCYTES 8 % (15-50); MONOCYTES 1 % (2-11); NEUTROPHILS 91 % (40-80); PLATELET ESTIMATE NORMAL
[2019-08-21 12:42] LABS: ALBUMIN 3.2 g/dL (3.4-5.0); ALKALINE PHOSPHATASE 169 U/L (46-116); ALT (SGPT) 40 U/L (10-68); CALC OSMOLALITY 283 mosm/kg (275-300); CALCIUM 9.1 mg/dL (8.5-10.1); CARBON DIOXIDE 30.3 mmol/L (21.0-32.0); CHLORIDE - SERUM 99 mmol/L (98-107); CREATININE - SERUM 5.4 mg/dL (0.6-1.3); GLUCOSE 101 mg/dL (74-106); POTASSIUM - SERUM 4.5 mmol/L (3.5-5.1); PROTEIN - SERUM 8.2 g/dL (6.4-8.2); SODIUM 138 mmol/L (136-145); UREA NITROGEN 34 mg/dL (7-18); eGFR NON AFRICAN AMERICAN 8 mL/min (90-120)
[2019-08-21 12:53] LABS: CKMB 1.1 U/L (0.0-3.6); CREATINE KINASE 31 UL (21-215); PRO BNP 15746 pg/mL (0-125)
[2019-08-21 12:58] LABS: TROPONIN-I < 0.017 ng/mL (0.000-0.060)
--- NOTE | 2019-08-21 13:22 | NUR ---
VANCOMYCIN INFUSING ON TRANSFER
--- NOTE | 2019-08-21 14:10 | NUR ---
PT RECEIVED FROM ER. ADMISSION AND HISTORY DONE. SON, ISMAEL, AT BEDSIDE TO HELP WITH HISTORY. PT IS ALERT AND ORIENTED. HARD OF HEARING.
[2019-08-21] MEDS ORDERED: KEPPRA250 MG PO (15:20)
[2019-08-21] MEDS ORDERED: MIDODRINE HCL5 MG PO (15:27)
[2019-08-21] MEDS ORDERED: GENTAMICIN 0.3 %5 ML EACH EYE (15:27)
[2019-08-21] MEDS ORDERED: ZOLOFT50 MG PO ×2 (15:28→15:33)
[2019-08-21] MEDS ORDERED: FLUTICASONE PRO16 GM NASAL (15:29)
[2019-08-21] MEDS ORDERED: ZYRTEC10 MG PO (15:31)
[2019-08-21] MEDS ORDERED: PROTONIX20 MG PO (15:32)
[2019-08-21] MEDS ORDERED: XANAX0.5 MG PO (15:34)
--- NOTE | 2019-08-21 15:35 | NUR ---
DR ALEJANDRE IN UNIT. ROUNDED ON PT. PT ON BIPAP AT 40%. CURRENTLY RECEIVING DIALYSIS.
--- NOTE | 2019-08-21 18:12 | NUR ---
WILL GIVE SCHEDULED ANTIBIOTIC WHEN DIALYSIS COMPLETE. NO ACUTE DISTRESS NOTED. VSS. WILL CONTINUE PLAN OF CARE.
--- NOTE | 2019-08-21 18:28 | NUR ---
BP NOTED 81/65 ON DIALYSIS, PER DR HAND START LEVOPHED, KEEP MAP ABOVE 55.
--- NOTE | 2019-08-21 19:45 | NUR ---
REPORT RECEIVED DIALYSIS IN PROCESS. INITIAL ASSESSMENT COMPLETE SEE FLOWSHEET CM READING SR WITH ALARMS ON AND AUDIBLE PT HYPOTENSIVE. ON BIPAP SHALLOW RESP BREATH SOUNDS DIMINISHED. CL LIGHT IN REACH SIDE RAILS UP TIMES 3 FOR BED MOBILITY AND SAFETY WILL CONTINUE TO MONITOR
--- NOTE | 2019-08-21 20:00 | NUR ---
DIALYSIS COMPLETE PER HD NURSE 4 LITERS PULLED OFF. PT ALREADY ASKING FOR SPRITE AND WATER
--- NOTE | 2019-08-21 20:45 | NUR ---
ANSWERED PTS CALL LIGHT PTS SON IN FOR VISITATION UPDATE GIVEN AND INFORMED OF DIALYSIS AND HOW MUCH PULLED OFF HE SPOKE WITH HIS MOTHER ABOUT NOT BEING COMPLIANT WITH FLUID INTAKE
--- NOTE | 2019-08-21 23:00 | NUR ---
REASSESSMENT COMPLETE SEE FLOWSHEETS CPOC
[2019-08-22] VITALS (69 sets, daily range): BP systolic 66–113; BP diastolic 26–75
--- NOTE | 2019-08-22 01:00 | NUR ---
ANSWERED PTS CALL LIGHT REQUESTING WATER GIVEN 120 CC WATER
--- NOTE | 2019-08-22 03:00 | NUR ---
REASSESSMENT MADE SEE FLOWSHEET LEVOPHED REMAINS OFF CPOC
[2019-08-22 03:15] LABS: BASOPHILS 0.1 % (0-2); EOSINOPHILS 0.4 % (0-7); HEMATOCRIT 36.9 % (36.0-48.0); HEMOGLOBIN 10.8 g/dL (12-16); IMMATURE GRANULOCYTES 0.2 % (0-5); LYMPHOCYTES 4.9 % (15-50); MCH 29.1 pg (26.0-34.0); MCHC 29.3 g/dL (31.0-37.0); MEAN PLATELET VOLUME 9.5 fL (7.4-10.4); MONOCYTES 11.3 % (2-11); NEUTROPHILS 83.1 % (40-80); PLATELET COUNT 239 10x3/uL (130-400); RBC 3.71 10x6/uL (4.00-5.40); RDW 18.1 % (11.5-14.5)
[2019-08-22 03:16] LABS: MCV 99.5 fL (80.0-100.0); WBC 16.1 10x3/uL (4.8-10.8)
[2019-08-22 03:32] LABS: ANION GAP 15.5 mmol/L (8-16); CALCIUM 9.7 mg/dL (8.5-10.1); CARBON DIOXIDE 28.2 mmol/L (21.0-32.0); CREATININE - SERUM 4.2 mg/dL (0.6-1.3); POTASSIUM - SERUM 3.7 mmol/L (3.5-5.1); VANCOMYCIN - RANDOM 12.3 ug/mL (10.0-20.0)
--- NOTE | 2019-08-22 04:30 | NUR ---
RT PLACED PT ON NC BIPAP OFF WILL MONITOR PT GIVEN 120 CC SPRITE
--- NOTE | 2019-08-22 05:29 | NUR ---
ORAL CARE PERFORMED INDEPENDENTLY BY PT
--- NOTE | 2019-08-22 08:35 | NUR ---
0700 ASSESSMENT COMPLETE VOICES NO C/O PAIN AWAKE ALERT FLUSHED RIGHT WRIST SALINE LOCK REPOSITIONED IN BED FOR COMFORT
--- NOTE | 2019-08-22 08:37 | NUR ---
0858 DARIANA MCDOWELL FOR NEPHROLOGY AT BEDSIDE BP 66/41 (51) RESTARTED LEVOPHED AT 5MCG/MIN
--- NOTE | 2019-08-22 15:02 | NUR ---
0930 LEVOPHED REMAINS AT 5MCG =/MIN DENIES PAIN WANTS TO REST REFUSES TO PUT BPAP ON RESP NOTIFIED REMAINS ON 4L/NC
--- NOTE | 2019-08-22 15:03 | NUR ---
1100 DR PILI JENSEN ON PATIENT SPOKE WITH PATIENT ABOUT USING BPAP EXPLAINED TO PATIENT THE PROS OF WEARING PT SAYS SHE WANTS TO GO HOME
--- NOTE | 2019-08-22 15:05 | NUR ---
1300 FAMILY MEMBERS AT BEDSIDE PATIENT ASKING FOR DRINK REMINDED PT OF FLUID RESTRICTION VERBALIZED UNDERSTANDING
--- NOTE | 2019-08-22 19:00 | NUR ---
BEDSIDE REPORT AND SHIFT ASSESSMENT COMPLETE. VSS, NO SIGNS OF ACUTE DISTRESS NOTED. 22G PIV INSERTED TO R UPPER ARM BY ROBIN HOLLIS. R WRIST PIV SALINE LOCKED, DRESSING CDI. O2 SAT 94 ON 4L NC. REPOSITIONING COMPLETE. PT DENIES ANY NEEDS AT THIS TIME, CALL LIGHT IN REACH. WILL CONTINUE TO MONITOR.
--- NOTE | 2019-08-22 20:03 | NUR ---
1500 REPOSITIONED IN BED FOR COMFORT
--- NOTE | 2019-08-22 20:03 | NUR ---
1700 DINNER SERVED PULLED UP IN BED
--- NOTE | 2019-08-22 21:00 | NUR ---
MEDS GIVEN PER MAR, TOLERATED BY PT. TEACHING ON MINIMIZING ORAL INTAKE COMPLETE, PT VERBALIZED UNDERSTANDING. CHG BATH AND LINEN CHANGE COMPLETE.
--- NOTE | 2019-08-22 23:00 | NUR ---
REASSESSMENT COMPLETE, SEE FLOWSHEET. REPOSITIONED TO BACK, VSS. CALL LIGHT IN REACH, DENIES ANY NEEDS AT THIS TIME. WILL MONITOR.
[2019-08-23] VITALS (90 sets, daily range): BP systolic 59–112; BP diastolic 23–85; Ht 154.9 cm; Wt 76.1 kg
--- NOTE | 2019-08-23 01:00 | NUR ---
RT MAR INSTRUCTED PT TO WEAR BIPAP. BIPAP PLACED ON PT, O2 SAT 98 ON 40%. VSS, NO SIGNS OF ACUTE DISTRESS NOTED. WILL CONTINUE TO MONITOR.
--- NOTE | 2019-08-23 03:00 | NUR ---
REASSESSMENT COMPLETE, SEE FLOWSHEET. PT PULLING AT BIPAP, INSTRUCTED NOT TO. VSS, NO SIGNS OF ACUTE DISTRESS NOTED. CALL LIGHT IN REACH, WILL CONTINUE TO MONITOR.
--- NOTE | 2019-08-23 05:00 | NUR ---
PT RESTING QUIETLY. O2 SAT 100 ON 40% BIPAP. VSS, NO SIGNS OF ACUTE DISTRESS NOTED. CALL LIGHT IN REACH, WILL MONITOR.
--- NOTE | 2019-08-23 06:30 | NUR ---
MEDS GIVEN PER MAR AND REPOSITIONING COMPLETE. C/O HEADACHE, PRN TYLENOL GIVEN. WILL CONTINUE TO MONITOR.
--- NOTE | 2019-08-23 08:46 | NUR ---
0700 BEDSIDE REPORT RECEIVED ASSESSMENT COMPLETE LEVOPHED INFUSING AT 1MCG/MIN DR JOHN AT BEDSIDE ASSESSING PATIENT.
--- NOTE | 2019-08-23 14:38 | NUR ---
0900 APPETITE GOOD IBRAHIM D/C PER ORDER NO UROINE TO COLLECT ANURIA
--- NOTE | 2019-08-23 14:39 | NUR ---
1100 STATES FEELING BETTER TODAY FAMILY AT BEDSIDE UPDATE PROVIDED
--- NOTE | 2019-08-23 14:41 | NUR ---
1300 LARGE SOFT BM NOTED REPOSITIONED WITH MMINIMAL ASSIST
--- NOTE | 2019-08-23 15:03 | MORECARE ---
CASE MANAGEMENT DISCHARGE SUMMARY PATIENT: STELLA TOPETE UNIT: [id number] ADM DATE: 08/21/19 AGE: 63 : 53 SEX: F ROOM/BED: D.2310 AUTHOR: ANTONETTE TUTTLE PHYSICIAN: REFERRING PHYSICIAN: NICOLAS MOHR MD DATE OF SERVICE: 08/23/19 Discharge Plan Patient Name: STELLA TOPEET [facility] [facility] 1955 Planned Disposition: Nursing [facility] Anticipated Discharge Date: Discharge Date: Expected LOS: Initial Reviewer: [email or web address] Initial Review Date: 08/23/2019 Generated: 08/23/19 4:03 pm Patient Name: STELLA TOPETE Page [id number] at 1503 All edits/amendments must be made on the electronic document DICTATION DATE: 08/23/191502 TECHNICAL SERVICES MANAGER: JAIR 08/23/191502 RPT#: [id number] HI DATE: STATUS: ADM IN [facility] [address] [place] [address] END OF REPORT
--- NOTE | 2019-08-23 15:14 | MORECARE ---
CASE MANAGEMENT DISCHARGE SUMMARY PATIENT: STELLA TOPETE UNIT: [id number] ADM DATE: 08/21/19 AGE: 63 : 53 SEX: F ROOM/BED: D.2310 AUTHOR: PARAG,DOC PHYSICIAN: REFERRING PHYSICIAN: NICOLAS MOHR MD DATE OF SERVICE: 08/23/19 Discharge Plan Patient Name: STELLA TOPETE Facility: [facility]:[place] : 1955 Planned Disposition: Nursing Facility [facility] Cert Anticipated Discharge Date: Discharge Date: Expected LOS: Initial Reviewer: [email or web address] Initial Review Date: 08/23/2019 Generated: 08/23/19 4:14 pm Comments DCP- Discharge Planning Updated by [email or web address]: Mary Gerard on 08/23/19 2:[address] Patient Name: STELLA TOPETE Admission Status: ER Accout number: [id number] Admission Date: 08-21-2019 : 1955 Admission Diagnosis: Attending: NICOLAS MOHR Current LOS: 2 Anticipated DC Date: Planned Disposition: Nursing Facility [employer] Cert Primary Insurance: MEDICARE A & B Discharge Planning Comments: CM met with patient to complete initial dc planning assessment. CM educated patient on the CM role and verbal consent given by patient to complete assessment. Patient lives at [place] [phone] where she is a half-way resident (Medicaid bed) At discharge patient plans to return home and feels this is a safe discharge. CM discussed availability of home health, rehab services, and medical equipment. [facility] will transport patient back to facility upon discharge. Patient has dialysis MWF @ [facility]. [phone] Patient denied known discharge needs at this time. CM will continue to follow and will assist as needed with dc plans/needs. Cushion Installer: Mary Gerard DCPIA - Discharge Planning Initial Assessment Updated by [email or web address]: Mary Gerard on 08/23/19 3:04 pm * Is the patient Alert and Oriented? Yes * Preadmission Environment [facility] * Facility Name [facility] * ADLs Partial Dependent * Partial ADLs (Assistance needed) Ambulation Bathing Dressing Eating Medication Management Toileting Transfers * List name and contact numbers for known caregivers / representatives who currently or will assist patient after discharge: CATHY STARKEY - [phone] * Verbal permission to speak to the caregivers and representatives has been obtained from the patient. Yes * Community resources currently utilized None * Please name any agencies selected above. [facility] - [facility] * Additional services required to return to the preadmission environment? No * Can the patient safely return to the preadmission environment? Yes * Has this patient been hospitalized within the prior 30 days at any hospital? No Last DP export: 08/23/19 2:03 Patient Name: STELLA TOPETE Page [id number] at 1514 All edits/amendments must be made on the electronic document DICTATION DATE: 08/23/191512 EQUALIZER OPERATOR: JAIR 08/23/191512 RPT#: [id number] DC DATE: STATUS: ADM IN [facility] [address] [place] [address] END OF REPORT
--- NOTE | 2019-08-23 17:28 | NUR ---
1700 EATING DINNER APPETITE GOOD.
--- NOTE | 2019-08-23 19:00 | NUR ---
BEDSIDE REPORT AND SHIFT ASSESSMENT COMPLETE, SEE FLOWSHEET. VSS, NO SIGNS OF ACUTE DISTRESS NOTED. R WRIST AND R UPPER ARM PIV, DRESSING CDI. O2 SAT 94 ON 4L NC. DENIES NEEDS AT THIS TIME, CALL LIGHT IN REACH. WILL CONTINUE TO MONITOR.
--- NOTE | 2019-08-23 21:00 | NUR ---
MEDS GIVEN PER MAR. DIALYSIS NURSE AT BEDSIDE. VSS, NO SIGNS OF ACUTE DISTRESS NOTED. CALL LIGHT IN REACH, WILL MONITOR.
--- NOTE | 2019-08-23 23:00 | NUR ---
REASSESSMENT COMPLETE, SEE FLOWSHEET. PT REQUESTING FOR HER HAIR TO BE WASHED, WILL WASH WITH SHOWER CAP. VSS, NO SIGNS OF ACUTE DISTRESS NOTED. CALL LIGHT IN REACH, WILL MONITOR.
[2019-08-24] VITALS (35 sets, daily range): BP systolic 86–147; BP diastolic 50–77
--- NOTE | 2019-08-24 | NUR ---
CHG BATH AND PARTIAL LINEN CHANGE COMPLETE. WASHED PT'S HAIR WITH NO RINSE SHOWER CAP. DENIES ANY OTHER NEEDS AT THIS TIME, WILL MONITOR.
--- NOTE | 2019-08-24 01:00 | NUR ---
PT REFUSING TO WEAR BIPAP. VSS, NO SIGNS OF ACUTE DISTRESS NOTED.
--- NOTE | 2019-08-24 03:00 | NUR ---
REASSESSMENT COMPLETE, SEE FLOWSHEET. PT REQUESTING ANOTHER SPRITE, I TOLD HER I WOULD BRING HER ONE WITH AM MEDS. VSS, CALL LIGHT IN REACH.
--- NOTE | 2019-08-24 03:01 | NUR ---
PT HAS REFUSED TO WEAR BIPAP TONIGHT. I REVIEWED HER ABGS FROM YESTERDAY AND ENCOURAGED HER TO WEAR IT. SHE STATES SHE UNDERSTANDS BUT DOES NOT WANT IT ON HER FACE AND AGAIN REFUSES TO PUT ON.
--- NOTE | 2019-08-24 05:00 | NUR ---
PT SLEEPING. VSS, NO SIGNS OF ACUTE DISTRESS NOTED. CALL LIGHT IN REACH, WILL CONTINUE TO MONITOR.
[2019-08-24 05:41] LABS: BASOPHILS 0.2 % (0-2); EOSINOPHILS 5.8 % (0-7); HEMOGLOBIN 10.5 g/dL (12-16); IMMATURE GRANULOCYTES 0.2 % (0-5); MCH 28.8 pg (26.0-34.0); MCHC 30.9 g/dL (31.0-37.0); MCV 93.2 fL (80.0-100.0); MEAN PLATELET VOLUME 9.8 fL (7.4-10.4); MONOCYTES 12.3 % (2-11); NEUTROPHILS 72.5 % (40-80); PLATELET COUNT 264 10x3/uL (130-400); RBC 3.65 10x6/uL (4.00-5.40); RDW 16.9 % (11.5-14.5); WBC 12.5 10x3/uL (4.8-10.8)
[2019-08-24 05:46] LABS: ANION GAP 19.8 mmol/L (8-16); CALCIUM 8.7 mg/dL (8.5-10.1); PHOSPHOROUS 5.4 mg/dL (2.5-4.9); POTASSIUM - SERUM 3.8 mmol/L (3.5-5.1); VANCOMYCIN - RANDOM 20.5 ug/mL (10.0-20.0)
--- NOTE | 2019-08-24 07:00 | NUR ---
REPORT RECEIVED. ASESSMENT COMPLETE PER FLOW SHEET. VSS. PT RESTING COMFORTABLY DR GORDON AT BEDSIDE NEW ORDERS RECEIVED. WILL CONTINUE TO MONITOR
--- NOTE | 2019-08-24 07:50 | NUR ---
PARTIAL LINEN CHANGE LARGE BM NOTED
--- NOTE | 2019-08-24 08:40 | NUR ---
SON AT BEDSIDE ALL QUESTIONS ANSWERED. PT DENIES NEEDS.
--- NOTE | 2019-08-24 09:45 | NUR ---
DR AHUJA AT BEDSIDE NEW ORDERS RECIEVED. PT ASSISTED OOB TO CHAIR WITHOUT DIFFICULTY. VSS WILL CONTINUE TO MONITOR
--- NOTE | 2019-08-24 11:15 | NUR ---
DIALYSIS AT BEDSIDE PT BACK TO BED WITHOUT DIFFICULTY. REASSESSMENT COMPLETE PER FLOW SHEET. VSS. NO NEW CHANGES WILLCONTINUE TO MONITOR
--- NOTE | 2019-08-24 13:10 | NUR ---
PT ASSSITED ONTO BEDPAN LARGE BM NOTED. DENIES NEEDS
--- NOTE | 2019-08-24 15:00 | NUR ---
REASSESSMENT CMOPLETE PER FLOW SHEET. VSS. NO NEW CHANGES PT RESTING COMFORTABLY WILL CONTINUE TO MONITOR
--- NOTE | 2019-08-24 15:37 | NUR ---
DIALYSIS BACK AT BEDSIDE
[2019-08-24 17:08] LABS: HEPATITIS C ANTIBODY <0.1 S/CO RAT (0.0-0.9)
--- NOTE | 2019-08-24 19:00 | NUR ---
SHIFT ASSESSMENT COMPLETE. DIALYSIS NURSE AT BEDSIDE ACCESSING R SUBCLAVIAN HEMESPLIT. PT IS A&O X4 WITH NO COMPLAINTS OF PAIN OR DISCOMFORT, PERRLA, 3 MM, BRISK REACTION TO LIGHT. RR SHALLOW, NC ON @ 4L/MIN. CLEAR LUNG SOUNDS HEARD BILAT THROUGHOUT ALL LOBES. S1S2 AUDIBLE, HR 96 NSR SHOWING ON MONITOR. PT IS TOLERATING DIALYSIS WELL, BP 147/58. L ARM RESERVE SIGNS POSTED ON DOOR AND AT HOB. L FA FISTULA NOTED, LARGE HEMATOMA NOTED, PT STATES THAT IT IS FROM 5 DAYS AGO WHEN THE DIALYSIS NURSE ACCESSED HER FISTULA. B/L UPPER EXT HAVE BRUISES NOTED. CHEST HAS LARGE MIDSTERNAL SCAR. R WRIST PIV INFUSING ABX. R UPPER ARM PIV S/L. RADIAL AND PEDAL PULSES PALP. SHE DENIES ANY NEEDS AT THIS TIME. WILL CONT TO MONITOR CLOSELY.
--- NOTE | 2019-08-24 19:05 | NUR ---
D/C R WRIST PIV D/T INFILTATION, TIP INTACT. DRESSING PLACED ON INSERTION SITE.
--- NOTE | 2019-08-24 19:30 | NUR ---
DIALYSIS NURSE STATED THAT SHE WAS ABLE TO REMOVE 1.5L, PT TOLERATED WELL. DIALYSIS PACKING UP NOW.
--- NOTE | 2019-08-24 20:00 | NUR ---
SANDWICH TRAY PROVIDED FOR DINNER.
--- NOTE | 2019-08-24 21:00 | NUR ---
PO MEDS TAKEN WITHOUT DIFFICULTY. PT DENIES ANY NEEDS AT THIS TIME. REPOSITIONED FOR COMFORT. SHE IS SITTING UP IN BED WATCHING TV AND SHE IS IN GOOD SPIRITS. WILL CONT WITH POC.
--- NOTE | 2019-08-24 23:00 | NUR ---
REASSESSMENT COMPLETE. PARTIAL LINEN CHANGE PROVIDED. LARGE SOFT STOOL NOTED. REPOSITIONED FOR COMFORT. NSR SHOWING ON MONITOR, RATE OF 89 BPM. RR SHALLOW, O2 SAT 93-96%. TITRATED O2 DOWN TO 3L/MIN. NO FURTHER CHANGES AT THIS TIME. VSS. WILL CONT CLOSE MONITORING IN ICU.
[2019-08-25] VITALS (15 sets, daily range): BP systolic 90–122; BP diastolic 49–80
--- NOTE | 2019-08-25 | NUR ---
D/C R UPPER ARM PIV THAT WAS S/L. RED AREA AROUND CATH SITE AND PT STATED THAT IT HAS BEEN PAINFUL ON AND OFF TODAY. TIP WAS INTACT, PRESSURE APPLIED TO SITE, NO BLEEDING SEEN. WILL CONT TO MONITOR.
--- NOTE | 2019-08-25 00:08 | NUR ---
PT STATES THAT SHE IS HAVING ABD CRAMPING RAITING AN 06/19. PT REQUESTS PAIN MEDICATION. PRN ULTRAM ADMIN PER REQUEST. NO FURTHER NEEDS AT THIS TIME. VSS. WILL CONT WITH POC.
--- NOTE | 2019-08-25 01:00 | NUR ---
PT RESTING WITH NO SIGNS OF ACUTE DISTRESS NOTED. VSS. WILL CONT CLOSE MONITORING.
--- NOTE | 2019-08-25 03:00 | NUR ---
REASSESSMENT COMPLETE. NO CHANGES IN PT CONDITION. VSS. ENCOURAGED REPOSITIONING. CALL LIGHT IN REACH, BED IN LOWEST POSIITON. SEE FLOWSHEET FOR FURTHER DETAILS. WILL CONT CLOSE MONITORING IN ICU.
[2019-08-25 04:26] LABS: BASOPHILS 0.3 % (0-2); HEMATOCRIT 34.3 % (36.0-48.0); HEMOGLOBIN 10.7 g/dL (12-16); IMMATURE GRANULOCYTES 0.4 % (0-5); LYMPHOCYTES 9.8 % (15-50); MCHC 31.2 g/dL (31.0-37.0); MEAN PLATELET VOLUME 9.3 fL (7.4-10.4); MONOCYTES 12.4 % (2-11); NEUTROPHILS 70.1 % (40-80); PLATELET COUNT 255 10x3/uL (130-400); RBC 3.69 10x6/uL (4.00-5.40); RDW 16.5 % (11.5-14.5); WBC 11.3 10x3/uL (4.8-10.8)
[2019-08-25 04:52] LABS: ANION GAP 11.9 mmol/L (8-16); CALCIUM 8.6 mg/dL (8.5-10.1); PHOSPHOROUS 4.3 mg/dL (2.5-4.9); POTASSIUM - SERUM 3.4 mmol/L (3.5-5.1); VANCOMYCIN - RANDOM 16.1 ug/mL (10.0-20.0)
[2019-08-25 04:57] LABS: CARBON DIOXIDE 30.5 mmol/L (21.0-32.0); CREATININE - SERUM 4.5 mg/dL (0.6-1.3)
--- NOTE | 2019-08-25 05:00 | NUR ---
CHG AND COMPLETE LINEN CHANGE PROVIDED. LOTION APPLIED TO LOWER EXT AND FEET. SOCKS APPLIED. REPOSITIONED FOR COMFORT. PT IS ABLE TO ASSIST WITH BATH AND TURNING. NO FURTHER NEEDS. WILL CONT WITH POC.
--- NOTE | 2019-08-25 07:00 | NUR ---
REPORT RECIEVED. VSS. PT RESTING COMFORTABLY DENIES NEEDS WILLCONTINUE TO MONITOR
--- NOTE | 2019-08-25 07:00 | NUR ---
22G PIV STARTED TO R FA X1 ATTEMPT, DATED AND LABELED. PT TOLERATED WELL.
--- NOTE | 2019-08-25 09:10 | NUR ---
PT ASSISTED ONTO BEDPAN. LARGE FORMED BM NOTED
--- NOTE | 2019-08-25 09:55 | NUR ---
Nutrition follow-up: Diet: Renal ADA PO Intake ~25-50% of meals; pt ate 100% of dinner last evening Labs reviewed Wt: 163# +BM RDN following.
--- NOTE | 2019-08-25 11:15 | NUR ---
REASSESSMENT COMPLETE PER FLOW SHEET. VSS. NO NEW CHANGES WILL CONTINUE TO MONITOR
--- NOTE | 2019-08-25 12:26 | NUR ---
PT GIVEN LUNCH TRAY AT THIS TIME. VSS. NO NEW CHANGE DENIES NEEDS WILL CONTINUE TO MONITOR
--- NOTE | 2019-08-25 12:40 | NUR ---
PT SON REFUSED TO GIVE CONSENTS FOR HEMOSPLIT REMOVAL AT BEDSIDE AT THIS TIME R/T PT HISTORY IN PAST. DR SUN OFFICE PAGED AND GIVEN UPDATE PT SON STATED WANTED PROCEDURE TO BE DONE IN OR PREFERABLY OR TO STAY IN ICU FOR PROCEDURE. STATED COULD NOT BE DONE IN OR, DR MARCUM TO CALL BACK AT A LATER TIME. PT TO TRANSFER OUT OF UNIT AT THIS TIME. AWAITING CALL BACK. WILL CONTINUE TO MONITOR
--- NOTE | 2019-08-25 18:11 | NUR ---
RECIVED FROM ICU PER BED. WITHOUT C/O NOTED AT THIS TIME.
--- NOTE | 2019-08-25 19:15 | NUR ---
EVENING ROUNDS COMPLETE. PT LAYING IN BED. NO SIGNS OF DISTERSS. PT DENIES ANY PAIN OR NEEDS AT THIS TIME. CL IN REACH, BED IN LOWEST POSITION.
[2019-08-26] VITALS: BP 96/59
[2019-08-26 04:00] VITALS: BP 118/75
[2019-08-26 05:34] LABS: BASOPHILS 0.2 % (0-2); EOSINOPHILS 6.3 % (0-7); HEMATOCRIT 34.4 % (36.0-48.0); HEMOGLOBIN 10.6 g/dL (12-16); IMMATURE GRANULOCYTES 0.5 % (0-5); LYMPHOCYTES 11.2 % (15-50); MCH 28.6 pg (26.0-34.0); MCHC 30.8 g/dL (31.0-37.0); MCV 92.7 fL (80.0-100.0); MEAN PLATELET VOLUME 9.3 fL (7.4-10.4); MONOCYTES 11.3 % (2-11); NEUTROPHILS 70.5 % (40-80); PLATELET COUNT 263 10x3/uL (130-400); RBC 3.71 10x6/uL (4.00-5.40); RDW 16.6 % (11.5-14.5)
[2019-08-26 06:21] LABS: ANION GAP 17.1 mmol/L (8-16); CALCIUM 8.5 mg/dL (8.5-10.1); CARBON DIOXIDE 23.6 mmol/L (21.0-32.0); PHOSPHOROUS 5.2 mg/dL (2.5-4.9); POTASSIUM - SERUM 3.7 mmol/L (3.5-5.1); VANCOMYCIN - RANDOM 15.9 ug/mL (10.0-20.0)
[2019-08-26 06:26] LABS: CREATININE - SERUM 5.9 mg/dL (0.6-1.3)
--- NOTE | 2019-08-26 07:22 | NUR ---
REPORT RECEIVED. WILL CONTINUE WITH POC. PT CURRENTLY LYING SUPINE. CALL LIGHT W/I REACH. RR EVEN AND UNLABORED ON RA. R.FOR PIV IS SALINE LOCKED. NO S/S OF DISTRESS NOTED. PT RESTING WITH EYES CLOSED AT THIS TIME AND PT IS TALKING IN HER SLEEP. PT DENIES ANY NEEDS. WILL CTM.
--- NOTE | 2019-08-26 10:07 | MORECARE ---
CASE MANAGEMENT DISCHARGE SUMMARY PATIENT: STELLA TOPETE UNIT: [id number] ADM DATE: 08/21/19 AGE: 63 : 53 SEX: F ROOM/BED: D.9887 AUTHOR: PARAG,DOC PHYSICIAN: REFERRING PHYSICIAN: NICOLAS MOHR MD DATE OF SERVICE: 08/26/19 Discharge Plan Patient Name: STELLA TOPETE Facility: [facility]:[place] : 1955 Planned Disposition: Nursing Facility [facility] Cert Anticipated Discharge Date: Discharge Date: Expected LOS: Initial Reviewer: [email or web address] Initial Review Date: 08/23/2019 Generated: 08/26/19 11:07 am DCP- Discharge Planning Updated by [email or web address]: Mary Gerard on 08/23/19 2:[address] Patient Name: STELLA TOPETE Admission Status: ER Accout number: [id number] Admission Date: 08-21-2019 : 1955 Admission Diagnosis: Attending: NICOLAS MOHR Current LOS: 2 Anticipated DC Date: Planned Disposition: Nursing Facility [facility] Cert Primary Insurance: MEDICARE A & B Discharge Planning Comments: CM met with patient to complete initial dc planning assessment. CM educated patient on the CM role and verbal consent given by patient to complete assessment. Patient lives at [place] [phone] where she is a fdc resident (Medicaid bed) At discharge patient plans to return home and feels this is a safe discharge. CM discussed availability of home health, rehab services, and medical equipment. [facility] will transport patient back to facility upon discharge. Patient has dialysis MWF @ [facility]. [phone] Patient denied known discharge needs at this time. CM will continue to follow and will assist as needed with dc plans/needs. Irrigation Laborer: Mary Gerard DCPIA - Discharge Planning Initial Assessment Updated by [email or web address]: Mary Gerard on 08/23/19 3:04 pm * Is the patient Alert and Oriented? Yes * Preadmission Environment [facility] * Facility Name [facility] * ADLs Partial Dependent * Partial ADLs (Assistance needed) Ambulation Bathing Dressing Eating Medication Management Toileting Transfers * List name and contact numbers for known caregivers / representatives who currently or will assist patient after discharge: CATHY ABRAHAM JAKY - [phone] * Verbal permission to speak to the caregivers and representatives has been obtained from the patient. Yes * Community resources currently utilized None * Please name any agencies selected above. HD M[facility] - [facility] * Additional services required to return to the preadmission environment? No * Can the patient safely return to the preadmission environment? Yes * Has this patient been hospitalized within the prior 30 days at any hospital? No External Providers External Provider: [facility] Next Contact Date: 08/27/2019 Service Request Date: Service Type: Resolution: Reviewer: Comments: Last DP export: 08/23/19 2:14 Patient Name: STELLA TOPETE Page 45930 at 1007 All edits/amendments must be made on the electronic document DICTATION DATE: 08/26/19 1007 CLASSROOM MONITOR: JAIR 08/26/19 1007 RPT#: [id number] DC DATE: STATUS: ADM IN [facility] [address] [place] [address] END OF REPORT
[2019-08-26 10:44] VITALS: BP 137/81
--- NOTE | 2019-08-26 13:34 | NUR ---
BP OF 151/116 AND PT VOMITING. ADMININSTERED ZOFRAN. NOTIFIED .
[2019-08-26 13:42] VITALS: BP 156/116
--- NOTE | 2019-08-26 17:33 | NUR ---
I have reviewed this patient and I concur with the Shift Assessment completed by the Licensed Practical Nurse today this shift.
[2019-08-26 18:20] VITALS: BP 130/76
--- NOTE | 2019-08-26 19:15 | NUR ---
REPORT RECEIVED, WILL CONTINUE POC. PATIENT IS A/O WITH SOME CONFUSION, LYING IN BED. NO S/S OF DISTRESS OBSERVED, RR EVEN AND UNLABORED ON 3L O2 VIA NC. PATIENT DENIES NEEDS AT THIS TIME. CL IN REACH, BED LOCKED AND LOWERED. WILL CTM.
[2019-08-26 20:00] VITALS: BP 126/76
--- NOTE | 2019-08-26 20:16 | NUR ---
PATIENT AT DIALYSIS.
--- NOTE | 2019-08-27 00:43 | NUR ---
BACK FROM DIALYSIS. PATIENT C/O PAIN, PRN TRAMADOL ADMINISTERED. WILL CTM.
[2019-08-27 04:00] VITALS: BP 107/58
[2019-08-27 06:12] LABS: BASOPHILS 0.4 % (0-2); EOSINOPHILS 4.6 % (0-7); HEMATOCRIT 37.5 % (36.0-48.0); HEMOGLOBIN 11.6 g/dL (12-16); IMMATURE GRANULOCYTES 0.4 % (0-5); LYMPHOCYTES 9.1 % (15-50); MCHC 30.9 g/dL (31.0-37.0); MCV 93.8 fL (80.0-100.0); MONOCYTES 10.3 % (2-11); NEUTROPHILS 75.2 % (40-80); PLATELET COUNT 293 10x3/uL (130-400); RDW 16.6 % (11.5-14.5); WBC 11.7 10x3/uL (4.8-10.8)
[2019-08-27 06:38] LABS: ANION GAP 16.5 mmol/L (8-16); CALCIUM 8.9 mg/dL (8.5-10.1); CARBON DIOXIDE 24.5 mmol/L (21.0-32.0); CREATININE - SERUM 4.9 mg/dL (0.6-1.3); PHOSPHOROUS 6.3 mg/dL (2.5-4.9); VANCOMYCIN - RANDOM 13.8 ug/mL (10.0-20.0)
--- NOTE | 2019-08-27 07:00 | NUR ---
REPORT RECEVIED. SHE IS AWAKE AND ALERT. LEFT FISTULA, O2 ON AT 3 L/M PER N/C. RIGHT CHEST DRESSING INTACT. SHE WANTS TO HAVE WATER AT BEDSIDE AND I EXPLAINED HER FLUID RESTRICTION OF 1000ML PER 24 HOURS, SHE STATES I WANT TO GO HOME BUT NOT UNTIL I GET TO EAT FISH FOR LUNCH. I EXPLAINED IT DEPENDED ON WHEN HER RIDE CAME AND SHE SAID OK. BED IN LOWEST POSITION AND LOCKED CAREPLAN REVIEW DONE WITH SAFETY PRECAUTIONS IN PLACE.
--- NOTE | 2019-08-27 08:13 | DS ---
PATIENT:STELLA HATHAWAY :51 MEDICAL RECORD: [id number] DISCHARGE SUMMARY ADMISSION DATE: 08/21/19 DISCHARGE DATE: HISTORY OF PRESENT ILLNESS: Ms. Hathaway is a 63-year-old white female, on chronic dialysis with chronic detention confinement, brought to the Emergency Room with development of shortness of breath. She has known fluid indiscretion at the detention with large volumes of cola, and she was admitted for volume overload and pulmonary edema and congestive heart failure. HOSPITAL COURSE: The patient underwent emergent dialysis, but had persistent hypotension and required vasopressor therapy. Begun on broad-spectrum antibiotics and underwent recurrent dialysis and broad-spectrum antibiotics. All cultures eventually became negative. Her pressure gradually improved, and she was able to be moved to the floor. We did remove her dialysis catheter since her fistula now was functional, and she was back to baseline at the time of discharge. She will now have long-term dialysis via her fistula. All cultures at the time of discharge were negative. DISCHARGE DIAGNOSES: 1. Volume overload, treated with dialysis. 2. End-stage renal disease. 3. Chronic anemia. 4. Hypotension resolved. She will continue midodrine therapy. 5. Chronic anemia. 6. Dietary noncompliance. PLAN: The patient will be discharged today. She dialyzed last night, so next dialysis is Friday. She will continue her renal diet and out of bed at the detention. We will continue to use her AV fistula. Her discharge meds will be Ultram p.r.n., Nephro-Melanie 1 daily, midodrine 10 every 6 hours, Renvela 800 mg t.i.d., Protonix 40 mg daily, Florinef 0.1 b.i.d. TRANSINT:[id number] Voice Confirmation ID: [id number] DOCUMENT ID: [id number] ALBARO HENSON MD at 0813 CC: [id number] DICTATION DATE: 08/27/19700 LEAD DIE MOLDER: 08/27/19718 ADM IN [place] [address] [place] [address]
[2019-08-27 08:58] VITALS: BP 124/72
--- NOTE | 2019-08-27 09:20 | MORECARE ---
CASE MANAGEMENT DISCHARGE SUMMARY PATIENT: STELLA TOPETE UNIT: [id number] ADM DATE: 08/21/19 AGE: 63 : 51 SEX: F ROOM/BED: D.0794 AUTHOR: ANTONETTE TUTTLE PHYSICIAN: REFERRING PHYSICIAN: NICOLAS MOHR MD DATE OF SERVICE: 08/27/19 Discharge Plan Patient Name: STELLA TOPETE Facility: [facility]:[place] : 1955 Planned Disposition: Nursing Facility [facility] Cert Anticipated Discharge Date: 08/27/19 Discharge Date: Expected LOS: 6 Initial Reviewer: [email or web address] Initial Review Date: 08/23/2019 Generated: 08/27/19 10:20 am DCP- Discharge Planning Updated by [email or web address]: Mary Gerard on 08/23/19 2:[address] Patient Name: STELLA TOPETE Admission Status: ER Accout number: [id number] Admission Date: 08-21-2019 : 1955 Admission Diagnosis: Attending: NICOLAS MOHR Current LOS: 2 Anticipated DC Date: Planned Disposition: Nursing Facility [facility] Cert Primary Insurance: MEDICARE A & B Discharge Planning Comments: CM met with patient to complete initial dc planning assessment. CM educated patient on the CM role and verbal consent given by patient to complete assessment. Patient lives at [place] [phone] where she is a fdc resident (Medicaid bed) At discharge patient plans to return home and feels this is a safe discharge. CM discussed availability of home health, rehab services, and medical equipment. [facility] will transport patient back to facility upon discharge. Patient has dialysis MWF @ [facility]. [phone] Patient denied known discharge needs at this time. CM will continue to follow and will assist as needed with dc plans/needs. Starch Mangle Tender: Mary Gerard DCPIA - Discharge Planning Initial Assessment Updated by [email or web address]: Mary Gerard on 08/23/19 3:04 pm * Is the patient Alert and Oriented? Yes * Preadmission Environment Half-Way [facility] * Facility Name [facility] * ADLs Partial Dependent * Partial ADLs (Assistance needed) Ambulation Bathing Dressing Eating Medication Management Toileting Transfers * List name and contact numbers for known caregivers / representatives who currently or will assist patient after discharge: CATHY STARKEY - [phone] * Verbal permission to speak to the caregivers and representatives has been obtained from the patient. Yes * Community resources currently utilized None * Please name any agencies selected above. HD MWF - [facility] * Additional services required to return to the preadmission environment? No * Can the patient safely return to the preadmission environment? Yes * Has this patient been hospitalized within the prior 30 days at any hospital? No Last DP export: 08/26/19 9:07 Patient Name: STELLA TOPETE Page 08204 at 0920 All edits/amendments must be made on the electronic document DICTATION DATE: 08/27/19919 ETCHER APPRENTICE PHOTOENGRAVING: JAIR 08/27/19919 RPT#: [id number] DC DATE: STATUS: ADM IN [facility] [address] [place] [address] END OF REPORT
--- NOTE | 2019-08-27 09:27 | MORECARE ---
CASE MANAGEMENT DISCHARGE SUMMARY PATIENT: STELLA TOPETE UNIT: [id number] ADM DATE: 08/21/19 AGE: 63 : 53 SEX: F ROOM/BED: D.1662 AUTHOR: ANTONETTE TUTTLE PHYSICIAN: REFERRING PHYSICIAN: NICOLAS MOHR MD DATE OF SERVICE: 08/27/19 Discharge Plan Patient Name: STELLA TOPETE Facility: [facility]:[place] : 1955 Planned Disposition: Nursing Facility [facility] Cert Anticipated Discharge Date: 08/27/19 Discharge Date: Expected LOS: 6 Initial Reviewer: [email or web address] Initial Review Date: 08/23/2019 Generated: 08/27/19 10:27 am DCP- Discharge Planning Updated by [email or web address]: Mary Gerard on 08/23/19 2:[address] Patient Name: STELLA TOPETE Admission Status: ER Accout number: [id number] Admission Date: 08-21-2019 : 1955 Admission Diagnosis: Attending: NICOLAS MOHR Current LOS: 2 Anticipated DC Date: Planned Disposition: Nursing Facility [facility] Cert Primary Insurance: MEDICARE A & B Discharge Planning Comments: CM met with patient to complete initial dc planning assessment. CM educated patient on the CM role and verbal consent given by patient to complete assessment. Patient lives at [place] [phone] where she is a [facility] resident (Medicaid bed) At discharge patient plans to return home and feels this is a safe discharge. CM discussed availability of home health, rehab services, and medical equipment. [facility] will transport patient back to facility upon discharge. Patient has dialysis MWF @ [facility]. [phone] Patient denied known discharge needs at this time. CM will continue to follow and will assist as needed with dc plans/needs. Director Of Advertising Sales: Mary Gerard DCPIA - Discharge Planning Initial Assessment Updated by [email or web address]: Mary Gerard on 08/23/19 3:04 pm * Is the patient Alert and Oriented? Yes * Preadmission Environment [facility] * Facility Name [facility] * ADLs Partial Dependent * Partial ADLs (Assistance needed) Ambulation Bathing Dressing Eating Medication Management Toileting Transfers * List name and contact numbers for known caregivers / representatives who currently or will assist patient after discharge: CATHY STARKEY - [phone] * Verbal permission to speak to the caregivers and representatives has been obtained from the patient. Yes * Community resources currently utilized None * Please name any agencies selected above. HD M[facility] - [facility] * Additional services required to return to the preadmission environment? No * Can the patient safely return to the preadmission environment? Yes * Has this patient been hospitalized within the prior 30 days at any hospital? No Last DP export: 08/27/19 8:20 Patient Name: STELLA TOPETE Page 06561 at 0927 All edits/amendments must be made on the electronic document DICTATION DATE: 08/27/19926 CONFECTIONERY MAKER: JAIR 08/27/19926 RPT#: [id number] DC DATE: STATUS: ADM IN [facility] [address] [place] [address] END OF REPORT
--- NOTE | 2019-08-27 11:47 | MORECARE ---
CASE MANAGEMENT DISCHARGE SUMMARY PATIENT: STELLA TOPETE UNIT: [id number] ADM DATE: 08/21/19 AGE: 63 : 51 SEX: F ROOM/BED: D.8704 AUTHOR: ANTONETTE TUTTLE PHYSICIAN: REFERRING PHYSICIAN: NICOLAS MOHR MD DATE OF SERVICE: 08/27/19 Discharge Plan Patient Name: STELLA TOPETE Facility: [facility]:[place] : 1955 Planned Disposition: Nursing Facility [facility] Cert Anticipated Discharge Date: 08/27/19 Discharge Date: Expected LOS: 6 Initial Reviewer: [email or web address] Initial Review Date: 08/23/2019 Generated: 08/27/19 12:46 pm DCP- Discharge Planning Updated by [email or web address]: Mary Gerard on 08/23/19 2:[address] Patient Name: STELLA TOPETE Admission Status: ER Accout number: [id number] Admission Date: 08-21-2019 : 1955 Admission Diagnosis: Attending: NICOLAS MOHR Current LOS: 2 Anticipated DC Date: Planned Disposition: Nursing Facility [facility] Cert Primary Insurance: MEDICARE A & B Discharge Planning Comments: CM met with patient to complete initial dc planning assessment. CM educated patient on the CM role and verbal consent given by patient to complete assessment. Patient lives at [place] [phone] where she is a [facility] (Medicaid bed) At discharge patient plans to return home and feels this is a safe discharge. CM discussed availability of home health, rehab services, and medical equipment. [facility] will transport patient back to facility upon discharge. Patient has dialysis MWF @ [facility]. [phone] Patient denied known discharge needs at this time. CM will continue to follow and will assist as needed with dc plans/needs. Tank Crewmember: Mary Gerard DCPIA - Discharge Planning Initial Assessment Updated by [email or web address]: Mary Gerard on 08/23/19 3:04 pm * Is the patient Alert and Oriented? Yes * Preadmission Environment [facility] * Facility Name [facility] * ADLs Partial Dependent * Partial ADLs (Assistance needed) Ambulation Bathing Dressing Eating Medication Management Toileting Transfers * List name and contact numbers for known caregivers / representatives who currently or will assist patient after discharge: CATHY STARKEY - [phone] * Verbal permission to speak to the caregivers and representatives has been obtained from the patient. Yes * Community resources currently utilized None * Please name any agencies selected above. [facility] - [facility] * Additional services required to return to the preadmission environment? No * Can the patient safely return to the preadmission environment? Yes * Has this patient been hospitalized within the prior 30 days at any hospital? No Coverage Notice Reviewer: GISSELLE Lewis Notice Issued Date-Time: 08/27/2019 8:15 Notice Type: IM Discharge Notice Notice Delivered To: Patient Relationship to Patient: Greeting Card Editor Name: Delivery Method: HAND - Hand Delivered Nelda Days: Prior Verbal Notification: Recipient Understood Notice: Yes Recipient Signature: Yes Med Rec Note Co-signed by Attending: Coverage Notice Comment: Reviewer: GISSELLE Lewis Notice Issued Date-Time: 08/27/2019 8:15 Notice Type: Patient Choice Letter Notice Delivered To: Patient Relationship to Patient: Greeting Card Editor Name: Delivery Method: HAND - Hand Delivered Nelda Days: Prior Verbal Notification: Recipient Understood Notice: Yes Recipient Signature: Yes Med Rec Note Co-signed by Attending: Coverage Notice Comment: tera Albarran DP export: 08/27/19 8:27 Patient Name: STELLA TOPETE Page 50222 at 1147 All edits/amendments must be made on the electronic document DICTATION DATE: 08/27/19 1146 MILITARY NURSE: JAIR 08/27/19 1146 RPT#: [id number] DC DATE: STATUS: ADM IN [facility] [address] [place] [address] END OF REPORT
--- NOTE | 2019-08-27 12:00 | MORECARE ---
CASE MANAGEMENT DISCHARGE SUMMARY PATIENT: STELLA TOPETE UNIT: [id number] ADM DATE: 08/21/19 AGE: 63 : 51 SEX: F ROOM/BED: D.0711 AUTHOR: PARAGDOC PHYSICIAN: REFERRING PHYSICIAN: NICOLAS MOHR MD DATE OF SERVICE: 08/27/19 Discharge Plan Patient Name: STELLA TOPETE Facility: [facility]:Elsa : 1955 Planned Disposition: Nursing Facility [facility] Cert Anticipated Discharge Date: 08/27/19 Discharge Date: Expected LOS: 6 Initial Reviewer: [id number] Initial Review Date: 08/23/2019 Generated: 08/27/19 12:59 pm Comments DCP- Discharge Planning Updated by [id number]: Billy Lewis on 08/27/19 10:[address] Patient Name: STELLA TOPETE Encounter No: [id number] : 1955 Primary Insurance: MEDICARE A & B Anticipated DC Date: 08-27-2019 Planned Disposition: Nursing Facility SK[facility] Cert External Planned Provider: [facility], [facility] TERM C[facility] MEDICAID BED DCP follow-up note: CM RECEIVED DISCHARGE PLANNING ORDER, MET WITH PT IN ROOM TO DISCUSS DISCHARGE PLANNING AND NEEDS. PT REPORTS SHE WILL RETURN HOME TO [facility] TODAY AND CAN RIDE IN VAN. PT DOES NOT WANT TO LEAVE UNTIL AFTER LUNCH THE HOSPITAL HAS FRIED FISH ON [place]IDA[place] AND PT WANTS FRIED FISH. CONSENT SIGNED FOR [facility], IMPORTANT MESSAGE FROM MEDICARE PROVIDED AND EXPLAINED. PT ASKED THAT CM CALL HER SON. CM CALLED PT'S SON, CATHY ABRAHAM, , WHO WAS ALREADY AWARE OF DISCHARGE TODAY BACK TO [facility] AND AGREES WITH DISCHARGE TODAY. CM FAXED DISCHARGE INFORMATION TO [facility] AT [phone]. CM CALLED AND SPOKE TO NURSE BELEN AT [facility], , WHO INFORMED CM THAT PT WILL RETURN TO PATIENT MANAGER CARE BED. CM SPOKE TO LUCILLE WHO WILL ARRANGE VAN FIBERGLASS BOAT BUILDER TODAY AFTER 1PM. BEDSIDE NURSE AND MACHINED PARTS METAL SPRAYER NURSE NOTIFIED. NURSE REPORT TO BE CALLED TO BELEN AT [facility], . [place] TO PROVIDE VAN FIBERGLASS BOAT BUILDER AFTER 1300 HOURS TODAY. Billy Lewis, CASE MANAGEMENT DCP- Discharge Planning Updated by [id number]: Mary Gerard on 08/23/19 2:[address] Patient Name: STELLA TOPETE Admission Status: ER Accout number: [id number] Admission Date: 08-21-2019 : 1955 Admission Diagnosis: Attending: NICOLAS MOHR Current LOS: 2 Anticipated DC Date: Planned Disposition: Nursing Facility [facility] Primary Insurance: MEDICARE A & B Discharge Planning Comments: CM met with patient to complete initial dc planning assessment. CM educated patient on the CM role and verbal consent given by patient to complete assessment. Patient lives at [facility] [phone] where she is a digital marketing consultant resident (Medicaid bed) At discharge patient plans to return home and feels this is a safe discharge. CM discussed availability of home health, rehab services, and medical equipment. [facility] will transport patient back to facility upon discharge. Patient has dialysis MWF @ [facility]. [phone] Patient denied known discharge needs at this time. CM will continue to follow and will assist as needed with dc plans/needs. Uptwister Tender: Mary Gerard DCPIA - Discharge Planning Initial Assessment Updated by [id number]: Mary Gerard on 08/23/19 3:04 pm * Is the patient Alert and Oriented? Yes * Preadmission Environment [facility] * Facility Name [facility] * ADLs Partial Dependent * Partial ADLs (Assistance needed) Ambulation Bathing Dressing Eating Medication Management Toileting Transfers * List name and contact numbers for known caregivers / representatives who currently or will assist patient after discharge: CATHY ABRAHAM [facility] [phone] * Verbal permission to speak to the caregivers and representatives has been obtained from the patient. Yes * Community resources currently utilized None * Please name any agencies selected above. MWF - [facility] * Additional services required to return to the preadmission environment? No * Can the patient safely return to the preadmission environment? Yes * Has this patient been hospitalized within the prior 30 days at any hospital? No Coverage Notice Reviewer: [id number] - Billy Lewis Notice Issued Date-Time: 08/27/2019 8:15 Notice Type: IM Discharge Notice Notice Delivered To: Patient Relationship to Patient: Hook Puller Name: Delivery Method: HAND - Hand Delivered Nelda Days: Prior Verbal Notification: Recipient Understood Notice: Yes Recipient Signature: Yes Med Rec Note Co-signed by Attending: Coverage Notice Comment: Reviewer: [email or web address] Tony Lewis Notice Issued Date-Time: 08/27/2019 8:15 Notice Type: Patient Choice Letter Notice Delivered To: Patient Relationship to Patient: Hook Puller Name: Delivery Method: HAND - Hand Delivered Enlda Days: Prior Verbal Notification: Recipient Understood Notice: Yes Recipient Signature: Yes Med Rec Note Co-signed by Attending: Coverage Notice Comment: tera Albarran DP export: 08/27/19 10:47 Patient Name: STELLA TOPETE Page [id number] at 1200 All edits/amendments must be made on the electronic document DICTATION DATE: 08/27/191158 AUTO DAMAGE APPRAISER: JAIR 08/27/191158 RPT#: [id number] DC DATE: STATUS: ADM IN [facility] [address] [place] [address] END OF REPORT
--- NOTE | 2019-08-27 13:15 | NUR ---
SALINE LOCK D/C WITH CATH TIP INTACT SOME BLEEDING WITH PRESSURE APPLIED AND CONTROLLED. SHE IS IN STABLE CONDITION AT THIS TIME DISCHARGE INSTRUCTIONS EXPLAINED TO HER IN DETAIL. SHE WAS [facility]ERR[facility] TO Health System AND TRANSPORTED TO [facility] ([place], [place]) VIA THERE TRANSPORT VAN.
--- NOTE | 2019-08-27 13:30 | NUR ---
REPORT CALLED TO ANNABELLA GLOVER ALL QUESTIONS ANSWERED.
== END 2019-08-27 13:15 | DRG 871 ==
LOC: D.ER 10:18 → D.M2 12:36 → D.ICU 12:36 → D.M2 08-25 17:23
PROVIDERS: Family Medicine; Internal Medicine Nephrology; ADMIT Internal Medicine Nephrology; ATTEND Internal Medicine Nephrology
PROC: 05PYX3Z Removal of Infusion Device from Upper Vein, External Approach (ICD-10-PCS; principal; 2019-08-25)
DX: A41.9 Sepsis, unspecified organism (principal); J18.9 Pneumonia, unspecified organism; J96.22 Acute and chronic respiratory failure with hypercapnia; N18.6 End stage renal disease; I50.33 Acute on chronic diastolic (congestive) heart failure; J96.21 Acute and chronic respiratory failure with hypoxia; J44.1 Chronic obstructive pulmonary disease with (acute) exacerbation; I13.2 Hypertensive heart and chronic kidney disease with heart failure and with stage 5 chronic kidney disease, or end stage renal disease; Y95 Nosocomial condition; D50.9 Iron deficiency anemia, unspecified; R53.81 Other malaise; Z91.19 Patient's noncompliance with other medical treatment and regimen; I95.89 Other hypotension; K21.9 Gastro-esophageal reflux disease without esophagitis; E03.9 Hypothyroidism, unspecified; Z99.2 Dependence on renal dialysis

== ENCOUNTER → 2019-10-13 14:58 | Outpatient (CLI) | payer MEDICARE ==
[2019-08-23 09:39] VITALS: BMI 31.4
[~2019-10-13 14:58] MED LIST changes: +GENTAMICIN 0.3 %5 ML EACH EYE; +KEPPRA250 MG PO; +MIDODRINE HCL5 MG PO; +PROTONIX20 MG PO; +ZOLOFT50 MG PO; +ZYRTEC10 MG PO
== END | disposition home or self-care (01) ==
LOC: D.LABREF 14:58
PROVIDERS: ATTEND Internal Medicine Nephrology
DX: R41.82 Altered mental status, unspecified (principal)

== ENCOUNTER → 2021-03-22 15:27 | Outpatient (CLI) | payer MEDICARE ==
[2019-08-23 09:39] VITALS: BMI 31.4
[2021-03-22 15:36] LABS: BASOPHILS 0.6 % (0-2); EOSINOPHILS 4.3 % (0-7); HEMATOCRIT 34.5 % (36.0-48.0); HEMOGLOBIN 10.4 g/dL (12-16); IMMATURE GRANULOCYTES 0.3 % (0-5); LYMPHOCYTE ABS# 2.32 10x3/uL (1.18-3.74); LYMPHOCYTES 24.8 % (15-50); MCH 29.5 pg (26.0-34.0); MCHC 30.1 g/dL (31.0-37.0); MCV 97.7 fL (80.0-100.0); MEAN PLATELET VOLUME 9.9 fL (7.4-10.4); MONOCYTES 8.3 % (2-11); NEUTROPHIL ABS# 5.76 10x3/uL (1.56-6.13); NEUTROPHILS 61.7 % (40-80); PLATELET COUNT 335 10x3/uL (130-400); RBC 3.53 10x6/uL (4.00-5.40); RDW 15.8 % (11.5-14.5); WBC 9.4 10x3/uL (4.8-10.8)
[2021-03-22 15:49] LABS: APTT 31.6 SECONDS (22.8-39.4); INR 1.1 (0.85-1.17); PROTIME 13.1 SECONDS (11.6-15.0)
[2021-03-22 16:05] LABS: ALBUMIN 3.1 g/dL (3.4-5.0); BILIRUBIN - TOTAL 0.32 mg/dL (0.2-1.3); CALCIUM 9.1 mg/dL (8.5-10.1); CARBON DIOXIDE 27.5 mmol/L (21.0-32.0); POTASSIUM - SERUM 4.5 mmol/L (3.5-5.1); PROTEIN - SERUM 6.5 g/dL (6.4-8.2)
== END | disposition home or self-care (01) ==
LOC: D.LABREF 15:27
PROVIDERS: ATTEND Family Medicine
DX: Z01.812 Encounter for preprocedural laboratory examination (principal)

== ENCOUNTER 2021-03-29 05:54 | Day surgery (SDC) | payer MEDICARE ==
[~2021-03-29] VITALS: Ht 154.9 cm; Wt 68.2 kg
[2021-03-29 06:37] LABS: BASOPHILS 1.2 % (0-2); EOSINOPHILS 3.4 % (0-7); HEMATOCRIT 34.8 % (36.0-48.0); HEMOGLOBIN 11.2 g/dL (12-16); LYMPHOCYTES 18.8 % (15-50); MCH 29.9 pg (26.0-34.0); MCHC 32.2 g/dL (31.0-37.0); MCV 92.9 fL (80.0-100.0); MEAN PLATELET VOLUME 6.9 fL (7.4-10.4); MONOCYTES 11.5 % (2-11); NEUTROPHILS 65.1 % (40-80); PLATELET COUNT 337 10x3/uL (130-400); RBC 3.75 10x6/uL (4.00-5.40); RDW 16.1 % (11.5-14.5); WBC 8.8 10x3/uL (4.8-10.8)
[2021-03-29 06:45] LABS: ANION GAP 12.1 mmol/L (8-16); CALCIUM 9.2 mg/dL (8.5-10.1); CARBON DIOXIDE 29.9 mmol/L (21.0-32.0); CREATININE - SERUM 4.7 mg/dL (0.6-1.3)
[2021-03-29] MEDS ORDERED: HYDROCODON-ACE1 EAC7 PO (07:23)
[2021-03-29 07:25] LABS: APTT 31.5 SECONDS (22.8-39.4); INR 1.11 (0.85-1.17); PROTIME 13.3 SECONDS (11.6-15.0)
[2021-03-29 07:33] VITALS: Ht 154.9 cm; Wt 68.2 kg
--- NOTE | 2021-03-29 09:47 | NUR ---
0927 VITAL SIGNS ARE BEING RECORDED ON THE POST PROCEDURE FORM THAT IS A PART OF THE PAPER CHART.
--- NOTE | 2021-03-29 10:01 | NUR ---
0855 - PT O2 SATURATION BEGAN TO DROP AFTER 1MG VERSED AND 50MCG FENTANYL TO BEGIN PROCEDURE. NON-REBREATHER WAS APPLIED AND SATURATION RETURNED TO 100%. PT WAS RESPONSIVE AND TALKING THROUGH PROCEDURE. DR INGRAM DECIDED THAT THIS PROCEDURE WOULD HAVE TO BE DONE WITH ANESTHESIA IN THE FUTURE. STOP TIME OF PROCEDURE TODAY @ 0857. PT RETURN TO BASELINE PRIOR TO BEING TAKEN BACK TO OUTPATIENT.
--- NOTE | 2021-03-29 12:12 | NUR ---
1120 IV REMOVED AND PRESSURE HELD. PT ON 2 LITERS NC. PULSE OX 96%. INSTRUCTIONS GIVEN
== END 2021-03-29 12:05 | disposition home or self-care (01) ==
LOC: D.CT 05:54
PROVIDERS: Specialist; ATTEND Internal Medicine Hematology & Oncology
DX: C34.90 Malignant neoplasm of unspecified part of unspecified bronchus or lung (principal); I27.20 Pulmonary hypertension, unspecified; N18.6 End stage renal disease; Z99.2 Dependence on renal dialysis; I50.9 Heart failure, unspecified; K21.9 Gastro-esophageal reflux disease without esophagitis; Z86.73 Personal history of transient ischemic attack (TIA), and cerebral infarction without residual deficits; J96.90 Respiratory failure, unspecified, unspecified whether with hypoxia or hypercapnia; I63.9 Cerebral infarction, unspecified; D63.1 Anemia in chronic kidney disease; R56.9 Unspecified convulsions; I48.91 Unspecified atrial fibrillation; F32.3 Major depressive disorder, single episode, severe with psychotic features; N31.9 Neuromuscular dysfunction of bladder, unspecified; Z51.81 Encounter for therapeutic drug level monitoring; E03.9 Hypothyroidism, unspecified; M54.5 Low back pain; Z53.8 Procedure and treatment not carried out for other reasons

== ENCOUNTER 2021-04-24 08:28 | Day surgery (SDC) | payer MEDICARE ==
--- NOTE | 2021-04-23 12:04 | NUR ---
CONFIRMED WITH VIVIENNE (SOCIAL WORK @ [facility]) PT WILL BE HERE FOR HER LUNG BIOPSY 04/24/21. THINNERS: NURSE WESTBROOK CONFIRMED [facility] STOPPED 04/19/21 TAXI DANCER: [facility] TRANSPORT NPO: NURSE WESTBROOK VERBALIZED UNDERSTANDING ARRIVAL TIME: CONFIRMED WITH VIVIENNE [id number]
[~2021-04-24] VITALS: Ht 154.9 cm; Wt 68.2 kg
[2021-04-24 09:01] LABS: BASOPHILS 0.7 % (0-2); EOSINOPHILS 2.3 % (0-7); HEMATOCRIT 38.3 % (36.0-48.0); HEMOGLOBIN 12.4 g/dL (12-16); LYMPHOCYTES 15.4 % (15-50); MCH 30.1 pg (26.0-34.0); MCHC 32.4 g/dL (31.0-37.0); MCV 92.9 fL (80.0-100.0); MEAN PLATELET VOLUME 6.9 fL (7.4-10.4); NEUTROPHILS 72.6 % (40-80); PLATELET COUNT 329 10x3/uL (130-400); RBC 4.12 10x6/uL (4.00-5.40); RDW 14.5 % (11.5-14.5); WBC 9.8 10x3/uL (4.8-10.8)
[2021-04-24 09:09] LABS: ANION GAP 13.8 mmol/L (8-16); CALCIUM 9.3 mg/dL (8.5-10.1); CARBON DIOXIDE 30.3 mmol/L (21.0-32.0); CREATININE - SERUM 5.1 mg/dL (0.6-1.3); POTASSIUM - SERUM 4.1 mmol/L (3.5-5.1)
[2021-04-24 09:26] LABS: APTT 31.1 SECONDS (22.8-39.4); INR 1.11 (0.85-1.17); PROTIME 13.3 SECONDS (11.6-15.0)
[2021-04-24 10:42] VITALS: BP 113/74; Ht 154.9 cm; Wt 68.2 kg
--- NOTE | 2021-04-24 14:17 | NUR ---
1415 PORT CXR DONE.
--- NOTE | 2021-04-24 14:42 | NUR ---
1440 XRAY OK, RENAL DIET ORDERED, TOLD PT. SHE MAY LAY ANYWAY SHE CHOOSES IN BED, PT. CHOOSES TO STAY ON RIGHT SIDE, HOB ELEVATED TO 30 DEGREES.
== END 2021-04-24 16:05 | disposition home or self-care (01) ==
LOC: D.CT 08:28
PROVIDERS: ATTEND General Practice
DX: C34.90 Malignant neoplasm of unspecified part of unspecified bronchus or lung (principal); R91.8 Other nonspecific abnormal finding of lung field; N18.6 End stage renal disease; D63.1 Anemia in chronic kidney disease; I50.9 Heart failure, unspecified; E03.9 Hypothyroidism, unspecified

== ENCOUNTER → 2021-05-10 18:37 | Outpatient (CLI) | payer MEDICARE ==
[2021-04-24 10:42] VITALS: BMI 28.4
== END | disposition home or self-care (01) ==
LOC: D.LABREF 18:37
PROVIDERS: ATTEND Family Medicine
DX: G40.89 Other seizures (principal)